=== PATIENT | female | born 1975 | race Caucasian/White ===

== ENCOUNTER 2017-12-07 23:20 | Emergency (ER) | payer SELFPAY ==
[2017-12-07] MEDS ORDERED: TYLENOL PO ONE (23:45)
[2017-12-08] MEDS ORDERED: TYLENOL PO ONE (00:27)
[2017-12-08 00:36] LABS: Alanine Aminotransferase 14 units/L (7-56); Albumin 3.7 g/dL (3.9-5); BUN/Creatinine Ratio 38; Blood Urea Nitrogen 23 mg/dL (7-17); Calcium 9.5 mg/dL (8.4-10.2); Hemolysis Index 0
[2017-12-08 00:44] LABS: Hematocrit 33.9 % (30.3-42.9); Hemoglobin 10.8 gm/dl (10.1-14.3); Mean Corpuscular HGB Conc 32 % (30-34); Platelet Count 399 K/mm3 (140-440); Red Blood Count 5.23 M/mm3 (3.65-5.03)
[2017-12-08 00:46] LABS: Mean Corpuscular Hemoglobin 21 pg (28-32); Mean Corpuscular Volume 65 fl (79-97); Red Cell Distribution Width 20.7 % (13.2-15.2)
[2017-12-08 01:02] LABS: Bilirubin,Urine NEG (Negative); Color,Urine Red (Yellow); Urobilinogen,Urine < 2.0 mg/dL (<2.0)
[2017-12-08] MEDS ORDERED: MORPHINE IV ONE (01:07)
[2017-12-08 01:08] VITALS: BP 153/65
[2017-12-08 01:12] LABS: Blood,Urine Large (Negative); Protein,Urine Color Interference mg/dL (Negative); RBC,Urine > 182.0 /HPF (0.0-6.0)
[2017-12-08 01:13] LABS: Hyaline Casts,Urine Rare /LPF; Mucus,Urine Few /HPF
--- NOTE | 2017-12-08 01:39 | Emergency Department Report ---
<CANDIE CHILDRESS - Last Filed: 12/08/17 01:39> ED HPI - General Chief complaint: Abdominal Pain Stated complaint: /BLEEDING Time Seen by Provider: 12/08/17 00:22 Source: patient Mode of arrival: Ambulatory Limitations: No Limitations - History of Present Illness Initial comments: Patient is a 42-year-old female who is presenting with 3 days of vaginal bleeding. Patient states it started spotting but has become much heavier and more painful. Patient states she has 8 out of 10 suprapubic pain. Patient states is crampy in nature. Patient has not had ultrasound this . Patient is partially weeks . Patient states she has had a miscarriage in the past. - Related Data Previous Rx's Medication Instructions Recorded Last Taken Type HYDROcodone/APAP 7.5-325 [[place] 1 each PO Q6HR PRN #20 tablet 05/18/13 Unknown Rx 7.5/325 mg] Albuterol Sulfate [Ventolin HFA] 2 puff IH Q4H PRN #1 hfa.aer.ad 02/13/15 Unknown Rx metFORMIN [Glucophage] 500 mg PO BID #60 tablet 02/13/15 Unknown Rx Nitrofurantoin [place]/M-Cryst 100 mg PO Q12HR #14 capsule 11/25/15 Unknown Rx [Macrobid CAP] Nitrofurantoin Monohyd/M-Cryst 100 mg PO BID #14 capsule 12/08/17 Unknown Rx [Macrobid 100 mg Capsule] Allergies Allergy/AdvReac Type Severity Reaction Status Date / Time No Known Allergies Allergy Verified 05/17/13 23:27 ED Review of Systems ROS: Stated complaint: /BLEEDING Other details as noted in HPI Comment: All other systems reviewed and negative ED Past Medical Hx - Past Medical History Previous Medical History?: Yes Hx Diabetes: Yes Hx Asthma: Yes Additional medical history: ovarian cyst - Surgical History Past Surgical History?: Yes Additional Surgical History: see HPI - Social History Smoking Status: Never Smoker Substance Use Type: None - Medications Home Medications: Home Medications Medication Instructions Recorded Confirmed Last Taken Type HYDROcodone/APAP 7.5-325 [[place] 1 each PO Q6HR PRN #20 tablet 05/18/13 Unknown Rx 7.5/325 mg] Albuterol Sulfate [Ventolin HFA] 2 puff IH Q4H PRN #1 hfa.aer.ad 02/13/15 Unknown Rx metFORMIN [Glucophage] 500 mg PO BID #60 tablet 02/13/15 Unknown Rx Nitrofurantoin [place]/M-Cryst 100 mg PO Q12HR #14 capsule 11/25/15 Unknown Rx [Macrobid CAP] Nitrofurantoin Monohyd/M-Cryst 100 mg PO BID #14 capsule 12/08/17 Unknown Rx [Macrobid 100 mg Capsule] ED Physical Exam - General Limitations: No Limitations General appearance: alert, in distress (secondary to pain) - Head Head exam: Present: atraumatic, normocephalic - Eye Eye exam: Present: normal appearance - ENT ENT exam: Present: mucous membranes moist - Neck Neck exam: Present: normal inspection - Respiratory Respiratory exam: Present: normal lung sounds bilaterally. Absent: respiratory distress, wheezes, rales, rhonchi - Cardiovascular Cardiovascular Exam: Present: regular rate, normal rhythm, normal heart sounds. Absent: systolic murmur, diastolic murmur, rubs, gallop - GI/Abdominal GI/Abdominal exam: Present: soft, tenderness (suprapubic tenderness), normal bowel sounds. Absent: distended, guarding, rebound, rigid - Extremities Exam Extremities exam: Present: normal inspection - Back Exam Back exam: Present: normal inspection - Neurological Exam Neurological exam: Present: alert, oriented X3 - Psychiatric Psychiatric exam: Present: normal affect, normal mood - Skin Skin exam: Present: warm, dry, intact, normal color. Absent: rash ED Course Vital Signs 12/07/17 12/08/17 23:41 01:02 Temperature 97.3 F L Pulse Rate 80 Respiratory 16 Rate Blood Pressure 150/80 153/65 O2 Sat by Pulse 98 Oximetry ED Medical Decision Making - Lab Data Result diagrams: 12/07/17 23:57 12/07/17 23:57 Lab Results 12/07/17 12/07/17 12/07/17 Range/Units 23:57 23:57 23:57 WBC 8.8 (4.5-11.0) K/mm3 RBC 5.23 H (3.65-5.03) M/mm3 Hgb 10.8 (10.1-14.3) gm/dl Hct 33.9 (30.3-42.9) % MCV 65 L (79-97) fl MCH 21 L (28-32) pg MCHC 32 (30-34) % RDW 20.7 H (13.2-15.2) % Plt Count 399 (140-440) K/mm3 Sodium 134 L (137-145) mmol/L Potassium 4.4 (3.6-5.0) mmol/L Chloride 95.8 L (98-107) mmol/L Carbon Dioxide 22 (22-30) mmol/L Anion Gap 21 mmol/L BUN 23 H (7-17) mg/dL Creatinine 0.6 L (0.7-1.2) mg/dL Estimated GFR > 60 ml/min BUN/Creatinine Ratio 38 % Glucose 179 H (65-100) mg/dL Calcium 9.5 (8.4-10.2) mg/dL Total Bilirubin < 0.20 (0.1-1.2) mg/dL AST 10 (5-40) units/L ALT 14 (7-56) units/L Alkaline Phosphatase 118 (35-129) units/L Total Protein 7.1 (6.3-8.2) g/dL Albumin 3.7 L (3.9-5) g/dL Albumin/Globulin Ratio 1.1 % HCG, Quant 4682 H (0-4) mIU/mL Urine Color (Yellow) Urine Turbidity (Clear) Urine pH (5.0-7.0) Ur Specific [place] (1.003-1.030) Urine Protein (Negative) mg/dL Urine Glucose (UA) (Negative) mg/dL Urine Ketones (Negative) mg/dL Urine Blood (Negative) Urine Nitrite (Negative) Urine Bilirubin (Negative) Urine Urobilinogen (<2.0) mg/dL Ur Leukocyte Esterase (Negative) Urine WBC (Auto) (0.0-6.0) /HPF Urine RBC (Auto) (0.0-6.0) /HPF Hyaline Casts /LPF Urine Mucus /HPF Blood Type Antibody Screen 12/07/17 12/08/17 Range/Units 23:57 00:31 WBC (4.5-11.0) K/mm3 RBC (3.65-5.03) M/mm3 Hgb (10.1-14.3) gm/dl Hct (30.3-42.9) % MCV (79-97) fl MCH (28-32) pg MCHC (30-34) % RDW (13.2-15.2) % Plt Count (140-440) K/mm3 Sodium (137-145) mmol/L Potassium (3.6-5.0) mmol/L Chloride (98-107) mmol/L Carbon Dioxide (22-30) mmol/L Anion Gap mmol/L BUN (7-17) mg/dL Creatinine (0.7-1.2) mg/dL Estimated GFR ml/min BUN/Creatinine Ratio % Glucose (65-100) mg/dL Calcium (8.4-10.2) mg/dL Total Bilirubin (0.1-1.2) mg/dL AST (5-40) units/L ALT (7-56) units/L Alkaline Phosphatase (35-129) units/L Total Protein (6.3-8.2) g/dL Albumin (3.9-5) g/dL Albumin/Globulin Ratio % HCG, Quant (0-4) mIU/mL Urine Color Red (Yellow) Urine Turbidity Cloudy (Clear) Urine pH 6.0 (5.0-7.0) Ur Specific [place] 1.015 (1.003-1.030) Urine Protein Color interference (Negative) mg/dL Urine Glucose (UA) Color interference (Negative) mg/dL Urine Ketones Neg (Negative) mg/dL Urine Blood Large A (Negative) Urine Nitrite Neg (Negative) Urine Bilirubin Neg (Negative) Urine Urobilinogen < 2.0 (<2.0) mg/dL Ur Leukocyte Esterase Small (Negative) Urine WBC (Auto) 66.0 H (0.0-6.0) /HPF Urine RBC (Auto) > 182.0 (0.0-6.0) /HPF Hyaline Casts Rare /LPF Urine Mucus Few /HPF Blood Type B POSITIVE Antibody Screen Negative - Radiology Data Radiology results: pending (ultrasound to be followed up by Dr. Smith) Critical care attestation.: If time is entered above; I have spent that time in minutes in the direct care of this critically ill patient, excluding procedure time. ED Disposition Clinical Impression: First trimester bleeding, UTI (urinary tract infection), Incomplete Disposition: TO HOME OR SELFCARE Condition: Stable Instructions: Threatened Miscarriage (ED), Spontaneous Miscarriage (ED), Urinary Tract Infection in Women (ED) Additional Instructions: Based on ultrasound in position of the uterine sac it is likely that you are in a process of having an incomplete . To confirm this you will need a repeat follow-up and testing to trend the Beta HCG/baby hormone level. If this number is decreasing then miscarriage is the likely diagnosis. Your beta HCG hormone today is 4682. Your blood type is B+. You have been provided a copy of the ultrasound reports. Return if symptoms worsen as indicated by your discharge instructions. Take Tylenol as needed for pain until miscarriage is confirmed. Prescriptions: Nitrofurantoin Monohyd/M-Cryst [Macrobid 100 mg Capsule] 100 mg PO BID #14 capsule Referrals: CONCETTA CHU MD [Staff Physician] - 2-3 Days <SONIA SMITH - Last Filed: 12/08/17 03:17> ED Medical Decision Making - Lab Data Result diagrams: 12/07/17 23:57 12/07/17 23:57 - Radiology Data Radiology results: report reviewed FINAL REPORT EXAM: US OB TRANSVAGINAL HISTORY: preg with vag bleed TECHNIQUE: Transvaginal imaging was obtained the pelvis. FINDINGS: The uterus is anteverted measuring 13 cm x 4.5 cm x 6.2 cm. There is thickening of the endometrium measuring 19.2 mm. In the lower uterine segment extending to the cervix is a deformed cystic structure with mean sac diameter 15.5 mm. This corresponds to a 6 week 3 day . The sac is empty. There is no evidence of yolk sac or pole. Free fluid is not seen. The right ovary is normal size contour and echotexture measuring 2.2 cm x 1.4 cm x 1.2 cm. The left ovary measures 2.9 cm x 2.1 cm x 2.3 cm. There is a 2 cm hypoechoic area in the left ovary most likely representing hemorrhagic cyst. IMPRESSION: Thickened endometrium with deformed intrauterine sac-like structure in the lower uterine segment extending the cervix without pole or yolk sac. The findings most likely represent incomplete . Probable 2 cm hemorrhagic cyst in left ovary. No evidence of free fluid or ectopic . FINAL REPORT EXAM: US OB lt; = 14 WEEKS FETUS HISTORY: preg with vag bleed TECHNIQUE: Transabdominal imaging was obtained of the pelvis. FINDINGS: The uterus is anteverted measuring 13 cm x 4.5 cm x 6.2 cm. There is thickening of the endometrium measuring 19.2 mm in thickness. In the lower uterine segment and cervix is a deformed sac-like structure with mean sac diameter 15.5 mm. This would correspond to a 6 week 3 day . The sac is empty. There is no evidence of pole or yolk sac. Free fluid is not seen. The right ovary is normal size contour and echotexture measuring 2.2 cm x 1.4 cm x 1.2 cm. The left ovary measures 2.9 cm x 2.1 cm x 2.3 cm. Within the left ovary is a hypoechoic structure measuring 2 cm in diameter most likely representing hemorrhagic cyst. IMPRESSION: Deformed intrauterine sac-like structure in the lower uterine segment and cervix without pole or yolk sac. The findings are compatible with an incomplete . 2 cm hypoechoic area in the left ovary compatible hemorrhagic cyst/corpus luteum cyst. No evidence of free fluid or adnexal masses. - Medical Decision Making Ultrasound compatible with incomplete . Patient not require RhoGAM. Discussed with Dr. Chu DIRECTOR OF HOME HEALTH SERVICES. Follow-up advised. Patient provided a copy of her ultrasound report to assist in follow-up. Antibiotic for UTI has been prescribed. ED Disposition Is pt being admited?: No Time of Disposition: 03:16
--- NOTE | 2017-12-08 02:41 | Ultrasound Report ---
FINAL REPORT EXAM: US OB TRANSVAGINAL HISTORY: preg with vag bleed TECHNIQUE: Transvaginal imaging was obtained the pelvis. FINDINGS: The uterus is anteverted measuring 13 cm x 4.5 cm x 6.2 cm. There is thickening of the endometrium measuring 19.2 mm. In the lower uterine segment extending to the cervix is a deformed cystic structure with mean sac diameter 15.5 mm. This corresponds to a 6 week 3 day . The sac is empty. There is no evidence of yolk sac or pole. Free fluid is not seen. The right ovary is normal size contour and echotexture measuring 2.2 cm x 1.4 cm x 1.2 cm. The left ovary measures 2.9 cm x 2.1 cm x 2.3 cm. There is a 2 cm hypoechoic area in the left ovary most likely representing hemorrhagic cyst. IMPRESSION: Thickened endometrium with deformed intrauterine sac-like structure in the lower uterine segment extending the cervix without pole or yolk sac. The findings most likely represent incomplete . Probable 2 cm hemorrhagic cyst in left ovary. No evidence of free fluid or ectopic .
--- NOTE | 2017-12-08 02:44 | Ultrasound Report ---
FINAL REPORT EXAM: US OB < = 14 WEEKS FETUS HISTORY: preg with vag bleed TECHNIQUE: Transabdominal imaging was obtained of the pelvis. FINDINGS: The uterus is anteverted measuring 13 cm x 4.5 cm x 6.2 cm. There is thickening of the endometrium measuring 19.2 mm in thickness. In the lower uterine segment and cervix is a deformed sac-like structure with mean sac diameter 15.5 mm. This would correspond to a 6 week 3 day . The sac is empty. There is no evidence of pole or yolk sac. Free fluid is not seen. The right ovary is normal size contour and echotexture measuring 2.2 cm x 1.4 cm x 1.2 cm. The left ovary measures 2.9 cm x 2.1 cm x 2.3 cm. Within the left ovary is a hypoechoic structure measuring 2 cm in diameter most likely representing hemorrhagic cyst. IMPRESSION: Deformed intrauterine sac-like structure in the lower uterine segment and cervix without pole or yolk sac. The findings are compatible with an incomplete . 2 cm hypoechoic area in the left ovary compatible hemorrhagic cyst/corpus luteum cyst. No evidence of free fluid or adnexal masses.
[2017-12-08 04:32] LABS: Anisocytosis 1+; Band Neutrophils # (Manual) 0.4 K/mm3; Basophils % (Manual) 0 % (0.0-1.8); Hypochromasia 1+; Total Cells Counted 100
== END 2017-12-08 03:52 | disposition home or self-care (01) ==
LOC: ED 23:20
DX: O26.891 Other specified pregnancy related conditions, first trimester (principal); O20.8 Other hemorrhage in early pregnancy; O23.41 Unspecified infection of urinary tract in pregnancy, first trimester; O03.4 Incomplete spontaneous abortion without complication; O99.511 Diseases of the respiratory system complicating pregnancy, first trimester; O24.911 Unspecified diabetes mellitus in pregnancy, first trimester; Z3A.00 Weeks of gestation of pregnancy not specified; Z79.899 Other long term (current) drug therapy
CPT/HCPCS: 36415; 76801; 76817; 80053; 81001; 84702; 85007; 85025; 86850; 86900; 86901; 99284; J2270

== ENCOUNTER 2018-12-19 16:50 | Emergency (ER) | payer SELFPAY ==
--- NOTE | 2018-12-19 17:32 | Event Note ---
ED Screening Note Date of service: 12/19/18 Time: 17:27 ED Screening Note: This is a a 43 y.o. F. that presents to the ER with LLE pain and swelling x 1 week. PMH of DM, HTN This initial assessment/diagnostic orders/clinical plan/treatment(s) is/are subject to change based on patients health status, clinical progression and re- assessment by fellow clinical providers in the ED. Further treatment and workup at subsequent clinical providers discretion. Patient/guardian urged not to elope from the ED as their condition may be serious if not clinically assessed and managed. Initial orders include: doppler
[2018-12-19 18:12] LABS: Hematocrit 29.7 % (30.3-42.9); Hemoglobin 9.2 gm/dl (10.1-14.3); Mean Corpuscular HGB Conc 31 % (30-34); Platelet Count 718 K/mm3 (140-440); Red Blood Count 4.59 M/mm3 (3.65-5.03)
[2018-12-19 18:14] LABS: Mean Corpuscular Volume 65 fl (79-97)
[2018-12-19 18:28] LABS: Alanine Aminotransferase 7 units/L (7-56); Albumin 2.4 g/dL (3.9-5); BUN/Creatinine Ratio 22; Blood Urea Nitrogen 13 mg/dL (7-17); Calcium 8.2 mg/dL (8.4-10.2); Hemolysis Index 3
[2018-12-19 18:57] LABS: Basophils % (Manual) 0 % (0.0-1.8); Total Cells Counted 100
[2018-12-19 18:58] LABS: Hypochromasia 2+; Target Cells Few
[2018-12-19 18:59] LABS: Large Platelets 1+; Ovalocytes Few; Platelet Estimate Appears Increased
[2018-12-19 19:13] LABS: Bilirubin,Urine NEG (Negative); Blood,Urine SM (Negative); Color,Urine Yellow (Yellow); Urobilinogen,Urine < 2.0 mg/dL (<2.0)
[2018-12-19 19:14] LABS: Protein,Urine >500 mg/dL (Negative)
[2018-12-19] MEDS ORDERED: HYDROcodone/ACETAMINOPHEN 5-325 MG TAB PO ONE (19:23)
[2018-12-19] MEDS ORDERED: cephALEXin 500 MG CAP PO ONE (19:23)
--- NOTE | 2018-12-19 20:46 | Emergency Department Report ---
ED General Adult HPI - General Chief complaint: Extremity Problem,Nontraumatic Stated complaint: LEFT LEG PAIN Time Seen by Provider: 12/19/18 17:26 Source: patient, EMS Mode of arrival: Wheelchair Limitations: No Limitations - History of Present Illness Initial comments: Ms. Mcelroy is a 43 y.o. F. with hx of DMII, and HTN who presents to the ER with LLE pain and swelling x 1 week. pt is lithuanian speeking and preferrs iraqi speaking for translation. pt was seen today by pcp Kofi Oliver with LLE cellulitis, her pcp fill all medications but pt states she cannot get them until tomorrow so presents to ed for pain medication only. There is no fever no chills, no n/v. pt is ambulatory with steady gait. Leg pain is 4/10 aching. pain is relieved by rest, pain is exacerbated by prolonged standing and movement. There is no calf pain no pain with dorsoflexion , no numbness. Pt has rx for Lisoniopril, Glipizide, Meforming, keflex, and lasix,. will given keflex and nsaid tonight in ed, pt will tack picker medications from pharmacy in am as planned, she has resources to secure medications. - Onset/Timin -: week(s) Location: lower extremity Severity scale (0 -10): 5 Quality: aching Consistency: intermittent Improves with: rest Worsens with: movement Associated Symptoms: denies other symptoms Treatments Prior to Arrival: none - Related Data Previous Rx's Medication Instructions Recorded Last Taken Type HYDROcodone/APAP 7.5-325 [[place] 1 each PO Q6HR PRN #20 tablet 05/18/13 Unknown Rx 7.5/325 mg] Albuterol Sulfate [Ventolin HFA] 2 puff IH Q4H PRN #1 hfa.aer.ad 02/13/15 Unknown Rx metFORMIN [Glucophage] 500 mg PO BID #60 tablet 02/13/15 Unknown Rx Nitrofurantoin [place]/M-Cryst 100 mg PO Q12HR #14 capsule 11/25/15 Unknown Rx [Macrobid CAP] Nitrofurantoin [place]/M-Cryst 100 mg PO BID #14 capsule 12/08/17 Unknown Rx [Macrobid 100 mg Capsule] traMADol [Ultram] 50 mg PO Q6HR PRN #12 tablet 12/19/18 Unknown Rx Allergies Allergy/AdvReac Type Severity Reaction Status Date / Time No Known Allergies Allergy Verified 05/17/13 23:27 ED Review of Systems ROS: Stated complaint: LEFT LEG PAIN Other details as noted in HPI Constitutional: denies: chills, fever Eyes: denies: eye pain, eye discharge, vision change ENT: denies: ear pain, throat pain Respiratory: denies: cough, shortness of breath, wheezing Cardiovascular: denies: chest pain, palpitations Endocrine: no symptoms reported Gastrointestinal: as per HPI Genitourinary: denies: urgency, dysuria, discharge Musculoskeletal: other (left leg pain) Skin: denies: rash, lesions Neurological: denies: headache, weakness, paresthesias Psychiatric: denies: anxiety, depression Hematological/Lymphatic: denies: easy bleeding, easy bruising ED Past Medical Hx - Past Medical History Previous Medical History?: Yes Hx Hypertension: Yes Hx Diabetes: Yes Hx Asthma: Yes Additional medical history: ovarian cyst - Surgical History Past Surgical History?: Yes Additional Surgical History: see HPI - Social History Smoking Status: Never Smoker Substance Use Type: None - Medications Home Medications: Home Medications Medication Instructions Recorded Confirmed Last Taken Type HYDROcodone/APAP 7.5-325 [[place] 1 each PO Q6HR PRN #20 tablet 05/18/13 Unknown Rx 7.5/325 mg] Albuterol Sulfate [Ventolin HFA] 2 puff IH Q4H PRN #1 hfa.aer.ad 02/13/15 Unknown Rx metFORMIN [Glucophage] 500 mg PO BID #60 tablet 02/13/15 Unknown Rx Nitrofurantoin [place]/M-Cryst 100 mg PO Q12HR #14 capsule 11/25/15 Unknown Rx [Macrobid CAP] Nitrofurantoin Monohyd/M-Cryst 100 mg PO BID #14 capsule 12/08/17 Unknown Rx [Macrobid 100 mg Capsule] traMADol [Ultram] 50 mg PO Q6HR PRN #12 tablet 12/19/18 Unknown Rx ED Physical Exam - General Limitations: No Limitations General appearance: alert, in no apparent distress - Head Head exam: Present: atraumatic, normocephalic - Eye Eye exam: Present: normal appearance, PERRL, EOMI Pupils: Present: normal accommodation - ENT ENT exam: Present: normal exam - Neck Neck exam: Present: normal inspection, full ROM. Absent: tenderness - Respiratory Respiratory exam: Present: normal lung sounds bilaterally. Absent: respiratory distress, wheezes, stridor, chest wall tenderness - Cardiovascular Cardiovascular Exam: Present: regular rate, normal rhythm, normal heart sounds. Absent: systolic murmur, diastolic murmur, rubs, gallop - GI/Abdominal GI/Abdominal exam: Present: soft, normal bowel sounds. Absent: distended, tenderness, bruit, hernia - Rectal Rectal exam: Present: deferred - Extremities Exam Extremities exam: Present: normal inspection, full ROM, tenderness, normal capillary refill, pedal edema. Absent: joint swelling, calf tenderness - Expanded Lower Extremity Exam Left Lower Leg exam: Present: full ROM, tenderness, swelling, erythema (mild). Absent: abrasion, laceration, ecchymosis, deformity, crepidus, dislocation, palpable cord, Paris's sign Ankle exam: Present: normal inspection, full ROM. Absent: tenderness Foot/Toe exam: Present: normal inspection, full ROM. Absent: tenderness Neuro vascular tendon exam: Absent: pulse deficit, motor deficit, sensory deficit, tendon deficit Gait: Positive: observed and normal - Back Exam Back exam: Present: normal inspection, full ROM. Absent: tenderness, CVA tenderness (R), CVA tenderness (L) - Neurological Exam Neurological exam: Present: alert, oriented X3, CN II-XII intact, normal gait, reflexes normal. Absent: motor sensory deficit - Psychiatric Psychiatric exam: Present: normal affect, normal mood - Skin Skin exam: Present: warm, dry, intact, normal color. Absent: rash ED Course Vital Signs 12/19/18 12/19/18 17:27 19:26 Temperature 97.6 F Pulse Rate 78 Respiratory 20 18 Rate Blood Pressure 118/70 O2 Sat by Pulse 100 Oximetry ED Medical Decision Making - Lab Data Result diagrams: 12/19/18 17:50 12/19/18 17:50 Labs 12/19/18 12/19/18 12/19/18 17:50 17:50 Unknown WBC 10.0 RBC 4.59 Hgb 9.2 L Hct 29.7 L MCV 65 L MCH 20 L MCHC 31 RDW 19.0 H Plt Count 718 H Add Manual Diff Complete Total Counted 100 Seg Neuts % (Manual) 86.0 H Band Neutrophils % 0 Lymphocytes % (Manual) 9.0 L Reactive Lymphs % (Man) 0 Monocytes % (Manual) 3.0 Eosinophils % (Manual) 2.0 Basophils % (Manual) 0 Metamyelocytes % 0 Myelocytes % 0 Promyelocytes % 0 Blast Cells % 0 Nucleated RBC % Not Reportable Seg Neutrophils # Man 8.6 H Band Neutrophils # 0.0 Lymphocytes # (Manual) 0.9 L Abs React Lymphs (Man) 0.0 Monocytes # (Manual) 0.3 Eosinophils # (Manual) 0.2 Basophils # (Manual) 0.0 Metamyelocytes # 0.0 Myelocytes # 0.0 Promyelocytes # 0.0 Blast Cells # 0.0 WBC Morphology Not Reportable Hypersegmented Neuts Not Reportable Hyposegmented Neuts Not Reportable Hypogranular Neuts Not Reportable Smudge Cells Not Reportable Toxic Granulation Not Reportable Toxic Vacuolation Not Reportable Dohle Bodies Not Reportable Pelger-Huet Anomaly Not Reportable Ren Rods Not Reportable Platelet Estimate Appears increased Clumped Platelets Not Reportable Plt Clumps, EDTA Not Reportable Large Platelets 1+ Giant Platelets Not Reportable Platelet Satelliting Not Reportable Plt Morphology Comment Not Reportable RBC Morphology Not Reportable Dimorphic RBCs Not Reportable Polychromasia Not Reportable Hypochromasia 2+ Poikilocytosis Not Reportable Anisocytosis Not Reportable Microcytosis 1+ Macrocytosis Not Reportable Spherocytes Not Reportable Pappenheimer Bodies Not Reportable Sickle Cells Not Reportable Target Cells Few Tear Drop Cells Not Reportable Ovalocytes Few Helmet Cells Not Reportable Bhakta-Whitecone Bodies Not Reportable Johnson Rings Not Reportable Remy Cells Not Reportable Bite Cells Not Reportable Crenated Cell Not Reportable Elliptocytes Not Reportable Acanthocytes (Spur) Not Reportable Rouleaux Not Reportable Hemoglobin C Crystals Not Reportable Schistocytes Not Reportable Malaria parasites Not Reportable Amauri Bodies Not Reportable Hem Pathologist Commnt No Sodium 136 L Potassium 3.5 L Chloride 100.6 Carbon Dioxide 25 Anion Gap 14 BUN 13 Creatinine 0.6 L Estimated GFR > 60 BUN/Creatinine Ratio 22 Glucose 114 H Calcium 8.2 L Total Bilirubin < 0.20 AST 8 ALT 7 Alkaline Phosphatase 180 H NT-Pro-B Natriuret Pep 104.2 Total Protein 6.8 Albumin 2.4 L Albumin/Globulin Ratio 0.5 Urine Color Yellow Urine Turbidity Slightly-cloudy Urine pH 7.0 Ur Specific [place] 1.021 Urine Protein >500 Urine Glucose (UA) >=500 Urine Ketones Neg Urine Blood Sm Urine Nitrite Neg Urine Bilirubin Neg Urine Urobilinogen < 2.0 Ur Leukocyte Esterase Mod Urine WBC (Auto) 7.0 H Urine RBC (Auto) 11.0 U Epithel Cells (Auto) 6.0 - Medical Decision Making tp ordered LE doppler in triage, this study is not available until am, will return to radiology in am for study and return to ed if positive, and follow up with DR. Green as scheduled, pt will pick all prescriptions as ordered, Wells DVT score is 2: plan lovenox injection now, follow up with radiology in am for NM DVT Doppler in am. Critical care attestation.: If time is entered above; I have spent that time in minutes in the direct care of this critically ill patient, excluding procedure time. ED Disposition Clinical Impression: Acute pain of left lower extremity, Lower extremity edema Disposition: TO HOME OR SELFCARE Is pt being admited?: No Does the pt Need Aspirin: No Condition: Stable Instructions: Leg Edema (ED) Additional Instructions: Return to radiology in am for Doppler study of Left Leg to rule out blood clot. , return to ed if symptoms worsen. Prescriptions: traMADol [Ultram] 50 mg PO Q6HR PRN #12 tablet PRN Reason: Pain Referrals: OTILIO GREEN MD [Referring] - 3-5 Days Time of Disposition: 21:02 Print Language: [place]
[2018-12-19] MEDS ORDERED: ENOXAPARIN 100 MG/1 ML INJ SUB-Q ONE (20:58)
--- NOTE | 2018-12-19 21:23 | Vascular Lab Report ---
DUPLEX DOPPLER LOWER EXTREMITY VEINS, LEFT INDICATION: swelling, pain, erythema, r/o dvt. TECHNIQUE: Duplex doppler imaging was performed through the veins of the left lower extremity using venous compr ession and other maneuvers. COMPARISON: No relevant prior imaging study available. FINDINGS: Left Common femoral vein: Negative. Left Superficial femoral vein: Negative. Left Popliteal vein: Negative. Left Calf veins: Negative. Additional findings: There is a single enlarged lymph node measuring 1.1 cm in short axis but with ma intained fatty hilum. There is mild hyperemia. IMPRESSION: 1. No sonographic evidence for DVT in the left lower extremity. 2. Inflamed left inguinal lymph node. Signer Name: Alan Hitchcock MD Signed: 12/19/2018 9:19 PM Workstation Name: [id number]
[2018-12-19 22:09] VITALS: BP 125/60
== END 2018-12-19 21:40 | disposition home or self-care (01) ==
LOC: ED 16:50
DX: M79.662 Pain in left lower leg (principal); R60.0 Localized edema; I10 Essential (primary) hypertension; E11.9 Type 2 diabetes mellitus without complications; J45.909 Unspecified asthma, uncomplicated; Z79.899 Other long term (current) drug therapy
CPT/HCPCS: 36415; 80053; 81001; 83880; 85007; 85025; J1650

== ENCOUNTER 2019-11-11 12:38 | Emergency (ER) | payer SELFPAY ==
[2019-11-11 13:07] VITALS: BP 161/52
--- NOTE | 2019-11-11 17:27 | XRay Report ---
LEFT KNEE 3 VIEW(S) INDICATION / CLINICAL INFORMATION: knee pian and swelling COMPARISON: None available. FINDINGS: BONES / JOINT(S): No acute fracture or subluxation. No significant arthritis. SOFT TISSUES: Moderate suprapatellar joint effusion. Generalized soft tissue swelling and edema noted along the anterior knee. ADDITIONAL FINDINGS: None. Signer Name: Jasiel Ramos MD Signed: 11/11/2019 5:22 PM Workstation Name: [id number]
[2019-11-11 17:40] LABS: Hematocrit 27.2 % (30.3-42.9); Hemoglobin 9.2 gm/dl (10.1-14.3); Mean Corpuscular HGB Conc 34 % (30-34); Platelet Count 561 K/mm3 (140-440); Red Blood Count 4.06 M/mm3 (3.65-5.03)
[2019-11-11 17:46] LABS: Mean Corpuscular Volume 67 fl (79-97); Red Cell Distribution Width 20.1 % (13.2-15.2)
--- NOTE | 2019-11-11 18:20 | Emergency Department Report ---
ED Lower Extremity HPI - General Chief Complaint: Extremity Problem,Nontraumatic Stated Complaint: ABD PAIN Time Seen by Provider: 11/11/19 15:47 Source: patient Mode of arrival: Ambulatory Limitations: No Limitations - History of Present Illness Initial Comments: 44-year-old female presents emergency department complaining of left knee swelling and pain started for the last 1 to 2 days with a warm sensation. No fevers, chills, sweats no known trauma to her knowledge but the symptoms have been progressively worsening since the onset and worse with palpation standing and various range of motion. She reports no numbness, no tingling, no known history of any arthritis to her knowledge. MD Complaint: knee injury Injury: Knee: Left Place: home Severity: moderate Associated Symptoms: swelling, able to partially bear weight - Related Data Previous Rx's Medication Instructions Recorded Last Taken Type HYDROcodone/APAP 7.5-325 [[place] 1 each PO Q6HR PRN #20 tablet 05/18/13 Unknown Rx 7.5/325 mg] Albuterol Sulfate [Ventolin HFA] 2 puff IH Q4H PRN #1 hfa.aer.ad 02/13/15 Unknown Rx metFORMIN [Glucophage] 500 mg PO BID #60 tablet 02/13/15 Unknown Rx Nitrofurantoin [place]/M-Cryst 100 mg PO Q12HR #14 capsule 11/25/15 Unknown Rx [Macrobid CAP] Nitrofurantoin Monohyd/M-Cryst 100 mg PO BID #14 capsule 12/08/17 Unknown Rx [Macrobid 100 mg Capsule] traMADoL [Ultram] 50 mg PO Q6HR PRN #12 tablet 12/19/18 Unknown Rx Colchicine 0.6 mg PO Q2HR #10 capsule NS 11/11/19 Unknown Rx predniSONE [Deltasone] 50 mg PO QDAY #5 tab 11/11/19 Unknown Rx traMADoL [Ultram] 50 mg PO Q4HR PRN #14 tablet 11/11/19 Unknown Rx Allergies Allergy/AdvReac Type Severity Reaction Status Date / Time No Known Allergies Allergy Verified 05/17/13 23:27 ED Review of Systems ROS: Stated complaint: ABD PAIN Other details as noted in HPI Comment: All other systems reviewed and negative ED Past Medical Hx - Past Medical History Previous Medical History?: Yes Hx Hypertension: Yes Hx Diabetes: Yes Hx Asthma: Yes Additional medical history: ovarian cyst - Surgical History Past Surgical History?: Yes Additional Surgical History: see HPI - Social History Smoking Status: Never Smoker Substance Use Type: None - Medications Home Medications: Home Medications Medication Instructions Recorded Confirmed Last Taken Type HYDROcodone/APAP 7.5-325 [[place] 1 each PO Q6HR PRN #20 tablet 05/18/13 Unknown Rx 7.5/325 mg] Albuterol Sulfate [Ventolin HFA] 2 puff IH Q4H PRN #1 hfa.aer.ad 02/13/15 Unknown Rx metFORMIN [Glucophage] 500 mg PO BID #60 tablet 02/13/15 Unknown Rx Nitrofurantoin [place]/M-Cryst 100 mg PO Q12HR #14 capsule 11/25/15 Unknown Rx [Macrobid CAP] Nitrofurantoin Monohyd/M-Cryst 100 mg PO BID #14 capsule 12/08/17 Unknown Rx [Macrobid 100 mg Capsule] traMADoL [Ultram] 50 mg PO Q6HR PRN #12 tablet 12/19/18 Unknown Rx Colchicine 0.6 mg PO Q2HR #10 capsule NS 11/11/19 Unknown Rx predniSONE [Deltasone] 50 mg PO QDAY #5 tab 11/11/19 Unknown Rx traMADoL [Ultram] 50 mg PO Q4HR PRN #14 tablet 11/11/19 Unknown Rx ED Physical Exam - General Limitations: No Limitations General appearance: alert, in no apparent distress - Head Head exam: Present: atraumatic, normocephalic - Eye Eye exam: Present: normal appearance - ENT ENT exam: Present: mucous membranes moist - Neck Neck exam: Present: normal inspection - Respiratory Respiratory exam: Present: normal lung sounds bilaterally. Absent: respiratory distress - Cardiovascular Cardiovascular Exam: Present: regular rate, normal rhythm. Absent: systolic murmur, diastolic murmur, rubs, gallop - GI/Abdominal GI/Abdominal exam: Present: soft, normal bowel sounds - Extremities Exam Extremities exam: Present: normal inspection, tenderness, joint swelling - Expanded Lower Extremity Exam Left Knee exam: Present: tenderness, swelling, erythema, full knee extension. Absent: deformity, crepidus, pain w/ pronation/supination, posterior draw sign, pain/laxity with valgus, pain/laxity with varus Lower Leg exam: Present: normal inspection Ankle exam: Present: normal inspection - Back Exam Back exam: Present: normal inspection - Neurological Exam Neurological exam: Present: alert, oriented X3 - Psychiatric Psychiatric exam: Present: normal affect, normal mood - Skin Skin exam: Present: warm, dry, intact, normal color. Absent: rash ED Course Vital Signs 11/11/19 13:06 Temperature 98.4 F Pulse Rate 83 Respiratory 18 Rate Blood Pressure 161/52 O2 Sat by Pulse 99 Oximetry ED Lower Extremity MDM - Lab Data Result diagrams: 11/11/19 17:30 - Radiology Data Radiology results: report reviewed [facility] [address] [place] [address] XRay Report Signed Patient: LISE FREITAS MR#: [id number] : 1975 Acct:[id number] Age/Sex: 44 / F ADM Date: 11/11/19 Loc: ED Attending Dr: Ordering Physician: ALONZO JIMENES Date of Service: 11/11/19 Procedure(s): XR knee 3V LT Accession Number(s): [id number] cc: ALONZO JIMEENS Fluoro Time In Minutes: LEFT KNEE 3 VIEW(S) INDICATION / CLINICAL INFORMATION: knee pian and swelling COMPARISON: None available. FINDINGS: BONES / JOINT(S): No acute fracture or subluxation. No significant arthritis. SOFT TISSUES: Moderate suprapatellar joint effusion. Generalized soft tissue swelling and edema noted along the anterior knee. ADDITIONAL FINDINGS: None. Signer Name: Jasiel Andrew MD Signed: 11/11/2019 5:22 PM Workstation Name: [id number] Transcribed By: Dictated By: JASIEL ANDREW Electronically Authenticated By: JASIEL ANDREW Signed Date/Time: 11/11/191721 DD/ 19 TD/TT: - Medical Decision Making 44-year-old female with atraumatic knee pain with warmth and swelling suggestive of a possible inflammatory arthritis. The differential diagnosis includes osteoarthritis,, rheumatoid arthritis, gout, pseudogout, psoriatic arthritis joint injury, infectious process. X-ray was performed to rule out a severe arthritis, foreign body, the joint pain causes but was normal on evaluation. Plan will cover her with a gout/pseudogout given her presentation. White white blood cell count is normal and she is afebrile. However advised of the possibility of possible still having a early infectious process and advised on the need for reevaluation in 24 to 48 hours. Critical care attestation.: If time is entered above; I have spent that time in minutes in the direct care of this critically ill patient, excluding procedure time. ED Disposition Clinical Impression: Knee effusion, left, Knee pain Disposition: TO HOME OR SELFCARE Is pt being admited?: No Does the pt Need Aspirin: No Condition: Stable Instructions: Knee Effusion (ED), Osteoarthritis (ED), Acute Gouty Arthritis (ED) Prescriptions: Colchicine 0.6 mg PO Q2HR #10 capsule NS predniSONE [Deltasone] 50 mg PO QDAY #5 tab traMADoL [Ultram] 50 mg PO Q4HR PRN #14 tablet PRN Reason: Pain Referrals: CLIFFORD VANEGAS MD [Primary Care Provider] - 3-5 Days
[2019-11-11 19:45] LABS: Eosinophils % (Manual) 0 % (0.0-4.3); Hypochromasia 2+; Large Platelets Few; Ovalocytes Few; Platelet Estimate A; Target Cells Rare; Total Cells Counted 100
== END 2019-11-11 18:50 | disposition home or self-care (01) ==
LOC: ED 12:38
DX: M25.462 Effusion, left knee (principal); I10 Essential (primary) hypertension; E11.9 Type 2 diabetes mellitus without complications; J45.909 Unspecified asthma, uncomplicated; Z79.899 Other long term (current) drug therapy; Z98.890 Other specified postprocedural states
CPT/HCPCS: 36415; 85007; 85025

== ENCOUNTER 2020-01-05 17:13 | Inpatient (IN) | payer OTHER, SELFPAY ==
--- NOTE | 2020-01-05 17:42 | Event Note ---
ED Screening Note ED Screening Note: uruguayan interpretation by security lefty states began as an ulcer to the right 2nd toe states began turning black now having erythema swelling to the foot right 2nd toe is necrotic hx of DM no fall or abrasion states her work shoes cause ulcers no allergies to meds This initial assessment/diagnostic orders/clinical plan/treatment(s) is/are subject to change based on patients health status, clinical progression and re- assessment by fellow clinical providers in the ED. Further treatment and workup at subsequent clinical providers discretion. Patient/guardian urged not to elope from the ED as their condition may be serious if not clinically assessed and managed. Initial orders include: XR labs charge nurse anselmo dill pt needs room on MAIN side PRIYA
--- NOTE | 2020-01-05 18:15 | XRay Report ---
RIGHT FOOT 3 VIEWS INDICATION / CLINICAL INFORMATION: Right foot edema/erythema with necrosis of second toe. COMPARISON: None available. FINDINGS: BONES and JOINT(S): No acute fracture or subluxation. There is mild osteoarthritis at the first MTP j oint. No other significant arthritis. There is irregularity of the tip of the distal phalanx of the s econd toe. SOFT TISSUES: Moderate edema is seen throughout the second toe with irregularity of the skin surface with a suspected wound along the tip of the second toe measuring 2-3 cm. There is questionable scatte red soft tissue gas along the second toe. ADDITIONAL FINDINGS: None. IMPRESSION: 1. Right second toe wound as above with suspected osteomyelitis of the distal phalanx. Signer Name: Patrick Hannah MD Signed: 01/05/2020 6:10 PM Workstation Name: [id number]
[2020-01-05] MEDS ORDERED: VANCOMYCIN/NS 1 GM/250 ML 1 GM/250 ML BAG IV ONE (19:05)
[2020-01-05] MEDS ORDERED: cefTRIAXone/NS 1 GM/50 ML 1 GM/50 ML BAG IV ONE (19:05)
--- NOTE | 2020-01-05 19:08 | Emergency Department Report ---
HPI - General Chief Complaint: Extremity Injury, Lower Time Seen by Provider: 01/05/20 17:35 - HPI HPI: This is a 44-year-old female who presents to the emergency department with complaint of an ulcer and/or infection to the 2nd toe of her right foot that has been going on for the past 8 days. It started off more as an ulcer and it began to swell about 5 days ago. It has gotten progressively more painful. The patient went to an urgent care and was placed on Levaquin and Flagyl, which the patient says she has been taking compliantly. She has a past medical history of asthma, [id number] diabetes, hypertension, ovarian cysts. She denies any fever, chest pain, shortness of breath, vomiting, diaphoresis. No recent travel or sick contacts at home. The patient does not speak much Turkmen so the language line translation services were used. ED Past Medical Hx - Past Medical History Previous Medical History?: Yes Hx Hypertension: Yes Hx Diabetes: Yes Hx Asthma: Yes Additional medical history: ovarian cyst - Surgical History Past Surgical History?: Yes Additional Surgical History: see HPI - Social History Smoking Status: Never Smoker Substance Use Type: Alcohol, Prescribed - Medications Home Medications: Home Medications Medication Instructions Recorded Confirmed Last Taken Type HYDROcodone/APAP 7.5-325 [[place] 1 each PO Q6HR PRN #20 tablet 05/18/13 Unknown Rx 7.5/325 mg] Albuterol Sulfate [Ventolin HFA] 2 puff IH Q4H PRN #1 hfa.aer.ad 02/13/15 Unkn own Rx metFORMIN [Glucophage] 500 mg PO BID #60 tablet 02/13/15 Unknown Rx Nitrofurantoin [place]/M-Cryst 100 mg PO Q12HR #14 capsule 11/25/15 Unknown Rx [Macrobid CAP] Nitrofurantoin Monohyd/M-Cryst 100 mg PO BID #14 capsule 12/08/17 Unknown Rx [Macrobid 100 mg Capsule] traMADoL [Ultram] 50 mg PO Q6HR PRN #12 tablet 12/19/18 Unknown Rx Colchicine 0.6 mg PO Q2HR #10 capsule NS 11/11/19 Unknown Rx predniSONE [Deltasone] 50 mg PO QDAY #5 tab 11/11/19 Unknown Rx traMADoL [Ultram] 50 mg PO Q4HR PRN #14 tablet 11/11/19 Unknown Rx ED Review of Systems ROS: Stated complaint: SORE ON TOE/DIABETE Other details as noted in HPI Comment: All other systems reviewed and negative Constitutional: denies: chills, fever Eyes: denies: eye pain, vision change ENT: denies: ear pain, throat pain Respiratory: denies: cough, shortness of breath Cardiovascular: denies: chest pain, palpitations Gastrointestinal: denies: abdominal pain, vomiting Musculoskeletal: joint swelling, arthralgia Skin: lesions, change in color Neurological: denies: headache, weakness Physical Exam - Physical Exam Vital Signs: Vital Signs 01/05/20 17:34 Temperature 99.2 F Pulse Rate 95 H Respiratory 20 Rate Blood Pressure 156/55 O2 Sat by Pulse 100 Oximetry Physical Exam: GENERAL: The patient is well-developed well-nourished. HENT: Normocephalic. Atraumatic. Patient has moist mucous membranes. EYES: Extraocular motions are intact. NECK: Supple. Trachea is midline. CHEST/LUNGS: Clear to auscultation. There is no respiratory distress noted. HEART/CARDIOVASCULAR: Regular. There is no tachycardia. There is no murmur. ABDOMEN: Abdomen is soft, nontender. Patient has normal bowel sounds. SKIN: The right second toe is black, gangrenous and necrotic. No current bleeding, weeping or drainage. NEURO: The patient is awake, alert, and oriented. The patient is cooperative. The patient has no focal neurologic deficits. Normal speech. MUSCULOSKELETAL: There is tenderness to palpation to the second toe of the right foot. ED Course Vital Signs 01/05/20 17:34 Temperature 99.2 F Pulse Rate 95 H Respiratory 20 Rate Blood Pressure 156/55 O2 Sat by Pulse 100 Oximetry - Reevaluation(s) Reevaluation #1: 01/05/20 22:45 Lab Results 01/05/20 01/05/20 01/05/20 Range/Units 17:38 17:42 17:42 WBC 15.7 H (4.5-11.0) K/mm3 RBC 3.46 L (3.65-5.03) M/mm3 Hgb 7.0 L (10.1-14.3) gm/dl Hct 23.2 L (30.3-42.9) % MCV 67 L (79-97) fl MCH 20 L (28-32) pg MCHC 30 (30-34) % RDW 18.2 H (13.2-15.2) % Plt Count 840 H (140-440) K/mm3 Add Manual Diff Complete Total Counted 100 Seg Neuts % (Manual) 67.0 (40.0-70.0) % Band Neutrophils % 0 % Lymphocytes % (Manual) 22.0 (13.4-35.0) % Reactive Lymphs % (Man) 0 % Monocytes % (Manual) 9.0 H (0.0-7.3) % Eosinophils % (Manual) 1.0 (0.0-4.3) % Basophils % (Manual) 1.0 (0.0-1.8) % Metamyelocytes % 0 % Myelocytes % 0 % Promyelocytes % 0 % Blast Cells % 0 % Nucleated RBC % Not Reportable Seg Neutrophils # Man 10.5 H (1.8-7.7) K/mm3 Band Neutrophils # 0.0 K/mm3 Lymphocytes # (Manual) 3.5 (1.2-5.4) K/mm3 Abs React Lymphs (Man) 0.0 K/mm3 Monocytes # (Manual) 1.4 H (0.0-0.8) K/mm3 Eosinophils # (Manual) 0.2 (0.0-0.4) K/mm3 Basophils # (Manual) 0.2 H (0.0-0.1) K/mm3 Metamyelocytes # 0.0 K/mm3 Myelocytes # 0.0 K/mm3 Promyelocytes # 0.0 K/mm3 Blast Cells # 0.0 K/mm3 WBC Morphology Not Reportable Hypersegmented Neuts Not Reportable Hyposegmented Neuts Not Reportable Hypogranular Neuts Not Reportable Smudge Cells Not Reportable Toxic Granulation Not Reportable Toxic Vacuolation Not Reportable Dohle Bodies Not Reportable Pelger-Huet Anomaly Not Reportable Ren Rods Not Reportable Platelet Estimate Not Reportable Clumped Platelets Not Reportable Plt Clumps, EDTA Not Reportable Large Platelets Few Giant Platelets Not Reportable Platelet Satelliting Not Reportable Plt Morphology Comment Not Reportable RBC Morphology Not Reportable Dimorphic RBCs Not Reportable Polychromasia Not Reportable Hypochromasia 1+ Poikilocytosis Not Reportable Anisocytosis Not Reportable Microcytosis 1+ Macrocytosis Not Reportable Spherocytes Not Reportable Pappenheimer Bodies Not Reportable Sickle Cells Not Reportable Target Cells Rare Tear Drop Cells Not Reportable Ovalocytes Few Helmet Cells Not Reportable [place] Bodies Not Reportable [place] Rings Not Reportable [place] Cells Not Reportable Bite Cells Not Reportable Crenated Cell Not Reportable Elliptocytes Not Reportable Acanthocytes (Spur) Not Reportable Rouleaux Not Reportable Hemoglobin C Crystals Not Reportable Schistocytes Not Reportable Malaria parasites Not Reportable Amauri Bodies Not Reportable Hem Pathologist Commnt No Sodium 133 L (137-145) mmol/L Potassium 4.5 (3.6-5.0) mmol/L Chloride 100.8 (98-107) mmol/L Carbon Dioxide 21 L (22-30) mmol/L Anion Gap 16 mmol/L BUN 23 H (7-17) mg/dL Creatinine 1.1 (0.6-1.2) mg/dL Estimated GFR 54 ml/min BUN/Creatinine Ratio 21 % Glucose 126 H (65-100) mg/dL POC Glucose 104 (70-105) mg/dL Hemoglobin A1c (4-6) % Lactic Acid (0.7-2.0) mmol/L Calcium 8.3 L (8.4-10.2) mg/dL Total Bilirubin < 0.20 (0.1-1.2) mg/dL AST 7 (5-40) units/L ALT 7 (7-56) units/L Alkaline Phosphatase 144 H (35-129) units/L Total Protein 7.4 (6.3-8.2) g/dL Albumin 2.1 L (3.9-5) g/dL Albumin/Globulin Ratio 0.4 % 01/05/20 01/05/20 Range/Units 17:42 17:42 WBC (4.5-11.0) K/mm3 RBC (3.65-5.03) M/mm3 Hgb (10.1-14.3) gm/dl Hct (30.3-42.9) % MCV (79-97) fl MCH (28-32) pg MCHC (30-34) % RDW (13.2-15.2) % Plt Count (140-440) K/mm3 Add Manual Diff Total Counted Seg Neuts % (Manual) (40.0-70.0) % Band Neutrophils % % Lymphocytes % (Manual) (13.4-35.0) % Reactive Lymphs % (Man) % Monocytes % (Manual) (0.0-7.3) % Eosinophils % (Manual) (0.0-4.3) % Basophils % (Manual) (0.0-1.8) % Metamyelocytes % % Myelocytes % % Promyelocytes % % Blast Cells % % Nucleated RBC % Seg Neutrophils # Man (1.8-7.7) K/mm3 Band Neutrophils # K/mm3 Lymphocytes # (Manual) (1.2-5.4) K/mm3 Abs React Lymphs (Man) K/mm3 Monocytes # (Manual) (0.0-0.8) K/mm3 Eosinophils # (Manual) (0.0-0.4) K/mm3 Basophils # (Manual) (0.0-0.1) K/mm3 Metamyelocytes # K/mm3 Myelocytes # K/mm3 Promyelocytes # K/mm3 Blast Cells # K/mm3 WBC Morphology Hypersegmented Neuts Hyposegmented Neuts Hypogranular Neuts Smudge Cells Toxic Granulation Toxic Vacuolation Dohle Bodies Pelger-Huet Anomaly Ren Rods Platelet Estimate Clumped Platelets Plt Clumps, EDTA Large Platelets Giant Platelets Platelet Satelliting Plt Morphology Comment RBC Morphology Dimorphic RBCs Polychromasia Hypochromasia Poikilocytosis Anisocytosis Microcytosis Macrocytosis Spherocytes Pappenheimer Bodies Sickle Cells Target Cells Tear Drop Cells Ovalocytes Helmet Cells [place] Bodies [place] Rings Remy Cells Bite Cells Crenated Cell Elliptocytes Acanthocytes (Spur) Rouleaux Hemoglobin C Crystals Schistocytes Malaria parasites Amauri Bodies Hem Pathologist Commnt Sodium (137-145) mmol/L Potassium (3.6-5.0) mmol/L Chloride (98-107) mmol/L Carbon Dioxide (22-30) mmol/L Anion Gap mmol/L BUN (7-17) mg/dL Creatinine (0.6-1.2) mg/dL Estimated GFR ml/min BUN/Creatinine Ratio % Glucose (65-100) mg/dL POC Glucose (70-105) mg/dL Hemoglobin A1c 14.3 H (4-6) % Lactic Acid 1.30 (0.7-2.0) mmol/L Calcium (8.4-10.2) mg/dL Total Bilirubin (0.1-1.2) mg/dL AST (5-40) units/L ALT (7-56) units/L Alkaline Phosphatase (35-129) units/L Total Protein (6.3-8.2) g/dL Albumin (3.9-5) g/dL Albumin/Globulin Ratio % - Consultations Consultation #1: 01/05/20 22:46 Initially I spoke to the orthopedist on-call, Dr. Puckett. However, Dr. Puckett says that he does not deal with osteomyelitis of the toe and that the wound care general surgeons should be consulted. I spoke to Dr. Alvarado, but he is out of town for the week. I then spoke with Dr. Meek who has allowed me to place a consult for her, but she will contact Dr. Barrios tomorrow. ED Medical Decision Making - Lab Data Result diagrams: 01/05/20 17:42 01/05/20 17:42 - Radiology Data Radiology results: report reviewed RIGHT FOOT 3 VIEWS INDICATION / CLINICAL INFORMATION: Right foot edema/erythema with necrosis of second toe. COMPARISON: None available. FINDINGS: BONES and JOINT(S): No acute fracture or subluxation. There is mild osteoarthritis at the first MTP joint. No other significant arthritis. There is irregularity of the tip of the distal phalanx of the second toe. SOFT TISSUES: Moderate edema is seen throughout the second toe with irregularity of the skin surface with a suspected wound along the tip of the second toe measuring 2-3 cm. There is questionable scattered soft tissue gas along the second toe. ADDITIONAL FINDINGS: None. IMPRESSION: 1. Right second toe wound as above with suspected osteomyelitis of the distal phalanx. - Medical Decision Making This patient presents with a 1 week history of progressively worsening wound and/or infection to the right second toe. Initially it was more of a diabetic ulcer, but now it is black, necrotic and gangrenous. X-ray shows concern for osteomyelitis of the distal portion of the second phalanx. Patient has a leukocytosis of about 16,000. No acute hyperglycemia, but hemoglobin A1c was later checked by the hospitalist and was 14.7. Patient's vital signs reassuring throughout her ED course thus far including being afebrile. The patient was placed on vancomycin and Rocephin. She will be admitted to the hospital for further evaluation and treatment and was accepted for admission by the hospitalist, Dr. Chung. Critical Care Time: No Critical care attestation.: If time is entered above; I have spent that time in minutes in the direct care of this critically ill patient, excluding procedure time. ED Disposition Clinical Impression: Gangrene of toe of right foot, Osteomyelitis of second toe of right foot Disposition: OP ADMIT IP TO THIS HOSP Is pt being admited?: Yes Condition: Serious Time of Disposition: 21:23
[2020-01-05 19:22] LABS: Alanine Aminotransferase 7 units/L (7-56); Albumin 2.1 g/dL (3.9-5); BUN/Creatinine Ratio 21; Blood Urea Nitrogen 23 mg/dL (7-17); Calcium 8.3 mg/dL (8.4-10.2); Hemolysis Index 7
[2020-01-05 19:24] LABS: Hematocrit 23.2 % (30.3-42.9); Mean Corpuscular HGB Conc 30 % (30-34); Platelet Count 840 K/mm3 (140-440); Red Blood Count 3.46 M/mm3 (3.65-5.03); Red Cell Distribution Width 18.2 % (13.2-15.2)
[2020-01-05 19:26] LABS: Mean Corpuscular Volume 67 fl (79-97)
[2020-01-05 19:54] LABS: Hypochromasia 1+; Large Platelets Few; Ovalocytes Few; Target Cells Rare; Total Cells Counted 100
[2020-01-05] MEDS ORDERED: VANCOMYCIN 1,500 MG in SODIUM CHLORIDE 0.9% 500 ML 500 ML IV ONE (20:00)
[2020-01-05] MEDS ORDERED: MAGNESIUM HYDROXIDE (MOM) ORAL LIQD UDC PO PRN (21:36)
[2020-01-05] MEDS ORDERED: ACETAMINOPHEN 325 MG TAB PO PRN (21:36)
[2020-01-05] MEDS ORDERED: DEXTROSE 50% IN WATER (25GM) 50 ML SYRINGE IV PRN (21:36)
--- NOTE | 2020-01-05 21:44 | History and Physical Report ---
History of Present Illness Date of examination: 01/05/20 Date of admission: 01/05/2020 Chief complaint: Infection/Wound on right big toe. History of present illness: 44-year-old female with known history of hypertension and diabetes mellitus presenting to the emergency room today complaining of also and infection of the second toe on right foot which has been ongoing for about a week. Patient indicates that wound started as a small ulcer but she began to have some swelling over the past 5 days. Right foot has been getting red and painful. She denies any recent trauma and denies any fall. Patient denies any fever or chills, no chest pain or shortness of breath, no headache or dizziness. Patient denies any sick contacts and no recent travel. She was recently seen by her primary care physician with the above complaints and she was placed on Levaquin and Flagyl but patient indicates that wound is not getting better. Patient has also been on some iron pills lately because of anemia. She denies any excessive bleeding during her menstruation and she denies any bright red blood per rectum or black stool. Upon evaluation in the emergency room today x-ray of the right foot reveals: Right second toe wound with suspected osteomyelitis of the distal phalanx. Labs reveals leukocytosis and low hemoglobin of 7. Patient being admitted for cellulitis/osteomyelitis of the second toe on right foot. Past History Past Medical History: diabetes, hypertension, other (Ovarian Cyst,Asthma) Past Surgical History: Social history: alcohol abuse Family history: no significant family history Medications and Allergies Allergies Allergy/AdvReac Type Severity Reaction Status Date / Time No Known Allergies Allergy Verified 05/17/13 23:27 Home Medications Medication Instructions Recorded Confirmed Last Taken Type HYDROcodone/APAP 7.5-325 [[place] 1 each PO Q6HR PRN #20 tablet 05/18/13 Unknown Rx 7.5/325 mg] Albuterol Sulfate [Ventolin HFA] 2 puff IH Q4H PRN #1 hfa.aer.ad 02/13/15 Unknown Rx metFORMIN [Glucophage] 500 mg PO BID #60 tablet 02/13/15 Unknown Rx Nitrofurantoin Kay/M-Cryst 100 mg PO Q12HR #14 capsule 11/25/15 Unknown Rx [Macrobid CAP] Nitrofurantoin Monohyd/M-Cryst 100 mg PO BID #14 capsule 12/08/17 Unknown Rx [Macrobid 100 mg Capsule] traMADoL [Ultram] 50 mg PO Q6HR PRN #12 tablet 12/19/18 Unknown Rx Colchicine 0.6 mg PO Q2HR #10 capsule NS 11/11/19 Unknown Rx predniSONE [Deltasone] 50 mg PO QDAY #5 tab 11/11/19 Unknown Rx traMADoL [Ultram] 50 mg PO Q4HR PRN #14 tablet 11/11/19 Unknown Rx Active Meds: Active Medications Acetaminophen (Tylenol) 650 mg PO Q4H PRN PRN Reason: Pain MILD(1-3)/Fever >100.5/SULLIVAN Dextrose (D50w (25gm) Syringe) 50 ml IV Q30MIN PRN; Protocol PRN Reason: Hypoglycemia Ondansetron HCl (Zofran) 4 mg IV Q8H PRN PRN Reason: Nausea And Vomiting Sodium Chloride (Sodium Chloride Flush Syringe 10 Ml) 10 ml IV BID SIDNEY Review of Systems Constitutional: no fever, no chills Ears, nose, mouth and throat: no nasal congestion, no sore throat Cardiovascular: no chest pain, no palpitations Respiratory: no cough, no shortness of breath Gastrointestinal: no abdominal pain, no nausea, no vomiting, no diarrhea Genitourinary Female: no pelvic pain, no flank pain, no dysuria, no hematuria Musculoskeletal: no neck pain, no low back pain Integumentary: wounds (On right second toe), color changes (darkening of skin on right second toe.), no rash, no pruritis Neurological: no headaches, no confusion Psychiatric: no anxiety, no depression Exam - Constitutional Vitals: Temp Pulse Resp BP Pulse Ox 97.6 F 81 16 115/56 98 01/05/20 21:32 01/05/20 21:31 01/05/20 21:31 01/05/20 21:31 01/05/20 21:31 General appearance: Present: no acute distress, well-nourished - EENT Eyes: Present: PERRL, EOM intact. Absent: scleral icterus ENT: hearing intact, clear oral mucosa, dentition normal - Neck Neck: Present: supple, normal ROM - Respiratory Respiratory effort: normal Respiratory: bilateral: CTA - Cardiovascular Rhythm: regular Heart Sounds: Present: S1 & S2. Absent: gallop, systolic murmur, diastolic murmur, rub - Extremities Extremities: no ischemia, pulses intact, pulses symmetrical, Full ROM Extremity abnormal: edema (Trace right ankle edema.), erythema (On dorsum of right foot.), black (Second right toe), tenderness, other (Dorsum of right foot feels warm to touch) Peripheral Pulses: within normal limits - Abdominal General gastrointestinal: Present: soft, non-tender, non-distended, normal bowel sounds. Absent: mass - Integumentary Integumentary: Present: clear, warm, dry - Musculoskeletal Musculoskeletal: strength equal bilaterally - Psychiatric Psychiatric: appropriate mood/affect, intact judgment & insight, memory intact, cooperative - Neurologic Neurologic: CNII-XII intact, no focal deficits, moves all extremities Results - Labs CBC & Chem 7: 01/05/20 17:42 01/05/20 17:42 Labs: Abnormal lab results 01/05/20 01/05/20 Range/Units 17:42 17:42 WBC 15.7 H (4.5-11.0) K/mm3 RBC 3.46 L (3.65-5.03) M/mm3 Hgb 7.0 L (10.1-14.3) gm/dl Hct 23.2 L (30.3-42.9) % MCV 67 L (79-97) fl MCH 20 L (28-32) pg RDW 18.2 H (13.2-15.2) % Plt Count 840 H (140-440) K/mm3 Monocytes % (Manual) 9.0 H (0.0-7.3) % Seg Neutrophils # Man 10.5 H (1.8-7.7) K/mm3 Monocytes # (Manual) 1.4 H (0.0-0.8) K/mm3 Basophils # (Manual) 0.2 H (0.0-0.1) K/mm3 Sodium 133 L (137-145) mmol/L Carbon Dioxide 21 L (22-30) mmol/L BUN 23 H (7-17) mg/dL Glucose 126 H (65-100) mg/dL Calcium 8.3 L (8.4-10.2) mg/dL Alkaline Phosphatase 144 H (35-129) units/L Albumin 2.1 L (3.9-5) g/dL Assessment and Plan - Patient Problems (1) Osteomyelitis of second toe of right foot Current Visit: Yes Status: Acute Plan to address problem: Patient placed on empiric IV antibiotics. Consult has also been placed to general surgery for evaluation and recommendation. (2) Gangrene of toe of right foot Current Visit: Yes Status: Acute Plan to address problem: Extra findings suggestive of gangrene. Will continue on empiric IV antibiotics and await further evaluation by surgery. (3) Anemia Current Visit: Yes Status: Acute Plan to address problem: Microcytic, Patient indicates that she has been on iron pills lately. She denies any excessive bleeding during menstruation. Check iron studies,stool hemoccult. Will monitor CBC and will transfuse with packed red blood cells if needed. (4) Diabetes mellitus Current Visit: Yes Status: Acute Plan to address problem: Will monitor accu-checks closely. (5) DVT prophylaxis Current Visit: Yes Status: Acute Plan to address problem: Patient placed on sequential compression device. We will hold off on anticoagulation in view of possible surgical intervention. (6) Full code status Current Visit: Yes Status: Acute
[2020-01-05] MEDS ORDERED: VANCOMYCIN PHARMACY TO DOSE IV SCH (22:00)
[2020-01-05] MEDS: SODIUM CHLORIDE 0.9% 1000 ML 1,000 ML IV SCH (23:57)
[2020-01-05] MEDS: PIPERACIL/TAZOBACTA 4.5/NS 100 4.5 GM/100 ML VIAL IV SCH (23:58)
[2020-01-06] MEDS: INSULIN LISPRO 100 UNIT/ML VIAL 3 mL SUB-Q SCH ×4 (00:06→16:30)
[2020-01-06] MEDS: MORPHINE 2 MG/1 ML INJ IV PRN ×2 (00:51→04:59)
[2020-01-06 04:57] LABS: Basophils # (Auto) 0.1 K/mm3 (0.0-0.1); Basophils % (Auto) 0.5 % (0.0-1.8); Eosinophils # (Auto) 0.1 K/mm3 (0.0-0.4); Eosinophils % (Auto) 0.9 % (0.0-4.3); Lymphocytes # (Auto) 2.6 K/mm3 (1.2-5.4); Lymphocytes % (Auto) 19.6 % (13.4-35.0); Mean Corpuscular HGB Conc 31 % (30-34); Monocytes # (Auto) 0.9 K/mm3 (0.0-0.8); Platelet Count 655 K/mm3 (140-440); Red Cell Distribution Width 17.4 % (13.2-15.2)
[2020-01-06 04:58] LABS: Calcium 7.5 mg/dL (8.4-10.2)
[2020-01-06] MEDS: PIPERACIL/TAZOBACTA 4.5/NS 100 4.5 GM/100 ML VIAL IV SCH ×2 (05:01→14:00)
[2020-01-06 05:02] LABS: INR 1.16 (0.87-1.13)
[2020-01-06 05:23] LABS: Mean Corpuscular Volume 68 fl (79-97)
[2020-01-06 05:30] LABS: Hematocrit 18.3 % (30.3-42.9); Hemoglobin 5.7 gm/dl (10.1-14.3)
[2020-01-06 05:38] LABS: Iron 12 ug/dL (37-170); Total Iron Binding Capacity 123 mcg/dL (250-450)
[2020-01-06 05:39] LABS: % Iron Saturation 10.08 %
[2020-01-06 06:24] LABS: Mean Corpuscular HGB Conc 32 % (30-34); Mean Corpuscular Volume 66 fl (79-97); Platelet Count 622 K/mm3 (140-440); Red Cell Distribution Width 17.8 % (13.2-15.2)
[2020-01-06 06:25] LABS: Hemoglobin 5.5 gm/dl (10.1-14.3)
[2020-01-06 06:26] LABS: Hematocrit 17.3 % (30.3-42.9)
[2020-01-06] MEDS ORDERED: SODIUM CHLORIDE 0.9% 500 ML 500 ML IV NR (08:27)
--- NOTE | 2020-01-06 08:31 | Progress Note ---
Assessment and Plan Assessment and plan: --Severe anemia; Hb 5.5 Current Visit: Yes Status: Acute Plan to address problem: Received total 2 units of PRBC yesterday Hb improved from 5.5-8.5 , no external evidence of bleeding Check iron studies,stool hemoccult. Check [employer] history of menorrhagia, fibroid uterus Monitor H&H transfuse additional PRBC -- Osteomyelitis of second toe of right foot Current Visit: Yes Status: Acute Plan to address problem: Patient placed on empiric IV antibiotics. general surgery consulted for evaluation and recommendation. -- Gangrene of toe of right foot Current Visit: Yes Status: Acute Plan to address problem: Extra findings suggestive of gangrene. empiric IV antibiotics and await further evaluation by surgery. Consider vascular evaluation, and arterial Doppler --Severe malnutrition; hypoalbuminemia Nutrition supplements, nutrition consult -- Diabetes mellitus Current Visit: Yes Status: Acute Plan to address problem: Will monitor accu-checks closely. -- DVT prophylaxis Current Visit: Yes Status: Acute Plan to address problem: Patient placed on sequential compression device. We will hold off on anticoagulation in view of possible surgical intervention. -- Full code status Current Visit: Yes Status: Acute We will closely monitor the patient and adjust management as needed Plan of care reviewed with the patient and her nurse Advance care 35 minutes History Interval history: I have seen and examined the patient at the bedside Patient's chart and medications reviewed Patient is admitted with toe gangrene and severe anemia Receiving PRBC transfusion Patient has no new complaints Vital signs noted Hospitalist Physical - Constitutional Vitals: Temp Pulse Resp BP Pulse Ox 98.6 F 78 18 121/38 100 01/06/20 07:35 01/06/20 07:36 01/06/20 07:35 01/06/20 07:36 01/06/20 07:36 General appearance: Present: no acute distress, well-nourished - EENT Eyes: Present: PERRL, EOM intact - Neck Neck: Present: supple, normal ROM - Respiratory Respiratory effort: normal Respiratory: bilateral: diminished, negative: rales, rhonchi, wheezing - Cardiovascular Rhythm: regular Heart Sounds: Present: S1 & S2 - Extremities Extremities: abnormal (Right second toe gangrene) Extremity abnormal: edema - Abdominal General gastrointestinal: soft, non-tender, non-distended, normal bowel sounds - Integumentary Integumentary: Present: clear, warm - Psychiatric Psychiatric: appropriate mood/affect, cooperative - Neurologic Neurologic: CNII-XII intact, moves all extremities Results - Labs CBC & Chem 7: 01/07/20 05:43 01/07/20 05:43 Labs: Laboratory Last Values WBC 13.3 K/mm3 (4.5-11.0) H 01/06/20 06:03 RBC 2.60 M/mm3 (3.65-5.03) L 01/06/20 06:03 Hgb 5.5 gm/dl (10.1-14.3) L* 01/06/20 06:03 Hct 17.3 % (30.3-42.9) L* 01/06/20 06:03 MCV 66 fl (79-97) L 01/06/20 06:03 MCH 21 pg (28-32) L 01/06/20 06:03 MCHC 32 % (30-34) 01/06/20 06:03 RDW 17.8 % (13.2-15.2) H 01/06/20 06:03 Plt Count 622 K/mm3 (140-440) H 01/06/20 06:03 Lymph % (Auto) 19.6 % (13.4-35.0) 01/06/20 03:47 Emanuel % (Auto) 7.0 % (0.0-7.3) 01/06/20 03:47 Eos % (Auto) 0.9 % (0.0-4.3) 01/06/20 03:47 Baso % (Auto) 0.5 % (0.0-1.8) 01/06/20 03:47 Lymph # (Auto) 2.6 K/mm3 (1.2-5.4) 01/06/20 03:47 Emanuel # (Auto) 0.9 K/mm3 (0.0-0.8) H 01/06/20 03:47 Eos # (Auto) 0.1 K/mm3 (0.0-0.4) 01/06/20 03:47 Baso # (Auto) 0.1 K/mm3 (0.0-0.1) 01/06/20 03:47 Add Manual Diff Complete 01/05/20 17:42 Total Counted 100 01/05/20 17:42 Seg Neutrophils % 72.0 % (40.0-70.0) H 01/06/20 03:47 Seg Neuts % (Manual) 67.0 % (40.0-70.0) 01/05/20 17:42 Band Neutrophils % 0 % 01/05/20 17:42 Lymphocytes % (Manual) 22.0 % (13.4-35.0) 01/05/20 17:42 Reactive Lymphs % (Man) 0 % 01/05/20 17:42 Monocytes % (Manual) 9.0 % (0.0-7.3) H 01/05/20 17:42 Eosinophils % (Manual) 1.0 % (0.0-4.3) 01/05/20 17:42 Basophils % (Manual) 1.0 % (0.0-1.8) 01/05/20 17:42 Metamyelocytes % 0 % 01/05/20 17:42 Myelocytes % 0 % 01/05/20 17:42 Promyelocytes % 0 % 01/05/20 17:42 Blast Cells % 0 % 01/05/20 17:42 Nucleated RBC % Not Reportable 01/05/20 17:42 Seg Neutrophils # 9.5 K/mm3 (1.8-7.7) H 01/06/20 03:47 Seg Neutrophils # Man 10.5 K/mm3 (1.8-7.7) H 01/05/20 17:42 Band Neutrophils # 0.0 K/mm3 01/05/20 17:42 Lymphocytes # (Manual) 3.5 K/mm3 (1.2-5.4) 01/05/20 17:42 Abs React Lymphs (Man) 0.0 K/mm3 01/05/20 17:42 Monocytes # (Manual) 1.4 K/mm3 (0.0-0.8) H 01/05/20 17:42 Eosinophils # (Manual) 0.2 K/mm3 (0.0-0.4) 01/05/20 17:42 Basophils # (Manual) 0.2 K/mm3 (0.0-0.1) H 01/05/20 17:42 Metamyelocytes # 0.0 K/mm3 01/05/20 17:42 Myelocytes # 0.0 K/mm3 01/05/20 17:42 Promyelocytes # 0.0 K/mm3 01/05/20 17:42 Blast Cells # 0.0 K/mm3 01/05/20 17:42 WBC Morphology Not Reportable 01/05/20 17:42 Hypersegmented Neuts Not Reportable 01/05/20 17:42 Hyposegmented Neuts Not Reportable 01/05/20 17:42 Hypogranular Neuts Not Reportable 01/05/20 17:42 Smudge Cells Not Reportable 01/05/20 17:42 Toxic Granulation Not Reportable 01/05/20 17:42 Toxic Vacuolation Not Reportable 01/05/20 17:42 Dohle Bodies Not Reportable 01/05/20 17:42 Pelger-Huet Anomaly Not Reportable 01/05/20 17:42 Ren Rods Not Reportable 01/05/20 17:42 Platelet Estimate Not Reportable 01/05/20 17:42 Clumped Platelets Not Reportable 01/05/20 17:42 Plt Clumps, EDTA Not Reportable 01/05/20 17:42 Large Platelets Few 01/05/20 17:42 Giant Platelets Not Reportable 01/05/20 17:42 Platelet Satelliting Not Reportable 01/05/20 17:42 Plt Morphology Comment Not Reportable 01/05/20 17:42 RBC Morphology Not Reportable 01/05/20 17:42 Dimorphic RBCs Not Reportable 01/05/20 17:42 Polychromasia Not Reportable 01/05/20 17:42 Hypochromasia 1+ 01/05/20 17:42 Poikilocytosis Not Reportable 01/05/20 17:42 Anisocytosis Not Reportable 01/05/20 17:42 Microcytosis 1+ 01/05/20 17:42 Macrocytosis Not Reportable 01/05/20 17:42 Spherocytes Not Reportable 01/05/20 17:42 Pappenheimer Bodies Not Reportable 01/05/20 17:42 Sickle Cells Not Reportable 01/05/20 17:42 Target Cells Rare 01/05/20 17:42 Tear Drop Cells Not Reportable 01/05/20 17:42 Ovalocytes Few 01/05/20 17:42 Helmet Cells Not Reportable 01/05/20 17:[address] [place] Bodies Not Reportable 01/05/20 17:42 [place] Rings Not Reportable 01/05/20 17:42 Remy Cells Not Reportable 01/05/20 17:42 Bite Cells Not Reportable 01/05/20 17:42 Crenated Cell Not Reportable 01/05/20 17:42 Elliptocytes Not Reportable 01/05/20 17:42 Acanthocytes (Spur) Not Reportable 01/05/20 17:42 Rouleaux Not Reportable 01/05/20 17:42 Hemoglobin C Crystals Not Reportable 01/05/20 17:42 Schistocytes Not Reportable 01/05/20 17:42 Malaria parasites Not Reportable 01/05/20 17:42 Amauri Bodies Not Reportable 01/05/20 17:42 Hem Pathologist Commnt No 01/05/20 17:42 PT 14.8 Sec. (12.2-14.9) 01/06/20 03:47 INR 1.16 (0.87-1.13) H 01/06/20 03:47 Sodium 134 mmol/L (137-145) L 01/06/20 03:47 Potassium 5.1 mmol/L (3.6-5.0) H 01/06/20 03:47 Chloride 103.8 mmol/L (98-107) 01/06/20 03:47 Carbon Dioxide 20 mmol/L (22-30) L 01/06/20 03:47 Anion Gap 15 mmol/L 01/06/20 03:47 BUN 25 mg/dL (7-17) H 01/06/20 03:47 Creatinine 1.2 mg/dL (0.6-1.2) 01/06/20 03:47 Estimated GFR 49 ml/min 01/06/20 03:47 BUN/Creatinine Ratio 21 % 01/06/20 03:47 Glucose 225 mg/dL (65-100) H 01/06/20 03:47 POC Glucose 171 mg/dL (70-105) H 01/06/20 07:31 Hemoglobin A1c 14.3 % (4-6) H 01/05/20 17:42 Lactic Acid 1.30 mmol/L (0.7-2.0) 01/05/20 17:42 Calcium 7.5 mg/dL (8.4-10.2) L 01/06/20 03:47 Iron 12 ug/dL (37-170) L 01/06/20 03:47 Iron 12 ug/dL (37-170) L 01/06/20 03:47 TIBC 119 mcg/dL (250-450) L 01/06/20 03:47 TIBC 123 mcg/dL (250-450) L 01/06/20 03:47 % Saturation 10.08 % 01/06/20 03:47 Transferrin 100 mg/dl (192-382) L 01/06/20 03:47 Total Bilirubin < 0.20 mg/dL (0.1-1.2) 01/05/20 17:42 AST 7 units/L (5-40) 01/05/20 17:42 ALT 7 units/L (7-56) 01/05/20 17:42 Alkaline Phosphatase 144 units/L (35-129) H 01/05/20 17:42 Total Protein 7.4 g/dL (6.3-8.2) 01/05/20 17:42 Albumin 2.1 g/dL (3.9-5) L 01/05/20 17:42 Albumin/Globulin Ratio 0.4 % 01/05/20 17:42 Microbiology: Microbiology 01/05/20 17:42 Peripheral/Venous Blood Culture - Preliminary Culture in Progress 01/05/20 17:42 Peripheral/Venous Blood Culture - Preliminary Culture in Progress Newell/IV: Voiding Method Bedside Commode IV Catheter Type [Forearm] INT / Saline Lock Active Medications - Current Medications Current Medications: Generic Name Dose Route Start Last Admin Trade Name Freq PRN Reason Stop Dose Admin Acetaminophen 650 mg 01/05/20 21:36 Tylenol PO Q4H PRN Pain MILD(1-3)/Fever >100.5/SULLIVAN Dextrose 50 ml 01/05/20 21:36 D50w (25gm) Syringe IV Q30MIN PRN Hypoglycemia Protocol Ferrous Sulfate 325 mg 01/06/20 10:00 Feosol PO BID SIDNEY Sodium Chloride 1,000 mls @ 125 mls/hr 01/05/20 21:45 01/05/20 23:57 Nacl 0.9% 1000 Ml IV 125 mls/hr DIRECT SIDNEY Administration Piperacillin Sod/Tazobactam Sod 4.5 gm in 100 mls @ 200 mls/hr 01/05/20 22:00 01/06/20 05:01 Zosyn/Ns 4.5gm/100ml IV 200 mls/hr Q8HR [facility] Administration Protocol Vancomycin HCl 1,250 mg/ 275 mls @ 166.667 mls/hr 01/06/20 09:00 Sodium Chloride IV Q12H [facility] Sodium Chloride 500 mls @ 0 mls/hr 01/06/20 08:27 Nacl 0.9% 500 Ml IV 01/06/20 08:28 ONCE ONE As Directed Insulin Human Lispro 0 unit 01/05/20 22:00 01/06/20 00:06 Humalog SUB-Q Not Given ACHS [facility] Protocol Magnesium Hydroxide 30 ml 01/05/20 21:36 Milk Of Magnesia PO Q4H PRN Constipation Morphine Sulfate 2 mg 01/05/20 21:36 01/06/20 04:59 Morphine IV 2 mg Q4H PRN Administration Pain, Moderate (4-6) Multivitamins 1 each 01/06/20 10:00 Theragran Tab PO QDAY [facility] Ondansetron HCl 4 mg 01/05/20 21:36 Zofran IV Q8H PRN Nausea And Vomiting Sodium Chloride 10 ml 01/05/20 22:00 01/05/20 23:58 Sodium Chloride Flush Syringe 10 Ml IV 10 ml BID SIDNEY Administration Sodium Chloride 10 ml 01/05/20 21:36 Sodium Chloride Flush Syringe 10 Ml IV PRN PRN LINE FLUSH
[2020-01-06] MEDS ORDERED: SODIUM CHLORIDE 0.9% 500 ML 500 ML IV ONE (08:32)
[2020-01-06] MEDS ORDERED: traMADol 50 MG TAB PO PRN (10:00)
[2020-01-06] MEDS ORDERED: COLCHICINE 0.6 MG CAP PO SCH (10:00)
[2020-01-06] MEDS ORDERED: COLCHICINE 0.6 MG CAP PO PRN (13:00)
--- NOTE | 2020-01-06 16:46 | Event Note ---
Date: 01/06/20 Received consult for patient regarding toe gangrene and osteomyelitis. Wound care surgeon who does amputations is out of town, and orthopedics said they do not handle these cases. (They were consulted first) I consulted Dr. Rojas (vascular surgery) for evaluation and work up. He has agreed to see the patient and has ordered vascular studies. I will defer treatment to him and touch base with him regarding plan of care.
--- NOTE | 2020-01-06 17:24 | Vascular Lab Report ---
DUPLEX DOPPLER LOWER EXTREMITY ARTERIAL, BILATERAL INDICATION / CLINICAL INFORMATION: toe gangrene. TECHNIQUE: Arterial duplex examination of both lower extremities performed using B-mode, color flow and spectral Doppler assessment. FINDINGS: RIGHT: Common Femoral Artery: PSV 137 cm/sec. Monophasic waveform. Proximal SFA: PSV 315 cm/sec. Monophasic waveform. Mid SFA: PSV 178 cm/sec. Monophasic waveform. Distal SFA: PSV 159 cm/sec. Monophasic waveform. Popliteal artery: PSV 159 cm/sec. Monophasic waveform. Posterior tibial artery: PSV 127 cm/sec. Monophasic waveform. Dorsalis Pedis Artery: PSV 141 cm/sec. Monophasic waveform. LEFT: Common Femoral Artery: PSV 120 cm/sec. Triphasic waveform. Proximal SFA: PSV 142 cm/sec. Triphasic waveform. Mid SFA: PSV 139 cm/sec. Triphasic waveform. Distal SFA: PSV 149 cm/sec. Triphasic waveform. Popliteal artery: PSV 127 cm/sec. Triphasic waveform. Posterior tibial artery: PSV 144 cm/sec. Triphasic waveform. Dorsalis Pedis Artery: PSV 143 cm/sec. Triphasic waveform. Right LUTHER: 0.93. Left LUTHER: 0.87. IMPRESSION: 1. Abnormal monophasic waveforms throughout the entire right lower extremity ulcer secondary to right -sided proximal iliac vascular disease. Recommend CTA runoff 2. No significant left lower extremity peripheral artery disease. Ankle-Brachial Index (LUTHER): - Calcified arteries > 1.4 - Normal = 0.9-1.4 - Mild PAD = 0.7-0.89 - Moderate PAD = 0.51-0.69 - Severe PAD < 0.5 Doppler Waveform: - Triphasic is normal. - Biphasic is abnormal if clear transition from triphasic signal along vascular tree. - Monophasic is abnormal. Signer Name: Stephen Tolbert MD Signed: 01/06/2020 5:19 PM Workstation Name: [id number]
[2020-01-06] MEDS: metFORMIN 500 MG TAB PO SCH (20:32)
--- NOTE | 2020-01-07 00:26 | Cat Scan Report ---
CTA ABDOMEN, PELVIS, AND LOWER EXTREMITIES INDICATION: Evaluate toe gangrene. Peripheral vascular disease. TECHNIQUE: Axial CT images were obtained through the abdomen, pelvis and lower extremities after injection of IV contrast. 3 plane MIP reconstructions were produced. All CT scans at this location are performed us ng CT dose reduction for TREVORRA by means of automated exposure control. COMPARISON: None available. FINDINGS: CTA ABDOMEN: Abdominal Aorta: No significant abnormality. Celiac Artery: No significant abnormality. Superior Mesenteric Artery: No significant abnormality. Right Renal Artery: No significant abnormality. Left Renal Artery: No significant abnormality. Inferior Mesenteric Artery: No significant abnormality. CTA PELVIS: RIGHT: Common Iliac Artery: No significant abnormality. Internal Iliac Artery: No significant abnormality. External Iliac Artery: No significant abnormality. LEFT: Common Iliac Artery: No significant abnormality. Internal Iliac Artery: No significant abnormality. External Iliac Artery: No significant abnormality. CTA LOWER EXTREMITIES: RIGHT LOWER EXTREMITY: Common Femoral Artery: There is high-grade (greater than 80%) stenosis at the distal common femoral a rtery, just above the bifurcation. (Series 3 image 403). This appears to be due to soft plaque which extends craniocaudally for approximately 11 mm on coronal series 303 image 106. Superficial Femoral Artery: No significant abnormality. Profunda Femoral Artery: No significant abnormality. Popliteal Artery: No significant abnormality. Anterior Tibial Artery: No significant abnormality. Tibioperoneal Trunk: No significant abnormality. Posterior Tibial Artery: No significant abnormality. Peroneal Artery: No significant abnormality. Ankle runoff: Three vessel. LEFT LOWER EXTREMITY: Common Femoral Artery: No significant abnormality. Superficial Femoral Artery: No significant abnormality. Profunda Femoral Artery: No significant abnormality. Popliteal Artery: No significant abnormality. Anterior Tibial Artery: No significant abnormality. Tibioperoneal Trunk: No significant abnormality. Posterior Tibial Artery: No significant abnormality. Peroneal Artery: No significant abnormality. Ankle runoff: Three vessel. NONTARGET STRUCTURES: ABDOMEN:There is mild hepatic steatosis. There is very mild gallbladder wall edema. PELVIS:There is mild right groin and iliac chain adenopathy. LOWER EXTREMITIES:There is soft tissue gas in the distal aspect of the right second toe which is edenilson cent to bone that appears exposed. There is soft tissue swelling in this region. There is mild diffus e subcutaneous edema in the right foot. SKELETAL: No significant abnormality. ADDITIONAL FINDINGS: None. IMPRESSION: 1. Short segment high-grade stenosis in the distal right common femoral artery appears to be secondar y to soft plaque. Otherwise, no significant vascular abnormality. There is three-vessel runoff bilate rally. 2. Open wound/ulcer distal right second toe with associated osteomyelitis. There is diffuse subcutane ous edema in the right foot suggesting cellulitis. Mild right groin and iliac chain adenopathy is lik shreya reactive. Signer Name: Hector Stover MD Signed: 01/07/2020 12:21 AM Workstation Name: [id number]
[2020-01-07] MEDS: SODIUM CHLORIDE 0.9% 1000 ML 1,000 ML IV SCH ×2 (00:28→14:25)
[2020-01-07] MEDS: VANCOMYCIN 1,250 MG in SODIUM CHLORIDE 0.9% 250ML 250 ML IV SCH ×5 (00:29→21:46)
[2020-01-07] MEDS: FERROUS SULFATE 325 MG TAB PO SCH ×4 (00:29→21:45)
[2020-01-07] MEDS: INSULIN LISPRO 100 UNIT/ML VIAL 3 mL SUB-Q SCH ×4 (00:31→17:09)
[2020-01-07] MEDS: PIPERACIL/TAZOBACTA 4.5/NS 100 4.5 GM/100 ML VIAL IV SCH ×4 (02:05→21:27)
[2020-01-07] MEDS: ONDANSETRON 4 MG/2 ML INJ IV PRN (05:58)
[2020-01-07 06:19] LABS: Basophils # (Auto) 0.1 K/mm3 (0.0-0.1); Basophils % (Auto) 0.6 % (0.0-1.8); Eosinophils # (Auto) 0.3 K/mm3 (0.0-0.4); Eosinophils % (Auto) 2.5 % (0.0-4.3); Hematocrit 27.1 % (30.3-42.9); Hemoglobin 8.5 gm/dl (10.1-14.3); Lymphocytes # (Auto) 1.9 K/mm3 (1.2-5.4); Mean Corpuscular HGB Conc 32 % (30-34); Mean Corpuscular Volume 73 fl (79-97); Monocytes # (Auto) 1.2 K/mm3 (0.0-0.8); Monocytes % (Auto) 8.7 % (0.0-7.3); Platelet Count 658 K/mm3 (140-440); Red Blood Count 3.72 M/mm3 (3.65-5.03)
[2020-01-07 06:33] LABS: BUN/Creatinine Ratio 21; Blood Urea Nitrogen 19 mg/dL (7-17); Hemolysis Index 1
[2020-01-07] MEDS: metFORMIN 500 MG TAB PO SCH ×3 (10:31→21:11)
[2020-01-07] MEDS: MULTIVITAMINS ,THERAPEUTIC TAB PO SCH ×2 (11:30→21:11)
--- NOTE | 2020-01-07 20:09 | Consultation ---
History of Present Illness - Reason for Consult Consult date: 01/07/20 right 2nd toe gangrene Requesting physician: TAYA GOMEZ - History of Present Illness HPI: 44 year old female with PMH of DM and HTN currently hospitalized with right 2nd toe gangrene. Patient states she first noted discoloration this past Monday. She began having claudication symptoms to the right leg the Monday prior to presentation. The patient does not smoke. The patient does not smoke and denies cardiac issues. Vascular was consulted for evaluation and possible intervention. 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 will place patient on heparin gtt and plan to take to OR tomorrow NPO p MN patient consented Past History Past Medical History: diabetes, hypertension, other (Ovarian Cyst,Asthma) Past Surgical History: Social history: alcohol abuse Family history: no significant family history Medications and Allergies Allergies Allergy/AdvReac Type Severity Reaction Status Date / Time No Known Allergies Allergy Verified 05/17/13 23:27 Home Medications Medication Instructions Recorded Confirmed Last Taken Type HYDROcodone/APAP 7.5-325 [[place] 1 each PO Q6HR PRN #20 tablet 05/18/13 Unknown Rx 7.5/325 mg] Albuterol Sulfate [Ventolin HFA] 2 puff IH Q4H PRN #1 hfa.aer.ad 02/13/15 Unknown Rx metFORMIN [Glucophage] 500 mg PO BID #60 tablet 02/13/15 Unknown Rx Nitrofurantoin Dent/M-Cryst 100 mg PO Q12HR #14 capsule 11/25/15 Unknown Rx [Macrobid CAP] Nitrofurantoin Monohyd/M-Cryst 100 mg PO BID #14 capsule 12/08/17 Unknown Rx [Macrobid 100 mg Capsule] traMADoL [Ultram] 50 mg PO Q6HR PRN #12 tablet 12/19/18 Unknown Rx Colchicine 0.6 mg PO Q2HR #10 capsule NS 11/11/19 Unknown Rx predniSONE [Deltasone] 50 mg PO QDAY #5 tab 11/11/19 Unknown Rx traMADoL [Ultram] 50 mg PO Q4HR PRN #14 tablet 11/11/19 Unknown Rx Active Meds: Active Medications Acetaminophen (Tylenol) 650 mg PO Q4H PRN PRN Reason: Pain MILD(1-3)/Fever >100.5/SULL[place]AN Colchicine (Colchicine) 0.6 mg PO Q2HR PRN PRN Reason: GOUT Dextrose (D50w (25gm) Syringe) 50 ml IV Q30MIN PRN; Protocol PRN Reason: Hypoglycemia Ferrous Sulfate (Feosol) 325 mg PO BID [facility] Last Admin: 01/07/20 11:31 Dose: 325 mg Documented by: Sodium Chloride (Nacl 0.9% 1000 Ml) 1,000 mls @ 125 mls/hr IV DIRECT [facility] Last Admin: 01/07/20 14:25 Dose: 125 mls/hr Documented by: Piperacillin Sod/Tazobactam Sod (Zosyn/Ns 4.5gm/100ml) 4.5 gm in 100 mls @ 200 mls/hr IV Q8HR [facility]; Protocol Last Admin: 01/07/20 14:43 Dose: 200 mls/hr Documented by: Vancomycin HCl 1,250 mg/ (Sodium Chloride) 275 mls @ 166.667 mls/hr IV Q12H [facility] Last Admin: 01/07/20 11:26 Dose: 166.667 mls/hr Documented by: Insulin Human Lispro (Humalog) 0 unit SUB-Q ACHS [facility]; Protocol Last Admin: 01/07/20 12:47 Dose: 2 unit Documented by: Magnesium Hydroxide (Milk Of Magnesia) 30 ml PO Q4H PRN PRN Reason: Constipation Metformin HCl (Glucophage) 500 mg PO BIDDIAB [facility] Last Admin: 01/07/20 10:31 Dose: 500 mg Documented by: Morphine Sulfate (Morphine) 2 mg IV Q4H PRN PRN Reason: Pain, Moderate (4-6) Last Admin: 01/06/20 04:59 Dose: 2 mg Documented by: Multivitamins (Theragran Tab) 1 each PO QDAY [facility] Last Admin: 01/07/20 11:30 Dose: 1 each Documented by: Ondansetron HCl (Zofran) 4 mg IV Q8H PRN PRN Reason: Nausea And Vomiting Last Admin: 01/07/20 05:58 Dose: 4 mg Documented by: Sodium Chloride (Sodium Chloride Flush Syringe 10 Ml) 10 ml IV BID SIDNEY Last Admin: 01/07/20 14:30 Dose: 10 ml Documented by: Sodium Chloride (Sodium Chloride Flush Syringe 10 Ml) 10 ml IV PRN PRN PRN Reason: LINE FLUSH Tramadol HCl (Ultram) 50 mg PO Q4HR PRN PRN Reason: PAIN Last Admin: 01/06/20 17:48 Dose: 50 mg Documented by: Exam - Constitutional Vitals: Temp Pulse Resp BP Pulse Ox 98.6 F 76 18 145/73 99 01/07/20 16:15 01/07/20 16:15 01/07/20 16:15 01/07/20 16:15 01/07/20 16:15 Results - Labs CBC & Chem 7: 01/07/20 05:43 01/07/20 05:43 Labs: Abnormal lab results 01/06/20 01/07/20 01/07/20 Range/Units 22:23 05:43 05:43 WBC 13.3 H (4.5-11.0) K/mm3 Hgb 8.5 L D (10.1-14.3) gm/dl Hct 27.1 L D (30.3-42.9) % MCV 73 L (79-97) fl MCH 23 L (28-32) pg RDW 21.0 H (13.2-15.2) % Plt Count 658 H (140-440) K/mm3 Dent % (Auto) 8.7 H (0.0-7.3) % Dent # (Auto) 1.2 H (0.0-0.8) K/mm3 Seg Neutrophils % 74.2 H (40.0-70.0) % Seg Neutrophils # 9.9 H (1.8-7.7) K/mm3 Sodium 134 L (137-145) mmol/L Carbon Dioxide 19 L (22-30) mmol/L BUN 19 H (7-17) mg/dL Glucose 128 H (65-100) mg/dL POC Glucose 151 H (70-105) mg/dL Calcium 8.0 L (8.4-10.2) mg/dL 01/07/20 01/07/20 01/07/20 Range/Units 08:01 11:15 16:08 WBC (4.5-11.0) K/mm3 Hgb (10.1-14.3) gm/dl Hct (30.3-42.9) % MCV (79-97) fl MCH (28-32) pg RDW (13.2-15.2) % Plt Count (140-440) K/mm3 Dent % (Auto) (0.0-7.3) % Dent # (Auto) (0.0-0.8) K/mm3 Seg Neutrophils % (40.0-70.0) % Seg Neutrophils # (1.8-7.7) K/mm3 Sodium (137-145) mmol/L Carbon Dioxide (22-30) mmol/L BUN (7-17) mg/dL Glucose (65-100) mg/dL POC Glucose 122 H 169 H 183 H (70-105) mg/dL Calcium (8.4-10.2) mg/dL
--- NOTE | 2020-01-07 20:36 | Progress Note ---
Assessment and Plan Assessment and plan: --Severe anemia; Hb 5.5 Current Visit: Yes Status: Acute Plan to address problem: Received total 2 units of PRBC yesterday Hb improved from 5.5-8.5 , no external evidence of bleeding Stool for occult blood Patient may need to see WIG STYLIST as outpatient To evaluate for WIG STYLIST causes of anemia -- Osteomyelitis of second toe of right foot Current Visit: Yes Status: Acute Plan to address problem: Patient placed on empiric IV antibiotics. general surgery consulted for evaluation and recommendation. -- Gangrene of toe of right foot Current Visit: Yes Status: Acute Plan to address problem: Extra findings suggestive of gangrene. empiric IV antibiotics and await further evaluation by surgery. vascular following --Severe malnutrition; hypoalbuminemia Nutrition supplements, nutrition consult -- Diabetes mellitus Current Visit: Yes Status: Acute Plan to address problem: Will monitor accu-checks closely. -- DVT prophylaxis Current Visit: Yes Status: Acute Plan to address problem: Patient placed on sequential compression device. No pharmacological anticoagulation in view of severe anemia -- Full code status Current Visit: Yes Status: Acute We will closely monitor the patient and adjust management as needed Plan of care reviewed with the patient and her nurse Disposition; follow surgery, vascular evaluation and recommendations Possible discharge when stable History Interval history: Vital signs reviewed I have seen and examined the patient at the bedside Patient feels slightly better, H&H significantly improved after 2 units of PRBC transfusion Complains of mild pain in the foot Hospitalist Physical - Constitutional Vitals: Temp Pulse Resp BP Pulse Ox 98.6 F 76 18 145/73 99 01/07/20 16:15 01/07/20 16:15 01/07/20 16:15 01/07/20 16:15 01/07/20 16:15 General appearance: Present: no acute distress, well-nourished, obese - EENT Eyes: Present: PERRL, EOM intact - Neck Neck: Present: supple, normal ROM - Respiratory Respiratory effort: normal Respiratory: bilateral: diminished, negative: rales, rhonchi, wheezing - Cardiovascular Rhythm: regular Heart Sounds: Present: S1 & S2 - Extremities Extremities: abnormal (Gen gangrene second toe) - Abdominal General gastrointestinal: soft, non-tender, non-distended, normal bowel sounds - Integumentary Integumentary: Present: clear, warm - Psychiatric Psychiatric: appropriate mood/affect, cooperative - Neurologic Neurologic: CNII-XII intact, moves all extremities Results - Labs CBC & Chem 7: 01/07/20 05:43 01/07/20 05:43 Labs: Laboratory Last Values WBC 13.3 K/mm3 (4.5-11.0) H 01/07/20 05:43 RBC 3.72 M/mm3 (3.65-5.03) 01/07/20 05:43 Hgb 8.5 gm/dl (10.1-14.3) L D 01/07/20 05:43 Hct 27.1 % (30.3-42.9) L D 01/07/20 05:43 MCV 73 fl (79-97) L 01/07/20 05:43 MCH 23 pg (28-32) L 01/07/20 05:43 MCHC 32 % (30-34) 01/07/20 05:43 RDW 21.0 % (13.2-15.2) H 01/07/20 05:43 Plt Count 658 K/mm3 (140-440) H 01/07/20 05:43 Lymph % (Auto) 14.0 % (13.4-35.0) 01/07/20 05:43 [place] % (Auto) 8.7 % (0.0-7.3) H 01/07/20 05:43 Eos % (Auto) 2.5 % (0.0-4.3) 01/07/20 05:43 Baso % (Auto) 0.6 % (0.0-1.8) 01/07/20 05:43 Lymph # (Auto) 1.9 K/mm3 (1.2-5.4) 01/07/20 05:43 [place] # (Auto) 1.2 K/mm3 (0.0-0.8) H 01/07/20 05:43 Eos # (Auto) 0.3 K/mm3 (0.0-0.4) 01/07/20 05:43 Baso # (Auto) 0.1 K/mm3 (0.0-0.1) 01/07/20 05:43 Add Manual Diff Complete 01/05/20 17:42 Total Counted 100 01/05/20 17:42 Seg Neutrophils % 74.2 % (40.0-70.0) H 01/07/20 05:43 Seg Neuts % (Manual) 67.0 % (40.0-70.0) 01/05/20 17:42 Band Neutrophils % 0 % 01/05/20 17:42 Lymphocytes % (Manual) 22.0 % (13.4-35.0) 01/05/20 17:42 Reactive Lymphs % (Man) 0 % 01/05/20 17:42 Monocytes % (Manual) 9.0 % (0.0-7.3) H 01/05/20 17:42 Eosinophils % (Manual) 1.0 % (0.0-4.3) 01/05/20 17:42 Basophils % (Manual) 1.0 % (0.0-1.8) 01/05/20 17:42 Metamyelocytes % 0 % 01/05/20 17:42 Myelocytes % 0 % 01/05/20 17:42 Promyelocytes % 0 % 01/05/20 17:42 Blast Cells % 0 % 01/05/20 17:42 Nucleated RBC % Not Reportable 01/05/20 17:42 Seg Neutrophils # 9.9 K/mm3 (1.8-7.7) H 01/07/20 05:43 Seg Neutrophils # Man 10.5 K/mm3 (1.8-7.7) H 01/05/20 17:42 Band Neutrophils # 0.0 K/mm3 01/05/20 17:42 Lymphocytes # (Manual) 3.5 K/mm3 (1.2-5.4) 01/05/20 17:42 Abs React Lymphs (Man) 0.0 K/mm3 01/05/20 17:42 Monocytes # (Manual) 1.4 K/mm3 (0.0-0.8) H 01/05/20 17:42 Eosinophils # (Manual) 0.2 K/mm3 (0.0-0.4) 01/05/20 17:42 Basophils # (Manual) 0.2 K/mm3 (0.0-0.1) H 01/05/20 17:42 Metamyelocytes # 0.0 K/mm3 01/05/20 17:42 Myelocytes # 0.0 K/mm3 01/05/20 17:42 Promyelocytes # 0.0 K/mm3 01/05/20 17:42 Blast Cells # 0.0 K/mm3 01/05/20 17:42 WBC Morphology Not Reportable 01/05/20 17:42 Hypersegmented Neuts Not Reportable 01/05/20 17:42 Hyposegmented Neuts Not Reportable 01/05/20 17:42 Hypogranular Neuts Not Reportable 01/05/20 17:42 Smudge Cells Not Reportable 01/05/20 17:42 Toxic Granulation Not Reportable 01/05/20 17:42 Toxic Vacuolation Not Reportable 01/05/20 17:42 Dohle Bodies Not Reportable 01/05/20 17:42 Pelger-Huet Anomaly Not Reportable 01/05/20 17:42 Ren Rods Not Reportable 01/05/20 17:42 Platelet Estimate Not Reportable 01/05/20 17:42 Clumped Platelets Not Reportable 01/05/20 17:42 Plt Clumps, EDTA Not Reportable 01/05/20 17:42 Large Platelets Few 01/05/20 17:42 Giant Platelets Not Reportable 01/05/20 17:42 Platelet Satelliting Not Reportable 01/05/20 17:42 Plt Morphology Comment Not Reportable 01/05/20 17:42 RBC Morphology Not Reportable 01/05/20 17:42 Dimorphic RBCs Not Reportable 01/05/20 17:42 Polychromasia Not Reportable 01/05/20 17:42 Hypochromasia 1+ 01/05/20 17:42 Poikilocytosis Not Reportable 01/05/20 17:42 Anisocytosis Not Reportable 01/05/20 17:42 Microcytosis 1+ 01/05/20 17:42 Macrocytosis Not Reportable 01/05/20 17:42 Spherocytes Not Reportable 01/05/20 17:42 Pappenheimer Bodies Not Reportable 01/05/20 17:42 Sickle Cells Not Reportable 01/05/20 17:42 Target Cells Rare 01/05/20 17:42 Tear Drop Cells Not Reportable 01/05/20 17:42 Ovalocytes Few 01/05/20 17:42 Helmet Cells Not Reportable 01/05/20 17:42 [place] Bodies Not Reportable 01/05/20 17:42 [place] Rings Not Reportable 01/05/20 17:42 [place] Cells Not Reportable 01/05/20 17:42 Bite Cells Not Reportable 01/05/20 17:42 Crenated Cell Not Reportable 01/05/20 17:42 Elliptocytes Not Reportable 01/05/20 17:42 Acanthocytes (Spur) Not Reportable 01/05/20 17:42 Rouleaux Not Reportable 01/05/20 17:42 Hemoglobin C Crystals Not Reportable 01/05/20 17:42 Schistocytes Not Reportable 01/05/20 17:42 Malaria parasites Not Reportable 01/05/20 17:42 [place]uri Bodies Not Reportable 01/05/20 17:42 Hem Pathologist Commnt No 01/05/20 17:42 PT 14.8 Sec. (12.2-14.9) 01/06/20 03:47 INR 1.16 (0.87-1.13) H 01/06/20 03:47 Sodium 134 mmol/L (137-145) L 01/07/20 05:43 Potassium 4.5 mmol/L (3.6-5.0) 01/07/20 05:43 Chloride 105.8 mmol/L (98-107) 01/07/20 05:43 Carbon Dioxide 19 mmol/L (22-30) L 01/07/20 05:43 Anion Gap 14 mmol/L 01/07/20 05:43 BUN 19 mg/dL (7-17) H 01/07/20 05:43 Creatinine 0.9 mg/dL (0.6-1.2) 01/07/20 05:43 Estimated GFR > 60 ml/min 01/07/20 05:43 BUN/Creatinine Ratio 21 % 01/07/20 05:43 Glucose 128 mg/dL (65-100) H 01/07/20 05:43 POC Glucose 183 mg/dL (70-105) H 01/07/20 16:08 Hemoglobin A1c 14.3 % (4-6) H 01/05/20 17:42 Lactic Acid 1.30 mmol/L (0.7-2.0) 01/05/20 17:42 Calcium 8.0 mg/dL (8.4-10.2) L 01/07/20 05:43 Phosphorus 3.60 mg/dL (2.5-4.5) 01/07/20 05:43 Magnesium 1.90 mg/dL (1.7-2.3) 01/07/20 05:43 Iron 12 ug/dL (37-170) L 01/06/20 03:47 Iron 12 ug/dL (37-170) L 01/06/20 03:47 TIBC 119 mcg/dL (250-450) L 01/06/20 03:47 TIBC 123 mcg/dL (250-450) L 01/06/20 03:47 % Saturation 10.08 % 01/06/20 03:47 Transferrin 100 mg/dl (192-382) L 01/06/20 03:47 Ferritin 55.9 ng/mL (10.0-200.0) 01/06/20 07:21 Total Bilirubin < 0.20 mg/dL (0.1-1.2) 01/05/20 17:42 AST 7 units/L (5-40) 01/05/20 17:42 ALT 7 units/L (7-56) 01/05/20 17:42 Alkaline Phosphatase 144 units/L (35-129) H 01/05/20 17:42 Total Protein 7.4 g/dL (6.3-8.2) 01/05/20 17:42 Albumin 2.1 g/dL (3.9-5) L 01/05/20 17:42 Albumin/Globulin Ratio 0.4 % 01/05/20 17:42 Blood Type B POSITIVE 01/06/20 07:21 Antibody Screen Negative 01/06/20 07:21 Crossmatch See Detail 01/06/20 07:21 Microbiology: Microbiology 01/05/20 17:42 Peripheral/Venous Blood Culture - Preliminary NO GROWTH AFTER 48 HOURS 01/05/20 17:42 Peripheral/Venous Blood Culture - Preliminary NO GROWTH AFTER 48 HOURS [place]/IV: Voiding Method Toilet IV Catheter Type [Forearm] INT / Saline Lock Active Medications - Current Medications Current Medications: Generic Name Dose Route Start Last Admin Trade Name Freq PRN Reason Stop Dose Admin Acetaminophen 650 mg 01/05/20 21:36 Tylenol PO Q4H PRN Pain MILD(1-3)/Fever >100.5/SULLIVAN Colchicine 0.6 mg 01/06/20 13:00 01/07/20 20:11 Colchicine PO 0.6 mg Q2HR PRN Administration GOUT Dextrose 50 ml 01/05/20 21:36 D50w (25gm) Syringe IV Q30MIN PRN Hypoglycemia Protocol Ferrous Sulfate 325 mg 01/06/20 10:00 01/07/20 11:31 Feosol PO 325 mg BID SIDNEY Administration Sodium Chloride 1,000 mls @ 125 mls/hr 01/05/20 21:45 01/07/20 14:25 Nacl 0.9% 1000 Ml IV 125 mls/hr DIRECT SIDNEY Administration Piperacillin Sod/Tazobactam Sod 4.5 gm in 100 mls @ 200 mls/hr 01/05/20 22:00 01/07/20 14:43 Zosyn/Ns 4.5gm/100ml IV 200 mls/hr Q8HR SIDNEY Administration Protocol Vancomycin HCl 1,250 mg/ 275 mls @ 166.667 mls/hr 01/06/20 09:00 01/07/20 11:26 Sodium Chloride IV 166.667 mls/hr Q12H SIDNEY Administration Insulin Human Lispro 0 unit 01/05/20 22:00 01/07/20 17:09 Humalog SUB-Q 2 unit ACHS SIDNEY Administration Protocol Magnesium Hydroxide 30 ml 01/05/20 21:36 Milk Of Magnesia PO Q4H PRN Constipation Metformin HCl 500 mg 01/06/20 09:00 01/07/20 20:10 Glucophage PO 500 mg BIDDIAB SIDNEY Administration Morphine Sulfate 2 mg 01/05/20 21:36 01/06/20 04:59 Morphine IV 2 mg Q4H PRN Administration Pain, Moderate (4-6) Multivitamins 1 each 01/06/20 10:00 01/07/20 11:30 Theragran Tab PO 1 each QDAY SIDNEY Administration Ondansetron HCl 4 mg 01/05/20 21:36 01/07/20 05:58 Zofran IV 4 mg Q8H PRN Administration Nausea And Vomiting Sodium Chloride 10 ml 01/05/20 22:00 01/07/20 14:30 Sodium Chloride Flush Syringe 10 Ml IV 10 ml BID SIDNEY Administration Sodium Chloride 10 ml 01/05/20 21:36 Sodium Chloride Flush Syringe 10 Ml IV PRN PRN LINE FLUSH Tramadol HCl 50 mg 01/06/20 10:00 01/06/20 17:48 Ultram PO 50 mg Q4HR PRN Administration PAIN Nutrition/Malnutrition Assess - Dietary Evaluation Nutrition/Malnutrition Findings: Nutrition Notes Start: 01/06/20 14:15 Freq: Status: Active Protocol: Document 01/07/20 11:04 LM (Rec: 01/07/20 11:16 LM [id number]) Nutrition Notes Initial or Follow up Assessment Current Diagnosis Diabetes Other Pertinent Diagnosis gangrene/osteomyelitis foot Current Diet Cardiac/consistent CHO Labs/Tests Na 134 Pertinent Medications Reviewed Height 5 ft 3 in Weight 83.5 kg [place] Body Weight (kg) 52.27 BMI 32.5 Weight change and time frame 4% wt loss in more than 1 week Weight Status Obese Subjective/Other Information F/U for diet education. Pt's son translated over the phone. Pt stated she has not been hungry for a week and has lost 8 lb in more 1 week (exact time frame unknown). Provided pt DM education and handouts in Khmer. Discussed the plate method. Burn Absent Trauma Absent GI Symptoms Nausea Current % PO Poor (25-49%) Minimum of two criteria Yes Energy Intake (non-severe) <75% Estimated Energy Requirement >7 days Interpretation of Weight Loss (severe) >2% in 1 week #2 Nutrition Diagnosis Food and nutrition-related knowledge deficit Etiology Pt with limited past DM diet education As Evidenced by Signs and Symptoms A1C 14.3 #1 Nutrition Diagnosis Malnutrition Etiology uncontrolled DM As Evidenced by Signs and Symptoms Pt with 4% wt loss in over 1 week, pt eating poorly for 1 week Is patient on ventilator? No Is Patient Ambulatory and/or Out of Bed Yes REE-([facility]-ambulatory/OOB) [ 1903.369 [id number]] Kcal/Kg value to use for calculation 19 Approximate Energy Requirements Using 1587 kcal/Kg Calculation Used for Recommendations Kcal/kg Additional Notes Protein: 54-68g (0.8-1g/kg using AdjBW 68kg) Fluid: 1ml/kcal Nutrition Intervention Change Diet Order: continue Add Supplement/Snack (indicate name/kcal Glucerna strawberry BID /protein ) Provides kCal: 440 Provides Protein (gm) 20 Teaching Recipient Patient Learning Readiness Good Teaching Methods Discussion,Handout Response to Teaching Verbalize understanding Education Handouts Provided Carbohydrate Counting for People with DM Barriers to Learning Language RD phone number provided Yes Patient aware of follow up options Yes Actions To Overcome Barriers Contact Broadcast Traffic Coordinator Goal #1 Meet at least 75% of energy and protein needs Anticipated Discharge Needs: Cardiac/consistent CHO Follow-Up By: 01/10/20 Additional Comments F/U for PO/ONS intakes
[2020-01-07 21:59] LABS: INR 1.07 (0.87-1.13)
[2020-01-07 22:00] LABS: Partial Thromboplastin Time 37.8 Sec. (24.2-36.6)
[2020-01-07 23:12] LABS: Hematocrit 25.9 % (30.3-42.9); Hemoglobin 8.5 gm/dl (10.1-14.3)
[2020-01-07 23:21] LABS: INR 1.13 (0.87-1.13)
[2020-01-07 23:22] LABS: Partial Thromboplastin Time 33.2 Sec. (24.2-36.6)
[2020-01-08] MEDS: HEPARIN/ 0.45% NACL DRIP 25,000 UNIT/500 ML BAG IV SCH (00:09)
[2020-01-08] MEDS: INSULIN LISPRO 100 UNIT/ML VIAL 3 mL SUB-Q SCH ×5 (01:04→21:54)
[2020-01-08] MEDS: MORPHINE 2 MG/1 ML INJ IV PRN (04:17)
[2020-01-08] MEDS: ONDANSETRON 4 MG/2 ML INJ IV PRN (04:19)
[2020-01-08] MEDS: PIPERACIL/TAZOBACTA 4.5/NS 100 4.5 GM/100 ML VIAL IV SCH (06:11)
[2020-01-08] MEDS: metFORMIN 500 MG TAB PO SCH ×2 (08:00→17:00)
[2020-01-08 08:41] LABS: Hematocrit 26.9 % (30.3-42.9); Hemoglobin 8.7 gm/dl (10.1-14.3); Mean Corpuscular HGB Conc 32 % (30-34); Mean Corpuscular Volume 72 fl (79-97); Platelet Count 682 K/mm3 (140-440); Red Blood Count 3.72 M/mm3 (3.65-5.03)
[2020-01-08 08:51] LABS: Red Cell Distribution Width 21.1 % (13.2-15.2)
[2020-01-08] MEDS: FERROUS SULFATE 325 MG TAB PO SCH ×2 (10:00→21:02)
[2020-01-08] MEDS: MULTIVITAMINS ,THERAPEUTIC TAB PO SCH (10:00)
[2020-01-08] MEDS ORDERED: ONDANSETRON 4 MG/2 ML INJ IV PRN (12:04)
--- NOTE | 2020-01-08 12:04 | Anesthesia Consultation ---
Anesthesia Consult and Med Hx Date of service: 01/08/20 - Airway Anesthetic Teeth Evaluation: Poor ROM Head & Neck: Adequate Mental/Hyoid Distance: Adequate Mallampati Class: Class III Intubation Access Assessment: Possibly Difficult - Pulmonary Exam CTA: Yes - Cardiac Exam Cardiac Exam: RRR - Pre-Operative Health Status ASA Pre-Surgery Classification: ASA3 Proposed Anesthetic Plan: General - Pulmonary Hx Asthma: Yes Hx Respiratory Symptoms: No - Cardiovascular System Hx Hypertension: Yes Hx Heart Attack/AMI: No Hx Peripheral Vascular Disease: Yes (R toe gangrene 2/2 arterial ischemia) - Central Nervous System CVA: No - Endocrine Hx Renal Disease: No Hx Liver Disease: No Hx Insulin Dependent Diabetes: Yes Hx Thyroid Disease: No - Hematic Hx Anemia: Yes - Other Systems Hx Obesity: Yes (BMI 32)
--- NOTE | 2020-01-08 12:04 | Anesthesia Day of Surgery ---
Anesthesia Day of Surgery - Day of Surgery Patient Examined: Yes Patient H&P Reviewed: Yes Patient is NPO: Yes
[2020-01-08] MEDS ORDERED: SODIUM CHLORIDE 0.9% 500 ML 500 ML ONE (12:46)
[2020-01-08] MEDS ORDERED: PROTAMINE SULFATE 50 MG/5 ML INJ ONE (12:46)
[2020-01-08] MEDS ORDERED: THROMBIN (RECOMBINANT) 5,000 UNIT VIAL TP ONE ×2 (12:46→14:22)
[2020-01-08] MEDS ORDERED: HEPARIN 10,000 UNITS/10 ML VIAL ONE (12:46)
[2020-01-08 13:00] LABS: HCG Qualitative,Urine Negative (Negative)
[2020-01-08] MEDS: LACTATED RINGERS 1,000 ML IV SCH ×2 (13:03→21:03)
[2020-01-08] MEDS: VANCOMYCIN 1,250 MG in SODIUM CHLORIDE 0.9% 250ML 250 ML IV SCH ×2 (13:03→21:10)
--- NOTE | 2020-01-08 13:31 | Consultation ---
History of Present Illness - Reason for Consult Consult date: 01/08/20 - History of Present Illness 44-year-old female past medical history hypertension, diabetes admitted to the hospital complaining of infection of the right second toe. She notes pain in left foot and leg which is worse on exercise. She denied any recent trauma to the foot over the foot until it getting red and painful and swollen recently. She otherwise denies any symptoms. She had recently been seen by her primary c are doctor and was given levofloxacin and metronidazole, however that did not improve her issue. Afebrile since admission with a white count of 14. Currently seeing vancomycin Zosyn. 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 Review of Systems: Bold if positive, otherwise negative General: fevers, chills, rigors HEENT: visual disturbance, diplopia, eye pain Respiratory: cough, sputum, hemoptysis, shortness of breath Cardiovascular: chest pain, syncope Gastrointestinal: nausea, vomiting, diarrhea, abdominal pain Genitourinary: dysuria, hematuria, flank pain Musculoskeletal: neck pain, back pain, joint pain, edema Neurologic: headaches, seizures Hematologic: easy bruising or bleeding Endocrine: night sweats, acute weight loss Skin: rash, jaundice, redness Psychiatric: suicidal, homicidal ideation Past History Past Medical History: diabetes, hypertension, other (Ovarian Cyst,Asthma) Past Surgical History: Social history: alcohol abuse Family history: no significant family history Medications and Allergies Allergies Allergy/AdvReac Type Severity Reaction Status Date / Time No Known Allergies Allergy Verified 05/17/13 23:27 Home Medications Medication Instructions Recorded Confirmed Last Taken Type HYDROcodone/APAP 7.5-325 [[place] 1 each PO Q6HR PRN #20 tablet 05/18/13 Unknown Rx 7.5/325 mg] Albuterol Sulfate [Ventolin HFA] 2 puff IH Q4H PRN #1 hfa.aer.ad 02/13/15 Unknown Rx metFORMIN [Glucophage] 500 mg PO BID #60 tablet 02/13/15 Unknown Rx Nitrofurantoin Patrick/M-Cryst 100 mg PO Q12HR #14 capsule 11/25/15 Unknown Rx [Macrobid CAP] Nitrofurantoin Monohyd/M-Cryst 100 mg PO BID #14 capsule 12/08/17 Unknown Rx [Macrobid 100 mg Capsule] traMADoL [Ultram] 50 mg PO Q6HR PRN #12 tablet 12/19/18 Unknown Rx Colchicine 0.6 mg PO Q2HR #10 capsule NS 11/11/19 Unknown Rx predniSONE [Deltasone] 50 mg PO QDAY #5 tab 11/11/19 Unknown Rx traMADoL [Ultram] 50 mg PO Q4HR PRN #14 tablet 11/11/19 Unknown Rx Active Meds: Active Medications Acetaminophen (Tylenol) 650 mg PO Q4H PRN PRN Reason: Pain MILD(1-3)/Fever >100.5/SULLIVAN Colchicine (Colchicine) 0.6 mg PO Q2HR PRN PRN Reason: GOUT Last Admin: 01/07/20 20:11 Dose: 0.6 mg Documented by: Dextrose (D50w (25gm) Syringe) 50 ml IV Q30MIN PRN; Protocol PRN Reason: Hypoglycemia Ferrous Sulfate (Feosol) 325 mg PO BID SIDNEY Last Admin: 01/07/20 21:45 Dose: 325 mg Documented by: Hydromorphone HCl (Dilaudid) 0.5 mg IV Q10MIN PRN PRN Reason: Pain , Severe (7-10) Stop: 01/08/20 23:00 Sodium Chloride (Nacl 0.9% 1000 Ml) 1,000 mls @ 125 mls/hr IV DIRECT SIDNEY Last Infusion: 01/08/20 00:08 Dose: Infused Documented by: Piperacillin Sod/Tazobactam Sod (Zosyn/Ns 4.5gm/100ml) 4.5 gm in 100 mls @ 200 mls/hr IV Q8HR SIDNEY; Protocol Last Admin: 01/08/20 06:11 Dose: 200 mls/hr Documented by: Vancomycin HCl 1,250 mg/ (Sodium Chloride) 275 mls @ 166.667 mls/hr IV Q12H SIDNEY Last Admin: 01/08/20 13:03 Dose: 166.667 mls/hr Documented by: Heparin Sodium/Sodium Chloride (Heparin/ 0.45% Nacl-25,000 Unit/500 Ml) 25,000 unit in 500 mls @ 24 mls/hr IV TITR SIDNEY; Protocol Last Admin: 01/08/20 00:09 Dose: 1,200 units/hr, 24 mls/hr Documented by: Lactated Ringer's (Lactated Ringers) 1,000 mls @ 100 mls/hr IV DIRECT [facility] Last Admin: 01/08/20 13:03 Dose: 100 mls/hr Documented by: Insulin Human Lispro (Humalog) 0 unit SUB-Q ACHS [facility]; Protocol Last Admin: 01/08/20 11:15 Dose: Not Given Documented by: Magnesium Hydroxide (Milk Of Magnesia) 30 ml PO Q4H PRN PRN Reason: Constipation Metformin HCl (Glucophage) 500 mg PO BIDDIAB [facility] Last Admin: 01/07/20 21:11 Dose: Not Given Documented by: Morphine Sulfate (Morphine) 2 mg IV Q4H PRN PRN Reason: Pain, Moderate (4-6) Last Admin: 01/08/20 04:17 Dose: 2 mg Documented by: Multivitamins (Theragran Tab) 1 each PO QDAY [facility] Last Admin: 01/07/20 21:11 Dose: Not Given Documented by: Ondansetron HCl (Zofran) 4 mg IV Q8H PRN PRN Reason: Nausea And Vomiting Last Admin: 01/08/20 04:19 Dose: 4 mg Documented by: Ondansetron HCl (Zofran) 4 mg IV ONCE PRN PRN Reason: Nausea And Vomiting Stop: 01/08/20 20:00 Sodium Chloride (Sodium Chloride Flush Syringe 10 Ml) 10 ml IV BID [facility] Last Admin: 01/07/20 21:47 Dose: 10 ml Documented by: Sodium Chloride (Sodium Chloride Flush Syringe 10 Ml) 10 ml IV PRN PRN PRN Reason: LINE FLUSH Tramadol HCl (Ultram) 50 mg PO Q4HR PRN PRN Reason: PAIN Last Admin: 01/06/20 17:48 Dose: 50 mg Documented by: Physical Examination - Physical Exam Narrative exam: Physical Exam: Constitutional: Alert, cooperative. No acute distress Head, Ears, Nose: Normocephalic, atraumatic. External ears, nose normal Eyes: Conjunctivae/corneas clear. No icterus. No ptosis. Neck: Supple, no meningeal signs Oral: dentition fair, no thrush Cardiovascular: S1, S2 normal. Respiratory: Good air entry, clear to auscultation bilaterally GI: Soft, non-tender; bowel sounds normal. No peritoneal signs. Musculoskeletal: Right second toe dusky discoloration with gangrene. Skin: No rash or abscess Hem/Lymphatic: No palpable cervical or supraclavicular nodes. No lymphangitis Psych: Mood ok. Affect normal Neurological: Awake, alert, oriented. No gross abnormality - Constitutional Vitals: Vital Signs Temp Pulse Resp BP Pulse Ox 99.1 F 77 18 165/62 100 01/08/20 11:17 01/08/20 11:17 01/08/20 11:17 01/08/20 11:17 01/08/20 11:17 Temperature -Last 24 Hours Temperature 99.1 F Temperature 98.3 F Temperature 98.6 F Temperature 98.8 F Temperature 98.7 F Temperature 98.6 F Results - Labs CBC & Chem 7: 01/08/20 08:01 01/08/20 08:01 Labs: Abnormal lab results 01/06/20 01/07/20 01/07/20 Range/Units 07:21 16:08 20:51 WBC (4.5-11.0) K/mm3 Hgb (10.1-14.3) gm/dl Hct (30.3-42.9) % MCV (79-97) fl MCH (28-32) pg RDW (13.2-15.2) % Plt Count (140-440) K/mm3 APTT 37.8 H (24.2-36.6) Sec. Heparin Anti-Xa Level (0.3-0.7) U.I./ml Sodium (137-145) mmol/L Chloride (98-107) mmol/L Glucose (65-100) mg/dL POC Glucose 183 H (70-105) mg/dL Calcium (8.4-10.2) mg/dL Crossmatch See Detail 01/07/20 01/07/20 01/08/20 Range/Units 22:38 22:40 07:18 WBC (4.5-11.0) K/mm3 Hgb 8.5 L (10.1-14.3) gm/dl Hct 25.9 L (30.3-42.9) % MCV (79-97) fl MCH (28-32) pg RDW (13.2-15.2) % Plt Count 681 H (140-440) K/mm3 APTT (24.2-36.6) Sec. Heparin Anti-Xa Level (0.3-0.7) U.I./ml Sodium (137-145) mmol/L Chloride (98-107) mmol/L Glucose (65-100) mg/dL POC Glucose 278 H 136 H (70-105) mg/dL Calcium (8.4-10.2) mg/dL Crossmatch 01/08/20 01/08/20 01/08/20 Range/Units 08:01 08:01 08:01 WBC 13.8 H (4.5-11.0) K/mm3 Hgb 8.7 L (10.1-14.3) gm/dl Hct 26.9 L (30.3-42.9) % MCV 72 L (79-97) fl MCH 23 L (28-32) pg RDW 21.1 H (13.2-15.2) % Plt Count 682 H (140-440) K/mm3 APTT (24.2-36.6) Sec. Heparin Anti-Xa Level 0.13 L (0.3-0.7) U.I./ml Sodium 136 L (137-145) mmol/L Chloride 107.1 H (98-107) mmol/L Glucose 154 H (65-100) mg/dL POC Glucose (70-105) mg/dL Calcium 8.0 L (8.4-10.2) mg/dL Crossmatch 01/08/20 Range/Units 11:14 WBC (4.5-11.0) K/mm3 Hgb (10.1-14.3) gm/dl Hct (30.3-42.9) % MCV (79-97) fl MCH (28-32) pg RDW (13.2-15.2) % Plt Count (140-440) K/mm3 APTT (24.2-36.6) Sec. Heparin Anti-Xa Level (0.3-0.7) U.I./ml Sodium (137-145) mmol/L Chloride (98-107) mmol/L Glucose (65-100) mg/dL POC Glucose 114 H (70-105) mg/dL Calcium (8.4-10.2) mg/dL Crossmatch Assessment and Plan Cultures: Blood culture 01/05/2020 pending A/P: 42-year-old female past medical history obesity, diabetes, hypertension admitted to hospital with right second toe gangrene. #Right second toe gangrene/osteomyelitis: I doubt this toe is viable, recommend surgical consult. Continue antibiotics in the meantime #Diabetes: tight glycemic control for best outcomes. #NAPOLEON: Renally dose antibiotics Recs: -Stop Zosyn to avoid vancomycin and Zosyn added nephrotoxicity. -Started renally dosed cefepime -Continue vancomycin dosed by pharmacy, goal trough 10-20. -Follow-up surgical recommendations for potential amputation Thank you for the consult, we will continue to follow. Marycruz Neumann MD [facility] ([facility] O: [phone] F: [phone]
[2020-01-08] MEDS ORDERED: HEPARIN 10,000 UNITS/10 ML VIAL IV ONE (14:22)
[2020-01-08] MEDS ORDERED: SODIUM CHLORIDE 0.9% IRR 1,500 ML BOTTLE IR ONE (14:22)
[2020-01-08] MEDS ORDERED: GELATIN SPONGE SIZE 100 TP ONE (14:22)
[2020-01-08] MEDS ORDERED: SODIUM CHLORIDE 0.9% 500 ML IVPB IV ONE (14:22)
[2020-01-08] MEDS ORDERED: ROCURONIUM 50 MG/5 ML INJ IV ONE (15:00)
[2020-01-08] MEDS ORDERED: LACTATED RINGERS 1000 ML IV SOLN ONE (15:00)
[2020-01-08] MEDS ORDERED: fentaNYL 100 MCG/2 ML INJ ONE (15:00)
[2020-01-08] MEDS ORDERED: KETAMINE/STERILE WATER 50 MG/ML SYRINGE ONE (15:00)
[2020-01-08] MEDS ORDERED: ePHEDrine SULFATE 50 MG/1 ML INJ ONE (15:00)
[2020-01-08] MEDS ORDERED: HYDROmorphone 1 MG/1 ML INJ ONE ×2 (15:00→17:20)
[2020-01-08] MEDS ORDERED: propofoL 200 MG/20 ML VIAL IV ONE (15:00)
[2020-01-08] MEDS ORDERED: LIDOCAINE MPF (2%) 20 MG/1 ML VIAL 5 ML ONE (15:00)
--- NOTE | 2020-01-08 15:52 | Progress Note ---
Assessment and Plan Assessment and plan: 44-year-old female with known history of hypertension and diabetes mellitus presenting to the emergency room today complaining of also and infection of the second toe on right foot which has been ongoing for about a week. Patient indicates that wound started as a small ulcer but she began to h ave some swelling over the past 5 days. Right foot has been getting red and painful. She denies any recent trauma and denies any fall. Patient denies any fever or chills, no chest pain or shortness of breath, no headache or dizziness. Patient denies any sick contacts and no recent travel. She was recently seen by her primary care physician with the above complaints and she was placed on Levaquin and Flagyl but patient indicates that wound is not getting better. Patient has also been on some iron pills lately because of anemia. She denies any excessive bleeding during her menstruation and she denies any bright red blood per rectum or black stool. Upon evaluation in the emergency room today x-ray of the right foot reveals: Right second toe wound with suspected osteomyelitis of the distal phalanx. Labs reveals leukocytosis and low hemoglobin of 7. Patient being admitted for cellulitis/osteomyelitis of the second toe on right foot. 01/07: Patient for surgery today Amputation today. H/H Stable --Severe anemia; Hb 5.5 Current Visit: Yes Status: Acute Plan to address problem: Received total 2 units of PRBC yesterday IMproved Hb improved from 5.5-8.5 , no external evidence of bleeding Stool for occult blood Patient may need to see CHOKE SETTER as outpatient To evaluate for CHOKE SETTER causes of anemia -- Osteomyelitis of second toe of right foot Current Visit: Yes Status: Acute Plan to address problem: Patient placed on empiric IV antibiotics. general surgery consulted for evaluation and recommendation. -- Gangrene of toe of right foot Current Visit: Yes Status: Acute Plan to address problem: Extra findings suggestive of gangrene. empiric IV antibiotics and await further evaluation by surgery. vascular following --Severe malnutrition; hypoalbuminemia Nutrition supplements, nutrition consult -- Diabetes mellitus Current Visit: Yes Status: Acute Plan to address problem: Will monitor accu-checks closely. -- DVT prophylaxis Current Visit: Yes Status: Acute Plan to address problem: Patient placed on sequential compression device. No pharmacological anticoagulation in view of severe anemia -- Full code status Current Visit: Yes Status: Acute We will closely monitor the patient and adjust management as needed Plan of care reviewed with the patient and her nurse Disposition; follow surgery, vascular evaluation and recommendations Possible discharge when stable History Interval history: Patient out for surgery. Hospitalist Physical - Physical exam Narrative exam: General appearance: Present: no acute distress, well-nourished, obese - EENT Eyes: Present: PERRL, EOM intact - Neck Neck: Present: supple, normal ROM - Respiratory Respiratory effort: normal Respiratory: bilateral: diminished, negative: rales, rhonchi, wheezing - Cardiovascular Rhythm: regular Heart Sounds: Present: S1 & S2 - Extremities Extremities: abnormal (Gen gangrene second toe) - Abdominal General gastrointestinal: soft, non-tender, non-distended, normal bowel sounds - Integumentary Integumentary: Present: clear, warm - Psychiatric Psychiatric: appropriate mood/affect, cooperative - Neurologic Neurologic: CNII-XII intact, moves all extremities - Constitutional Vitals: Temp Pulse Resp BP Pulse Ox 99.1 F 77 18 165/62 100 01/08/20 11:17 01/08/20 11:17 01/08/20 11:17 01/08/20 11:17 01/08/20 11:17 General appearance: Present: no acute distress, well-nourished, obese Results - Labs CBC & Chem 7: 01/08/20 08:01 01/08/20 08:01 Labs: Laboratory Last Values WBC 13.8 K/mm3 (4.5-11.0) H 01/08/20 08:01 RBC 3.72 M/mm3 (3.65-5.03) 01/08/20 08:01 Hgb 8.7 gm/dl (10.1-14.3) L 01/08/20 08:01 Hct 26.9 % (30.3-42.9) L 01/08/20 08:01 MCV 72 fl (79-97) L 01/08/20 08:01 MCH 23 pg (28-32) L 01/08/20 08:01 MCHC 32 % (30-34) 01/08/20 08:01 RDW 21.1 % (13.2-15.2) H 01/08/20 08:01 Plt Count 682 K/mm3 (140-440) H 01/08/20 08:01 Lymph % (Auto) 14.0 % (13.4-35.0) 01/07/20 05:43 Crowley % (Auto) 8.7 % (0.0-7.3) H 01/07/20 05:43 Eos % (Auto) 2.5 % (0.0-4.3) 01/07/20 05:43 Baso % (Auto) 0.6 % (0.0-1.8) 01/07/20 05:43 Lymph # (Auto) 1.9 K/mm3 (1.2-5.4) 01/07/20 05:43 Crowley # (Auto) 1.2 K/mm3 (0.0-0.8) H 01/07/20 05:43 Eos # (Auto) 0.3 K/mm3 (0.0-0.4) 01/07/20 05:43 Baso # (Auto) 0.1 K/mm3 (0.0-0.1) 01/07/20 05:43 Add Manual Diff Complete 01/05/20 17:42 Total Counted 100 01/05/20 17:42 Seg Neutrophils % 74.2 % (40.0-70.0) H 01/07/20 05:43 Seg Neuts % (Manual) 67.0 % (40.0-70.0) 01/05/20 17:42 Band Neutrophils % 0 % 01/05/20 17:42 Lymphocytes % (Manual) 22.0 % (13.4-35.0) 01/05/20 17:42 Reactive Lymphs % (Man) 0 % 01/05/20 17:42 Monocytes % (Manual) 9.0 % (0.0-7.3) H 01/05/20 17:42 Eosinophils % (Manual) 1.0 % (0.0-4.3) 01/05/20 17:42 Basophils % (Manual) 1.0 % (0.0-1.8) 01/05/20 17:42 Metamyelocytes % 0 % 01/05/20 17:42 Myelocytes % 0 % 01/05/20 17:42 Promyelocytes % 0 % 01/05/20 17:42 Blast Cells % 0 % 01/05/20 17:42 Nucleated RBC % Not Reportable 01/05/20 17:42 Seg Neutrophils # 9.9 K/mm3 (1.8-7.7) H 01/07/20 05:43 Seg Neutrophils # Man 10.5 K/mm3 (1.8-7.7) H 01/05/20 17:42 Band Neutrophils # 0.0 K/mm3 01/05/20 17:42 Lymphocytes # (Manual) 3.5 K/mm3 (1.2-5.4) 01/05/20 17:42 Abs React Lymphs (Man) 0.0 K/mm3 01/05/20 17:42 Monocytes # (Manual) 1.4 K/mm3 (0.0-0.8) H 01/05/20 17:42 Eosinophils # (Manual) 0.2 K/mm3 (0.0-0.4) 01/05/20 17:42 Basophils # (Manual) 0.2 K/mm3 (0.0-0.1) H 01/05/20 17:42 Metamyelocytes # 0.0 K/mm3 01/05/20 17:42 Myelocytes # 0.0 K/mm3 01/05/20 17:42 Promyelocytes # 0.0 K/mm3 01/05/20 17:42 Blast Cells # 0.0 K/mm3 01/05/20 17:42 WBC Morphology Not Reportable 01/05/20 17:42 Hypersegmented Neuts Not Reportable 01/05/20 17:42 Hyposegmented Neuts Not Reportable 01/05/20 17:42 Hypogranular Neuts Not Reportable 01/05/20 17:42 Smudge Cells Not Reportable 01/05/20 17:42 Toxic Granulation Not Reportable 01/05/20 17:42 Toxic Vacuolation Not Reportable 01/05/20 17:42 Dohle Bodies Not Reportable 01/05/20 17:42 Pelger-Huet Anomaly Not Reportable 01/05/20 17:42 Ren Rods Not Reportable 01/05/20 17:42 Platelet Estimate Not Reportable 01/05/20 17:42 Clumped Platelets Not Reportable 01/05/20 17:42 Plt Clumps, EDTA Not Reportable 01/05/20 17:42 Large Platelets Few 01/05/20 17:42 Giant Platelets Not Reportable 01/05/20 17:42 Platelet Satelliting Not Reportable 01/05/20 17:42 Plt Morphology Comment Not Reportable 01/05/20 17:42 RBC Morphology Not Reportable 01/05/20 17:42 Dimorphic RBCs Not Reportable 01/05/20 17:42 Polychromasia Not Reportable 01/05/20 17:42 Hypochromasia 1+ 01/05/20 17:42 Poikilocytosis Not Reportable 01/05/20 17:42 Anisocytosis Not Reportable 01/05/20 17:42 Microcytosis 1+ 01/05/20 17:42 Macrocytosis Not Reportable 01/05/20 17:42 Spherocytes Not Reportable 01/05/20 17:42 Pappenheimer Bodies Not Reportable 01/05/20 17:42 Sickle Cells Not Reportable 01/05/20 17:42 Target Cells Rare 01/05/20 17:42 Tear Drop Cells Not Reportable 01/05/20 17:42 Ovalocytes Few 01/05/20 17:42 Helmet Cells Not Reportable 01/05/20 17:42 Bhakta-Whiteside Bodies Not Reportable 01/05/20 17:42 [place] Rings Not Reportable 01/05/20 17:42 Remy Cells Not Reportable 01/05/20 17:42 Bite Cells Not Reportable 01/05/20 17:42 Crenated Cell Not Reportable 01/05/20 17:42 Elliptocytes Not Reportable 01/05/20 17:42 Acanthocytes (Spur) Not Reportable 01/05/20 17:42 Rouleaux Not Reportable 01/05/20 17:42 Hemoglobin C Crystals Not Reportable 01/05/20 17:42 Schistocytes Not Reportable 01/05/20 17:42 Malaria parasites Not Reportable 01/05/20 17:42 Amauri Bodies Not Reportable 01/05/20 17:42 Hem Pathologist Commnt No 01/05/20 17:42 PT 14.4 Sec. (12.2-14.9) 01/07/20 22:40 INR 1.13 (0.87-1.13) 01/07/20 22:40 APTT 33.2 Sec. (24.2-36.6) 01/07/20 22:40 Heparin Anti-Xa Level 0.13 U.I./ml (0.3-0.7) L 01/08/20 08:01 Sodium 136 mmol/L (137-145) L 01/08/20 08:01 Potassium 4.4 mmol/L (3.6-5.0) 01/08/20 08:01 Chloride 107.1 mmol/L (98-107) H 01/08/20 08:01 Carbon Dioxide 22 mmol/L (22-30) 01/08/20 08:01 Anion Gap 11 mmol/L 01/08/20 08:01 BUN 16 mg/dL (7-17) 01/08/20 08:01 Creatinine 1.2 mg/dL (0.6-1.2) 01/08/20 08:01 Estimated GFR 49 ml/min 01/08/20 08:01 BUN/Creatinine Ratio 13 % 01/08/20 08:01 Glucose 154 mg/dL (65-100) H 01/08/20 08:01 POC Glucose 114 mg/dL (70-105) H 01/08/20 11:14 Hemoglobin A1c 14.3 % (4-6) H 01/05/20 17:42 Lactic Acid 1.30 mmol/L (0.7-2.0) 01/05/20 17:42 Calcium 8.0 mg/dL (8.4-10.2) L 01/08/20 08:01 Phosphorus 3.60 mg/dL (2.5-4.5) 01/07/20 05:43 Magnesium 1.90 mg/dL (1.7-2.3) 01/07/20 05:43 Iron 12 ug/dL (37-170) L 01/06/20 03:47 Iron 12 ug/dL (37-170) L 01/06/20 03:47 TIBC 119 mcg/dL (250-450) L 01/06/20 03:47 TIBC 123 mcg/dL (250-450) L 01/06/20 03:47 % Saturation 10.08 % 01/06/20 03:47 Transferrin 100 mg/dl (192-382) L 01/06/20 03:47 Ferritin 55.9 ng/mL (10.0-200.0) 01/06/20 07:21 Total Bilirubin < 0.20 mg/dL (0.1-1.2) 01/05/20 17:42 AST 7 units/L (5-40) 01/05/20 17:42 ALT 7 units/L (7-56) 01/05/20 17:42 Alkaline Phosphatase 144 units/L (35-129) H 01/05/20 17:42 Total Protein 7.4 g/dL (6.3-8.2) 01/05/20 17:42 Albumin 2.1 g/dL (3.9-5) L 01/05/20 17:42 Albumin/Globulin Ratio 0.4 % 01/05/20 17:42 Urine HCG, Qual Negative (Negative) 01/08/20 12:33 Coronavirus (PCR) Negative (Negative) 01/08/20 08:52 Blood Type B POSITIVE 01/06/20 07:21 Antibody Screen Negative 01/06/20 07:21 Crossmatch See Detail 01/06/20 07:21 Microbiology: Microbiology 01/05/20 17:42 Peripheral/Venous Blood Culture - Preliminary NO GROWTH AFTER 48 HOURS 01/05/20 17:42 Peripheral/Venous Blood Culture - Preliminary NO GROWTH AFTER 48 HOURS Newell/IV: Voiding Method Toilet IV Catheter Type [Left Forearm INT / Saline Lock ] IV Catheter Type [Forearm] INT / Saline Lock Active Medications - Current Medications Current Medications: Generic Name Dose Route Start Last Admin Trade Name Freq PRN Reason Stop Dose Admin Acetaminophen 650 mg 01/05/20 21:36 Tylenol PO Q4H PRN Pain MILD(1-3)/Fever >100.5/SULLIVAN Colchicine 0.6 mg 01/06/20 13:00 01/07/20 20:11 Colchicine PO 0.6 mg Q2HR PRN Administration GOUT Dextrose 50 ml 01/05/20 21:36 D50w (25gm) Syringe IV Q30MIN PRN Hypoglycemia Protocol Ferrous Sulfate 325 mg 01/06/20 10:00 01/07/20 21:45 Feosol PO 325 mg BID SIDNEY Administration Hydromorphone HCl 0.5 mg 01/08/20 12:04 Dilaudid IV 01/08/20 23:00 Q10MIN PRN Pain , Severe (7-10) Sodium Chloride 1,000 mls @ 125 mls/hr 01/05/20 21:45 01/08/20 00:08 Nacl 0.9% 1000 Ml IV Infused DIRECT SIDNEY Infusion Vancomycin HCl 1,250 mg/ 275 mls @ 166.667 mls/hr 01/06/20 09:00 01/08/20 13:03 Sodium Chloride IV 166.667 mls/hr Q12H SIDNEY Administration Heparin Sodium/Sodium Chloride 25,000 unit in 500 mls @ 24 mls/hr 01/07/20 22:00 01/08/20 00:09 Heparin/ 0.45% Nacl-25,000 Unit/500 Ml IV 1,200 units/hr TITR SIDNEY 24 mls/hr Administration Protocol 1,200 UNITS/HR Lactated Ringer's 1,000 mls @ 100 mls/hr 01/08/20 13:00 01/08/20 13:03 Lactated Ringers IV 100 mls/hr DIRECT SIDNEY Administration Cefepime HCl 2 gm in 100 mls @ 200 mls/hr 01/08/20 15:00 Cefepime/Ns 2 Gm/100 Ml IV Q12HR [facility] Protocol Insulin Human Lispro 0 unit 01/05/20 22:00 01/08/20 11:15 Humalog SUB-Q Not Given ACHS [facility] Protocol Magnesium Hydroxide 30 ml 01/05/20 21:36 Milk Of Magnesia PO Q4H PRN Constipation Metformin HCl 500 mg 01/06/20 09:00 01/07/20 21:11 Glucophage PO Not Given BIDDIAB [facility] Morphine Sulfate 2 mg 01/05/20 21:36 01/08/20 04:17 Morphine IV 2 mg Q4H PRN Administration Pain, Moderate (4-6) Multivitamins 1 each 01/06/20 10:00 01/07/20 21:11 Theragran Tab PO Not Given QDAY [facility] Ondansetron HCl 4 mg 01/05/20 21:36 01/08/20 04:19 Zofran IV 4 mg Q8H PRN Administration Nausea And Vomiting Ondansetron HCl 4 mg 01/08/20 12:04 Zofran IV 01/08/20 20:00 ONCE PRN Nausea And Vomiting Sodium Chloride 10 ml 01/05/20 22:00 01/07/20 21:47 Sodium Chloride Flush Syringe 10 Ml IV 10 ml BID SIDNEY Administration Sodium Chloride 10 ml 01/05/20 21:36 Sodium Chloride Flush Syringe 10 Ml IV PRN PRN LINE FLUSH Tramadol HCl 50 mg 01/06/20 10:00 01/06/20 17:48 Ultram PO 50 mg Q4HR PRN Administration PAIN Nutrition/Malnutrition Assess - Dietary Evaluation Nutrition/Malnutrition Findings: Nutrition Notes Start: 01/06/20 14:15 Freq: Status: Active Protocol: Document 01/07/20 11:04 LM (Rec: 01/07/20 11:16 LM [id number]) Nutrition Notes Initial or Follow up Assessment Current Diagnosis Diabetes Other Pertinent Diagnosis gangrene/osteomyelitis foot Current Diet Cardiac/consistent CHO Labs/Tests Na 134 Pertinent Medications Reviewed Height 5 ft 3 in Weight 83.5 kg [place] Body Weight (kg) 52.27 BMI 32.5 Weight change and time frame 4% wt loss in more than 1 week Weight Status Obese Subjective/Other Information F/U for diet education. Pt's son translated over the phone. Pt stated she has not been hungry for a week and has lost 8 lb in more 1 week (exact time frame unknown). Provided pt DM education and handouts in Pashto. Discussed the plate method. Burn Absent Trauma Absent GI Symptoms Nausea Current % PO Poor (25-49%) Minimum of two criteria Yes Energy Intake (non-severe) <75% Estimated Energy Requirement >7 days Interpretation of Weight Loss (severe) >2% in 1 week #2 Nutrition Diagnosis Food and nutrition-related knowledge deficit Etiology Pt with limited past DM diet education As Evidenced by Signs and Symptoms A1C 14.3 #1 Nutrition Diagnosis Malnutrition Etiology uncontrolled DM As Evidenced by Signs and Symptoms Pt with 4% wt loss in over 1 week, pt eating poorly for 1 week Is patient on ventilator? No Is Patient Ambulatory and/or Out of Bed Yes REE-([place]ambulatory/OOB) [ 1903.369 [id number]] Kcal/Kg value to use for calculation 19 Approximate Energy Requirements Using 1587 kcal/Kg Calculation Used for Recommendations Kcal/kg Additional Notes Protein: 54-68g (0.8-1g/kg using AdjBW 68kg) Fluid: 1ml/kcal Nutrition Intervention Change Diet Order: continue Add Supplement/Snack (indicate name/kcal Glucerna strawberry BID /protein ) Provides kCal: 440 Provides Protein (gm) 20 Teaching Recipient Patient Learning Readiness Good Teaching Methods Discussion,Handout Response to Teaching Verbalize understanding Education Handouts Provided Carbohydrate Counting for People with DM Barriers to Learning Language RD phone number provided Yes Patient aware of follow up options Yes Actions To Overcome Barriers Contact Perioperative Educator Goal #1 Meet at least 75% of energy and protein needs Anticipated Discharge Needs: Cardiac/consistent CHO Follow-Up By: 01/10/20 Additional Comments F/U for PO/ONS intakes
--- NOTE | 2020-01-08 17:16 | Post Operative Note ---
Date of procedure: 01/08/20 Pre-op diagnosis: Right Lower Extremity Critical Limb Ischemia Post-op diagnosis: same Findings: chronic plaque in the distal ANODE REBUILDER extending into the SFA and profunda femoral artery Procedure: 1. Right Femoral Endarterectomy and Patch Angioplasty with Bovine Pericardium 2. Right 2nd toe amputation Anesthesia: GETA Surgeon: ALBINO IGLESIAS Estimated blood loss: 50-100ml Pathology: list (right femoral plaque, right 2nd toe) Specimen disposition: to lab Condition: stable Disposition: PACU
[2020-01-08] MEDS: HYDROmorphone 1 MG/1 ML INJ IV PRN ×2 (17:25→17:35)
[2020-01-08] MEDS ORDERED: ONDANSETRON 4 MG/2 ML INJ ONE (17:30)
[2020-01-08] MEDS ORDERED: NALOXONE 0.4 MG/1 ML INJ IV PRN (17:30)
[2020-01-08] MEDS ORDERED: ceFAZolin/NS 1 GM/50 ML 1 GM/50 ML BAG IV SCH (18:00)
[2020-01-08] MEDS: CEFEPIME/NS 2 GM/100 ML 2 GM/100 ML BAG IV SCH ×2 (18:16→21:02)
--- NOTE | 2020-01-08 18:39 | Operative Report ---
STAFF SURGEON: Dr. Conrado Chaudhary. PREOPERATIVE DIAGNOSIS: Right lower extremity critical limb ischemia. POSTOPERATIVE DIAGNOSIS: Right lower extremity critical limb ischemia. PROCEDURES PERFORMED: 1. Right femoral endarterectomy and patch angioplasty with bovine pericardium. 2. Right second toe amputation. COMPLICATIONS: None. ESTIMATED BLOOD LOSS: 100 mL. ANESTHESIA: General. SURGICAL FINDINGS: The patient had a chronic plaque in the distal common femoral artery extending into the origins of the profunda femoral and superficial femoral artery. INDICATIONS FOR PROCEDURE: This is a 44-year-old female with diabetes mellitus and hypertension, who presented to the Emergency Department with gangrenous changes of the right second toe, vascular consultation was obtained. The patient had preoperative studies that demonstrated a significant infrainguinal peripheral arterial disease. Therefore, the patient had imaging that demonstrated a significant disease at the level of the femoral artery. The patient was then scheduled to undergo surgical intervention to improve perfusion as well as amputation of her second toe. The patient and the patient's family were explained the risks, benefits and alternatives of procedure; expressed understanding and wished to proceed. DESCRIPTION OF PROCEDURE: After appropriate consent was obtained, the patient was brought back to the operating room and placed on the operating table in supine position. The patient was given appropriate medication for general anesthesia, was intubated without difficulty. The right groin was prepped and draped in the usual sterile fashion with ChloraPrep. Appropriate preoperative antibiotics were administered. Appropriate timeout was performed indicating correct patient, procedure, and site of procedure. We then began the operation by making a longitudinal incision in the right groin approximately 2 fingerbreadths lateral to the pubic tubercle. This was carried through the subcutaneous tissues with combination of blunt dissection and electrocautery. Dissection was continued through the fascia laterally, which allowed to expose the common femoral artery. Dissection was then continued distally to expose the profunda and superficial femoral arteries. The vessels were controlled proximally and distally with vessel loops in a Guzman wrap fashion. The patient was then given unfractionated heparin intravenously and ACTs were obtained throughout the remainder of the case for adequate anticoagulation. After appropriate timeout elapsed, a vascular clamp was placed on the common femoral artery, profunda and superficial femoral arteries. A longitudinal arteriotomy was made with an 11 blade. This was extended with Guzman scissors onto the proximal superficial femoral artery. The surgical findings were noted. We then proceeded to take a Louann elevator and proceeded to perform the endarterectomy of the plaque, which feathered out nicely proximally and distally. This was sent off for pathology. When it was complete, I was satisfied with the endarterectomized surface, which had adequate forward and backbleeding. We then proceeded to perform a patch angioplasty with bovine pericardium with a running 6-0 Prolene suture. Once complete, flow was reestablished through the artery, was flushed through the profunda for several beats and then the SFA was opened up. The patient had a palpable pulse distal to the repair, which was confirmed by Doppler. Once satisfied, we then proceeded to look to obtain hemostasis along our suture line, which was obtained with hemostatic agents. Once satisfied with hemostasis, then proceeded to close the wound in multiple layers with 2-0 and 3-0 PDS and then skin was approximated with neida. Appropriate dressing was placed, then proceeded to prep and drape the right foot with Betadine. We then made an elliptical incision at the base of the second toe. This was done using a sharp dissection and took this down to the level of the metatarsal and a bone cutter was then used to perform the amputation at the level of the metatarsal head. The second toe was then taken off the field and discarded and sent to pathology. A rongeur was used to remove any exposed tendon. We then looked to obtain hemostasis of the surrounding tissue, which was bleeding nicely with electrocautery. The wound was irrigated thoroughly with saline solution. There was no purulent material that could be expressed. It was felt to be safe to close. Once satisfied with hemostasis, then proceeded to close the deep subcutaneous layer with interrupted 3-0 PDS and the skin was approximated with a 3-0 nylon. Once satisfied with our closure, we then placed an appropriate dressing. The patient tolerated the procedure well, emerged from the general anesthesia, was extubated in the operating room and sent to recovery in stable condition. All the sponges, instrument and needle counts were correct at completion of the operation. JOB# [id number] GIO/WILLI
--- NOTE | 2020-01-08 19:09 | Post Anesthesia Evaluation ---
- Post Anesthesia Evaluation Patient Participated: Yes Airway Patent: Yes Stable Respiratory Function: Yes Nausea/Vomiting: Yes (IV antiemetics given) Temp > 96.8F: Yes Pain Manageable: Yes Adequeate Hydration: Yes Anesthesia Complications: No
[2020-01-08] MEDS: oxyCODONE /ACETAMINOPHEN 5-325MG TAB PO PRN (21:02)
[2020-01-09 03:29] LABS: Hematocrit 26.9 % (30.3-42.9); Hemoglobin 8.6 gm/dl (10.1-14.3)
[2020-01-09] MEDS: HEPARIN/ 0.45% NACL DRIP 25,000 UNIT/500 ML BAG IV SCH ×2 (03:34→20:25)
[2020-01-09] MEDS: oxyCODONE /ACETAMINOPHEN 5-325MG TAB PO PRN ×2 (04:33→09:49)
[2020-01-09] MEDS: FERROUS SULFATE 325 MG TAB PO SCH ×2 (09:48→21:10)
[2020-01-09] MEDS: ONDANSETRON 4 MG/2 ML INJ IV PRN ×3 (09:48→18:49)
[2020-01-09] MEDS: MULTIVITAMINS ,THERAPEUTIC TAB PO SCH (09:49)
[2020-01-09] MEDS: metFORMIN 500 MG TAB PO SCH ×2 (09:49→16:39)
[2020-01-09] MEDS: SODIUM BICARBONATE 650 MG TAB PO SCH ×2 (09:49→21:10)
[2020-01-09] MEDS: CEFEPIME/NS 2 GM/100 ML 2 GM/100 ML BAG IV SCH ×2 (09:50→21:10)
[2020-01-09] MEDS: INSULIN LISPRO 100 UNIT/ML VIAL 3 mL SUB-Q SCH ×4 (09:50→21:33)
[2020-01-09] MEDS: VANCOMYCIN 1,250 MG in SODIUM CHLORIDE 0.9% 250ML 250 ML IV SCH ×3 (10:50→21:10)
--- NOTE | 2020-01-09 11:52 | Progress Note ---
Assessment and Plan Assessment and plan: 44-year-old female with known history of hypertension and diabetes mellitus presenting to the emergency room today complaining of also and infection of the second toe on right foot which has been ongoing for about a week. Patient indicates that wound started as a small ulcer but she began to h ave some swelling over the past 5 days. Right foot has been getting red and painful. She denies any recent trauma and denies any fall. Patient denies any fever or chills, no chest pain or shortness of breath, no headache or dizziness. Patient denies any sick contacts and no recent travel. She was recently seen by her primary care physician with the above complaints and she was placed on Levaquin and Flagyl but patient indicates that wound is not getting better. Patient has also been on some iron pills lately because of anemia. She denies any excessive bleeding during her menstruation and she denies any bright red blood per rectum or black stool. Upon evaluation in the emergency room today x-ray of the right foot reveals: Right second toe wound with suspected osteomyelitis of the distal phalanx. Labs reveals leukocytosis and low hemoglobin of 7. Patient being admitted for cellulitis/osteomyelitis of the second toe on right foot. 01/07: Patient for surgery today Amputation today. H/H Stable 01/08: s/p 1. Right Femoral Endarterectomy and Patch Angioplasty with Bovine Pericardium, 2. Right 2nd toe amputation. Clinically stable, add Zofran, Await re-eval with vascular. Continue abx, will await ID input on duration of antibiotics therapy --Severe anemia; Hb 5.5 Current Visit: Yes Status: Acute Plan to address problem: Received total 2 units of PRBC yesterday IMproved Hb improved from 5.5-8.5 , no external evidence of bleeding Stool for occult blood Patient may need to see BIT SHARPENER as outpatient To evaluate for BIT SHARPENER causes of anemia -- Osteomyelitis of second toe of right foot Current Visit: Yes Status: Acute Plan to address problem: Patient placed on empiric IV antibiotics. general surgery consulted for evaluation and recommendation. -- Gangrene of toe of right foot Current Visit: Yes Status: Acute Plan to address problem: Extra findings suggestive of gangrene. empiric IV antibiotics and await further evaluation by surgery. vascular following --Severe malnutrition; hypoalbuminemia Nutrition supplements, nutrition consult -- Diabetes mellitus Current Visit: Yes Status: Acute Plan to address problem: Will monitor accu-checks closely. -- DVT prophylaxis Current Visit: Yes Status: Acute Plan to address problem: Patient placed on sequential compression device. No pharmacological anticoagulation in view of severe anemia -- Full code status Current Visit: Yes Status: Acute We will closely monitor the patient and adjust management as needed Plan of care reviewed with the patient and her nurse Disposition; follow surgery, vascular evaluation and recommendations Possible discharge when stable History Interval history: Patient SEEN AND EXAMINED, was noted to have nausea early this morning without vomiting. Physical therapy reports good therapy session today Hospitalist Physical - Physical exam Narrative exam: General appearance: Present: no acute distress, well-nourished, obese - EENT Eyes: Present: PERRL, EOM intact - Neck Neck: Present: supple, normal ROM - Respiratory Respiratory effort: normal Respiratory: bilateral: diminished, negative: rales, rhonchi, wheezing - Cardiovascular Rhythm: regular Heart Sounds: Present: S1 & S2 - Extremities Extremities: abnormal dressing to the right foot - Abdominal General gastrointestinal: soft, non-tender, non-distended, normal bowel sounds - Integumentary Integumentary: Present: clear, warm - Psychiatric Psychiatric: appropriate mood/affect, cooperative - Neurologic Neurologic: CNII-XII intact, moves all extremities - Constitutional Vitals: Temp Pulse Resp BP Pulse Ox 97.1 F L 67 18 115/44 100 01/09/20 06:58 01/09/20 06:58 01/09/20 06:58 01/09/20 06:58 01/09/20 06:58 General appearance: Present: no acute distress, well-nourished, obese Results - Labs CBC & Chem 7: 01/09/20 03:19 01/09/20 03:19 Labs: Laboratory Last Values WBC 13.8 K/mm3 (4.5-11.0) H 01/08/20 08:01 RBC 3.72 M/mm3 (3.65-5.03) 01/08/20 08:01 Hgb 8.6 gm/dl (10.1-14.3) L 01/09/20 03:19 Hct 26.9 % (30.3-42.9) L 01/09/20 03:19 MCV 72 fl (79-97) L 01/08/20 08:01 MCH 23 pg (28-32) L 01/08/20 08:01 MCHC 32 % (30-34) 01/08/20 08:01 RDW 21.1 % (13.2-15.2) H 01/08/20 08:01 Plt Count 683 K/mm3 (140-440) H 01/09/20 03:19 Lymph % (Auto) 14.0 % (13.4-35.0) 01/07/20 05:43 Boyd % (Auto) 8.7 % (0.0-7.3) H 01/07/20 05:43 Eos % (Auto) 2.5 % (0.0-4.3) 01/07/20 05:43 Baso % (Auto) 0.6 % (0.0-1.8) 01/07/20 05:43 Lymph # (Auto) 1.9 K/mm3 (1.2-5.4) 01/07/20 05:43 Boyd # (Auto) 1.2 K/mm3 (0.0-0.8) H 01/07/20 05:43 Eos # (Auto) 0.3 K/mm3 (0.0-0.4) 01/07/20 05:43 Baso # (Auto) 0.1 K/mm3 (0.0-0.1) 01/07/20 05:43 Add Manual Diff Complete 01/05/20 17:42 Total Counted 100 01/05/20 17:42 Seg Neutrophils % 74.2 % (40.0-70.0) H 01/07/20 05:43 Seg Neuts % (Manual) 67.0 % (40.0-70.0) 01/05/20 17:42 Band Neutrophils % 0 % 01/05/20 17:42 Lymphocytes % (Manual) 22.0 % (13.4-35.0) 01/05/20 17:42 Reactive Lymphs % (Man) 0 % 01/05/20 17:42 Monocytes % (Manual) 9.0 % (0.0-7.3) H 01/05/20 17:42 Eosinophils % (Manual) 1.0 % (0.0-4.3) 01/05/20 17:42 Basophils % (Manual) 1.0 % (0.0-1.8) 01/05/20 17:42 Metamyelocytes % 0 % 01/05/20 17:42 Myelocytes % 0 % 01/05/20 17:42 Promyelocytes % 0 % 01/05/20 17:42 Blast Cells % 0 % 01/05/20 17:42 Nucleated RBC % Not Reportable 01/05/20 17:42 Seg Neutrophils # 9.9 K/mm3 (1.8-7.7) H 01/07/20 05:43 Seg Neutrophils # Man 10.5 K/mm3 (1.8-7.7) H 01/05/20 17:42 Band Neutrophils # 0.0 K/mm3 01/05/20 17:42 Lymphocytes # (Manual) 3.5 K/mm3 (1.2-5.4) 01/05/20 17:42 Abs React Lymphs (Man) 0.0 K/mm3 01/05/20 17:42 Monocytes # (Manual) 1.4 K/mm3 (0.0-0.8) H 01/05/20 17:42 Eosinophils # (Manual) 0.2 K/mm3 (0.0-0.4) 01/05/20 17:42 Basophils # (Manual) 0.2 K/mm3 (0.0-0.1) H 01/05/20 17:42 Metamyelocytes # 0.0 K/mm3 01/05/20 17:42 Myelocytes # 0.0 K/mm3 01/05/20 17:42 Promyelocytes # 0.0 K/mm3 01/05/20 17:42 Blast Cells # 0.0 K/mm3 01/05/20 17:42 WBC Morphology Not Reportable 01/05/20 17:42 Hypersegmented Neuts Not Reportable 01/05/20 17:42 Hyposegmented Neuts Not Reportable 01/05/20 17:42 Hypogranular Neuts Not Reportable 01/05/20 17:42 Smudge Cells Not Reportable 01/05/20 17:42 Toxic Granulation Not Reportable 01/05/20 17:42 Toxic Vacuolation Not Reportable 01/05/20 17:42 Dohle Bodies Not Reportable 01/05/20 17:42 Pelger-Huet Anomaly Not Reportable 01/05/20 17:42 Ren Rods Not Reportable 01/05/20 17:42 Platelet Estimate Not Reportable 01/05/20 17:42 Clumped Platelets Not Reportable 01/05/20 17:42 Plt Clumps, EDTA Not Reportable 01/05/20 17:42 Large Platelets Few 01/05/20 17:42 Giant Platelets Not Reportable 01/05/20 17:42 Platelet Satelliting Not Reportable 01/05/20 17:42 Plt Morphology Comment Not Reportable 01/05/20 17:42 RBC Morphology Not Reportable 01/05/20 17:42 Dimorphic RBCs Not Reportable 01/05/20 17:42 Polychromasia Not Reportable 01/05/20 17:42 Hypochromasia 1+ 01/05/20 17:42 Poikilocytosis Not Reportable 01/05/20 17:42 Anisocytosis Not Reportable 01/05/20 17:42 Microcytosis 1+ 01/05/20 17:42 Macrocytosis Not Reportable 01/05/20 17:42 Spherocytes Not Reportable 01/05/20 17:42 Pappenheimer Bodies Not Reportable 01/05/20 17:42 Sickle Cells Not Reportable 01/05/20 17:42 Target Cells Rare 01/05/20 17:42 Tear Drop Cells Not Reportable 01/05/20 17:42 Ovalocytes Few 01/05/20 17:42 Helmet Cells Not Reportable 01/05/20 17:42 Bhakta-Bowen Bodies Not Reportable 01/05/20 17:42 [place] Rings Not Reportable 01/05/20 17:42 Remy Cells Not Reportable 01/05/20 17:42 Bite Cells Not Reportable 01/05/20 17:42 Crenated Cell Not Reportable 01/05/20 17:42 Elliptocytes Not Reportable 01/05/20 17:42 Acanthocytes (Spur) Not Reportable 01/05/20 17:42 Rouleaux Not Reportable 01/05/20 17:42 Hemoglobin C Crystals Not Reportable 01/05/20 17:42 Schistocytes Not Reportable 01/05/20 17:42 Malaria parasites Not Reportable 01/05/20 17:42 Amauri Bodies Not Reportable 01/05/20 17:42 Hem Pathologist Commnt No 01/05/20 17:42 PT 14.4 Sec. (12.2-14.9) 01/07/20 22:40 INR 1.13 (0.87-1.13) 01/07/20 22:40 APTT 33.2 Sec. (24.2-36.6) 01/07/20 22:40 Heparin Anti-Xa Level 0.21 U.I./ml (0.3-0.7) L 01/09/20 10:36 Sodium 138 mmol/L (137-145) 01/09/20 03:19 Potassium 4.4 mmol/L (3.6-5.0) 01/09/20 03:19 Chloride 110.4 mmol/L (98-107) H 01/09/20 03:19 Carbon Dioxide 16 mmol/L (22-30) L 01/09/20 03:19 Anion Gap 16 mmol/L 01/09/20 03:19 BUN 17 mg/dL (7-17) 01/09/20 03:19 Creatinine 1.3 mg/dL (0.6-1.2) H 01/09/20 03:19 Estimated GFR 45 ml/min 01/09/20 03:19 BUN/Creatinine Ratio 13 % 01/09/20 03:19 Glucose 170 mg/dL (65-100) H 01/09/20 03:19 POC Glucose 139 mg/dL (70-105) H 01/09/20 06:56 Hemoglobin A1c 14.3 % (4-6) H 01/05/20 17:42 Lactic Acid 1.30 mmol/L (0.7-2.0) 01/05/20 17:42 Calcium 8.0 mg/dL (8.4-10.2) L 01/09/20 03:19 Phosphorus 3.60 mg/dL (2.5-4.5) 01/07/20 05:43 Magnesium 1.90 mg/dL (1.7-2.3) 01/07/20 05:43 Iron 12 ug/dL (37-170) L 01/06/20 03:47 Iron 12 ug/dL (37-170) L 01/06/20 03:47 TIBC 119 mcg/dL (250-450) L 01/06/20 03:47 TIBC 123 mcg/dL (250-450) L 01/06/20 03:47 % Saturation 10.08 % 01/06/20 03:47 Transferrin 100 mg/dl (192-382) L 01/06/20 03:47 Ferritin 55.9 ng/mL (10.0-200.0) 01/06/20 07:21 Total Bilirubin < 0.20 mg/dL (0.1-1.2) 01/05/20 17:42 AST 7 units/L (5-40) 01/05/20 17:42 ALT 7 units/L (7-56) 01/05/20 17:42 Alkaline Phosphatase 144 units/L (35-129) H 01/05/20 17:42 Total Protein 7.4 g/dL (6.3-8.2) 01/05/20 17:42 Albumin 2.1 g/dL (3.9-5) L 01/05/20 17:42 Albumin/Globulin Ratio 0.4 % 01/05/20 17:42 Urine HCG, Qual Negative (Negative) 01/08/20 12:33 Vancomycin Trough 26.6 ug/mL (5.0-20.0) H 01/08/20 18:50 Coronavirus (PCR) Negative (Negative) 01/08/20 08:52 Blood Type B POSITIVE 01/06/20 07:21 Antibody Screen Negative 01/06/20 07:21 Crossmatch See Detail 01/06/20 07:21 Microbiology: Microbiology 01/05/20 17:42 Peripheral/Venous Blood Culture - Preliminary NO GROWTH AFTER 72 HOURS 01/05/20 17:42 Peripheral/Venous Blood Culture - Preliminary NO GROWTH AFTER 72 HOURS Newell/IV: Voiding Method Bedside Commode IV Catheter Type [Right Peripheral IV Forearm] IV Catheter Type [Left Forearm INT / Saline Lock ] IV Catheter Type [Forearm] INT / Saline Lock Active Medications - Current Medications Current Medications: Generic Name Dose Route Start Last Admin Trade Name Freq PRN Reason Stop Dose Admin Colchicine 0.6 mg 01/06/20 13:00 01/07/20 20:11 Colchicine PO 0.6 mg Q2HR PRN Administration GOUT Dextrose 50 ml 01/05/20 21:36 D50w (25gm) Syringe IV Q30MIN PRN Hypoglycemia Protocol Ferrous Sulfate 325 mg 01/06/20 10:00 01/09/20 09:48 Feosol PO 325 mg BID SIDNEY Administration Hydromorphone HCl 0.25 mg 01/08/20 17:30 Dilaudid IV Q3H PRN Pain, Moderate (4-6) Sodium Chloride 1,000 mls @ 125 mls/hr 01/05/20 21:45 01/08/20 00:08 Nacl 0.9% 1000 Ml IV Infused DIRECT SIDNEY Infusion Heparin Sodium/Sodium Chloride 25,000 unit in 500 mls @ 24 mls/hr 01/07/20 22:00 01/09/20 04:26 Heparin/ 0.45% Nacl-25,000 Unit/500 Ml IV 1,500 units/hr TITR SIDNEY 30 mls/hr Titration Protocol 1,200 UNITS/HR Lactated Ringer's 1,000 mls @ 100 mls/hr 01/08/20 13:00 01/08/20 21:03 Lactated Ringers IV 100 mls/hr DIRECT SIDNEY Administration Cefepime HCl 2 gm in 100 mls @ 200 mls/hr 01/08/20 15:00 01/09/20 09:50 Cefepime/Ns 2 Gm/100 Ml IV 200 mls/hr Q12HR SIDNEY Administration Protocol Vancomycin HCl 1,250 mg/ 275 mls @ 166.667 mls/hr 01/09/20 10:00 01/09/20 10:50 Sodium Chloride IV 166.667 mls/hr Q12HR SIDNEY Administration Insulin Human Lispro 0 unit 01/05/20 22:00 01/09/20 09:50 Humalog SUB-Q Not Given ACHS SIDNEY Protocol Magnesium Hydroxide 30 ml 01/05/20 21:36 Milk Of Magnesia PO Q4H PRN Constipation Metformin HCl 500 mg 01/06/20 09:00 01/09/20 09:49 Glucophage PO 500 mg BIDDIAB SIDNEY Administration Multivitamins 1 each 01/06/20 10:00 01/09/20 09:49 Theragran Tab PO 1 each QDAY SIDNEY Administration Naloxone HCl 0.1 mg 01/08/20 17:30 Naloxone IV Q2MIN PRN Res Rate </= 8 or 02 SAT < 92% Ondansetron HCl 4 mg 01/05/20 21:36 01/09/20 09:48 Zofran IV 4 mg Q8H PRN Administration Nausea And Vomiting Oxycodone/Acetaminophen 2 tab 01/08/20 17:30 01/09/20 09:49 Percocet 5/325 PO 2 tab Q4H PRN Administration Pain, Moderate (4-6) Sodium Bicarbonate 650 mg 01/09/20 10:00 01/09/20 09:49 Sodium Bicarbonate PO 650 mg BID SIDNEY Administration Sodium Chloride 10 ml 01/05/20 22:00 01/09/20 09:50 Sodium Chloride Flush Syringe 10 Ml IV 10 ml BID SIDNEY Administration Sodium Chloride 10 ml 01/05/20 21:36 Sodium Chloride Flush Syringe 10 Ml IV PRN PRN LINE FLUSH Nutrition/Malnutrition Assess - Dietary Evaluation Nutrition/Malnutrition Findings: Nutrition Notes Start: 01/06/20 14:15 Freq: Status: Active Protocol: Document 01/07/20 11:04 LM (Rec: 01/07/20 11:16 LM [email or web address]) Nutrition Notes Initial or Follow up Assessment Current Diagnosis Diabetes Other Pertinent Diagnosis gangrene/osteomyelitis foot Current Diet Cardiac/consistent CHO Labs/Tests Na 134 Pertinent Medications Reviewed Height 5 ft 3 in Weight 83.5 kg [place] Body Weight (kg) 52.27 BMI 32.5 Weight change and time frame 4% wt loss in more than 1 week Weight Status Obese Subjective/Other Information F/U for diet education. Pt's son translated over the phone. Pt stated she has not been hungry for a week and has lost 8 lb in more 1 week (exact time frame unknown). Provided pt DM education and handouts in [place]ic. Discussed the plate method. Burn Absent Trauma Absent GI Symptoms Nausea Current % PO Poor (25-49%) Minimum of two criteria Yes Energy Intake (non-severe) <75% Estimated Energy Requirement >7 days Interpretation of Weight Loss (severe) >2% in 1 week #2 Nutrition Diagnosis Food and nutrition-related knowledge deficit Etiology Pt with limited past DM diet education As Evidenced by Signs and Symptoms A1C 14.3 #1 Nutrition Diagnosis Malnutrition Etiology uncontrolled DM As Evidenced by Signs and Symptoms Pt with 4% wt loss in over 1 week, pt eating poorly for 1 week Is patient on ventilator? No Is Patient Ambulatory and/or Out of Bed Yes REE-(Grethel-St. Jeor-ambulatory/OOB) [ 1903.369 NUTR.[id number]] Kcal/Kg value to use for calculation 19 Approximate Energy Requirements Using 1587 kcal/Kg Calculation Used for Recommendations Kcal/kg Additional Notes Protein: 54-68g (0.8-1g/kg using AdjBW 68kg) Fluid: 1ml/kcal Nutrition Intervention Change Diet Order: continue Add Supplement/Snack (indicate name/kcal Glucerna strawberry BID /protein ) Provides kCal: 440 Provides Protein (gm) 20 Teaching Recipient Patient Learning Readiness Good Teaching Methods Discussion,Handout Response to Teaching Verbalize understanding Education Handouts Provided Carbohydrate Counting for People with DM Barriers to Learning Language RD phone number provided Yes Patient aware of follow up options Yes Actions To Overcome Barriers Contact Skin Tanner Goal #1 Meet at least 75% of energy and protein needs Anticipated Discharge Needs: Cardiac/consistent CHO Follow-Up By: 01/10/20 Additional Comments F/U for PO/ONS intakes
[2020-01-09] MEDS: LACTATED RINGERS 1,000 ML IV SCH (13:30)
[2020-01-09] MEDS: HYDROmorphone 1 MG/1 ML INJ IV PRN (18:49)
[2020-01-09] MEDS ORDERED: HEPARIN 1,000 UNIT/1 ML VIAL IV ONE (19:51)
[2020-01-09] MEDS ORDERED: HEPARIN 10,000 UNITS/10 ML VIAL IV ONE (20:00)
[2020-01-10] MEDS: HYDROmorphone 1 MG/1 ML INJ IV PRN ×3 (00:07→21:33)
[2020-01-10 03:07] LABS: Hematocrit 25.4 % (30.3-42.9); Hemoglobin 8.2 gm/dl (10.1-14.3); Mean Corpuscular HGB Conc 32 % (30-34); Mean Corpuscular Volume 73 fl (79-97); Platelet Count 655 K/mm3 (140-440)
[2020-01-10 03:17] LABS: Red Cell Distribution Width 21.5 % (13.2-15.2)
[2020-01-10] MEDS: LACTATED RINGERS 1,000 ML IV SCH ×2 (05:43→17:26)
[2020-01-10] MEDS: HEPARIN/ 0.45% NACL DRIP 25,000 UNIT/500 ML BAG IV SCH ×2 (08:35→21:32)
[2020-01-10] MEDS: CEFEPIME/NS 2 GM/100 ML 2 GM/100 ML BAG IV SCH ×2 (09:19→21:32)
[2020-01-10] MEDS: INSULIN LISPRO 100 UNIT/ML VIAL 3 mL SUB-Q SCH ×4 (09:20→22:41)
[2020-01-10] MEDS: VANCOMYCIN 1,250 MG in SODIUM CHLORIDE 0.9% 250ML 250 ML IV SCH (09:21)
[2020-01-10] MEDS: SODIUM BICARBONATE 650 MG TAB PO SCH ×2 (09:21→21:32)
[2020-01-10] MEDS: MULTIVITAMINS ,THERAPEUTIC TAB PO SCH (09:21)
[2020-01-10] MEDS: FERROUS SULFATE 325 MG TAB PO SCH ×2 (09:21→21:32)
[2020-01-10] MEDS: oxyCODONE /ACETAMINOPHEN 5-325MG TAB PO PRN ×3 (09:21→17:31)
[2020-01-10] MEDS: ONDANSETRON 4 MG/2 ML INJ IV PRN (09:27)
[2020-01-10] MEDS: metFORMIN 500 MG TAB PO SCH ×2 (10:44→16:46)
--- NOTE | 2020-01-10 10:58 | Progress Note ---
Assessment and Plan Assessment and plan: 44-year-old female with known history of hypertension and diabetes mellitus presenting to the emergency room today complaining of also and infection of the second toe on right foot which has been ongoing for about a week. Patient indicates that wound started as a small ulcer but she began to h ave some swelling over the past 5 days. Right foot has been getting red and painful. She denies any recent trauma and denies any fall. Patient denies any fever or chills, no chest pain or shortness of breath, no headache or dizziness. Patient denies any sick contacts and no recent travel. She was recently seen by her primary care physician with the above complaints and she was placed on Levaquin and Flagyl but patient indicates that wound is not getting better. Patient has also been on some iron pills lately because of anemia. She denies any excessive bleeding during her menstruation and she denies any bright red blood per rectum or black stool. Upon evaluation in the emergency room today x-ray of the right foot reveals: Right second toe wound with suspected osteomyelitis of the distal phalanx. Labs reveals leukocytosis and low hemoglobin of 7. Patient being admitted for cellulitis/osteomyelitis of the second toe on right foot. 01/07: Patient for surgery today Amputation today. H/H Stable 01/08: s/p 1. Right Femoral Endarterectomy and Patch Angioplasty with [place]ovine Pericardium, 2. Right 2nd toe amputation. Clinically stable, add Zofran, Await re-eval with vascular. Continue abx, will await ID input on duration of antibiotics therapy 01/09: Patient currently on telemetry floor no further arrhythmia noted today. Await cardiology input hemoglobin hematocrit is stable. Patient still on heparin drip. Will await vascular review. We will continue to monitor the creatinine is mildly elevated today. --Severe anemia; Hb 5.5 Current Visit: Yes Status: Acute Plan to address problem: Received total 2 units of PRBC yesterday IMproved Hb improved from 5.5-8.5 , no external evidence of bleeding Stool for occult blood Patient may need to see REHABILITATION CASEWORKER as outpatient To evaluate for REHABILITATION CASEWORKER causes of anemia -- Osteomyelitis of second toe of right foot Current Visit: Yes Status: Acute Plan to address problem: Patient placed on empiric IV antibiotics. general surgery consulted for evaluation and recommendation. -- Gangrene of toe of right foot Current Visit: Yes Status: Acute Plan to address problem: Extra findings suggestive of gangrene. empiric IV antibiotics and await further evaluation by surgery. vascular following --Severe malnutrition; hypoalbuminemia Nutrition supplements, nutrition consult -- Diabetes mellitus Current Visit: Yes Status: Acute Plan to address problem: Will monitor accu-checks closely. -- DVT prophylaxis Current Visit: Yes Status: Acute Plan to address problem: Patient placed on sequential compression device. No pharmacological anticoagulation in view of severe anemia -- Full code status Current Visit: Yes Status: Acute We will closely monitor the patient and adjust management as needed Plan of care reviewed with the patient and her nurse Disposition; follow surgery, vascular evaluation and recommendations Possible discharge when stable History Interval history: Patient SEEN AND EXAMINED, no further nausea vomiting today patient tolerating diet no arrhythmia noted today. Hospitalist Physical - Physical exam Narrative exam: General appearance: Present: no acute distress, well-nourished, obese - EENT Eyes: Present: PERRL, EOM intact - Neck Neck: Present: supple, normal ROM - Respiratory Respiratory effort: normal Respiratory: bilateral: diminished, negative: rales, rhonchi, wheezing - Cardiovascular Rhythm: regular Heart Sounds: Present: S1 & S2 - Extremities Extremities: abnormal dressing to the right foot - Abdominal General gastrointestinal: soft, non-tender, non-distended, normal bowel sounds - Integumentary Integumentary: Present: clear, warm - Psychiatric Psychiatric: appropriate mood/affect, cooperative - Neurologic Neurologic: CNII-XII intact, moves all extremities - Constitutional Vitals: Temp Pulse Resp BP Pulse Ox 97.9 F 78 18 152/63 96 01/10/20 08:49 01/10/20 08:49 01/10/20 08:49 01/10/20 08:49 01/10/20 08:49 General appearance: Present: no acute distress, well-nourished, obese Results - Labs CBC & Chem 7: 01/10/20 02:45 01/10/20 02:45 Labs: Laboratory Last Values WBC 11.1 K/mm3 (4.5-11.0) H 01/10/20 02:45 RBC 3.50 M/mm3 (3.65-5.03) L 01/10/20 02:45 Hgb 8.2 gm/dl (10.1-14.3) L 01/10/20 02:45 Hct 25.4 % (30.3-42.9) L 01/10/20 02:45 MCV 73 fl (79-97) L 01/10/20 02:45 MCH 24 pg (28-32) L 01/10/20 02:45 MCHC 32 % (30-34) 01/10/20 02:45 RDW 21.5 % (13.2-15.2) H 01/10/20 02:45 Plt Count 655 K/mm3 (140-440) H 01/10/20 02:45 Lymph % (Auto) 14.0 % (13.4-35.0) 01/07/20 05:43 [place] % (Auto) 8.7 % (0.0-7.3) H 01/07/20 05:43 Eos % (Auto) 2.5 % (0.0-4.3) 01/07/20 05:43 Baso % (Auto) 0.6 % (0.0-1.8) 01/07/20 05:43 Lymph # (Auto) 1.9 K/mm3 (1.2-5.4) 01/07/20 05:43 [place] # (Auto) 1.2 K/mm3 (0.0-0.8) H 01/07/20 05:43 Eos # (Auto) 0.3 K/mm3 (0.0-0.4) 01/07/20 05:43 Baso # (Auto) 0.1 K/mm3 (0.0-0.1) 01/07/20 05:43 Add Manual Diff Complete 01/05/20 17:42 Total Counted 100 01/05/20 17:42 Seg Neutrophils % 74.2 % (40.0-70.0) H 01/07/20 05:43 Seg Neuts % (Manual) 67.0 % (40.0-70.0) 01/05/20 17:42 Band Neutrophils % 0 % 01/05/20 17:42 Lymphocytes % (Manual) 22.0 % (13.4-35.0) 01/05/20 17:42 Reactive Lymphs % (Man) 0 % 01/05/20 17:42 Monocytes % (Manual) 9.0 % (0.0-7.3) H 01/05/20 17:42 Eosinophils % (Manual) 1.0 % (0.0-4.3) 01/05/20 17:42 Basophils % (Manual) 1.0 % (0.0-1.8) 01/05/20 17:42 Metamyelocytes % 0 % 01/05/20 17:42 Myelocytes % 0 % 01/05/20 17:42 Promyelocytes % 0 % 01/05/20 17:42 Blast Cells % 0 % 01/05/20 17:42 Nucleated RBC % Not Reportable 01/05/20 17:42 Seg Neutrophils # 9.9 K/mm3 (1.8-7.7) H 01/07/20 05:43 Seg Neutrophils # Man 10.5 K/mm3 (1.8-7.7) H 01/05/20 17:42 Band Neutrophils # 0.0 K/mm3 01/05/20 17:42 Lymphocytes # (Manual) 3.5 K/mm3 (1.2-5.4) 01/05/20 17:42 Abs React Lymphs (Man) 0.0 K/mm3 01/05/20 17:42 Monocytes # (Manual) 1.4 K/mm3 (0.0-0.8) H 01/05/20 17:42 Eosinophils # (Manual) 0.2 K/mm3 (0.0-0.4) 01/05/20 17:42 Basophils # (Manual) 0.2 K/mm3 (0.0-0.1) H 01/05/20 17:42 Metamyelocytes # 0.0 K/mm3 01/05/20 17:42 Myelocytes # 0.0 K/mm3 01/05/20 17:42 Promyelocytes # 0.0 K/mm3 01/05/20 17:42 Blast Cells # 0.0 K/mm3 01/05/20 17:42 WBC Morphology Not Reportable 01/05/20 17:42 Hypersegmented Neuts Not Reportable 01/05/20 17:42 Hyposegmented Neuts Not Reportable 01/05/20 17:42 Hypogranular Neuts Not Reportable 01/05/20 17:42 Smudge Cells Not Reportable 01/05/20 17:42 Toxic Granulation Not Reportable 01/05/20 17:42 Toxic Vacuolation Not Reportable 01/05/20 17:42 Dohle Bodies Not Reportable 01/05/20 17:42 Pelger-Huet Anomaly Not Reportable 01/05/20 17:42 Ren Rods Not Reportable 01/05/20 17:42 Platelet Estimate Not Reportable 01/05/20 17:42 Clumped Platelets Not Reportable 01/05/20 17:42 Plt Clumps, EDTA Not Reportable 01/05/20 17:42 Large Platelets Few 01/05/20 17:42 Giant Platelets Not Reportable 01/05/20 17:42 Platelet Satelliting Not Reportable 01/05/20 17:42 Plt Morphology Comment Not Reportable 01/05/20 17:42 RBC Morphology Not Reportable 01/05/20 17:42 Dimorphic RBCs Not Reportable 01/05/20 17:42 Polychromasia Not Reportable 01/05/20 17:42 Hypochromasia 1+ 01/05/20 17:42 Poikilocytosis Not Reportable 01/05/20 17:42 Anisocytosis Not Reportable 01/05/20 17:42 Microcytosis 1+ 01/05/20 17:42 Macrocytosis Not Reportable 01/05/20 17:42 Spherocytes Not Reportable 01/05/20 17:42 Pappenheimer Bodies Not Reportable 01/05/20 17:42 Sickle Cells Not Reportable 01/05/20 17:42 Target Cells Rare 01/05/20 17:42 Tear Drop Cells Not Reportable 01/05/20 17:42 Ovalocytes Few 01/05/20 17:42 Helmet Cells Not Reportable 01/05/20 17:42 [place] Bodies Not Reportable 01/05/20 17:42 [place] Rings Not Reportable 01/05/20 17:42 Remy Cells Not Reportable 01/05/20 17:42 Bite Cells Not Reportable 01/05/20 17:42 Crenated Cell Not Reportable 01/05/20 17:42 Elliptocytes Not Reportable 01/05/20 17:42 Acanthocytes (Spur) Not Reportable 01/05/20 17:42 Rouleaux Not Reportable 01/05/20 17:42 Hemoglobin C Crystals Not Reportable 01/05/20 17:42 Schistocytes Not Reportable 01/05/20 17:42 Malaria parasites Not Reportable 01/05/20 17:42 [place] Bodies Not Reportable 01/05/20 17:42 Hem Pathologist Commnt No 01/05/20 17:42 PT 14.4 Sec. (12.2-14.9) 01/07/20 22:40 INR 1.13 (0.87-1.13) 01/07/20 22:40 APTT 33.2 Sec. (24.2-36.6) 01/07/20 22:40 Heparin Anti-Xa Level 0.44 U.I./ml (0.3-0.7) 01/10/20 04:38 Sodium 135 mmol/L (137-145) L 01/10/20 02:45 Potassium 4.1 mmol/L (3.6-5.0) 01/10/20 02:45 Chloride 106.3 mmol/L (98-107) 01/10/20 02:45 Carbon Dioxide 20 mmol/L (22-30) L 01/10/20 02:45 Anion Gap 13 mmol/L 01/10/20 02:45 BUN 15 mg/dL (7-17) 01/10/20 02:45 Creatinine 1.3 mg/dL (0.6-1.2) H 01/10/20 02:45 Estimated GFR 45 ml/min 01/10/20 02:45 BUN/Creatinine Ratio 12 % 01/10/20 02:45 Glucose 157 mg/dL (65-100) H 01/10/20 02:45 POC Glucose 104 mg/dL (70-105) 01/10/20 07:52 Hemoglobin A1c 14.3 % (4-6) H 01/05/20 17:42 Lactic Acid 1.30 mmol/L (0.7-2.0) 01/05/20 17:42 Calcium 8.0 mg/dL (8.4-10.2) L 01/10/20 02:45 Phosphorus 3.60 mg/dL (2.5-4.5) 01/07/20 05:43 Magnesium 1.90 mg/dL (1.7-2.3) 01/09/20 15:35 Iron 12 ug/dL (37-170) L 01/06/20 03:47 Iron 12 ug/dL (37-170) L 01/06/20 03:47 TIBC 119 mcg/dL (250-450) L 01/06/20 03:47 TIBC 123 mcg/dL (250-450) L 01/06/20 03:47 % Saturation 10.08 % 01/06/20 03:47 Transferrin 100 mg/dl (192-382) L 01/06/20 03:47 Ferritin 55.9 ng/mL (10.0-200.0) 01/06/20 07:21 Total Bilirubin < 0.20 mg/dL (0.1-1.2) 01/05/20 17:42 AST 7 units/L (5-40) 01/05/20 17:42 ALT 7 units/L (7-56) 01/05/20 17:42 Alkaline Phosphatase 144 units/L (35-129) H 01/05/20 17:42 Total Protein 7.4 g/dL (6.3-8.2) 01/05/20 17:42 Albumin 2.1 g/dL (3.9-5) L 01/05/20 17:42 Albumin/Globulin Ratio 0.4 % 01/05/20 17:42 Urine HCG, Qual Negative (Negative) 01/08/20 12:33 Vancomycin Trough 31.1 ug/mL (5.0-20.0) H 01/10/20 09:27 Coronavirus (PCR) Negative (Negative) 01/08/20 08:52 Blood Type B POSITIVE 01/06/20 07:21 Antibody Screen Negative 01/06/20 07:21 Crossmatch See Detail 01/06/20 07:21 Microbiology: Microbiology 01/05/20 17:42 Peripheral/Venous Blood Culture - Preliminary NO GROWTH AFTER 4 DAYS 01/05/20 17:42 Peripheral/Venous Blood Culture - Preliminary NO GROWTH AFTER 4 DAYS [place]/IV: Voiding Method Bedside Commode IV Catheter Type [Right Peripheral IV Forearm] IV Catheter Type [Left Forearm INT / Saline Lock ] IV Catheter Type [Forearm] INT / Saline Lock Active Medications - Current Medications Current Medications: Generic Name Dose Route Start Last Admin Trade Name Freq PRN Reason Stop Dose Admin Colchicine 0.6 mg 01/06/20 13:00 01/07/20 20:11 Colchicine PO 0.6 mg Q2HR PRN Administration GOUT Dextrose 50 ml 01/05/20 21:36 D50w (25gm) Syringe IV Q30MIN PRN Hypoglycemia Protocol Ferrous Sulfate 325 mg 01/06/20 10:00 01/10/20 09:21 Feosol PO 325 mg BID [facility]NEY Administration Hydromorphone HCl 0.25 mg 01/08/20 17:30 01/10/20 05:43 Dilaudid IV 0.25 mg Q3H PRN Administration Pain, Moderate (4-6) Sodium Chloride 1,000 mls @ 125 mls/hr 01/05/20 21:45 01/08/20 00:08 Nacl 0.9% 1000 Ml IV Infused DIRECT SIDNEY Infusion Heparin Sodium/Sodium Chloride 25,000 unit in 500 mls @ 24 mls/hr 01/07/20 22:00 01/10/20 08:35 Heparin/ 0.45% Nacl-25,000 Unit/500 Ml IV 1,850 units/hr TITR S[facility]NEY 37 mls/hr Administration Protocol 1,200 UNITS/HR Lactated Ringer's 1,000 mls @ 100 mls/hr 01/08/20 13:00 01/10/20 05:43 Lactated Ringers IV 100 mls/hr DIRECT SIDNEY Administration Cefepime HCl 2 gm in 100 mls @ 200 mls/hr 01/08/20 15:00 01/10/20 09:19 Cefepime/Ns 2 Gm/100 Ml IV 200 mls/hr Q12HR S[facility]NEY Administration Protocol Vancomycin HCl 1,250 mg/ 275 mls @ 166.667 mls/hr 01/09/20 10:00 01/10/20 0 9:21 Sodium Chloride IV 166.667 mls/hr Q12HR [facility] Administration Insulin Human Lispro 0 unit 01/05/20 22:00 01/10/20 09:20 Humalog SUB-Q Not Given ACHS [facility] Protocol Magnesium Hydroxide 30 ml 01/05/20 21:36 Milk Of Magnesia PO Q4H PRN Constipation Metformin HCl 500 mg 01/06/20 09:00 01/10/20 10:44 Glucophage PO Not Given BIDDIAB [facility] Multivitamins 1 each 01/06/20 10:00 01/10/20 09:21 Theragran Tab PO 1 each QDAY [facility] Administration Naloxone HCl 0.1 mg 01/08/20 17:30 Naloxone IV Q2MIN PRN Res Rate </= 8 or 02 SAT < 92% Ondansetron HCl 4 mg 01/09/20 11:53 01/10/20 09:27 Zofran IV 4 mg Q4H PRN Administration Nausea And Vomiting Oxycodone/Acetaminophen 2 tab 01/08/20 17:30 01/10/20 09:21 Percocet 5/325 PO 2 tab Q4H PRN Administration Pain, Moderate (4-6) Sodium Bicarbonate 650 mg 01/09/20 10:00 01/10/20 09:21 Sodium Bicarbonate PO 650 mg BID SIDNEY Administration Sodium Chloride 10 ml 01/05/20 22:00 01/10/20 10:45 Sodium Chloride Flush Syringe 10 Ml IV Not Given BID SIDNEY Sodium Chloride 10 ml 01/05/20 21:36 Sodium Chloride Flush Syringe 10 Ml IV PRN PRN LINE FLUSH Nutrition/Malnutrition Assess - Dietary Evaluation Nutrition/Malnutrition Findings: Nutrition Notes Start: 01/06/20 14:15 Freq: Status: Active Protocol: Document 01/07/20 11:04 LM (Rec: 01/07/20 11:16 LM [id number]) Nutrition Notes Initial or Follow up Assessment Current Diagnosis Diabetes Other Pertinent Diagnosis gangrene/osteomyelitis foot Current Diet Cardiac/consistent CHO Labs/Tests Na 134 Pertinent Medications Reviewed Height 5 ft 3 in Weight 83.5 kg [place] Body Weight (kg) 52.27 BMI 32.5 Weight change and time frame 4% wt loss in more than 1 week Weight Status Obese Subjective/Other Information F/U for diet education. Pt's son translated over the phone. Pt stated she has not been hungry for a week and has lost 8 lb in more than 1 week ( exact time frame unknown). Provided pt DM education and handouts in [place]. Discussed the plate method. Burn Absent Trauma Absent GI Symptoms Nausea Current % PO Poor (25-49%) Minimum of two criteria Yes Energy Intake (non-severe) <75% Estimated Energy Requirement >7 days Interpretation of Weight Loss (severe) >2% in 1 week #2 Nutrition Diagnosis Food and nutrition-related knowledge deficit Etiology Pt with limited past DM diet education As Evidenced by Signs and Symptoms A1C 14.3 #1 Nutrition Diagnosis Malnutrition Etiology uncontrolled DM As Evidenced by Signs and Symptoms Pt with 4% wt loss in over 1 week, pt eating poorly for 1 week Is patient on ventilator? No Is Patient Ambulatory and/or Out of Bed Yes REE-([place]. Jeor-ambulatory/OOB) [ 1903.369 NUTR.MSJOOB] Kcal/Kg value to use for calculation 19 Approximate Energy Requirements Using 1587 kcal/Kg Calculation Used for Recommendations Kcal/kg Additional Notes Protein: 54-68g (0.8-1g/kg using AdjBW 68kg) Fluid: 1ml/kcal Nutrition Intervention Change Diet Order: continue Add Supplement/Snack (indicate name/kcal Glucerna strawberry BID /protein ) Provides kCal: 440 Provides Protein (gm) 20 Teaching Recipient Patient Learning Readiness Good Teaching Methods Discussion,Handout Response to Teaching Verbalize understanding Education Handouts Provided Carbohydrate Counting for People with DM Barriers to Learning Language RD phone number provided Yes Patient aware of follow up options Yes Actions To Overcome Barriers Contact Shipyard Helper Goal #1 Meet at least 75% of energy and protein needs Anticipated Discharge Needs: Cardiac/consistent CHO Follow-Up By: 01/10/20 Additional Comments F/U for PO/ONS intakes
--- NOTE | 2020-01-10 11:50 | Consultation ---
History of Present Illness Consult date: 01/10/20 Consult reason: bradycardia History of present illness: Impression Seen POD#1, pt asymptomatic Consult for sinus bradycardia, pauses now resolved. Currently sinus with HR 72 Review of Tele show no high-grade conduction disturbances No angina or CHF She is s/p Right fem endarterectomy and Right 2nd toe amputation Right toe osteomyelitis H/o diabetes/PVD HTN Plan CV stable, no indication for further CV intervention Advise outpt risk stratification Watchful waiting for now on Tele Supportive Care Post-op Past History Past Medical History: diabetes, hypertension, other (Ovarian Cyst,Asthma) Past Surgical History: Social history: alcohol abuse Family history: no significant family history Medications and Allergies Allergies Allergy/AdvReac Type Severity Reaction Status Date / Time No Known Allergies Allergy Verified 05/17/13 23:27 Home Medications Medication Instructions Recorded Confirmed Last Taken Type HYDROcodone/APAP 7.5-325 [[place] 1 each PO Q6HR PRN #20 tablet 05/18/13 Unknown Rx 7.5/325 mg] Albuterol Sulfate [Ventolin HFA] 2 puff IH Q4H PRN #1 hfa.aer.ad 02/13/15 Unknown Rx metFORMIN [Glucophage] 500 mg PO BID #60 tablet 02/13/15 Unknown Rx Nitrofurantoin [place]/M-Cryst 100 mg PO Q12HR #14 capsule 11/25/15 Unknown Rx [Macrobid CAP] Nitrofurantoin [place]/M-Cryst 100 mg PO BID #14 capsule 12/08/17 Unknown Rx [Macrobid 100 mg Capsule] traMADoL [Ultram] 50 mg PO Q6HR PRN #12 tablet 12/19/18 Unknown Rx Colchicine 0.6 mg PO Q2HR #10 capsule NS 11/11/19 Unknown Rx predniSONE [Deltasone] 50 mg PO QDAY #5 tab 11/11/19 Unknown Rx traMADoL [Ultram] 50 mg PO Q4HR PRN #14 tablet 11/11/19 Unknown Rx Active Meds: Active Medications Colchicine (Colchicine) 0.6 mg PO Q2HR PRN PRN Reason: GOUT Last Admin: 01/07/20 20:11 Dose: 0.6 mg Documented by: Dextrose (D50w (25gm) Syringe) 50 ml IV Q30MIN PRN; Protocol PRN Reason: Hypoglycemia Ferrous Sulfate (Feosol) 325 mg PO BID SIDNEY Last Admin: 01/10/20 09:21 Dose: 325 mg Documented by: Hydromorphone HCl (Dilaudid) 0.25 mg IV Q3H PRN PRN Reason: Pain, Moderate (4-6) Last Admin: 01/10/20 05:43 Dose: 0.25 mg Documented by: Sodium Chloride (Nacl 0.9% 1000 Ml) 1,000 mls @ 125 mls/hr IV DIRECT [facility] Last Infusion: 01/08/20 00:08 Dose: Infused Documented by: Heparin Sodium/Sodium Chloride (Heparin/ 0.45% Nacl-25,000 Unit/500 Ml) 25,000 unit in 500 mls @ 24 mls/hr IV TITR [facility]; Protocol Last Admin: 01/10/20 08:35 Dose: 1,850 units/hr, 37 mls/hr Documented by: Lactated Ringer's (Lactated Ringers) 1,000 mls @ 100 mls/hr IV DIRECT SIDNEY Last Admin: 01/10/20 05:43 Dose: 100 mls/hr Documented by: Cefepime HCl (Cefepime/Ns 2 Gm/100 Ml) 2 gm in 100 mls @ 200 mls/hr IV Q12HR [facility]; Protocol Last Admin: 01/10/20 09:19 Dose: 200 mls/hr Documented by: Insulin Human Lispro (Humalog) 0 unit SUB-Q ACHS [facility]; Protocol Last Admin: 01/10/20 09:20 Dose: Not Given Documented by: Magnesium Hydroxide (Milk Of Magnesia) 30 ml PO Q4H PRN PRN Reason: Constipation Metformin HCl (Glucophage) 500 mg PO BIDDIAB [facility] Last Admin: 01/10/20 10:44 Dose: Not Given Documented by: Multivitamins (Theragran Tab) 1 each PO QDAY [facility] Last Admin: 01/10/20 09:21 Dose: 1 each Documented by: Naloxone HCl (Naloxone) 0.1 mg IV Q2MIN PRN PRN Reason: Res Rate </= 8 or 02 SAT < 92% Ondansetron HCl (Zofran) 4 mg IV Q4H PRN PRN Reason: Nausea And Vomiting Last Admin: 01/10/20 09:27 Dose: 4 mg Documented by: Oxycodone/Acetaminophen (Percocet 5/325) 2 tab PO Q4H PRN PRN Reason: Pain, Moderate (4-6) Last Admin: 01/10/20 09:21 Dose: 2 tab Documented by: Sodium Bicarbonate (Sodium Bicarbonate) 650 mg PO BID [facility] Last Admin: 01/10/20 09:21 Dose: 650 mg Documented by: Sodium Chloride (Sodium Chloride Flush Syringe 10 Ml) 10 ml IV BID [facility] Last Admin: 01/10/20 10:45 Dose: Not Given Documented by: Sodium Chloride (Sodium Chloride Flush Syringe 10 Ml) 10 ml IV PRN PRN PRN Reason: LINE FLUSH Review of Systems All systems: negative (HPI) Physical Examination Vital Signs Temp Pulse Resp BP Pulse Ox 99.2 F 95 H 20 156/55 100 01/05/20 17:34 01/05/20 17:34 01/05/20 17:34 01/05/20 17:34 01/05/20 17:34 General appearance: no acute distress HEENT: Positive: PERRL Neck: Positive: neck supple Cardiac: Positive: Reg Rate and Rhythm, S1/S2. Negative: Gallop Lungs: Positive: Normal Exam Neuro: Positive: Grossly Intact Abdomen: Positive: Soft. Negative: Pulsations/Bruits Results 01/10/20 02:45 01/10/20 02:45 CBC 01/10/20 Range/Units 02:45 WBC 11.1 H (4.5-11.0) K/mm3 RBC 3.50 L (3.65-5.03) M/mm3 Hgb 8.2 L (10.1-14.3) gm/dl Hct 25.4 L (30.3-42.9) % Plt Count 655 H (140-440) K/mm3 Comprehensive Metabolic Panel 01/10/20 Range/Units 02:45 Sodium 135 L (137-145) mmol/L Potassium 4.1 (3.6-5.0) mmol/L Chloride 106.3 (98-107) mmol/L Carbon Dioxide 20 L (22-30) mmol/L BUN 15 (7-17) mg/dL Creatinine 1.3 H (0.6-1.2) mg/dL Glucose 157 H (65-100) mg/dL Calcium 8.0 L (8.4-10.2) mg/dL
--- NOTE | 2020-01-10 15:28 | Progress Note ---
Subjective Date of service: 01/10/20 Interval history: s/p right femoral endarterectomy and right 2nd toe amputation patient doing well right foot warm and well perfused incisions c/d/i ok to start oral anticoagulation with coumadin patient to benefit from Hematology consult for hypercoagulable work-up ok for patient to d/c once patient INR therapuetic patient will require special shoe for ambulation prior to d/c continue PT/OT follow-up 2 weeks after discharge Objective - Constitutional Vitals: Vital Signs - 12hr 01/10/20 01/10/20 01/10/20 04:42 08:49 10:00 Temperature 97.8 F 97.9 F Pulse Rate 77 78 71 Pulse Rate [ 77 Left Radial] Pulse Rate [ 77 Right Radial] Respiratory 18 18 19 Rate Blood Pressure 126/64 152/63 O2 Sat by Pulse 98 96 100 Oximetry - Labs CBC & Chem 7: 01/10/20 02:45 01/10/20 02:45 Labs: Abnormal lab results 01/09/20 01/09/20 01/09/20 Range/Units 16:38 18:52 21:22 WBC (4.5-11.0) K/mm3 RBC (3.65-5.03) M/mm3 Hgb (10.1-14.3) gm/dl Hct (30.3-42.9) % MCV (79-97) fl MCH (28-32) pg RDW (13.2-15.2) % Plt Count (140-440) K/mm3 Heparin Anti-Xa Level < 0.10 L (0.3-0.7) U.I./ml Sodium (137-145) mmol/L Carbon Dioxide (22-30) mmol/L Creatinine (0.6-1.2) mg/dL Glucose (65-100) mg/dL POC Glucose 136 H 171 H (70-105) mg/dL Calcium (8.4-10.2) mg/dL Vancomycin Trough (5.0-20.0) ug/mL 01/10/20 01/10/20 01/10/20 Range/Units 02:45 02:45 09:27 WBC 11.1 H (4.5-11.0) K/mm3 RBC 3.50 L (3.65-5.03) M/mm3 Hgb 8.2 L (10.1-14.3) gm/dl Hct 25.4 L (30.3-42.9) % MCV 73 L (79-97) fl MCH 24 L (28-32) pg RDW 21.5 H (13.2-15.2) % Plt Count 655 H (140-440) K/mm3 Heparin Anti-Xa Level (0.3-0.7) U.I./ml Sodium 135 L (137-145) mmol/L Carbon Dioxide 20 L (22-30) mmol/L Creatinine 1.3 H (0.6-1.2) mg/dL Glucose 157 H (65-100) mg/dL POC Glucose (70-105) mg/dL Calcium 8.0 L (8.4-10.2) mg/dL Vancomycin Trough 31.1 H (5.0-20.0) ug/mL Medications & Allergies - Medications Allergies/Adverse Reactions: Allergies No Known Allergies Allergy (Verified 05/17/13 23:27) Home Medications: Home Medications Medication Instructions Recorded Confirmed Last Taken Type HYDROcodone/APAP 7.5-325 [Coyote 1 each PO Q6HR PRN #20 tablet 05/18/13 Unknown Rx 7.5/325 mg] Albuterol Sulfate [Ventolin HFA] 2 puff IH Q4H PRN #1 hfa.aer.ad 02/13/15 Unknown Rx metFORMIN [Glucophage] 500 mg PO BID #60 tablet 02/13/15 Unknown Rx Nitrofurantoin [place]/M-Cryst 100 mg PO Q12HR #14 capsule 11/25/15 Unknown Rx [Macrobid CAP] Nitrofurantoin Monohyd/M-Cryst 100 mg PO BID #14 capsule 12/08/17 Unknown Rx [Macrobid 100 mg Capsule] traMADoL [Ultram] 50 mg PO Q6HR PRN #12 tablet 12/19/18 Unknown Rx Colchicine 0.6 mg PO Q2HR #10 capsule NS 11/11/19 Unknown Rx predniSONE [Deltasone] 50 mg PO QDAY #5 tab 11/11/19 Unknown Rx traMADoL [Ultram] 50 mg PO Q4HR PRN #14 tablet 11/11/19 Unknown Rx Active Medications: Generic Name Dose Route Start Last Admin Trade Name Freq PRN Reason Stop Dose Admin Colchicine 0.6 mg 01/06/20 13:00 01/07/20 20:11 Colchicine PO 0.6 mg Q2HR PRN Administration GOUT Dextrose 50 ml 01/05/20 21:36 D50w (25gm) Syringe IV Q30MIN PRN Hypoglycemia Protocol Ferrous Sulfate 325 mg 01/06/20 10:00 01/10/20 09:21 Feosol PO 325 mg BID SIDNEY Administration Hydromorphone HCl 0.25 mg 01/08/20 17:30 01/10/20 05:43 Dilaudid IV 0.25 mg Q3H PRN Administration Pain, Moderate (4-6) Sodium Chloride 1,000 mls @ 125 mls/hr 01/05/20 21:45 01/08/20 00:08 Nacl 0.9% 1000 Ml IV Infused DIRECT SIDNEY Infusion Heparin Sodium/Sodium Chloride 25,000 unit in 500 mls @ 24 mls/hr 01/07/20 22:00 01/10/20 08:35 Heparin/ 0.45% Nacl-25,000 Unit/500 Ml IV 1,850 units/hr TITR SIDNEY 37 mls/hr Administration Protocol 1,200 UNITS/HR Lactated Ringer's 1,000 mls @ 100 mls/hr 01/08/20 13:00 01/10/20 05:43 Lactated Ringers IV 100 mls/hr DIRECT SIDNEY Administration Cefepime HCl 2 gm in 100 mls @ 200 mls/hr 01/08/20 15:00 01/10/20 09:19 Cefepime/Ns 2 Gm/100 Ml IV 200 mls/hr Q12HR SIDNEY Administration Protocol Insulin Human Lispro 0 unit 01/05/20 22:00 01/10/20 11:47 Humalog SUB-Q Not Given ACHS [facility] Protocol Magnesium Hydroxide 30 ml 01/05/20 21:36 Milk Of Magnesia PO Q4H PRN Constipation Metformin HCl 500 mg 01/06/20 09:00 01/10/20 10:44 Glucophage PO Not Given BIDDIAB [facility] Multivitamins 1 each 01/06/20 10:00 01/10/20 09:21 Theragran Tab PO 1 each QDAY SIDNEY Administration Naloxone HCl 0.1 mg 01/08/20 17:30 Naloxone IV Q2MIN PRN Res Rate </= 8 or 02 SAT < 92% Ondansetron HCl 4 mg 01/09/20 11:53 01/10/20 09:27 Zofran IV 4 mg Q4H PRN Administration Nausea And Vomiting Oxycodone/Acetaminophen 2 tab 01/08/20 17:30 01/10/20 13:48 Percocet 5/325 PO 2 tab Q4H PRN Administration Pain, Moderate (4-6) Sodium Bicarbonate 650 mg 01/09/20 10:00 01/10/20 09:21 Sodium Bicarbonate PO 650 mg BID SIDNEY Administration Sodium Chloride 10 ml 01/05/20 22:00 01/10/20 10:45 Sodium Chloride Flush Syringe 10 Ml IV Not Given BID SIDNEY Sodium Chloride 10 ml 01/05/20 21:36 Sodium Chloride Flush Syringe 10 Ml IV PRN PRN LINE FLUSH
[2020-01-10 16:37] LABS: INR 1.06 (0.87-1.13)
[2020-01-10] MEDS: WARFARIN 7.5 MG TAB PO SCH (17:28)
[2020-01-11] MEDS: oxyCODONE /ACETAMINOPHEN 5-325MG TAB PO PRN ×3 (01:22→12:25)
[2020-01-11 04:53] LABS: Hematocrit 26.6 % (30.3-42.9); Hemoglobin 8.6 gm/dl (10.1-14.3); Mean Corpuscular HGB Conc 33 % (30-34); Mean Corpuscular Volume 73 fl (79-97); Platelet Count 665 K/mm3 (140-440); Red Blood Count 3.64 M/mm3 (3.65-5.03); Red Cell Distribution Width 21.3 % (13.2-15.2)
[2020-01-11 05:25] LABS: Calcium 8.3 mg/dL (8.4-10.2)
[2020-01-11] MEDS: INSULIN LISPRO 100 UNIT/ML VIAL 3 mL SUB-Q SCH ×4 (07:30→23:28)
[2020-01-11] MEDS: metFORMIN 500 MG TAB PO SCH ×2 (08:00→17:00)
--- NOTE | 2020-01-11 09:11 | Progress Note ---
Assessment and Plan Bradycardia Post right femoral enarterectomy and right toe amputation Essential primary hypertension Type II DM Microcytic anemia Snoring and apnea during sleep hours Recommendations: Continue IV heparin and warfarin Avoid AV yolande blocking agents Check TSH Outpatient sleep study Subjective Date of service: 01/11/20 Principal diagnosis: Bradycardia Interval history: Patient denies chest pain or shortness of breath this morning Tele reviewed and no evidence of significant pauses overnight Patient describes snoring and episodes of apnea during sleep but she never had a sleep study performed Objective Vital Signs Temp Pulse Pulse Pulse Resp BP Pulse Ox 01/11/20 08:28 98.3 F 74 20 182/62 95 01/11/20 04:57 97.8 F 80 18 159/63 95 01/11/20 00:17 97.6 F 72 18 116/52 94 01/10/20 22:46 96 01/10/20 22:00 20 01/10/20 20:20 97.9 F 74 18 169/55 96 01/10/20 17:38 167/63 01/10/20 14:42 75 146/56 98 01/10/20 10:00 71 77 77 19 100 - Physical Examination HEENT: Positive: PERRL Neck: Positive: neck supple Cardiac: Positive: Reg Rate and Rhythm Lungs: Positive: Normal Exam Neuro: Positive: Grossly Intact Abdomen: Positive: Soft. Negative: Pulsations/Bruits - Labs and Meds Coagulation 01/10/20 Range/Units 15:38 PT 13.6 (12.2-14.9) Sec. INR 1.06 (0.87-1.13) CBC 01/11/20 Range/Units 03:52 WBC 9.5 (4.5-11.0) K/mm3 RBC 3.64 L (3.65-5.03) M/mm3 Hgb 8.6 L (10.1-14.3) gm/dl Hct 26.6 L (30.3-42.9) % Plt Count 665 H (140-440) K/mm3 Comprehensive Metabolic Panel 01/11/20 Range/Units 03:52 Sodium 138 (137-145) mmol/L Potassium 4.3 (3.6-5.0) mmol/L Chloride 108.6 H (98-107) mmol/L Carbon Dioxide 20 L (22-30) mmol/L BUN 14 (7-17) mg/dL Creatinine 1.2 (0.6-1.2) mg/dL Glucose 106 H (65-100) mg/dL Calcium 8.3 L (8.4-10.2) mg/dL
[2020-01-11] MEDS: HYDROmorphone 1 MG/1 ML INJ IV PRN ×2 (09:40→16:05)
[2020-01-11] MEDS: amLODIPine 5 MG TAB PO SCH (10:33)
[2020-01-11] MEDS: MULTIVITAMINS ,THERAPEUTIC TAB PO SCH (10:33)
[2020-01-11] MEDS: SODIUM BICARBONATE 650 MG TAB PO SCH ×2 (10:33→23:34)
[2020-01-11] MEDS: CEFEPIME/NS 2 GM/100 ML 2 GM/100 ML BAG IV SCH ×2 (10:33→23:34)
[2020-01-11] MEDS: FERROUS SULFATE 325 MG TAB PO SCH ×2 (10:33→23:34)
[2020-01-11] MEDS: HEPARIN/ 0.45% NACL DRIP 25,000 UNIT/500 ML BAG IV SCH ×2 (10:50→23:34)
[2020-01-11] MEDS: ONDANSETRON 4 MG/2 ML INJ IV PRN ×2 (10:50→16:13)
--- NOTE | 2020-01-11 12:19 | Progress Note ---
Assessment and Plan Assessment and plan: 44-year-old female with known history of hypertension and diabetes mellitus presenting to the emergency room today complaining of also and infection of the second toe on right foot which has been ongoing for about a week. Patient indicates that wound started as a small ulcer but she began to h ave some swelling over the past 5 days. Right foot has been getting red and painful. She denies any recent trauma and denies any fall. Patient denies any fever or chills, no chest pain or shortness of breath, no headache or dizziness. Patient denies any sick contacts and no recent travel. She was recently seen by her primary care physician with the above complaints and she was placed on Levaquin and Flagyl but patient indicates that wound is not getting better. Patient has also been on some iron pills lately because of anemia. She denies any excessive bleeding during her menstruation and she denies any bright red blood per rectum or black stool. Upon evaluation in the emergency room today x-ray of the right foot reveals: Right second toe wound with suspected osteomyelitis of the distal phalanx. Labs reveals leukocytosis and low hemoglobin of 7. Patient being admitted for cellulitis/osteomyelitis of the second toe on right foot. 01/07: Patient for surgery today Amputation today. H/H Stable 01/08: s/p 1. Right Femoral Endarterectomy and Patch Angioplasty with Bovine Pericardium, 2. Right 2nd toe amputation. Clinically stable, add Zofran, Await re-eval with vascular. Continue abx, will await ID input on duration of antibiotics therapy 01/09: Patient currently on telemetry floor no further arrhythmia noted today. Await cardiology input hemoglobin hematocrit is stable. Patient still on heparin drip. Will await vascular review. We will continue to monitor the creatinine is mildly elevated today. 01/10:Warfarin started today, will discharge once INR is therapuetic, will also obtain TSH as mentioned by Cardiology. Continue to avoid all AV yolande blocking agents. Sleep study outpatient. Will ask Case management to look into any lovenox options. --Severe anemia; Hb 5.5 Current Visit: Yes Status: Acute Plan to address problem: Received total 2 units of PRBC yesterday IMproved Hb improved from 5.5-8.5 , no external evidence of bleeding Stool for occult blood Patient may need to see JOINT SEALER as outpatient To evaluate for [facility] causes of anemia -- Osteomyelitis of second toe of right foot--Post right femoral enarterectomy and right toe amputation Current Visit: Yes Status: Acute Plan to address problem: Patient placed on empiric IV antibiotics. general surgery consulted for evaluation and recommendation. -- Gangrene of toe of right foot Current Visit: Yes Status: Acute Plan to address problem: Extra findings suggestive of gangrene. empiric IV antibiotics and await further evaluation by surgery. vascular following --Severe malnutrition; hypoalbuminemia Nutrition supplements, nutrition consult -- Diabetes mellitus Current Visit: Yes Status: Acute Plan to address problem: Will monitor accu-checks closely. -- DVT prophylaxis Current Visit: Yes Status: Acute Plan to address problem: Patient placed on sequential compression device. No pharmacological anticoagulation in view of severe anemia -- Full code status Current Visit: Yes Status: Acute We will closely monitor the patient and adjust management as needed Plan of care reviewed with the patient and her nurse Disposition; follow surgery, vascular evaluation and recommendations Possible discharge when stable History Interval history: Patient SEEN AND EXAMINED, no further nausea vomiting today patient tolerating diet no arrhythmia noted today. Hospitalist Physical - Physical exam Narrative exam: General appearance: Present: no acute distress, well-nourished, obese - EENT Eyes: Present: PERRL, EOM intact - Neck Neck: Present: supple, normal ROM - Respiratory Respiratory effort: normal Respiratory: bilateral: diminished, negative: rales, rhonchi, wheezing - Cardiovascular Rhythm: regular Heart Sounds: Present: S1 & S2 - Extremities Extremities: abnormal dressing to the right foot - Abdominal General gastrointestinal: soft, non-tender, non-distended, normal bowel sounds - Integumentary Integumentary: Present: clear, warm - Psychiatric Psychiatric: appropriate mood/affect, cooperative - Neurologic Neurologic: CNII-XII intact, moves all extremities - Constitutional Vitals: Temp Pulse Resp BP Pulse Ox 97.9 F 76 16 162/51 98 01/11/20 11:33 01/11/20 11:33 01/11/20 11:33 01/11/20 11:33 01/11/20 11:33 General appearance: Present: no acute distress Results - Labs CBC & Chem 7: 01/11/20 03:52 01/11/20 03:52 Labs: Laboratory Last Values WBC 9.5 K/mm3 (4.5-11.0) 01/11/20 03:52 RBC 3.64 M/mm3 (3.65-5.03) L 01/11/20 03:52 Hgb 8.6 gm/dl (10.1-14.3) L 01/11/20 03:52 Hct 26.6 % (30.3-42.9) L 01/11/20 03:52 MCV 73 fl (79-97) L 01/11/20 03:52 MCH 24 pg (28-32) L 01/11/20 03:52 MCHC 33 % (30-34) 01/11/20 03:52 RDW 21.3 % (13.2-15.2) H 01/11/20 03:52 Plt Count 665 K/mm3 (140-440) H 01/11/20 03:52 Lymph % (Auto) 14.0 % (13.4-35.0) 01/07/20 05:43 [place] % (Auto) 8.7 % (0.0-7.3) H 01/07/20 05:43 Eos % (Auto) 2.5 % (0.0-4.3) 01/07/20 05:43 Baso % (Auto) 0.6 % (0.0-1.8) 01/07/20 05:43 Lymph # (Auto) 1.9 K/mm3 (1.2-5.4) 01/07/20 05:43 [place] # (Auto) 1.2 K/mm3 (0.0-0.8) H 01/07/20 05:43 Eos # (Auto) 0.3 K/mm3 (0.0-0.4) 01/07/20 05:43 Baso # (Auto) 0.1 K/mm3 (0.0-0.1) 01/07/20 05:43 Add Manual Diff Complete 01/05/20 17:42 Total Counted 100 01/05/20 17:42 Seg Neutrophils % 74.2 % (40.0-70.0) H 01/07/20 05:43 Seg Neuts % (Manual) 67.0 % (40.0-70.0) 01/05/20 17:42 Band Neutrophils % 0 % 01/05/20 17:42 Lymphocytes % (Manual) 22.0 % (13.4-35.0) 01/05/20 17:42 Reactive Lymphs % (Man) 0 % 01/05/20 17:42 Monocytes % (Manual) 9.0 % (0.0-7.3) H 01/05/20 17:42 Eosinophils % (Manual) 1.0 % (0.0-4.3) 01/05/20 17:42 Basophils % (Manual) 1.0 % (0.0-1.8) 01/05/20 17:42 Metamyelocytes % 0 % 01/05/20 17:42 Myelocytes % 0 % 01/05/20 17:42 Promyelocytes % 0 % 01/05/20 17:42 Blast Cells % 0 % 01/05/20 17:42 Nucleated RBC % Not Reportable 01/05/20 17:42 Seg Neutrophils # 9.9 K/mm3 (1.8-7.7) H 01/07/20 05:43 Seg Neutrophils # Man 10.5 K/mm3 (1.8-7.7) H 01/05/20 17:42 Band Neutrophils # 0.0 K/mm3 01/05/20 17:42 Lymphocytes # (Manual) 3.5 K/mm3 (1.2-5.4) 01/05/20 17:42 Abs React Lymphs (Man) 0.0 K/mm3 01/05/20 17:42 Monocytes # (Manual) 1.4 K/mm3 (0.0-0.8) H 01/05/20 17:42 Eosinophils # (Manual) 0.2 K/mm3 (0.0-0.4) 01/05/20 17:42 Basophils # (Manual) 0.2 K/mm3 (0.0-0.1) H 01/05/20 17:42 Metamyelocytes # 0.0 K/mm3 01/05/20 17:42 Myelocytes # 0.0 K/mm3 01/05/20 17:42 Promyelocytes # 0.0 K/mm3 01/05/20 17:42 Blast Cells # 0.0 K/mm3 01/05/20 17:42 WBC Morphology Not Reportable 01/05/20 17:42 Hypersegmented Neuts Not Reportable 01/05/20 17:42 Hyposegmented Neuts Not Reportable 01/05/20 17:42 Hypogranular Neuts Not Reportable 01/05/20 17:42 Smudge Cells Not Reportable 01/05/20 17:42 Toxic Granulation Not Reportable 01/05/20 17:42 Toxic Vacuolation Not Reportable 01/05/20 17:42 Dohle Bodies Not Reportable 01/05/20 17:42 Pelger-Huet Anomaly Not Reportable 01/05/20 17:42 Ren Rods Not Reportable 01/05/20 17:42 Platelet Estimate Not Reportable 01/05/20 17:42 Clumped Platelets Not Reportable 01/05/20 17:42 Plt Clumps, EDTA Not Reportable 01/05/20 17:42 Large Platelets Few 01/05/20 17:42 Giant Platelets Not Reportable 01/05/20 17:42 Platelet Satelliting Not Reportable 01/05/20 17:42 Plt Morphology Comment Not Reportable 01/05/20 17:42 RBC Morphology Not Reportable 01/05/20 17:42 Dimorphic RBCs Not Reportable 01/05/20 17:42 Polychromasia Not Reportable 01/05/20 17:42 Hypochromasia 1+ 01/05/20 17:42 Poikilocytosis Not Reportable 01/05/20 17:42 Anisocytosis Not Reportable 01/05/20 17:42 Microcytosis 1+ 01/05/20 17:42 Macrocytosis Not Reportable 01/05/20 17:42 Spherocytes Not Reportable 01/05/20 17:42 Pappenheimer Bodies Not Reportable 01/05/20 17:42 Sickle Cells Not Reportable 01/05/20 17:42 Target Cells Rare 01/05/20 17:42 Tear Drop Cells Not Reportable 01/05/20 17:42 Ovalocytes Few 01/05/20 17:42 Helmet Cells Not Reportable 01/05/20 17:42 Bhakta-Freer Bodies Not Reportable 01/05/20 17:42 [place] Rings Not Reportable 01/05/20 17:42 Remy Cells Not Reportable 01/05/20 17:42 Bite Cells Not Reportable 01/05/20 17:42 Crenated Cell Not Reportable 01/05/20 17:42 Elliptocytes Not Reportable 01/05/20 17:42 Acanthocytes (Spur) Not Reportable 01/05/20 17:42 Rouleaux Not Reportable 01/05/20 17:42 Hemoglobin C Crystals Not Reportable 01/05/20 17:42 Schistocytes Not Reportable 01/05/20 17:42 Malaria parasites Not Reportable 01/05/20 17:42 Amauri Bodies Not Reportable 01/05/20 17:42 Hem Pathologist Commnt No 01/05/20 17:42 PT 13.6 Sec. (12.2-14.9) 01/10/20 15:38 INR 1.06 (0.87-1.13) 01/10/20 15:38 APTT 33.2 Sec. (24.2-36.6) 01/07/20 22:40 Heparin Anti-Xa Level 0.74 U.I./ml (0.3-0.7) H 01/11/20 03:52 Sodium 138 mmol/L (137-145) 01/11/20 03:52 Potassium 4.3 mmol/L (3.6-5.0) 01/11/20 03:52 Chloride 108.6 mmol/L (98-107) H 01/11/20 03:52 Carbon Dioxide 20 mmol/L (22-30) L 01/11/20 03:52 Anion Gap 14 mmol/L 01/11/20 03:52 BUN 14 mg/dL (7-17) 01/11/20 03:52 Creatinine 1.2 mg/dL (0.6-1.2) 01/11/20 03:52 Estimated GFR 49 ml/min 01/11/20 03:52 BUN/Creatinine Ratio 12 % 01/11/20 03:52 Glucose 106 mg/dL (65-100) H 01/11/20 03:52 POC Glucose 110 mg/dL (70-105) H 01/11/20 11:35 Hemoglobin A1c 14.3 % (4-6) H 01/05/20 17:42 Lactic Acid 1.30 mmol/L (0.7-2.0) 01/05/20 17:42 Calcium 8.3 mg/dL (8.4-10.2) L 01/11/20 03:52 Phosphorus 3.60 mg/dL (2.5-4.5) 01/07/20 05:43 Magnesium 1.90 mg/dL (1.7-2.3) 01/09/20 15:35 Iron 12 ug/dL (37-170) L 01/06/20 03:47 Iron 12 ug/dL (37-170) L 01/06/20 03:47 TIBC 119 mcg/dL (250-450) L 01/06/20 03:47 TIBC 123 mcg/dL (250-450) L 01/06/20 03:47 % Saturation 10.08 % 01/06/20 03:47 Transferrin 100 mg/dl (192-382) L 01/06/20 03:47 Ferritin 55.9 ng/mL (10.0-200.0) 01/06/20 07:21 Total Bilirubin < 0.20 mg/dL (0.1-1.2) 01/05/20 17:42 AST 7 units/L (5-40) 01/05/20 17:42 ALT 7 units/L (7-56) 01/05/20 17:42 Alkaline Phosphatase 144 units/L (35-129) H 01/05/20 17:42 Total Protein 7.4 g/dL (6.3-8.2) 01/05/20 17:42 Albumin 2.1 g/dL (3.9-5) L 01/05/20 17:42 Albumin/Globulin Ratio 0.4 % 01/05/20 17:42 Urine HCG, Qual Negative (Negative) 01/08/20 12:33 Vancomycin Trough 31.1 ug/mL (5.0-20.0) H 01/10/20 09:27 Random Vancomycin 26 ug/mL (0-40.0) 01/11/20 03:52 Coronavirus (PCR) Negative (Negative) 01/08/20 08:52 Blood Type B POSITIVE 01/06/20 07:21 Antibody Screen Negative 01/06/20 07:21 Crossmatch See Detail 01/06/20 07:21 Microbiology: Microbiology 01/05/20 17:42 Peripheral/Venous Blood Culture - Final NO GROWTH AFTER 5 DAYS 01/05/20 17:42 Peripheral/Venous Blood Culture - Final NO GROWTH AFTER 5 DAYS Newell/IV: Voiding Method Bedside Commode IV Catheter Type [Right Peripheral IV Forearm] IV Catheter Type [Left Forearm INT / Saline Lock ] IV Catheter Type [Forearm] INT / Saline Lock Active Medications - Current Medications Current Medications: Generic Name Dose Route Start Last Admin Trade Name Freq PRN Reason Stop Dose Admin Amlodipine Besylate 2.5 mg 01/11/20 10:00 01/11/20 10:33 Amlodipine PO 2.5 mg QDAY SIDNEY Administration Colchicine 0.6 mg 01/06/20 13:00 01/07/20 20:11 Colchicine PO 0.6 mg Q2HR PRN Administration GOUT Dextrose 50 ml 01/05/20 21:36 D50w (25gm) Syringe IV Q30MIN PRN Hypoglycemia Protocol Ferrous Sulfate 325 mg 01/06/20 10:00 01/11/20 10:33 Feosol PO 325 mg BID SIDNEY Administration Hydromorphone HCl 0.25 mg 01/08/20 17:30 01/11/20 09:40 Dilaudid IV 0.25 mg Q3H PRN Administration Pain, Moderate (4-6) Sodium Chloride 1,000 mls @ 125 mls/hr 01/05/20 21:45 01/08/20 00:08 Nacl 0.9% 1000 Ml IV Infused DIRECT SIDNEY Infusion Heparin Sodium/Sodium Chloride 25,000 unit in 500 mls @ 24 mls/hr 01/07/20 22:00 01/11/20 10:50 Heparin/ 0.45% Nacl-25,000 Unit/500 Ml IV 1,750 units/hr TITR SIDNEY 35 mls/hr Administration Protocol 1,200 UNITS/HR Lactated Ringer's 1,000 mls @ 100 mls/hr 01/08/20 13:00 01/10/20 17:26 Lactated Ringers IV 100 mls/hr DIRECT SIDNEY Administration Cefepime HCl 2 gm in 100 mls @ 200 mls/hr 01/08/20 15:00 01/11/20 10:33 Cefepime/Ns 2 Gm/100 Ml IV 200 mls/hr Q12HR SIDNEY Administration Protocol Insulin Human Lispro 0 unit 01/05/20 22:00 01/11/20 07:30 Humalog SUB-Q Not Given ACHS [facility] Protocol Magnesium Hydroxide 30 ml 01/05/20 21:36 Milk Of Magnesia PO Q4H PRN Constipation Metformin HCl 500 mg 01/06/20 09:00 01/11/20 08:00 Glucophage PO Not Given BIDDIAB [facility] Multivitamins 1 each 01/06/20 10:00 01/11/20 10:33 Theragran Tab PO 1 each QDAY SIDNEY Administration Naloxone HCl 0.1 mg 01/08/20 17:30 Naloxone IV Q2MIN PRN Res Rate </= 8 or 02 SAT < 92% Ondansetron HCl 4 mg 01/09/20 11:53 01/11/20 10:50 Zofran IV 4 mg Q4H PRN Administration Nausea And Vomiting Oxycodone/Acetaminophen 2 tab 01/08/20 17:30 01/11/20 06:19 Percocet 5/325 PO 2 tab Q4H PRN Administration Pain, Moderate (4-6) Sodium Bicarbonate 650 mg 01/09/20 10:00 01/11/20 10:33 Sodium Bicarbonate PO 650 mg BID SIDNEY Administration Sodium Chloride 10 ml 01/05/20 22:00 01/11/20 10:34 Sodium Chloride Flush Syringe 10 Ml IV 10 ml BID SIDNEY Administration Sodium Chloride 10 ml 01/05/20 21:36 Sodium Chloride Flush Syringe 10 Ml IV PRN PRN LINE FLUSH Warfarin Sodium 7.5 mg 01/10/20 17:00 01/10/20 17:28 Coumadin PO 7.5 mg DAILY@1700 SIDNEY Administration Nutrition/Malnutrition Assess - Dietary Evaluation Nutrition/Malnutrition Findings: Nutrition Notes Start: 01/06/20 14:15 Freq: Status: Active Protocol: Document 01/10/20 12:33 LM (Rec: 01/10/20 12:35 LM [email or web address]) Nutrition Notes Initial or Follow up Reassessment Current Diagnosis Diabetes Other Pertinent Diagnosis gangrene/osteomyelitis foot Current Diet Cardiac/consistent CHO Labs/Tests Reviewed Pertinent Medications Reviewed Height 5 ft 3 in Weight 83.5 kg [place] Body Weight (kg) 52.27 BMI 32.5 Weight Status Obese Subjective/Other Information Pt ate 100% of breakfast. Pt ate 75-100% yesterday. Percent of energy/protein needs met: 100%/100% Burn Absent Trauma Absent Current % PO Good (75-100%) Minimum of two criteria Yes Energy Intake (non-severe) <75% Estimated Energy Requirement >7 days Interpretation of Weight Loss (severe) >2% in 1 week #2 Nutrition Diagnosis Food and nutrition-related knowledge deficit Diagnosis Progress(for reassessment Resolved documentation) #1 Nutrition Diagnosis Malnutrition Diagnosis Progress(for reassessment Continues documentation) Is patient on ventilator? No Is Patient Ambulatory and/or Out of Bed Yes REE-(Otto-St. Jeor-ambulatory/OOB) [ 1903.369 [id number]] Kcal/Kg value to use for calculation 19 Approximate Energy Requirements Using 1587 kcal/Kg Calculation Used for Recommendations Kcal/kg Additional Notes Protein: 54-68g (0.8-1g/kg using AdjBW 68kg) Fluid: 1ml/kcal Nutrition Intervention Change Diet Order: continue Add Supplement/Snack (indicate name/kcal D/C /protein ) Goal #1 Meet at least 75% of energy and protein needs Anticipated Discharge Needs: Cardiac/consistent CHO Follow-Up By: 01/17/20 Additional Comments F/U for stable intakes
[2020-01-11] MEDS: LACTATED RINGERS 1,000 ML IV SCH ×2 (16:14→23:35)
[2020-01-11] MEDS: WARFARIN 7.5 MG TAB PO SCH (19:32)
[2020-01-12 08:03] LABS: INR 3.25 (0.87-1.13)
[2020-01-12] MEDS: INSULIN LISPRO 100 UNIT/ML VIAL 3 mL SUB-Q SCH ×4 (08:12→22:18)
[2020-01-12] MEDS: metFORMIN 500 MG TAB PO SCH ×2 (08:15→16:25)
[2020-01-12] MEDS: amLODIPine 5 MG TAB PO SCH (09:08)
[2020-01-12] MEDS: FERROUS SULFATE 325 MG TAB PO SCH ×2 (09:08→21:17)
[2020-01-12] MEDS: SODIUM BICARBONATE 650 MG TAB PO SCH ×2 (09:08→21:17)
[2020-01-12] MEDS: MULTIVITAMINS ,THERAPEUTIC TAB PO SCH (09:08)
[2020-01-12] MEDS: oxyCODONE /ACETAMINOPHEN 5-325MG TAB PO PRN ×2 (09:09→21:18)
[2020-01-12] MEDS: CEFEPIME/NS 2 GM/100 ML 2 GM/100 ML BAG IV SCH ×2 (09:11→21:19)
[2020-01-12] MEDS: LACTATED RINGERS 1,000 ML IV SCH (09:17)
--- NOTE | 2020-01-12 09:24 | Progress Note ---
Assessment and Plan Bradycardia Sinus pauses predominantly during sleep hours Normal TSH Post right femoral enarterectomy and right toe amputation Essential primary hypertension Type II DM Microcytic anemia Snoring and apnea during sleep hours Recommendations: Anticoagulation ordered by vascular team Avoid AV yolande blocking agents Outpatient sleep study and ischemic evaluation are warranted Subjective Date of service: 01/12/20 Principal diagnosis: Bradycardia Interval history: Patient denies chest pain or shortness of breath this morning Tele reviewed - 3.4 sec pause noted at 7:17 am and another 2.5 sec pause at 12:15 pm Objective Vital Signs Temp Pulse Resp BP BP Pulse Ox 01/12/20 09:09 16 01/12/20 09:08 74 165/77 01/12/20 08:06 98.9 F 72 16 180/73 96 01/12/20 04:58 98.0 F 72 18 158/64 96 01/12/20 00:36 98.4 F 76 20 164/69 93 01/11/20 22:00 18 01/11/20 19:34 98.2 F 80 20 150/69 95 01/11/20 18:23 79 142/96 01/11/20 17:38 99 01/11/20 16:59 79 208/87 01/11/20 13:14 99 01/11/20 11:33 97.9 F 76 16 162/51 98 - Physical Examination HEENT: Positive: PERRL Neck: Positive: neck supple Cardiac: Positive: Reg Rate and Rhythm Lungs: Positive: Normal Exam Neuro: Positive: Grossly Intact Abdomen: Positive: Soft. Negative: Pulsations/Bruits - Labs and Meds Coagulation 01/12/20 Range/Units 06:39 PT 33.4 H (12.2-14.9) Sec. INR 3.25 H (0.87-1.13)
--- NOTE | 2020-01-12 10:06 | Progress Note ---
Assessment and Plan Assessment and plan: 44-year-old female with known history of hypertension and diabetes mellitus presenting to the emergency room today complaining of also and infection of the second toe on right foot which has been ongoing for about a week. Patient indicates that wound started as a small ulcer but she began to h ave some swelling over the past 5 days. Right foot has been getting red and painful. She denies any recent trauma and denies any fall. Patient denies any fever or chills, no chest pain or shortness of breath, no headache or dizziness. Patient denies any sick contacts and no recent travel. She was recently seen by her primary care physician with the above complaints and she was placed on Levaquin and Flagyl but patient indicates that wound is not getting better. Patient has also been on some iron pills lately because of anemia. She denies any excessive bleeding during her menstruation and she denies any bright red blood per rectum or black stool. Upon evaluation in the emergency room today x-ray of the right foot reveals: Right second toe wound with suspected osteomyelitis of the distal phalanx. Labs reveals leukocytosis and low hemoglobin of 7. Patient being admitted for cellulitis/osteomyelitis of the second toe on right foot. 01/07: Patient for surgery today Amputation today. H/H Stable 01/08: s/p 1. Right Femoral Endarterectomy and Patch Angioplasty with Bovine Pericardium, 2. Right 2nd toe amputation. Clinically stable, add Zofran, Await re-eval with vascular. Continue abx, will await ID input on duration of antibiotics therapy 01/09: Patient currently on telemetry floor no further arrhythmia noted today. Await cardiology input hemoglobin hematocrit is stable. Patient still on heparin drip. Will await vascular review. We will continue to monitor the creatinine is mildly elevated today. 01/10:Warfarin started today, will discharge once INR is therapuetic, will also obtain TSH as mentioned by Cardiology. Continue to avoid all AV yolande blocking agents. Sleep study outpatient. Will ask Case management to look into any lovenox options. 01/11: Supratherapeutic INR. Pharmacy managing warfarin. Warfarin will be held today. Recheck INR in a.m. and if within therapeutic limits patient can be discharged at a lower dose Coumadin --Severe anemia; Hb 5.5 Current Visit: Yes Status: Acute Plan to address problem: Received total 2 units of PRBC yesterday IMproved Hb improved from 5.5-8.5 , no external evidence of bleeding Stool for occult blood Patient may need to see [facility] as outpatient To evaluate for [facility] causes of anemia -- Osteomyelitis of second toe of right foot--Post right femoral enarterectomy and right toe amputation Current Visit: Yes Status: Acute Plan to address problem: Patient placed on empiric IV antibiotics. general surgery consulted for evaluation and recommendation. -- Gangrene of toe of right foot Current Visit: Yes Status: Acute Plan to address problem: Extra findings suggestive of gangrene. empiric IV antibiotics and await further evaluation by surgery. vascular following --Severe malnutrition; hypoalbuminemia Nutrition supplements, nutrition consult -- Diabetes mellitus Current Visit: Yes Status: Acute Plan to address problem: Will monitor accu-checks closely. -- DVT prophylaxis Current Visit: Yes Status: Acute Plan to address problem: Patient placed on sequential compression device. No pharmacological anticoagulation in view of severe anemia -- Full code status Current Visit: Yes Status: Acute We will closely monitor the patient and adjust management as needed Plan of care reviewed with the patient and her nurse Disposition; follow surgery, vascular evaluation and recommendations Possible discharge when stable History Interval history: Patient SEEN AND EXAMINED, no further nausea vomiting today patient tolerating diet no arrhythmia noted today. Hospitalist Physical - Physical exam Narrative exam: General appearance: Present: no acute distress, well-nourished, obese - EENT Eyes: Present: PERRL, EOM intact - Neck Neck: Present: supple, normal ROM - Respiratory Respiratory effort: normal Respiratory: bilateral: diminished, negative: rales, rhonchi, wheezing - Cardiovascular Rhythm: regular Heart Sounds: Present: S1 & S2 - Extremities Extremities: abnormal dressing to the right foot - Abdominal General gastrointestinal: soft, non-tender, non-distended, normal bowel sounds - Integumentary Integumentary: Present: clear, warm - Psychiatric Psychiatric: appropriate mood/affect, cooperative - Neurologic Neurologic: CNII-XII intact, moves all extremities - Constitutional Vitals: Temp Pulse Resp BP Pulse Ox 98.9 F 74 16 165/77 96 01/12/20 08:06 01/12/20 09:08 01/12/20 09:09 01/12/20 09:08 01/12/20 08:06 General appearance: Present: no acute distress Results - Labs CBC & Chem 7: 01/11/20 03:52 01/11/20 03:52 Labs: Laboratory Last Values WBC 9.5 K/mm3 (4.5-11.0) 01/11/20 03:52 RBC 3.64 M/mm3 (3.65-5.03) L 01/11/20 03:52 Hgb 8.6 gm/dl (10.1-14.3) L 01/11/20 03:52 Hct 26.6 % (30.3-42.9) L 01/11/20 03:52 MCV 73 fl (79-97) L 01/11/20 03:52 MCH 24 pg (28-32) L 01/11/20 03:52 MCHC 33 % (30-34) 01/11/20 03:52 RDW 21.3 % (13.2-15.2) H 01/11/20 03:52 Plt Count 665 K/mm3 (140-440) H 01/11/20 03:52 Lymph % (Auto) 14.0 % (13.4-35.0) 01/07/20 05:43 Divide % (Auto) 8.7 % (0.0-7.3) H 01/07/20 05:43 Eos % (Auto) 2.5 % (0.0-4.3) 01/07/20 05:43 Baso % (Auto) 0.6 % (0.0-1.8) 01/07/20 05:43 Lymph # (Auto) 1.9 K/mm3 (1.2-5.4) 01/07/20 05:43 Divide # (Auto) 1.2 K/mm3 (0.0-0.8) H 01/07/20 05:43 Eos # (Auto) 0.3 K/mm3 (0.0-0.4) 01/07/20 05:43 Baso # (Auto) 0.1 K/mm3 (0.0-0.1) 01/07/20 05:43 Add Manual Diff Complete 01/05/20 17:42 Total Counted 100 01/05/20 17:42 Seg Neutrophils % 74.2 % (40.0-70.0) H 01/07/20 05:43 Seg Neuts % (Manual) 67.0 % (40.0-70.0) 01/05/20 17:42 Band Neutrophils % 0 % 01/05/20 17:42 Lymphocytes % (Manual) 22.0 % (13.4-35.0) 01/05/20 17:42 Reactive Lymphs % (Man) 0 % 01/05/20 17:42 Monocytes % (Manual) 9.0 % (0.0-7.3) H 01/05/20 17:42 Eosinophils % (Manual) 1.0 % (0.0-4.3) 01/05/20 17:42 Basophils % (Manual) 1.0 % (0.0-1.8) 01/05/20 17:42 Metamyelocytes % 0 % 01/05/20 17:42 Myelocytes % 0 % 01/05/20 17:42 Promyelocytes % 0 % 01/05/20 17:42 Blast Cells % 0 % 01/05/20 17:42 Nucleated RBC % Not Reportable 01/05/20 17:42 Seg Neutrophils # 9.9 K/mm3 (1.8-7.7) H 01/07/20 05:43 Seg Neutrophils # Man 10.5 K/mm3 (1.8-7.7) H 01/05/20 17:42 Band Neutrophils # 0.0 K/mm3 01/05/20 17:42 Lymphocytes # (Manual) 3.5 K/mm3 (1.2-5.4) 01/05/20 17:42 Abs React Lymphs (Man) 0.0 K/mm3 01/05/20 17:42 Monocytes # (Manual) 1.4 K/mm3 (0.0-0.8) H 01/05/20 17:42 Eosinophils # (Manual) 0.2 K/mm3 (0.0-0.4) 01/05/20 17:42 Basophils # (Manual) 0.2 K/mm3 (0.0-0.1) H 01/05/20 17:42 Metamyelocytes # 0.0 K/mm3 01/05/20 17:42 Myelocytes # 0.0 K/mm3 01/05/20 17:42 Promyelocytes # 0.0 K/mm3 01/05/20 17:42 Blast Cells # 0.0 K/mm3 01/05/20 17:42 WBC Morphology Not Reportable 01/05/20 17:42 Hypersegmented Neuts Not Reportable 01/05/20 17:42 Hyposegmented Neuts Not Reportable 01/05/20 17:42 Hypogranular Neuts Not Reportable 01/05/20 17:42 Smudge Cells Not Reportable 01/05/20 17:42 Toxic Granulation Not Reportable 01/05/20 17:42 Toxic Vacuolation Not Reportable 01/05/20 17:42 Dohle Bodies Not Reportable 01/05/20 17:42 Pelger-Huet Anomaly Not Reportable 01/05/20 17:42 Ren Rods Not Reportable 01/05/20 17:42 Platelet Estimate Not Reportable 01/05/20 17:42 Clumped Platelets Not Reportable 01/05/20 17:42 Plt Clumps, EDTA Not Reportable 01/05/20 17:42 Large Platelets Few 01/05/20 17:42 Giant Platelets Not Reportable 01/05/20 17:42 Platelet Satelliting Not Reportable 01/05/20 17:42 Plt Morphology Comment Not Reportable 01/05/20 17:42 RBC Morphology Not Reportable 01/05/20 17:42 Dimorphic RBCs Not Reportable 01/05/20 17:42 Polychromasia Not Reportable 01/05/20 17:42 Hypochromasia 1+ 01/05/20 17:42 Poikilocytosis Not Reportable 01/05/20 17:42 Anisocytosis Not Reportable 01/05/20 17:42 Microcytosis 1+ 01/05/20 17:42 Macrocytosis Not Reportable 01/05/20 17:42 Spherocytes Not Reportable 01/05/20 17:42 Pappenheimer Bodies Not Reportable 01/05/20 17:42 Sickle Cells Not Reportable 01/05/20 17:42 Target Cells Rare 01/05/20 17:42 Tear Drop Cells Not Reportable 01/05/20 17:42 Ovalocytes Few 01/05/20 17:42 Helmet Cells Not Reportable 01/05/20 17:42 [place] Bodies Not Reportable 01/05/20 17:42 [place] Rings Not Reportable 01/05/20 17:42 [place] Cells Not Reportable 01/05/20 17:42 Bite Cells Not Reportable 01/05/20 17:42 Crenated Cell Not Reportable 01/05/20 17:42 Elliptocytes Not Reportable 01/05/20 17:42 Acanthocytes (Spur) Not Reportable 01/05/20 17:42 Rouleaux Not Reportable 01/05/20 17:42 Hemoglobin C Crystals Not Reportable 01/05/20 17:42 Schistocytes Not Reportable 01/05/20 17:42 Malaria parasites Not Reportable 01/05/20 17:42 [place]uri Bodies Not Reportable 01/05/20 17:42 Hem Pathologist Commnt No 01/05/20 17:42 PT 33.4 Sec. (12.2-14.9) H 01/12/20 06:39 INR 3.25 (0.87-1.13) H 01/12/20 06:39 APTT 33.2 Sec. (24.2-36.6) 01/07/20 22:40 Heparin Anti-Xa Level 0.46 U.I./ml (0.3-0.7) 01/11/20 11:49 Sodium 138 mmol/L (137-145) 01/11/20 03:52 Potassium 4.3 mmol/L (3.6-5.0) 01/11/20 03:52 Chloride 108.6 mmol/L (98-107) H 01/11/20 03:52 Carbon Dioxide 20 mmol/L (22-30) L 01/11/20 03:52 Anion Gap 14 mmol/L 01/11/20 03:52 BUN 14 mg/dL (7-17) 01/11/20 03:52 Creatinine 1.2 mg/dL (0.6-1.2) 01/11/20 03:52 Estimated GFR 49 ml/min 01/11/20 03:52 BUN/Creatinine Ratio 12 % 01/11/20 03:52 Glucose 106 mg/dL (65-100) H 01/11/20 03:52 POC Glucose 139 mg/dL (70-105) H 01/12/20 08:04 Hemoglobin A1c 14.3 % (4-6) H 01/05/20 17:42 Lactic Acid 1.30 mmol/L (0.7-2.0) 01/05/20 17:42 Calcium 8.3 mg/dL (8.4-10.2) L 01/11/20 03:52 Phosphorus 3.60 mg/dL (2.5-4.5) 01/07/20 05:43 Magnesium 1.90 mg/dL (1.7-2.3) 01/09/20 15:35 Iron 12 ug/dL (37-170) L 01/06/20 03:47 Iron 12 ug/dL (37-170) L 01/06/20 03:47 TIBC 119 mcg/dL (250-450) L 01/06/20 03:47 TIBC 123 mcg/dL (250-450) L 01/06/20 03:47 % Saturation 10.08 % 01/06/20 03:47 Transferrin 100 mg/dl (192-382) L 01/06/20 03:47 Ferritin 55.9 ng/mL (10.0-200.0) 01/06/20 07:21 Total Bilirubin < 0.20 mg/dL (0.1-1.2) 01/05/20 17:42 AST 7 units/L (5-40) 01/05/20 17:42 ALT 7 units/L (7-56) 01/05/20 17:42 Alkaline Phosphatase 144 units/L (35-129) H 01/05/20 17:42 Total Protein 7.4 g/dL (6.3-8.2) 01/05/20 17:42 Albumin 2.1 g/dL (3.9-5) L 01/05/20 17:42 Albumin/Globulin Ratio 0.4 % 01/05/20 17:42 TSH 1.400 mlU/mL (0.270-4.200) 01/11/20 11:49 Urine HCG, Qual Negative (Negative) 01/08/20 12:33 Vancomycin Trough 31.1 ug/mL (5.0-20.0) H 01/10/20 09:27 Random Vancomycin 14.7 ug/mL (0-40.0) 01/12/20 06:39 Coronavirus (PCR) Negative (Negative) 01/08/20 08:52 Blood Type B POSITIVE 01/06/20 07:21 Antibody Screen Negative 01/06/20 07:21 Crossmatch See Detail 01/06/20 07:21 [place]ell/IV: Voiding Method Toilet IV Catheter Type [Right Peripheral IV Forearm] IV Catheter Type [Left Forearm INT / Saline Lock ] IV Catheter Type [Forearm] INT / Saline Lock Active Medications - Current Medications Current Medications: Generic Name Dose Route Start Last Admin Trade Name [place] PRN Reason Stop Dose Admin Amlodipine Besylate 2.5 mg 01/11/20 10:00 01/12/20 09:08 Amlodipine PO 2.5 mg QDAY SIDNEY Administration Colchicine 0.6 mg 01/06/20 13:00 01/07/20 20:11 Colchicine PO 0.6 mg Q2HR PRN Administration GOUT Dextrose 50 ml 01/05/20 21:36 D50w (25gm) Syringe IV Q30MIN PRN Hypoglycemia Protocol Ferrous Sulfate 325 mg 01/06/20 10:00 01/12/20 09:08 Feosol PO 325 mg BID SIDNEY Administration Hydromorphone HCl 0.25 mg 01/08/20 17:30 01/11/20 16:05 Dilaudid IV 0.25 mg Q3H PRN Administration Pain, Moderate (4-6) Sodium Chloride 1,000 mls @ 125 mls/hr 01/05/20 21:45 01/08/20 00:08 Nacl 0.9% 1000 Ml IV Infused DIRECT SIDNEY Infusion Heparin Sodium/Sodium Chloride 25,000 unit in 500 mls @ 24 mls/hr 01/07/20 22:00 01/11/20 23:34 Heparin/ 0.45% Nacl-25,000 Unit/500 Ml IV 1,750 units/hr TITR SIDNEY 35 mls/hr Administration Protocol 1,200 UNITS/HR Lactated Ringer's 1,000 mls @ 100 mls/hr 01/08/20 13:00 01/12/20 09:17 Lactated Ringers IV 100 mls/hr DIRECT SIDNEY Administration Cefepime HCl 2 gm in 100 mls @ 200 mls/hr 01/08/20 15:00 01/12/20 09:11 Cefepime/Ns 2 Gm/100 Ml IV 200 mls/hr Q12HR SIDNEY Administration Protocol Insulin Human Lispro 0 unit 01/05/20 22:00 01/12/20 08:12 Humalog SUB-Q Not Given ACHS SIDNEY Protocol Magnesium Hydroxide 30 ml 01/05/20 21:36 Milk Of Magnesia PO Q4H PRN Constipation Metformin HCl 500 mg 01/06/20 09:00 01/12/20 08:15 Glucophage PO 500 mg BIDDIAB SIDNEY Administration Multivitamins 1 each 01/06/20 10:00 01/12/20 09:08 Theragran Tab PO 1 each QDAY SIDNEY Administration Naloxone HCl 0.1 mg 01/08/20 17:30 Naloxone IV Q2MIN PRN Res Rate </= 8 or 02 SAT < 92% Ondansetron HCl 4 mg 01/09/20 11:53 01/11/20 16:13 Zofran IV 4 mg Q4H PRN Administration Nausea And Vomiting Oxycodone/Acetaminophen 2 tab 01/08/20 17:30 01/12/20 09:09 Percocet 5/325 PO 2 tab Q4H PRN Administration Pain, Moderate (4-6) Sodium Bicarbonate 650 mg 01/09/20 10:00 01/12/20 09:08 Sodium Bicarbonate PO 650 mg BID SIDNEY Administration Sodium Chloride 10 ml 01/05/20 22:00 01/12/20 09:11 Sodium Chloride Flush Syringe 10 Ml IV 10 ml BID SIDNEY Administration Sodium Chloride 10 ml 01/05/20 21:36 Sodium Chloride Flush Syringe 10 Ml IV PRN PRN LINE FLUSH Warfarin Sodium 7.5 mg 01/10/20 17:00 01/11/20 19:32 Coumadin PO 7.5 mg DAILY@1700 SIDNEY Administration Nutrition/Malnutrition Assess - Dietary Evaluation Nutrition/Malnutrition Findings: Nutrition Notes Start: 01/06/20 14:15 Freq: Status: Active Protocol: Document 01/10/20 12:33 LM (Rec: 01/10/20 12:35 LM [id number]) Nutrition Notes Initial or Follow up Reassessment Current Diagnosis Diabetes Other Pertinent Diagnosis gangrene/osteomyelitis foot Current Diet Cardiac/consistent CHO Labs/Tests Reviewed Pertinent Medications Reviewed Height 5 ft 3 in Weight 83.5 kg [place] Body Weight (kg) 52.27 BMI 32.5 Weight Status Obese Subjective/Other Information Pt ate 100% of breakfast. Pt ate 75-100% yesterday. Percent of energy/protein needs met: 100%/100% Burn Absent Trauma Absent Current % PO Good (75-100%) Minimum of two criteria Yes Energy Intake (non-severe) <75% Estimated Energy Requirement >7 days Interpretation of Weight Loss (severe) >2% in 1 week #2 Nutrition Diagnosis Food and nutrition-related knowledge deficit Diagnosis Progress(for reassessment Resolved documentation) #1 Nutrition Diagnosis Malnutrition Diagnosis Progress(for reassessment Continues documentation) Is patient on ventilator? No Is Patient Ambulatory and/or Out of Bed Yes REE-([facility]-ambulatory/OOB) [ 1903.369 [id number]] Kcal/Kg value to use for calculation 19 Approximate Energy Requirements Using 1587 kcal/Kg Calculation Used for Recommendations Kcal/kg Additional Notes Protein: 54-68g (0.8-1g/kg using AdjBW 68kg) Fluid: 1ml/kcal Nutrition Intervention Change Diet Order: continue Add Supplement/Snack (indicate name/kcal D/C /protein ) Goal #1 Meet at least 75% of energy and protein needs Anticipated Discharge Needs: Cardiac/consistent CHO Follow-Up By: 01/17/20 Additional Comments F/U for stable intakes
[2020-01-12] MEDS: ONDANSETRON 4 MG/2 ML INJ IV PRN ×2 (16:29→21:20)
[2020-01-12] MEDS ORDERED: VANCOMYCIN 1,250 MG in SODIUM CHLORIDE 0.9% 250ML 250 ML IV SCH (22:00)
[2020-01-13 05:30] LABS: Hematocrit 26.4 % (30.3-42.9); Hemoglobin 8.6 gm/dl (10.1-14.3)
[2020-01-13 05:44] LABS: INR 4.71 (0.87-1.13)
[2020-01-13] MEDS: FERROUS SULFATE 325 MG TAB PO SCH (09:27)
[2020-01-13] MEDS: amLODIPine 5 MG TAB PO SCH (09:27)
[2020-01-13] MEDS: SODIUM BICARBONATE 650 MG TAB PO SCH (09:29)
[2020-01-13] MEDS: MULTIVITAMINS ,THERAPEUTIC TAB PO SCH (09:29)
[2020-01-13] MEDS: CEFEPIME/NS 2 GM/100 ML 2 GM/100 ML BAG IV SCH (09:29)
[2020-01-13] MEDS: metFORMIN 500 MG TAB PO SCH (09:29)
[2020-01-13] MEDS: INSULIN LISPRO 100 UNIT/ML VIAL 3 mL SUB-Q SCH ×2 (09:31→12:43)
[2020-01-13] MEDS: ONDANSETRON 4 MG/2 ML INJ IV PRN (09:38)
--- NOTE | 2020-01-13 10:19 | Progress Note ---
Assessment and Plan Intermittent Sinus Bradycardia with sinus pauses predominantly during sleep hours Normal TSH Post right femoral enarterectomy and right toe amputation Essential primary hypertension Type II DM Anemia Recommend: Avoid AV yolande blocking agents. Continue telemetry monitoring. Subjective Date of service: 01/13/20 Principal diagnosis: Bradycardia Interval history: Sinus rhythm with intermittent sinus bradycardia on telemetry. Objective Vital Signs Temp Pulse Resp Resp BP BP Pulse Ox 01/13/20 09:27 166/79 01/13/20 03:27 97.7 F 68 16 166/79 98 01/12/20 23:34 98.1 F 66 14 137/60 96 01/12/20 22:00 18 99 01/12/20 19:30 98.5 F 73 16 166/65 97 01/12/20 17:56 98.1 F 81 16 145/77 97 01/12/20 15:59 97.9 F 72 16 190/86 97 01/12/20 13:07 78 168/79 01/12/20 12:09 97.6 F 76 15 168/74 98 01/12/20 12:00 15 - Physical Examination General: No Apparent Distress HEENT: Positive: PERRL Neck: Positive: neck supple Cardiac: Positive: Reg Rate and Rhythm Lungs: Positive: Decreased Breath Sounds Neuro: Positive: Grossly Intact Abdomen: Positive: Soft - Labs and Meds Coagulation 01/13/20 Range/Units 04:32 PT 44.9 H (12.2-14.9) Sec. INR 4.71 H (0.87-1.13) CBC 01/13/20 Range/Units 04:32 Hgb 8.6 L (10.1-14.3) gm/dl Hct 26.4 L (30.3-42.9) % Plt Count 687 H (140-440) K/mm3
--- NOTE | 2020-01-13 14:17 | Discharge Summary ---
Providers - Providers Date of Admission: 01/05/20 21:23 Attending physician: ALBINO BROWN MD 01/05/20 20:22 Consult to Physician [CONS] Routine Comment: Consulting Provider: TAYA GOMEZ Physician Instructions: Reason For Exam: right second toe osteomyelitis 01/05/20 21:36 Consult to Dietitian/Nutrition [CONS] Routine Physician Instructions: Reason For Exam: Reason for Consult: Diet education 01/06/20 09:46 Consult to Physician [CONS] Routine Comment: Consulting Provider: ALBINO IGLESIAS Physician Instructions: please see and evaluate Reason For Exam: toe gangrene 01/07/20 16:35 Consult to Physician [CONS] Routine Comment: Consulting Provider: GHAZALA PETTIT Physician Instructions: Reason For Exam: Osteomyelitis left second toe 01/08/20 17:25 Physical Therapy Evaluation and Treat [CONS] Routine Comment: Reason For Exam: s/p right 2nd toe amputation 01/08/20 17:26 Occupational Therapy Evaluate and Treat [CONS] Routine Comment: Reason For Exam: s/p right 2nd toe amputation 01/09/20 15:06 Consult to Cardiology [CONS] Urgent Consulting Provider: YAMINI RIDDLE Reason For Exam: bradycardia 01/12/20 07:42 Consult to Case Management [CONS] Routine 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 Primary care physician: PARTS COUNTERPERSON Hospitalization Condition: Stable Hospital course: 44-year-old female with known history of hypertension and diabetes mellitus presenting to the emergency room today complaining of also and infection of the second toe on right foot which has been ongoing for about a week. Patient indicates that wound started as a small ulcer but she began to have some swelling over the past 5 days. Right foot has been getting red and painful. She denies any recent trauma and denies any fall. Patient denies any fever or chills, no chest pain or shortness of breath, no he adache or dizziness. Patient denies any sick contacts and no recent travel. She was recently seen by her primary care physician with the above complaints and she was placed on Levaquin and Flagyl but patient indicates that wound is not getting better. Patient has also been on some iron pills lately because of anemia. She denies any excessive bleeding during her menstruation and she denies any bright red blood per rectum or black stool. Upon evaluation in the emergency room today x-ray of the right foot reveals: Right second toe wound with suspected osteomyelitis of the distal phalanx. Labs reveals leukocytosis and low hemoglobin of 7. Patient being admitted for cellulitis/osteomyelitis of the second toe on right foot. 01/07: Patient for surgery today Amputation today. H/H Stable 01/08: s/p 1. Right Femoral Endarterectomy and Patch Angioplasty with Bovine Pericardium, 2. Right 2nd toe amputation. Clinically stable, add Zofran, Await re-eval with vascular. Continue abx, will await ID input on duration of antibiotics therapy 01/09: Patient currently on telemetry floor no further arrhythmia noted today. Await cardiology input hemoglobin hematocrit is stable. Patient still on heparin drip. Will await vascular review. We will continue to monitor the creatinine is mildly elevated today. 01/10:Warfarin started today, will discharge once INR is therapuetic, will also obtain TSH as mentioned by Cardiology. Continue to avoid all AV yolande blocking agents. Sleep study outpatient. Will ask Case management to look into any lovenox options. 01/11: Supratherapeutic INR. Pharmacy managing warfarin. Warfarin will be held today. Recheck INR in a.m. and if within therapeutic limits patient can be discharged at a lower dose Coumadin --Severe anemia; Hb 5.5 Current Visit: Yes Status: Acute Plan to address problem: Received total 2 units of PRBC yesterday IMproved Hb improved from 5.5-8.5 , no external evidence of bleeding Stool for occult blood Patient may need to see [facility] as outpatient To evaluate for [facility] causes of anemia -- Osteomyelitis of second toe of right foot--Post right femoral enarterectomy and right toe amputation Current Visit: Yes Status: Acute Plan to address problem: Patient placed on empiric IV antibiotics. general surgery consulted for evaluation and recommendation. -- Gangrene of toe of right foot Current Visit: Yes Status: Acute Plan to address problem: Extra findings suggestive of gangrene. empiric IV antibiotics and await further evaluation by surgery. vascular following --Severe malnutrition; hypoalbuminemia Nutrition supplements, nutrition consult -- Diabetes mellitus Current Visit: Yes Status: Acute Plan to address problem: Will monitor accu-checks closely. -- DVT prophylaxis Current Visit: Yes Status: Acute Plan to address problem: Patient placed on sequential compression device. No pharmacological anticoagulation in view of severe anemia -- Full code status Current Visit: Yes Status: Acute We will closely monitor the patient and adjust management as needed Plan of care reviewed with the patient and her nurse Disposition; follow surgery, vascular evaluation and recommendations Possible discharge when stable Disposition: [id number]/[place]-06 HOME UNDER HOME [facility] Exam - Physical Exam Narrative exam: General appearance: Present: no acute distress, well-nourished, obese - EENT Eyes: Present: PERRL, EOM intact - Neck Neck: Present: supple, normal ROM - Respiratory Respiratory effort: normal Respiratory: bilateral: diminished, negative: rales, rhonchi, wheezing - Cardiovascular Rhythm: regular Heart Sounds: Present: S1 & S2 - Extremities Extremities: abnormal dressing to the right foot - Abdominal General gastrointestinal: soft, non-tender, non-distended, normal bowel sounds - Integumentary Integumentary: Present: clear, warm - Psychiatric Psychiatric: appropriate mood/affect, cooperative - Neurologic Neurologic: CNII-XII intact, moves all extremities - Constitutional Vitals: Temp Pulse Resp BP Pulse Ox 97.7 F 68 16 166/79 98 01/13/20 03:27 01/13/20 03:27 01/13/20 03:27 01/13/20 09:27 01/13/20 03:27 Plan Activity: advance as tolerated, fall precautions Diet: low fat, diabetic Special Instructions: record daily weights, record daily BP diary, record blood sugar diary Plan of Treatment: CHECK INR 01/15/20 BEFORE RESTARTING COUMADIN Follow up with: SILVERIO ARMENTA MD [Staff Physician] - 14 Days PRIMARY CARE, [Primary Care Provider] - 3-5 Days ALBINO IGLESIAS MD [Staff Physician] - 7 Days YAMINI RIDDLE MD [Staff Physician] - 7 Days LEONIDAS VELIZ MD [Staff Physician] - 7 Days Forms: Warfarin Discharge Instruction Prescriptions: Warfarin [Coumadin] 5 mg PO QDAY #30 tablet Doxycycline Hyclate [Doxycycline Hyclate TAB] 100 mg PO Q12HR #30 tab Ferrous Sulfate [Feosol 325 MG tab] 325 mg PO BID #60 tablet metFORMIN [Glucophage] 500 mg PO BID #60 tablet Multivitamin Tab [Multiple Vitamin TAB (Theragran)] 1 each PO QDAY #30 tablet oxyCODONE /ACETAMINOPHEN [Percocet 5/325 mg] 1 tab PO Q6H PRN #14 tablet PRN Reason: Pain, Moderate (4-6) Ondansetron [Zofran Odt] 4 mg PO Q8HR #14 tab.rapdis
--- NOTE | 2020-01-13 16:41 | Progress Note ---
Assessment and Plan Cultures: Blood culture 01/05/2020 pending A/P: 42-year-old female past medical history obesity, diabetes, hypertension admitted to hospital with right second toe gangrene. #Right second toe gangrene/osteomyelitis: I doubt this toe is viable, recommend surgical consult. Continue antibiotics in the meantime #Diabetes: tight glycemic control for best outcomes. #NAPOLEON: Renally dose antibiotics Recs: -Presumed surgical cure of osteomyelitis -No need for ongoing antibiotics. -Follow-up pathology to ensure cure. Thank you for the consult, we will sign off. Please call questions Marycruz Neumann MD [facility], [facility] O: [phone] F: [phone] Subjective Date of service: 01/13/20 Principal diagnosis: Bradycardia Interval history: Afebrile, no acute changes. Status post amputation of the right second toe. Objective - Exam Narrative Exam: Physical Exam: Constitutional: Alert, cooperative. No acute distress Head, Ears, Nose: Normocephalic, atraumatic. External ears, nose normal Eyes: Conjunctivae/corneas clear. No icterus. No ptosis. Neck: Supple, no meningeal signs Oral: dentition fair, no thrush Cardiovascular: S1, S2 normal. Respiratory: Good air entry, clear to auscultation bilaterally GI: Soft, non-tender; bowel sounds normal. No peritoneal signs. Musculoskeletal: Right foot dressed Skin: No rash or abscess Hem/Lymphatic: No palpable cervical or supraclavicular nodes. No lymphangitis Psych: Mood ok. Affect normal Neurological: Awake, alert, oriented. No gross abnormality - Constitutional Vitals: Vital Signs Temp Pulse Resp BP Pulse Ox 97.7 F 68 16 166/79 98 01/13/20 03:27 01/13/20 03:27 01/13/20 03:27 01/13/20 09:27 01/13/20 03:27 Temperature -Last 24 Hours Temperature 97.7 F Temperature 98.1 F Temperature 98.5 F Temperature 98.1 F - Labs CBC & Chem 7: 01/13/20 04:32 01/11/20 03:52 Labs: Abnormal lab results 01/12/20 01/13/20 01/13/20 Range/Units 20:36 04:32 04:32 Hgb 8.6 L (10.1-14.3) gm/dl Hct 26.4 L (30.3-42.9) % Plt Count 687 H (140-440) K/mm3 PT 44.9 H (12.2-14.9) Sec. INR 4.71 H (0.87-1.13) POC Glucose 141 H (70-105) mg/dL 01/13/20 Range/Units 11:45 Hgb (10.1-14.3) gm/dl Hct (30.3-42.9) % Plt Count (140-440) K/mm3 PT (12.2-14.9) Sec. INR (0.87-1.13) POC Glucose 106 H (70-105) mg/dL
[2020-01-13 18:01] VITALS: BP 194/80
== END 2020-01-13 18:01 | disposition home health service (06) | DRG 616 ==
LOC: ED 17:13 → 3B-SURG 21:23 → 4A 01-09 18:27
PROVIDERS: ADMIT Internal Medicine Geriatric Medicine; ATTEND Internal Medicine
PROC: 30233N1 Transfusion of Nonautologous Red Blood Cells into Peripheral Vein, Percutaneous Approach (ICD-10-PCS; 2020-01-06)
PROC: 0Y6R0Z0 Detachment at Right 2nd Toe, Complete, Open Approach (ICD-10-PCS; principal; 2020-01-08)
PROC: 04CK0ZZ Extirpation of Matter from Right Femoral Artery, Open Approach (ICD-10-PCS; 2020-01-08)
PROC: 04UK0JZ Supplement Right Femoral Artery with Synthetic Substitute, Open Approach (ICD-10-PCS; 2020-01-08)
DX: E11.69 Type 2 diabetes mellitus with other specified complication (principal); E43 Unspecified severe protein-calorie malnutrition; M86.171 Other acute osteomyelitis, right ankle and foot; E11.52 Type 2 diabetes mellitus with diabetic peripheral angiopathy with gangrene; D50.9 Iron deficiency anemia, unspecified; J45.909 Unspecified asthma, uncomplicated; Z79.899 Other long term (current) drug therapy; Z68.32 Body mass index [BMI] 32.0-32.9, adult; Z20.828 Contact with and (suspected) exposure to other viral communicable diseases
CPT/HCPCS: 36415; 75635; 80048; 80053; 80202; 81025; 82140; 82728; 82962; 83036; 83550; 83735; 84100; 84443; 85007; 85014; 85018; 85025; 85027; 85049; 85520; 85610; 85730; 86850; 86900; 86901; 86920; 87040; 88304; 88311; 93922; 93925; 96365; 96366; 96367; G0378; A4649; C1768; J0692; J0696; J1170; J1644; J2270; J2405; J2543; J2704; J2720; J3010; J3370; J3490; J7030; J7040; J7050; J7120; P9016; Q9967; U0003

== ENCOUNTER 2020-02-19 13:51 | Emergency (ER) | payer SELFPAY ==
[2020-02-19 14:09] VITALS: BP 140/76
--- NOTE | 2020-02-19 14:13 | Event Note ---
ED Screening Note Date of service: 02/19/20 Time: 14:07 ED Screening Note: This initial assessment/diagnostic orders/clinical plan/treatment(s) is/are subject to change based on patients health status, clinical progression and re- assessment by fellow clinical providers in the ED. Further treatment and workup at subsequent clinical providers discretion. Patient/guardian urged not to elope from the ED as their condition may be serious if not clinically assessed and managed. Initial orders include: arterial ultrasound right leg
[2020-02-19] MEDS ORDERED: ACETAMINOPHEN 325 MG TAB ONE (14:34)
[2020-02-19] MEDS ORDERED: ACETAMINOPHEN 325 MG TAB PO ONE (14:38)
--- NOTE | 2020-02-19 15:38 | Vascular Lab Report ---
DUPLEX DOPPLER LOWER EXTREMITY ARTERIAL, RIGHT INDICATION: pain, recent endardectomy. TECHNIQUE: Arterial duplex examination of both lower extremities performed using B-mode, color flow and spectral Doppler assessment. FINDINGS: RIGHT: Common Femoral Artery: PSV 91 cm/sec. Triphasic waveform. Proximal SFA: PSV 129 cm/sec. Biphasic waveform. Mid SFA: PSV 110 cm/sec. Biphasic waveform. Distal SFA: PSV 123 cm/sec. Biphasic waveform. Popliteal artery: PSV 93 cm/sec. Biphasic waveform. Posterior tibial artery: PSV 61 cm/sec. Biphasic waveform. Dorsalis Pedis Artery: PSV 65 cm/sec. Biphasic waveform. IMPRESSION: Right lower extremity arterial structures are patent with multiphasic waveforms as described above. Signer Name: Jose Alejandro Waite Jr, MD Signed: 02/19/2020 3:34 PM Workstation Name: [id number]
[2020-02-19] MEDS ORDERED: ONDANSETRON 4 MG/2 ML INJ IV ONE (16:30)
[2020-02-19] MEDS ORDERED: MORPHINE 4 MG/1 ML INJ IV ONE ×2 (16:30→20:18)
--- NOTE | 2020-02-19 16:41 | Emergency Department Report ---
- General Chief Complaint: Wound/Laceration Stated Complaint: RT SIDE STITCHS REMOVED/PAIN Time Seen by Provider: 02/19/20 16:26 Source: patient, family Mode of arrival: Wheelchair Limitations: Language Barrier - History of Present Illness Initial Comments: 44-year-old female presents to the emergency room for right leg pain status post right femoral endarterectomy done on 01/08/2020. Son is by the bedside translating states that she had what been followed up with the surgeon but they did not remove the sutures in her right groin area or on her right foot where they had to amputate the second toe. Patient presents here with his increased pain. She has a history of diabetes osteomyelitis anemia. Has no known drug allergies. Extremity Location: Right: Thigh (Groin area), Foot - Related Data Previous Rx's Medication Instructions Recorded Last Taken Type Albuterol Sulfate [Ventolin HFA] 2 puff IH Q4H PRN #1 hfa.aer.ad 02/13/15 Unknown Rx Nitrofurantoin Monohyd/M-Cryst 100 mg PO BID #14 capsule 12/08/17 Unknown Rx [Macrobid 100 mg Capsule] traMADoL [Ultram 50 MG tab] 50 mg PO Q6HR PRN #12 tablet 12/19/18 01/09/20 Rx Colchicine 0.6 mg PO Q2HR #10 capsule NS 11/11/19 Unknown Rx Doxycycline Hyclate [Doxycycline 100 mg PO Q12HR #30 tab 01/13/20 Unknown Rx Hyclate TAB] Enoxaparin Sodium [Lovenox] 80 mg SQ BID #10 syringe 01/13/20 Unknown Rx Ferrous Sulfate [Feosol 325 MG tab] 325 mg PO BID #60 tablet 01/13/20 Unknown Rx Multivitamin Tab [Multiple Vitamin 1 each PO QDAY #30 tablet 01/13/20 Unknown Rx TAB (Theragran)] Ondansetron [Zofran Odt] 4 mg PO Q8HR #14 tab.rapdis 01/13/20 Unknown Rx Warfarin [Coumadin] 5 mg PO QDAY #30 tablet 01/13/20 Unknown Rx metFORMIN [Glucophage] 500 mg PO BID #60 tablet 01/13/20 Unknown Rx oxyCODONE /ACETAMINOPHEN [Percocet 1 tab PO Q6H PRN #14 tablet 02/19/20 Unknown Rx 5/325 mg] Allergies Allergy/AdvReac Type Severity Reaction Status Date / Time No Known Allergies Allergy Verified 02/19/20 14:01 ED Review of Systems ROS: Stated complaint: RT SIDE STITCHS REMOVED/PAIN Other details as noted in HPI ED Past Medical Hx - Past Medical History Hx Hypertension: Yes Hx Heart Attack/AMI: No Hx Diabetes: Yes Hx Liver Disease: No Hx Renal Disease: No Hx Asthma: Yes Hx COPD: No Hx HIV: No Additional medical history: ovarian cyst - Surgical History Additional Surgical History: see HPI - Social History Smoking Status: Never Smoker Substance Use Type: None - Medications Home Medications: Home Medications Medication Instructions Recorded Confirmed Last Taken Type Albuterol Sulfate [Ventolin HFA] 2 puff IH Q4H PRN #1 hfa.aer.ad 02/13/15 01/10/20 Unknown Rx Nitrofurantoin Monohyd/M-Cryst 100 mg PO BID #14 capsule 12/08/17 01/10/20 Unknown Rx [Macrobid 100 mg Capsule] traMADoL [Ultram 50 MG tab] 50 mg PO Q6HR PRN #12 tablet 12/19/18 01/10/20 01/09/20 Rx Colchicine 0.6 mg PO Q2HR #10 capsule NS 11/11/19 01/10/20 Unknown Rx Doxycycline Hyclate [Doxycycline 100 mg PO Q12HR #30 tab 01/13/20 Unknown Rx Hyclate TAB] Enoxaparin Sodium [Lovenox] 80 mg SQ BID #10 syringe 01/13/20 Unknown Rx Ferrous Sulfate [Feosol 325 MG tab] 325 mg PO BID #60 tablet 01/13/20 Unknown Rx Multivitamin Tab [Multiple Vitamin 1 each PO QDAY #30 tablet 01/13/20 Unknown Rx TAB (Theragran)] Ondansetron [Zofran Odt] 4 mg PO Q8HR #14 tab.rapdis 01/13/20 Unknown Rx Warfarin [Coumadin] 5 mg PO QDAY #30 tablet 01/13/20 Unknown Rx metFORMIN [Glucophage] 500 mg PO BID #60 tablet 01/13/20 Unknown Rx oxyCODONE /ACETAMINOPHEN [Percocet 1 tab PO Q6H PRN #14 tablet 02/19/20 Unknown Rx 5/325 mg] ED Physical Exam - General Limitations: Language Barrier General appearance: alert, in distress - Head Head exam: Present: atraumatic, normocephalic - Eye Eye exam: Present: normal appearance - ENT ENT exam: Present: mucous membranes moist - Neck Neck exam: Present: normal inspection, full ROM - Respiratory Respiratory exam: Present: normal lung sounds bilaterally - Cardiovascular Cardiovascular Exam: Present: regular rate - GI/Abdominal GI/Abdominal exam: Present: soft, normal bowel sounds, other (Right side ecchymosis to the right lower quadrant). Absent: distended - External exam: Present: other (Right groin area multiple neida in place t enderness to touch very moist) - Expanded Lower Extremity Exam Right Knee exam: Present: normal inspection, full ROM. Absent: tenderness, swelling Foot/Toe exam: Present: tenderness, swelling, deformity, amputation (Second digit sutures are still in place.). Absent: calcaneal tenderness Neuro vascular tendon exam: Present: no vascular compromise Gait: Positive: unable to bear weight - Back Exam Back exam: Present: normal inspection - Neurological Exam Neurological exam: Present: alert, oriented X3. Absent: normal gait - Psychiatric Psychiatric exam: Present: normal affect, normal mood - Skin Skin exam: Present: warm ED Course Vital Signs 02/19/20 02/19/20 02/19/20 14:08 14:42 17:26 Temperature 99.5 F Pulse Rate 98 H Respiratory 20 18 20 Rate Blood Pressure 140/76 O2 Sat by Pulse 99 Oximetry - Reevaluation(s) Reevaluation #1: 02/19/20 19:[address] Conrado Chaudhary he recommends a CT scan to rule out any abscess. Spoke with lab they will come and draw. 02/19/20 23:21 Reevaluation #2: 02/19/20 20:19 Patient complains of pain will order morphine 4 mg IV. Reevaluation #3: 02/19/20 21:45 Patient is requesting more pain medication. Toradol 15 mg IV has been placed. Reevaluation #4: 02/19/20 23:[address]Njuke samuels states patient can come tomorrow first thing. Address is [address] [place] [address]. Phone number [phone] ED Medical Decision Making - Lab Data Result diagrams: 02/19/20 17:00 02/19/20 17:00 - Radiology Data Radiology results: report reviewed Referring Physician:JUAN PAIGEPatient Name:LISE EDENORESPatient ID:[id number] of :[id number]:FemaleAccession:[id number] Date:[id number] Status:Finalized Findings [facility] [address] [place] [address] Vascular Lab Report Signed Patient: LISE FREITAS MR#: [id number] : 1975 Acct:[id number] Age/Sex: 44 / F ADM Date: 02/19/20 Loc: ED Attending Dr: Ordering Physician: ALONZO MOE Date of Service: 02/19/20 Procedure(s): VL arterial duplex LE RT Accession Number(s): [id number] cc: ALONZO MOE DUPLEX DOPPLER LOWER EXTREMITY ARTERIAL, RIGHT INDICATION: pain, recent endardectomy. TECHNIQUE: Arterial duplex examination of both lower extremities performed using B-mode, color flow and spectral Doppler assessment. FINDINGS: RIGHT: Common Femoral Artery: PSV 91 cm/sec. Triphasic waveform. Proximal SFA: PSV 129 cm/sec. Biphasic waveform. Mid SFA: PSV 110 cm/sec. Biphasic waveform. Distal SFA: PSV 123 cm/sec. Biphasic waveform. Popliteal artery: PSV 93 cm/sec. Biphasic waveform. Posterior tibial artery: PSV 61 cm/sec. Biphasic waveform. Dorsalis Pedis Artery: PSV 65 cm/sec. Biphasic waveform. IMPRESSION: Right lower extremity arterial structures are patent with multiphasic waveforms as described above. Signer Name: Jose Alejandro Waite Jr, MD Signed: 02/19/2020 3:34 PM Workstation Name: [id number] Transcribed By: TTR Dictated By: JOSE ALEJANDRO WAITE JR, MD Electronically Authenticated By: JOSE ALEJANDRO WAITE JR, MD Signed Date/Time: 02/19/20 1534 DD/ 1532 TD/TT: Patient: LISE FREITAS MR#: [id number] : 1975 Acct:[id number] Age/Sex: 44 / F ADM Date: 02/19/20 Loc: ED Attending Dr: Ordering Physician: ALONZO COHEN Date of Service: 02/19/20 Procedure(s): CT abdomen pelvis w con Accession Number(s): [id number] cc: ALONZO COHEN CT ABDOMEN AND PELVIS WITH CONTRAST INDICATION / CLINICAL INFORMATION: Rt groin pain s/p femoral endaretectomy. TECHNIQUE: Axial CT images were obtained through the abdomen and pelvis after 100 cc Omni [address] scans at this location are performed using CT dose reduction for ALARA by means of automated exposure control. COMPARISON: 01/06/2020 CT abdomen pelvis lower extremity runoff FINDINGS: LOWER CHEST: Mild bibasilar atelectasis. HEPATOBILIARY: Mild gallbladder distention. Mild gallbladder wall thickening. No significant change when compared to the prior examination. No focal hepatic abnormality. PANCREAS/SPLEEN/ADRENALS: No significant abnormality. GENITOURINARY: No significant abnormality. GASTROINTESTINAL/MESENTERY: Stool throughout the colon suggesting constipation. No bowel obstruction or inflammation. No free air or significant free fluid. RETROPERITONEUM: Upper limits normal size right periaortic lymph node, unchange d. REPRODUCTIVE ORGANS: No significant abnormality. VASCULAR: Postoperative change of right femoral endarterectomy with patency of the right femoral artery and no evidence of dissection or pseudoaneurysm. No contrast extravasation. Remaining vasculature demonstrates no significant abnormality. BODY WALL: Mild scattered body wall edema. Postoperative change in the right groin with a small amount of associated fat stranding likely postoperative in nature. No evidence of significant hematoma or evidence of abscess. SKELETAL SYSTEM: No significant abnormality. IMPRESSION: 1. Postoperative change of right femoral endarterectomy with patent right femoral artery and expected regional postoperative changes. No acute abnormality, as described above. Consider further evaluation as warranted. 2. Additional findings as above. Signer Name: Omaira Calvo MD Signed: 02/19/2020 9:49 PM Workstation Name: [id number] Transcribed By: Dictated By: OMAIRA CALVO III Electronically Authenticated By: OMAIRA CALVO III Signed Date/Time: 02/19/202148 DD/ 39 TD/TT: - Medical Decision Making 44-year-old female presents to the emergency room for right leg pain status post right femoral endarterectomy done on 01/08/2020. Son is by the bedside translating states that she had what been followed up with the surgeon but they did not remove the sutures in her right groin area or on her right foot where they had to amputate the second toe. Patient presents here with his increased pain. She has a history of diabetes osteomyelitis anemia. Has no known drug allergies. Orders for CBC CMP lactic acid IV normal saline morphine 4 mg IV Zofran 4 mg IV. Patient's had total of 8 mg of morphine for pain management. 15 mg of Toradol for pain. 1 L of normal saline. 4 mg of Zofran IV. Spoke to Dr. Aguirre regarding results from CT scan. He recommends patient to be seen first thing tomorrow morning at his office at [address] [place] [address]., [place] [facility]. Phone number was [phone]. Patient will be discharged home with 4 Percocets for pain management. Discussed treatment plan with patient's niece regarding follow-up with the vascular surgeon. Critical care attestation.: If time is entered above; I have spent that time in minutes in the direct care of this critically ill patient, excluding procedure time. ED Disposition Clinical Impression: Postoperative pain, Osteomyelitis of second toe of right foot Disposition: DC-01 TO HOME OR SELFCARE Is pt being admited?: No Does the pt Need Aspirin: No Condition: Stable Instructions: Pain Relief Before and After Surgery Additional Instructions: Your CAT scan is negative for any abscess. I like for you to take the pain medication as needed. Please follow-up with first thing tomorrow phone #[phone]. Address is [address] [place] [address] Prescriptions: oxyCODONE /ACETAMINOPHEN [Percocet 5/325 mg] 1 tab PO Q6H PRN #14 tablet PRN Reason: Pain, Moderate (4-6) Referrals: PRIMARY CARE, [Primary Care Provider] - 3-5 Days Jah Mohamud [Other] - 3-5 Days Forms: Accompanied Note
[2020-02-19 17:38] LABS: Hematocrit 27.2 % (30.3-42.9); Hemoglobin 9.1 gm/dl (10.1-14.3); Mean Corpuscular HGB Conc 33 % (30-34); Mean Corpuscular Volume 78 fl (79-97); Platelet Count 582 K/mm3 (140-440)
[2020-02-19 17:41] LABS: Red Cell Distribution Width 23.1 % (13.2-15.2)
[2020-02-19 17:47] LABS: Albumin 1.9 g/dL (3.9-5); Calcium 8.2 mg/dL (8.4-10.2)
[2020-02-19] MEDS ORDERED: SODIUM CHLORIDE 0.9% 1000 ML 1,000 ML IV ONE (19:54)
[2020-02-19 19:55] LABS: Total Cells Counted 100
[2020-02-19 19:56] LABS: Anisocytosis 2+; Hypochromasia 1+
[2020-02-19 19:58] LABS: Platelet Estimate Consistent w Auto
[2020-02-19] MEDS ORDERED: KETOROLAC 30 MG/1 ML INJ IM ONE (21:44)
--- NOTE | 2020-02-19 21:54 | Cat Scan Report ---
CT ABDOMEN AND PELVIS WITH CONTRAST INDICATION / CLINICAL INFORMATION: Rt groin pain s/p femoral endaretectomy. TECHNIQUE: Axial CT images were obtained through the abdomen and pelvis after 100 cc Omni [address] scans at this location are performed using CT dose reduction for ALARA by means of automated expos ure control. COMPARISON: 01/06/2020 CT abdomen pelvis lower extremity runoff FINDINGS: LOWER CHEST: Mild bibasilar atelectasis. HEPATOBILIARY: Mild gallbladder distention. Mild gallbladder wall thickening. No significant change w hen compared to the prior examination. No focal hepatic abnormality. PANCREAS/SPLEEN/ADRENALS: No significant abnormality. GENITOURINARY: No significant abnormality. GASTROINTESTINAL/MESENTERY: Stool throughout the colon suggesting constipation. No bowel obstruction or inflammation. No free air or significant free fluid. RETROPERITONEUM: Upper limits normal size right periaortic lymph node, unchanged. REPRODUCTIVE ORGANS: No significant abnormality. VASCULAR: Postoperative change of right femoral endarterectomy with patency of the right femoral nick ry and no evidence of dissection or pseudoaneurysm. No contrast extravasation. Remaining vasculature demonstrates no significant abnormality. BODY WALL: Mild scattered body wall edema. Postoperative change in the right groin with a small amoun t of associated fat stranding likely postoperative in nature. No evidence of significant hematoma or evidence of abscess. SKELETAL SYSTEM: No significant abnormality. IMPRESSION: 1. Postoperative change of right femoral endarterectomy with patent right femoral artery and expected regional postoperative changes. No acute abnormality, as described above. Consider further evaluatio n as warranted. 2. Additional findings as above. Signer Name: Drake Calvo MD Signed: 02/19/2020 9:49 PM Workstation Name: [id number]
== END 2020-02-20 00:37 | disposition home or self-care (01) ==
LOC: ED 13:51
DX: M86.9 Osteomyelitis, unspecified (principal); I96 Gangrene, not elsewhere classified; I10 Essential (primary) hypertension; E11.9 Type 2 diabetes mellitus without complications; J45.909 Unspecified asthma, uncomplicated; Z98.890 Other specified postprocedural states; Z79.899 Other long term (current) drug therapy
CPT/HCPCS: 36415; 74177; 80053; 82140; 84702; 84703; 85007; 85025; 93926; 96361; 96372; 96374; 96375; 96376; 99284; J1885; J2270; J2405; J7030; Q9967

== ENCOUNTER 2020-05-09 22:42 | Emergency (ER) | payer SELFPAY ==
[2020-05-10] MEDS ORDERED: ASPIRIN 325 MG TAB PO ONE (00:30)
--- NOTE | 2020-05-10 01:04 | XRay Report ---
CHEST 1 VIEW INDICATION: chestpain COMPARISON: None FINDINGS: Support devices: None Heart: Normal Lungs/Pleura: No acute pulmonary or pleural findings. IMPRESSION: 1. No acute disease. Signer Name: Terence Carney MD Signed: 05/10/2020 12:59 AM Workstation Name: [id number]
[2020-05-10 01:23] LABS: Basophils # (Auto) 0.1 K/mm3 (0.0-0.1); Basophils % (Auto) 0.8 % (0.0-1.8); Eosinophils # (Auto) 0.3 K/mm3 (0.0-0.4); Eosinophils % (Auto) 3.5 % (0.0-4.3); Hematocrit 33.4 % (30.3-42.9); Hemoglobin 11.2 gm/dl (10.1-14.3); Lymphocytes # (Auto) 2.1 K/mm3 (1.2-5.4); Lymphocytes % (Auto) 23.1 % (13.4-35.0); Mean Corpuscular HGB Conc 34 % (30-34); Mean Corpuscular Volume 81 fl (79-97); Monocytes # (Auto) 0.6 K/mm3 (0.0-0.8); Monocytes % (Auto) 6.7 % (0.0-7.3); Platelet Count 429 K/mm3 (140-440); Red Blood Count 4.13 M/mm3 (3.65-5.03); Red Cell Distribution Width 17.8 % (13.2-15.2)
[2020-05-10 01:38] LABS: Albumin 1.8 g/dL (3.9-5); Calcium 8.1 mg/dL (8.4-10.2)
--- NOTE | 2020-05-10 03:30 | Emergency Department Report ---
ED Lower Extremity HPI - General Chief Complaint: Chest Pain Stated Complaint: RT LEG PAIN Time Seen by Provider: 05/10/20 03:19 Source: patient Mode of arrival: Stretcher Limitations: Physical Limitation - History of Present Illness Initial Comments: Chief complaint: "My leg has been hurting since December." HPI: This is a 45-year-old female with history of osteomyelitis second toe right foot, gangrene of toe on the right foot, diabetes mellitus, ovarian cyst, anemia who presents with right leg pain from hip to knee specifically.. Patient was diagnosed with sciatica. She also had peripheral arterial disease. She was recently admitted to [facility] in January. Consequently she is bedbound. Her PCP informed her that she likely had sciatica which is the cause of her pain. Patient has severe right leg pain. Worse with position. From hip down to foot. Patient denies chest pain although documented by triage nurse. 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 CSF extending into the SFA and profunda femoral artery; during same hospitalization patient had amputation of the second right toe ED prepared foods production team member provided in person bedside Belarusian interpretation Complaint: other (Right leg pain since December.) -: month(s) (Several months) Injury: Hip: Right, Pelvis: Right, Thigh: Right, Leg: Right, Knee: Right, Ankle: Right Severity: severe Severity scale (0 -10): 10 Improves With: other (Improved with elevation patella) Worsens With: weight bearing, movement, palpation Context: other (History of peripheral arterial disease, history of sciatica) Associated Symptoms: unable to bear weight - Related Data Previous Rx's Medication Instructions Recorded Last Taken Type Albuterol Sulfate [Ventolin HFA] 2 puff IH Q4H PRN #1 hfa.aer.ad 02/13/15 Unknown Rx Nitrofurantoin Monohyd/M-Cryst 100 mg PO BID #14 capsule 12/08/17 Unknown Rx [Macrobid 100 mg Capsule] traMADoL [Ultram 50 MG tab] 50 mg PO Q6HR PRN #12 tablet 12/19/18 01/09/20 Rx Colchicine 0.6 mg PO Q2HR #10 capsule NS 11/11/19 Unknown Rx Doxycycline Hyclate [Doxycycline 100 mg PO Q12HR #30 tab 01/13/20 Unknown Rx Hyclate TAB] Enoxaparin Sodium [Lovenox] 80 mg SQ BID #10 syringe 01/13/20 Unknown Rx Ferrous Sulfate [Feosol 325 MG tab] 325 mg PO BID #60 tablet 01/13/20 Unknown Rx Multivitamin Tab [Multiple Vitamin 1 each PO QDAY #30 tablet 01/13/20 Unknown Rx TAB (Theragran)] Ondansetron [Zofran Odt] 4 mg PO Q8HR #14 tab.rapdis 01/13/20 Unknown Rx Warfarin [Coumadin] 5 mg PO QDAY #30 tablet 01/13/20 Unknown Rx metFORMIN [Glucophage] 500 mg PO BID #60 tablet 01/13/20 Unknown Rx oxyCODONE /ACETAMINOPHEN [Percocet 1 tab PO Q6H PRN #14 tablet 02/19/20 Unknown Rx 5/325 mg] oxyCODONE /ACETAMINOPHEN [Percocet 1 tab PO Q6HR PRN #30 tablet 05/10/20 Unknown Rx 5/325] Allergies Allergy/AdvReac Type Severity Reaction Status Date / Time No Known Allergies Allergy Verified 02/19/20 14:01 ED Review of Systems ROS: Stated complaint: RT LEG PAIN Other details as noted in HPI Comment: All other systems reviewed and negative Constitutional: denies: fever Respiratory: denies: cough, shortness of breath Cardiovascular: denies: chest pain Gastrointestinal: denies: abdominal pain, nausea, vomiting ED Past Medical Hx - Past Medical History Previous Medical History?: Yes Hx Hypertension: Yes Hx Heart Attack/AMI: No Hx Diabetes: Yes Hx Liver Disease: No Hx Renal Disease: No Hx Asthma: Yes Hx COPD: No Hx HIV: No Additional medical history: ovarian cyst - Surgical History Past Surgical History?: Yes Additional Surgical History: see HPI - Social History Smoking Status: Never Smoker Substance Use Type: None - Medications Home Medications: Home Medications Medication Instructions Recorded Confirmed Last Taken Type Albuterol Sulfate [Ventolin HFA] 2 puff IH Q4H PRN #1 hfa.aer.ad 02/13/15 01/10/20 Unknown Rx Nitrofurantoin Monohyd/M-Cryst 100 mg PO BID #14 capsule 12/08/17 01/10/20 Unknown Rx [Macrobid 100 mg Capsule] traMADoL [Ultram 50 MG tab] 50 mg PO Q6HR PRN #12 tablet 12/19/18 01/10/20 01/09/20 Rx Colchicine 0.6 mg PO Q2HR #10 capsule NS 11/11/19 01/10/20 Unknown Rx Doxycycline Hyclate [Doxycycline 100 mg PO Q12HR #30 tab 01/13/20 Unknown Rx Hyclate TAB] Enoxaparin Sodium [Lovenox] 80 mg SQ BID #10 syringe 01/13/20 Unknown Rx Ferrous Sulfate [Feosol 325 MG tab] 325 mg PO BID #60 tablet 01/13/20 Unknown Rx Multivitamin Tab [Multiple Vitamin 1 each PO QDAY #30 tablet 01/13/20 Unknown Rx TAB (Theragran)] Ondansetron [Zofran Odt] 4 mg PO Q8HR #14 tab.rapdis 01/13/20 Unknown Rx Warfarin [Coumadin] 5 mg PO QDAY #30 tablet 01/13/20 Unknown Rx metFORMIN [Glucophage] 500 mg PO BID #60 tablet 01/13/20 Unknown Rx oxyCODONE /ACETAMINOPHEN [Percocet 1 tab PO Q6H PRN #14 tablet 02/19/20 Unknown Rx 5/325 mg] oxyCODONE /ACETAMINOPHEN [Percocet 1 tab PO Q6HR PRN #30 tablet 05/10/20 Unknown Rx 5/325] ED Physical Exam - General Limitations: No Limitations, Language Barrier General appearance: alert, in no apparent distress - Head Head exam: Present: atraumatic, normocephalic - Eye Eye exam: Present: normal appearance - ENT ENT exam: Present: mucous membranes moist - Neck Neck exam: Present: normal inspection, full ROM - Respiratory Respiratory exam: Present: normal lung sounds bilaterally. Absent: respiratory distress, wheezes, rales, rhonchi - Cardiovascular Cardiovascular Exam: Present: regular rate, normal rhythm, normal heart sounds. Absent: systolic murmur, diastolic murmur, rubs, gallop - GI/Abdominal GI/Abdominal exam: Present: soft, normal bowel sounds. Absent: distended, tenderness, guarding, rebound - Extremities Exam Extremities exam: Present: other (Warm extremity, patient is able to move ankle and toes, 1+ DP pulse, no erythema no swelling bandage clean dry intact of the right foot) - Back Exam Back exam: Present: normal inspection - Neurological Exam Neurological exam: Present: alert, oriented X3 - Psychiatric Psychiatric exam: Present: normal affect, normal mood - Skin Skin exam: Present: warm, dry, intact, normal color. Absent: rash ED Course Vital Signs 05/10/20 05/10/20 05/10/20 01:38 01:39 03:32 Pulse Rate 73 90 Respiratory 13 13 14 Rate Blood Pressure 153/64 141/83 [Left] O2 Sat by Pulse 99 99 Oximetry ED Lower Extremity MDM - Lab Data Result diagrams: 05/10/20 00:51 05/10/20 00:51 Laboratory Results - last 24 hr 05/10/20 05/10/20 00:51 00:51 WBC 9.1 RBC 4.13 Hgb 11.2 Hct 33.4 MCV 81 MCH 27 L MCHC 34 RDW 17.8 H Plt Count 429 Lymph % (Auto) 23.1 [place] % (Auto) 6.7 Eos % (Auto) 3.5 Baso % (Auto) 0.8 Lymph # (Auto) 2.1 [place] # (Auto) 0.6 Eos # (Auto) 0.3 Baso # (Auto) 0.1 Seg Neutrophils % 65.9 Seg Neutrophils # 6.0 Sodium 137 Potassium 4.4 Chloride 103.6 Carbon Dioxide 25 Anion Gap 13 BUN 29 H Creatinine 1.3 H Estimated GFR 45 BUN/Creatinine Ratio 22 Glucose 235 H Calcium 8.1 L Total Bilirubin 0.20 AST 13 ALT 17 Alkaline Phosphatase 204 H Total Protein 4.9 L Albumin 1.8 L Albumin/Globulin Ratio 0.6 - EKG Data -: EKG Interpreted by In EKG shows normal: sinus rhythm, axis, intervals, QRS complexes, ST-T waves Rate: normal - EKG Data Interpretation: normal EKG 05/10/20 03:52 EKG obtained 003 EKG interpreted by nm Normal sinus rhythm normal rate normal axis normal intervals no ST elevation no ST-T signs of ischemia normal EKG - Radiology Data Radiology results: report reviewed Chest radiograph: No acute disease - Medical Decision Making Chronic leg pain: Differential diagnosis includes sciatica, claudication due to peripheral artery disease, due to distribution pain I do not suspect peripheral artery disease as the cause, patient does appear to have pain in the distribution of sciatica. Peripheral neuropathy due to diabetes not likely in this distribution. I have prescribed Percocet. She stated that her PCP had referred her to another specialist to address the pain. Patient is discharged home. I have referred patient to water conservation specialist. CBC within normal limits, BUN creatinine elevated with GFR 45, patient has hypoalbuminemia hypoproteinemia I suspect early diabetic nephropathy Critical care attestation.: If time is entered above; I have spent that time in minutes in the direct care of this critically ill patient, excluding procedure time. ED Disposition Clinical Impression: Right leg pain, Sciatica, Peripheral arterial disease Disposition: TO HOME OR SELFCARE Is pt being admited?: No Does the pt Need Aspirin: No Condition: Stable Instructions: Peripheral Vascular Disease, Sciatica Prescriptions: oxyCODONE /ACETAMINOPHEN [Percocet 5/325] 1 tab PO Q6HR PRN #30 tablet PRN Reason: Pain Referrals: BRIAN ALEXANDRA II, MD [Staff Physician] - 3-5 Days Print Language: ERITREAN
[2020-05-10 03:32] VITALS: BP 141/83
[2020-05-10] MEDS ORDERED: KETOROLAC 30 MG/1 ML INJ IM ONE (03:44)
[2020-05-10] MEDS ORDERED: oxyCODONE /ACETAMINOPHEN 5-325MG TAB PO ONE (03:44)
[2020-05-10 05:48] LABS: Chol/HDL Ratio 2.63 %
--- NOTE | 2020-05-13 08:40 | Electrocardiograph Report ---
[facility] Test Date: 2020-05-10 Test Time: 00:32:16 Pat Name: LISE FREITAS Department: Room: Gender: F Certified Nursing Attendant: LETITIA : 1975 Requested By: SEPIDEH CHILDRESS Order Number: [id number] Reading MD: Reji Blair Measurements Intervals [place] Rate: 77 P: -10 TX: 145 QRS: 3 QRSD: 76 T: 91 QT: 392 QTc: 445 Interpretive Statements Sinus rhythm No previous ECG available for comparison Electronically Signed On 05-13-2020 5:39:31 PDT by Reji Blair
== END 2020-05-10 04:41 | disposition home or self-care (01) ==
LOC: ED 22:42
DX: M79.671 Pain in right foot (principal); M54.30 Sciatica, unspecified side; I73.9 Peripheral vascular disease, unspecified; I10 Essential (primary) hypertension; E11.9 Type 2 diabetes mellitus without complications; J45.909 Unspecified asthma, uncomplicated; Z79.899 Other long term (current) drug therapy
CPT/HCPCS: 36415; 71045; 80053; 80061; 84484; 85025; 93005; 96372; 99284; J1885

== ENCOUNTER 2020-08-19 22:17 | Emergency (ER) | payer SELFPAY ==
[2020-08-20] MEDS ORDERED: ONDANSETRON 4 MG/2 ML INJ IV ONE ×2 (01:00→06:04)
[2020-08-20] MEDS ORDERED: HYDROmorphone 1 MG/1 ML INJ IV ONE (01:00)
--- NOTE | 2020-08-20 01:06 | Emergency Department Report ---
<RISSACARLOS CONN - Last Filed: 08/20/20 03:08> ED General Adult HPI - General Chief complaint: Eye Problems Stated complaint: HEADACHE/BLEEDING FROM EYES Time Seen by Provider: 08/20/20 00:29 Source: patient, family Mode of arrival: Wheelchair Limitations: Language Barrier, Physical Limitation - History of Present Illness Initial comments: 45-year-old female patient with history of peripheral vascular disease and diabetes presents to the emergency department with complaints of bilateral painful progressively worsening eye redness and blurred vision with associated photophobia starting 2 weeks ago. Patient has a history of diabetic retinopathy. She was evaluated by her small arms artillery repairer earlier this week, who diagnosed the patient with blood in the anterior chamber of both eyes. Her small arms artillery repairer sent her to the emergency department at [facility] for further evaluation and management. She was discharged home from the emergency department without any prescriptions. Today, her symptoms worsened, prompting her to come to this emergency department. No recent fall, trauma, or injury. Denies fever, nausea, vomiting, seizure, syncope, neck pain, chest pain, shortness of breath. Denies all other complaints at this time. - Related Data Previous Rx's Medication Instructions Recorded Last Taken Type Albuterol Sulfate [Ventolin HFA] 2 puff IH Q4H PRN #1 hfa.aer.ad 02/13/15 Unknown Rx Nitrofurantoin Monohyd/M-Cryst 100 mg PO BID #14 capsule 12/08/17 Unknown Rx [Macrobid 100 mg Capsule] traMADoL [Ultram 50 MG tab] 50 mg PO Q6HR PRN #12 tablet 12/19/18 01/09/20 Rx Colchicine 0.6 mg PO Q2HR #10 capsule NS 11/11/19 Unknown Rx Doxycycline Hyclate [Doxycycline 100 mg PO Q12HR #30 tab 01/13/20 Unknown Rx Hyclate TAB] Enoxaparin Sodium [Lovenox] 80 mg SQ BID #10 syringe 01/13/20 Unknown Rx Ferrous Sulfate [Feosol 325 MG tab] 325 mg PO BID #60 tablet 01/13/20 Unknown Rx Multivitamin Tab [Multiple Vitamin 1 each PO QDAY #30 tablet 01/13/20 Unknown Rx TAB (Theragran)] Ondansetron [Zofran Odt] 4 mg PO Q8HR #14 tab.rapdis 01/13/20 Unknown Rx Warfarin [Coumadin] 5 mg PO QDAY #30 tablet 01/13/20 Unknown Rx metFORMIN [Glucophage] 500 mg PO BID #60 tablet 01/13/20 Unknown Rx oxyCODONE /ACETAMINOPHEN [Percocet 1 tab PO Q6H PRN #14 tablet 02/19/20 Unknown Rx 5/325 mg] oxyCODONE /ACETAMINOPHEN [Percocet 1 tab PO Q6HR PRN #30 tablet 05/10/20 Unknown Rx 5/325] Allergies Allergy/AdvReac Type Severity Reaction Status Date / Time No Known Allergies Allergy Verified 02/19/20 14:01 ED Review of Systems Other: GENERAL: Negative for fever, chills, weight change, anorexia, fatigue. EYES: Positive for eye pain/redness/photophobia/vision changes. ENT: Negative for ear pain, difficulty hearing, sore throat, nasal congestion, epistaxis. CARDIOVASCULAR: Negative for chest pain, palpitations, lower extremity swelling. PULMONARY: Negative for cough, dyspnea, wheezing, orthopnea, cyanosis. GASTROINTESTINAL: Negative for abdominal pain, nausea, vomiting, diarrhea, constipation. MUSCULOSKELETAL: Negative for joint pain, joint swelling, myalgias, back pain, neck pain. NEUROLOGICAL: Negative for headache, seizure, syncope, paresthesias, weakness. INTEGUMENTARY: Negative for erythema, rash, diaphoresis, laceration, ecchymosis. HEMATOLOGICAL: Negative for hemoptysis, hematemesis, hematochezia, hematuria. PSYCHIATRIC: Negative for hallucinations, suicidal ideation, homicidal ideation, anxiety, depression. ED Past Medical Hx - Past Medical History Previous Medical History?: Yes Hx Hypertension: Yes Hx Heart Attack/AMI: No Hx Diabetes: Yes Hx Liver Disease: No Hx Renal Disease: No Hx Asthma: Yes Hx COPD: No Hx HIV: No Additional medical history: ovarian cyst - Surgical History Past Surgical History?: Yes Additional Surgical History: see HPI - Social History Smoking Status: Never Smoker Substance Use Type: None - Medications Home Medications: Home Medications Medication Instructions Recorded Confirmed Last Taken Type Albuterol Sulfate [Ventolin HFA] 2 puff IH Q4H PRN #1 hfa.aer.ad 02/13/15 01/10/20 Unknown Rx Nitrofurantoin Monohyd/M-Cryst 100 mg PO BID #14 capsule 12/08/17 01/10/20 Unknown Rx [Macrobid 100 mg Capsule] traMADoL [Ultram 50 MG tab] 50 mg PO Q6HR PRN #12 tablet 12/19/18 01/10/20 01/09/20 Rx Colchicine 0.6 mg PO Q2HR #10 capsule NS 11/11/19 01/10/20 Unknown Rx Doxycycline Hyclate [Doxycycline 100 mg PO Q12HR #30 tab 01/13/20 Unknown Rx Hyclate TAB] Enoxaparin Sodium [Lovenox] 80 mg SQ BID #10 syringe 01/13/20 Unknown Rx Ferrous Sulfate [Feosol 325 MG tab] 325 mg PO BID #60 tablet 01/13/20 Unknown Rx Multivitamin Tab [Multiple Vitamin 1 each PO QDAY #30 tablet 01/13/20 Unknown Rx TAB (Theragran)] Ondansetron [Zofran Odt] 4 mg PO Q8HR #14 tab.rapdis 01/13/20 Unknown Rx Warfarin [Coumadin] 5 mg PO QDAY #30 tablet 01/13/20 Unknown Rx metFORMIN [Glucophage] 500 mg PO BID #60 tablet 01/13/20 Unknown Rx oxyCODONE /ACETAMINOPHEN [Percocet 1 tab PO Q6H PRN #14 tablet 02/19/20 Unknown Rx 5/325 mg] oxyCODONE /ACETAMINOPHEN [Percocet 1 tab PO Q6HR PRN #30 tablet 05/10/20 Unknown Rx 5/325] ED Physical Exam - General Limitations: Language Barrier, Physical Limitation - Other Other exam information: General: Awake and alert. No acute distress. Wheelchair-bound at baseline. BMI 32.2. Head: Atraumatic, normocephalic. Eyes: EOMI. Pupils are equal and round, reactive to light. Bilateral sclera/conjunctival injection. Patient reports central vision loss in both eyes, not consistent with baseline. Attempted to obtain visual acuities; patient is not able to read the top line. Visual omalley grossly intact. Tetracaine was used for local anesthesia. Fluorescein strip was used. Yu lamp was used for visualization. No fluorescein uptake noted. No corneal abrasions. No corneal ulcerations. No foreign body found. Multiple attempts to obtain intraocular pressure readings were unsuccessful due to device malfunction. ENT: Oral mucosa is moist. Normal pharyngeal exam. Neck: Supple. No lymphadenopathy. Pulmonary: No respiratory distress. Clear to auscultation bilaterally. Cardiac: Regular rate and rhythm. Pulses are palpable and equal bilaterally. No lower extremity cyanosis or edema. Skin: Warm and dry. No rashes. Abdomen: Soft, non-tender, non-protuberant. No guarding, rigidity, or rebound. Bowel sounds are normal. No organomegaly or masses noted. Back: Normal alignment. No CVA tenderness. Extremities: Symmetrical. Full range of motion intact. Neurological: Alert and oriented, appropriately interactive, no focal deficits. Psych: Cooperative. Appropriate mood and affect. Speech is evenly metered. Thoughts are logically construed. ED Medical Decision Making - Medical Decision Making Differential diagnosis including but not limited to: glaucoma, herpes ophthalmicus, diabetic retinopathy, central retinal artery occlusion, central retinal vein occlusion, scleritis/uveitis, conjunctivitis, hyphema Patient w/ hx of diabetic retinopathy presents to the emergency department w/ complaints of progressively worsening bilateral painful central vision loss. Reportedly diagnosed with bilateral hyphema by small arms artillery repairer and sent to [facility] emergency department yesterday however she was discharged home. Symptoms have worsened. Unable to obtain visual acuities using Snellen chart due to extensive central vision loss. Multiple attempts to obtain intraocular pressures were unsuccessful due to device malfunction however her intraocular pressures were reportedly 15-20 mmHg at [facility] yesterday. Funduscopic examination is nonspecific. Emergent ophthalmology consultation is warranted due to clinical presentation however ophthalmology is not available at this facility. Attempts to transfer patient to [facility] and [facility] were unsuccessful due to unavailability of ophthalmology coverage for non-trauma patients. 03:05: Case discussed with Dr. Leon, small arms artillery repairer at [facility], who agrees to evaluate patient upon transfer to [facility]. Requested ED to ED transfer. Dr. Lopez, attending emergency physician, agrees to assume care of patient upon ED arrival. Patient and son expressed understanding and are agreeable to plan of care. Transfer consent form signed. Ground transportation arranged. Case discussed with Dr. Castellano, attending emergency physician, who personally evaluated the patient and agrees with diagnostic work-up/plan of care. ED Disposition Clinical Impression: Vision loss, bilateral Ophthalmalgia Qualifiers: Laterality: bilateral Qualified Code(s): H57.13 - Ocular pain, bilateral Disposition: DC/TX-70 ANOTHER TYPE HLTHCARE Is pt being admited?: No Does the pt Need Aspirin: No Condition: Critical Referrals: PRIMARY CARE, [Primary Care Provider] - 3-5 Days Time of Disposition: 03:08 <WILVER CASTELLANO III Susan - Last Filed: 08/20/20 05:53> ED Review of Systems ROS: Stated complaint: HEADACHE/BLEEDING FROM EYES Other details as noted in HPI ED Course Vital Signs 08/19/20 08/20/20 08/20/20 22:34 00:45 03:28 Temperature 98.5 F 97.7 F Pulse Rate 82 77 72 Respiratory 18 17 16 Rate Blood Pressure 198/77 Blood Pressure 137/77 122/61 [Left] O2 Sat by Pulse 99 100 100 Oximetry - Reevaluation(s) Reevaluation #1: I reviewed the findings and management of this patient in real-time and I have personally seen and examined this patient and participated in the decision making for this patient with the midlevel. Patient is a 45-year-old female that presents emergency room with worsening eye pain, headache and eye redness. Patient also states she is not able to see an her vision is completely blurry. Patient states that she saw an small arms artillery repairer 2 days ago and the small arms artillery repairer sent her to [facility]. Patient states that [facility] then evaluated her and discharged her home. Patient states that her symptoms have been worsening over the last 24 hours. Patient states she cannot tolerate the pain and she is unable to see. I examined the patient: Patient's lung sounds are clear to auscultation. Patient CV exam shows normal S1-S2. Patient eye exam show a poor visual acuity and red eyes. Patient's eyes are tender to touch. I discussed transfer with the patient to a facility that has appropriate ophthalmologic support. This facility does not have ophthalmology. Patient will be transferred. Patient agrees with transfer. 08/20/20 00:50 Critical Care Time: Yes Critical care time in (mins) excluding proc time.: 35 Critical care attestation.: If time is entered above; I have spent that time in minutes in the direct care of this critically ill patient, excluding procedure time. Critical Care Time: 35 minutes ED Disposition Is pt being admited?: No Does the pt Need Aspirin: No
[2020-08-20] MEDS ORDERED: FLUORESCEIN 1 MG STRIP OP ONE (01:10)
[2020-08-20] MEDS ORDERED: TETRACAINE 0.5% OPHTH SOLN 4ML OU ONE (01:10)
[2020-08-20] MEDS ORDERED: ACETAMINOPHEN 500 MG TAB PO ONE (05:20)
[2020-08-20] MEDS ORDERED: ACETAMINOPHEN 500 MG TAB ONE (05:20)
[2020-08-20] MEDS ORDERED: ONDANSETRON 4 MG ODT TAB ONE (06:03)
[2020-08-20] MEDS ORDERED: ONDANSETRON 4 MG ODT TAB PO ONE (06:03)
[2020-08-20] MEDS ORDERED: ONDANSETRON 4 MG/2 ML INJ ONE (06:05)
[2020-08-20 06:09] LABS: Basophils # (Auto) 0.1 K/mm3 (0.0-0.1); Eosinophils # (Auto) 0.6 K/mm3 (0.0-0.4); Eosinophils % (Auto) 5.9 % (0.0-4.3); Hematocrit 27.1 % (30.3-42.9); Hemoglobin 8.9 gm/dl (10.1-14.3); Lymphocytes # (Auto) 2.4 K/mm3 (1.2-5.4); Lymphocytes % (Auto) 24.6 % (13.4-35.0); Mean Corpuscular HGB Conc 33 % (30-34); Mean Corpuscular Volume 82 fl (79-97); Monocytes # (Auto) 0.9 K/mm3 (0.0-0.8); Monocytes % (Auto) 9.3 % (0.0-7.3); Platelet Count 386 K/mm3 (140-440); Red Blood Count 3.29 M/mm3 (3.65-5.03); Red Cell Distribution Width 13.9 % (13.2-15.2)
[2020-08-20 06:32] LABS: Alanine Aminotransferase 10 units/L (7-56); Albumin 2.3 g/dL (3.9-5); BUN/Creatinine Ratio 23; Blood Urea Nitrogen 42 mg/dL (7-17); Calcium 8.3 mg/dL (8.4-10.2); Hemolysis Index 5
[2020-08-20 09:00] VITALS: BP 133/81
== END 2020-08-20 09:01 | disposition other institution (70) ==
LOC: ED 22:17
DX: H54.3 Unqualified visual loss, both eyes (principal); I10 Essential (primary) hypertension; J45.909 Unspecified asthma, uncomplicated; Z98.890 Other specified postprocedural states; Z79.899 Other long term (current) drug therapy; Z79.01 Long term (current) use of anticoagulants
CPT/HCPCS: 36415; 80053; 82962; 85025; 96374; 96375; 96376; 99291; J1170; J2405; 99285; Q0162

== ENCOUNTER 2020-09-18 19:09 | Inpatient (IN) | payer SELFPAY ==
--- NOTE | 2020-09-18 20:08 | Event Note ---
ED Screening Note ED Screening Note: security Miguel used for Romansh interpretation as it is his [place] language Patient presents for left arm pain, left shoulder pain, left chest pain, left neck pain that began 3 days ago Has associated nausea and vomiting also complains of headache and worsening of arm weakness pt is actively vomiting Difficulty palpating left radial pulse, advised charge nurse semaj and triage nurse kaye need doppler to evaluate pulses in the MAIN ED This initial assessment/diagnostic orders/clinical plan/treatment(s) is/are subject to change based on patients health status, clinical progression and re- assessment by fellow clinical providers in the ED. Further treatment and workup at subsequent clinical providers discretion. Patient/guardian urged not to elope from the ED as their condition may be serious if not clinically assessed and managed. Initial orders include: Labs, EKG, xr, ct
[2020-09-18 21:33] LABS: Basophils # (Auto) 0.1 K/mm3 (0.0-0.1); Basophils % (Auto) 0.7 % (0.0-1.8); Eosinophils # (Auto) 0.2 K/mm3 (0.0-0.4); Eosinophils % (Auto) 2.7 % (0.0-4.3); Hematocrit 26.7 % (30.3-42.9); Hemoglobin 9.1 gm/dl (10.1-14.3); Lymphocytes % (Auto) 22.8 % (13.4-35.0); Mean Corpuscular HGB Conc 34 % (30-34); Mean Corpuscular Volume 83 fl (79-97); Monocytes # (Auto) 0.5 K/mm3 (0.0-0.8); Monocytes % (Auto) 6.1 % (0.0-7.3); Platelet Count 495 K/mm3 (140-440); Red Cell Distribution Width 14.1 % (13.2-15.2)
--- NOTE | 2020-09-18 21:35 | Cat Scan Report ---
CT head/brain wo con INDICATION / CLINICAL INFORMATION: 45 years Female; headache, acute on chronic left sided weakness. TECHNIQUE: Routine CT head without contrast. All CT scans at this location are performed using CT dos e reduction for ALARA by means of automated exposure control. COMPARISON: None. FINDINGS: BRAIN / INTRACRANIAL CONTENTS: Mild encephalomalacia seen in the paracentral lobule on the right. Otherwise, no acute hemorrhage, mass effect, midline shift, hydrocephalus, or acute, large territoria l infarct. There are mild areas of decreased attenuation in the white matter of the cerebral hemispheres. These are nonspecific findings and may be related to microangiopathy (hypertension, diabetes, atheroscleros is), given the patient's age. It might be difficult to evaluate for small areas of ischemia without d iffusion imaging by MRI. CRANIOCERVICAL JUNCTION: No significant abnormality. ORBITS: No significant abnormality of visualized orbits. SINUSES / MASTOIDS: Mild mucosal thickening in the ethmoids on the left. ADDITIONAL FINDINGS: No significant atherosclerotic disease appreciated. IMPRESSION: 1. No focal mass, hemorrhage, hydrocephalus, or acute, large territorial infarct. Follow-up with diff usion imaging by MRI, as clinically warranted. Signer Name: Earl Batista MD, III Signed: 09/18/2020 9:31 PM Workstation Name: [email or web address]
[2020-09-18 21:42] LABS: Alanine Aminotransferase 7 units/L (7-56); BUN/Creatinine Ratio 18; Blood Urea Nitrogen 45 mg/dL (7-17); Calcium 8.3 mg/dL (8.4-10.2); Hemolysis Index 3
[2020-09-18 21:47] LABS: INR 0.92 (0.87-1.13)
[2020-09-18 21:48] LABS: Partial Thromboplastin Time 27.5 Sec. (24.2-36.6)
--- NOTE | 2020-09-18 21:59 | Emergency Department Report ---
ED Chest Pain HPI - General Chief Complaint: Chest Pain Stated Complaint: L ARM PAIN PUI?: No Time Seen by Provider: 09/18/20 21:10 Source: patient Mode of arrival: Stretcher Limitations: No Limitations - History of Present Illness Initial Comments: Patient is a 45-year-old female with complaints of chest pain, headache, left ne ck pain, left shoulder pain, left arm pain, nausea, vomiting, generalized weakness. Patient states her symptoms started 3 days ago. Patient states her symptoms are worsening. Patient states that her chest pain is a 10 out of 10. Patient states her chest pain is better with rest. Patient states her chest pain is worse with movement, exertion and palpation. Patient denies diaphoresis. Patient denies fever and chills. Patient complains of nausea and vomiting. Patient denies blood in her vomitus. Patient denies diarrhea. Patient complains of left neck pain, left shoulder pain, left arm pain. Patient states her left arm, shoulder, neck is a 10 out of 10. Patient states the pain is better with rest and worse with movement. Patient states she is bedbound ever since she had a stroke. Patient states that her son was trying to move her in the bed and was pulling her by her left arm and she felt a pop in her left shoulder.. Patient states this happened 3 days ago. Patient complains of generalized weakness. Patient states she has had a stroke in the past, February 07, 2020. Patient states that that stroke left her with left-sided weakness. Patient states that her left-sided weakness is worsening. Patient states that she is not able to move her right lower extremity secondary to a thrombosis in her leg. 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 Patient states she is not taking any anticoagulation. Patient states she ran out of her anticoagulant several months ago. Patient states she is having right calf pain. Patient states she has a headache. Patient states the headache is a 10 out of 10. Patient states the headache is in the posterior aspect of the head. Patient states the pain is better with rest. Patient states the headache is worse with movement. Patient denies blurry vision. Patient denies neck stiffness. Patient denies recent travel. Patient denies recent international travel. Patient denies exposure to the novel coronavirus. Patient denies sick contacts. Patient denies fever and chills. Patient denies cough. Patient denies diarrhea. Patient denies coming in contact with anybody with symptoms of the no [place] coronavirus. Patient states she is never had the COVID-19 vaccine. Complaint: chest pain -: Sudden, days(s) Onset: during rest Pain Location: left chest Severity: severe Severity scale (0 -10): 10 Quality: sharp Consistency: constant Improves With: rest Worsens With: exertion, palpation, movement re: vomting, sense of impending doom. denies: nausea, diaphoresis, dyspnea Other Symptoms: denies: cough, fever, syncope, rash, acid taste in mouth, leg swelling, palpitations, burping Treatments Prior to Arrival: aspirin Aspirin use within the Past 7 Days: (1) Yes - Related Data On Oral Contraceptives: No Previous Rx's Medication Instructions Recorded Last Taken Type Albuterol Sulfate [Ventolin HFA] 2 puff IH Q4H PRN #1 hfa.aer.ad 02/13/15 Unknown Rx Nitrofurantoin Monohyd/M-Cryst 100 mg PO BID #14 capsule 12/08/17 Unknown Rx [Macrobid 100 mg Capsule] traMADoL [Ultram 50 MG tab] 50 mg PO Q6HR PRN #12 tablet 12/19/18 01/09/20 Rx Colchicine 0.6 mg PO Q2HR #10 capsule NS 11/11/19 Unknown Rx Doxycycline Hyclate [Doxycycline 100 mg PO Q12HR #30 tab 01/13/20 Unknown Rx Hyclate TAB] Enoxaparin Sodium [Lovenox] 80 mg SQ BID #10 syringe 01/13/20 Unknown Rx Ferrous Sulfate [Feosol 325 MG tab] 325 mg PO BID #60 tablet 01/13/20 Unknown Rx Multivitamin Tab [Multiple Vitamin 1 each PO QDAY #30 tablet 01/13/20 Unknown Rx TAB (Theragran)] Ondansetron [Zofran Odt] 4 mg PO Q8HR #14 tab.rapdis 01/13/20 Unknown Rx Warfarin [Coumadin] 5 mg PO QDAY #30 tablet 01/13/20 Unknown Rx metFORMIN [Glucophage] 500 mg PO BID #60 tablet 01/13/20 Unknown Rx oxyCODONE /ACETAMINOPHEN [Percocet 1 tab PO Q6H PRN #14 tablet 02/19/20 Unknown Rx 5/325 mg] oxyCODONE /ACETAMINOPHEN [Percocet 1 tab PO Q6HR PRN #30 tablet 05/10/20 Unknown Rx 5/325] Allergies Allergy/AdvReac Type Severity Reaction Status Date / Time No Known Allergies Allergy Verified 02/19/20 14:01 Heart Score - HEART Score History: Moderately suspicious EKG: Non-specific Age: < 45 Risk factors: > 3 risk factors or hx of atherosclerotic disease Troponin: 1-3x normal limit HEART Score: 5 - EKG Read Time Time EKG Completed: 21:29 EKG Read Time: 21:29 ED Review of Systems ROS: Stated complaint: L ARM PAIN Other details as noted in HPI Constitutional: denies: chills, fever Eyes: denies: eye pain, eye discharge, vision change ENT: denies: ear pain, throat pain Respiratory: see HPI. denies: cough, shortness of breath, wheezing Cardiovascular: as per HPI, chest pain. denies: palpitations Endocrine: no symptoms reported Gastrointestinal: nausea, vomiting. denies: abdominal pain, diarrhea Genitourinary: denies: urgency, dysuria, discharge Musculoskeletal: as per HPI. denies: back pain, joint swelling, arthralgia Skin: denies: rash, lesions Neurological: denies: headache, weakness, paresthesias Psychiatric: denies: anxiety, depression Hematological/Lymphatic: denies: easy bleeding, easy bruising ED Past Medical Hx - Past Medical History Previous Medical History?: Yes Hx Hypertension: Yes Hx CVA: Yes Hx Heart Attack/AMI: No Hx Diabetes: Yes Hx Liver Disease: No Hx Renal Disease: No Hx Asthma: Yes Hx COPD: No Hx HIV: No Additional medical history: ovarian cyst, Thrombosis Lower legs. Chronic Pain. Left Hemiparesis. DVT and PAD. Arterial thrombosis - Surgical History Past Surgical History?: Yes Additional Surgical History: - Family History Family history: no significant - Social History Smoking Status: Never Smoker Substance Use Type: None - Medications Home Medications: Home Medications Medication Instructions Recorded Confirmed Last Taken Type Albuterol Sulfate [Ventolin HFA] 2 puff IH Q4H PRN #1 hfa.aer.ad 02/13/15 01/10/20 Unknown Rx Nitrofurantoin Monohyd/M-Cryst 100 mg PO BID #14 capsule 12/08/17 01/10/20 Unknown Rx [Macrobid 100 mg Capsule] traMADoL [Ultram 50 MG tab] 50 mg PO Q6HR PRN #12 tablet 12/19/18 01/10/20 01/09/20 Rx Colchicine 0.6 mg PO Q2HR #10 capsule NS 11/11/19 01/10/20 Unknown Rx Doxycycline Hyclate [Doxycycline 100 mg PO Q12HR #30 tab 01/13/20 Unknown Rx Hyclate TAB] Enoxaparin Sodium [Lovenox] 80 mg SQ BID #10 syringe 01/13/20 Unknown Rx Ferrous Sulfate [Feosol 325 MG tab] 325 mg PO BID #60 tablet 01/13/20 Unknown Rx Multivitamin Tab [Multiple Vitamin 1 each PO QDAY #30 tablet 01/13/20 Unknown Rx TAB (Theragran)] Ondansetron [Zofran Odt] 4 mg PO Q8HR #14 tab.rapdis 01/13/20 Unknown Rx Warfarin [Coumadin] 5 mg PO QDAY #30 tablet 01/13/20 Unknown Rx metFORMIN [Glucophage] 500 mg PO BID #60 tablet 01/13/20 Unknown Rx oxyCODONE /ACETAMINOPHEN [Percocet 1 tab PO Q6H PRN #14 tablet 02/19/20 Unknown Rx 5/325 mg] oxyCODONE /ACETAMINOPHEN [Percocet 1 tab PO Q6HR PRN #30 tablet 05/10/20 Unknown Rx 5/325] ED Physical Exam - General Limitations: No Limitations General appearance: alert, in no apparent distress - Head Head exam: Present: atraumatic, normocephalic - Eye Eye exam: Present: normal appearance, PERRL Pupils: Present: normal accommodation - ENT ENT exam: Present: mucous membranes moist - Neck Neck exam: Present: normal inspection - Respiratory Respiratory exam: Present: normal lung sounds bilaterally, chest wall tenderness. Absent: respiratory distress, wheezes, rales, accessory muscle use, decreased breath sounds - Cardiovascular Cardiovascular Exam: Present: regular rate, normal rhythm, normal heart sounds. Absent: systolic murmur, diastolic murmur, rubs, gallop - GI/Abdominal GI/Abdominal exam: Present: soft, normal bowel sounds. Absent: distended, tenderness, guarding - Rectal Rectal exam: Present: deferred - Extremities Exam Extremities exam: Present: normal inspection, normal capillary refill, calf tenderness (Left calf tenderness.), other (Bilateral pedal pulses noted. Pulses are equal. Patient unable to move the right leg.). Absent: pedal edema, joint swelling - Back Exam Back exam: Present: normal inspection - Neurological Exam Neurological exam: Present: alert, oriented X3 - Psychiatric Psychiatric exam: Present: normal affect, normal mood - Skin Skin exam: Present: warm, dry, intact, normal color. Absent: rash ED Course Vital Signs 09/18/20 09/18/20 09/18/20 19:48 19:52 22:08 Temperature 98.9 F Pulse Rate 87 80 Respiratory 12 Rate Blood Pressure 116/63 Blood Pressure [Right] O2 Sat by Pulse 98 100 Oximetry 09/18/20 09/18/20 09/18/20 22:15 22:31 23:01 Temperature 97.8 F Pulse Rate 81 83 75 Respiratory 12 14 Rate Blood Pressure 138/61 142/67 Blood Pressure 127/77 [Right] O2 Sat by Pulse 100 100 100 Oximetry 09/18/20 09/18/20 09/19/20 23:31 23:47 00:01 Temperature Pulse Rate 72 70 72 Respiratory 12 11 L Rate Blood Pressure 151/81 151/81 151/81 Blood Pressure [Right] O2 Sat by Pulse 100 100 99 Oximetry 09/19/20 00:31 Temperature Pulse Rate 75 Respiratory 11 L Rate Blood Pressure 159/72 Blood Pressure [Right] O2 Sat by Pulse 99 Oximetry - Reevaluation(s) Reevaluation #1: Patient states the pain is increasing. Patient will be given aspirin and Dilaudid. Patient also given Zofran for nausea. 09/18/20 22:15 Reevaluation #2: Patient states her pain is better. Patient denies nausea vomiting. Patient agrees with heparin drip. 09/18/20 23:11 Reevaluation #3: I discussed all results with patient. I discussed plan of care with patient. Patient agrees with plan of care and admission. Patient to be admitted to the hospitalist service. 09/19/20 00:29 - Consultations Consultation #1: Hospitalist consulted for admission. Hospitalist to admit patient. 09/19/20 00:15 JON score - Jon Score Age > 65: (0) No Aspirin use within the Past 7 Days: (1) Yes 3 or more CAD Risk Factors: (1) Yes 2 or more Angina events in past 24 hrs: (0) No Known CAD with more than 50% Stenosis: (0) No Elevated Cardiac Markers: (1) Yes ST Deviation Greater than 0.5mm: (0) No JON Score: 3 ED Medical Decision Making - Lab Data Result diagrams: 09/18/20 20:35 09/18/20 20:35 - EKG Data -: EKG Interpreted by Me EKG shows normal: sinus rhythm, axis, intervals, QRS complexes, ST-T waves Rate: normal - Radiology Data Radiology results: report reviewed, image reviewed interpreted by me: Chest x-ray: No pneumonia, no pneumothorax, no foreign body, no osseous finding s, no acute findings CT head/brain wo con INDICATION / CLINICAL INFORMATION: 45 years Female; headache, acute on chronic left sided weakness. TECHNIQUE: Routine CT head without contrast. All CT scans at this location are performed using CT dose reduction for ALARA by means of automated exposure control. COMPARISON: None. FINDINGS: BRAIN / INTRACRANIAL CONTENTS: Mild encephalomalacia seen in the paracentral lobule on the right. Otherwise, no acute hemorrhage, mass effect, midline shift, hydrocephalus, or acute, large territorial infarct. There are mild areas of decreased attenuation in the white matter of the cerebral hemispheres. These are nonspecific findings and may be related to microangiopathy (hypertension, diabetes, atherosclerosis), given the patient's age. It might be difficult to evaluate for small areas of ischemia without diffusion imaging by MRI. CRANIOCERVICAL JUNCTION: No significant abnormality. ORBITS: No significant abnormality of visualized orbits. SINUSES / MASTOIDS: Mild mucosal thickening in the ethmoids on the left. ADDITIONAL FINDINGS: No significant atherosclerotic disease appreciated. IMPRESSION: 1. No focal mass, hemorrhage, hydrocephalus, or acute, large territorial infarct. Follow-up with diffusion imaging by MRI, as clinically warranted. CHEST 1 VIEW INDICATION: chest pain. COMPARISON: 05/10/2020 FINDINGS: SUPPORT DEVICES: None. HEART: Within normal limits. LUNGS/PLEURA: No acute air space or interstitial disease. ADDITIONAL FINDINGS: None. IMPRESSION: 1. No acute findings. Left shoulder-3 views INDICATION: shoulder pain LEFT. COMPARISON: None. IMPRESSION: No acute osseous abnormality. Soft tissues are normal. Normal alignment. No significant DJD. - Medical Decision Making Patient is a 45-year-old female who presents emergency room with multiple complaints. Patient complained of chest pain, left upper extremity pain, neck pain, leg pain. Patient had a chest x-ray which was negative for acute finding. Personally reviewed chest x-ray patient had an EKG done which showed no ST changes. I personally reviewed the EKG. Patient had a left shoulder x-ray and it was negative for acute findings. No fractures noted on x-ray. I personally reviewed the shoulder x-ray. Patient had labs done which were consistent with acute renal failure, elevated troponin, anemia. Patient's repeat troponin came back elevated. Patient is supposed to be on Coumadin for a thrombosis in her legs. Patient states she believes she has a DVT and an arterial thrombosis as well. Patient placed on a heparin drip for anticoagulation since the patient is on Coumadin and the patient had elevated troponin. Patient given IV fluids. Patient also given oral aspirin. Patient given Dilaudid for pain. Patient given Zofran for nausea vomiting. Patient admitted to the hospital service for further evaluation, treatment. Critical care time documented due to the multiple reassessments, prolonged time at the bedside, interpretation of diagnostics and labs. - Differential Diagnosis Shoulder pain, sprain, strain, fracture, CP, ACS, leg pain, PAD Critical Care Time: Yes Critical care time in (mins) excluding proc time.: 35 Critical care attestation.: If time is entered above; I have spent that time in minutes in the direct care of this critically ill patient, excluding procedure time. Critical Care Time: 35 minutes ED Disposition Clinical Impression: Weakness, Left arm pain, Elevated troponin, NSTEMI (non-ST elevated myocardial infarction) Headache Qualifiers: Headache type: unspecified Headache chronicity pattern: acute headache Intractability: intractable Qualified Code(s): R51.9 - Headache, unspecified Left shoulder pain Qualifiers: Chronicity: acute Qualified Code(s): M25.512 - Pain in left shoulder Chest pain Qualifiers: Chest pain type: unspecified Qualified Code(s): R07.9 - Chest pain, unspecified Renal failure Qualifiers: Renal failure chronicity: acute Acute renal failure type: unspecified Qualified Code(s): N17.9 - Acute kidney failure, unspecified Anemia Qualifiers: Anemia type: unspecified type Qualified Code(s): D64.9 - Anemia, unspecified Sprain of left shoulder Qualifiers: Encounter type: initial encounter Shoulder sprain type: unspecified sprain Qualified Code(s): S43.402A - Unspecified sprain of left shoulder joint, initial encounter Disposition: 09 OP ADMIT IP TO THIS HOSP Is pt being admited?: Yes Does the pt Need Aspirin: No Condition: Critical Time of Disposition: 00:30
[2020-09-18 22:20] LABS: Chol/HDL Ratio 2.54 %; HDL Cholesterol 74 mg/dL (40-59); LDL Cholesterol,Direct 118 mg/dL (50-130)
[2020-09-18] MEDS ORDERED: HYDROmorphone 1 MG/1 ML INJ IV ONE (22:23)
[2020-09-18] MEDS ORDERED: ONDANSETRON 4 MG/2 ML INJ IV ONE (22:23)
[2020-09-18] MEDS ORDERED: ASPIRIN 325 MG TAB PO ONE (22:35)
--- NOTE | 2020-09-18 22:53 | XRay Report ---
CHEST 1 VIEW INDICATION: chest pain. COMPARISON: 05/10/2020 FINDINGS: SUPPORT DEVICES: None. HEART: Within normal limits. LUNGS/PLEURA: No acute air space or interstitial disease. ADDITIONAL FINDINGS: None. IMPRESSION: 1. No acute findings. Signer Name: Alan Hitchcock MD Signed: 09/18/2020 10:49 PM Workstation Name: [email or web address]
--- NOTE | 2020-09-18 22:57 | XRay Report ---
Left shoulder-3 views INDICATION: shoulder pain LEFT. COMPARISON: None. IMPRESSION: No acute osseous abnormality. Soft tissues are normal. Normal alignment. No significa nt DJD. Signer Name: Alan Hitchcock MD Signed: 09/18/2020 10:53 PM Workstation Name: [id number]
[2020-09-18] MEDS ORDERED: HEPARIN 10,000 UNITS/10 ML VIAL IV ONE (23:02)
[2020-09-18] MEDS ORDERED: CLINDAMYCIN 300 MG/50 mL 300 MG/50 ML BAG IV ONE (23:05)
[2020-09-18] MEDS ORDERED: SODIUM CHLORIDE 0.9% 1000 ML 1,000 ML IV ONE ×2 (23:08)
[2020-09-18] MEDS: HEPARIN/ 0.45% NACL DRIP 25,000 UNIT/500 ML BAG IV SCH (23:45)
[2020-09-19] MEDS ORDERED: MORPHINE 2 MG/1 ML INJ IV PRN (00:33)
[2020-09-19] MEDS ORDERED: ACETAMINOPHEN 325 MG TAB PO PRN ×2 (00:33)
[2020-09-19] MEDS ORDERED: DEXTROSE 50% IN WATER (25GM) 50 ML SYRINGE IV PRN (00:33)
[2020-09-19] MEDS ORDERED: traMADol 50 MG TAB PO PRN (00:33)
[2020-09-19] MEDS ORDERED: NITROGLYCERIN 0.4 MG TAB SUBL SL PRN (00:33)
[2020-09-19] MEDS ORDERED: MAGNESIUM HYDROXIDE (MOM) ORAL LIQD UDC PO PRN (00:33)
--- NOTE | 2020-09-19 00:51 | History and Physical Report ---
History of Present Illness Date of examination: 09/19/20 Date of admission: Chest pain Chief complaint: Chest pain Headache Neck pain History of present illness: 45-year-old female with known history of diabetes mellitus, CVA in the past, asthma, and hypertension presents to the emergency room today with multiple complaints which includes headache left-sided neck pain left shoulder pain, chest pain, nausea and vomiting. Symptoms were said to have started about 3 days ago and was said to have been getting worse. Chest pain is about 10/10 in severity. Pain gets better upon resting and gets worse on exertion. She has had some chills at home but denies any fever, denies any shortness of breath, denies any dizziness and no diaphoresis. She denies any sick contacts and no recent travel, denies any contact with anyone with COVID-19. Patient is admits that she has not had a COVID-19 vaccination. She has been bedbound since she had the stroke in January 2020. She had residual left-sided weakness. Patient also indicates that she has not been able to move her right lower extremity secondary to thrombosis in the leg. She is supposed to be on anticoagulation but indicates that she ran out of medication several months ago. Work-up in the emergency room today, labs reveals elevated troponin of 0.041, elevated BUN and creatinine 45 and 2.5 respectively. Chest x-ray, x-ray of the shoulder, CT scan of the head were all within normal limits. Patient has been admitted with chest pain, elevated troponin and acute renal failure. Past History Past Medical History: diabetes, hypertension, stroke, other (Asthma, ovarian cyst, Thrombosis Lower legs. Chronic Pain. Left Hemiparesis) Past Surgical History: Social history: other (Lives with Son) Family history: no significant family history Medications and Allergies Allergies Allergy/AdvReac Type Severity Reaction Status Date / Time No Known Allergies Allergy Verified 02/19/20 14:01 Home Medications Medication Instructions Recorded Confirmed Last Taken Type Albuterol Sulfate [Ventolin HFA] 2 puff IH Q4H PRN #1 hfa.aer.ad 02/13/15 01/10/20 Unknown Rx Nitrofurantoin Monohyd/M-Cryst 100 mg PO BID #14 capsule 12/08/17 01/10/20 Unknown Rx [Macrobid 100 mg Capsule] traMADoL [Ultram 50 MG tab] 50 mg PO Q6HR PRN #12 tablet 12/19/18 01/10/20 01/09/20 Rx Colchicine 0.6 mg PO Q2HR #10 capsule NS 11/11/19 01/10/20 Unknown Rx Doxycycline Hyclate [Doxycycline 100 mg PO Q12HR #30 tab 01/13/20 Unknown Rx Hyclate TAB] Enoxaparin Sodium [Lovenox] 80 mg SQ BID #10 syringe 01/13/20 Unknown Rx Ferrous Sulfate [Feosol 325 MG tab] 325 mg PO BID #60 tablet 01/13/20 Unknown Rx Multivitamin Tab [Multiple Vitamin 1 each PO QDAY #30 tablet 01/13/20 Unknown Rx TAB (Theragran)] Ondansetron [Zofran Odt] 4 mg PO Q8HR #14 tab.rapdis 01/13/20 Unknown Rx Warfarin [Coumadin] 5 mg PO QDAY #30 tablet 01/13/20 Unknown Rx metFORMIN [Glucophage] 500 mg PO BID #60 tablet 01/13/20 Unknown Rx oxyCODONE /ACETAMINOPHEN [Percocet 1 tab PO Q6H PRN #14 tablet 02/19/20 Unknown Rx 5/325 mg] oxyCODONE /ACETAMINOPHEN [Percocet 1 tab PO Q6HR PRN #30 tablet 05/10/20 Unknown Rx 5/325] Active Meds: Active Medications Acetaminophen (Acetaminophen 325 Mg Tab) 650 mg PO Q4H PRN PRN Reason: Pain MILD(1-3)/Fever >100.5/[place] Acetaminophen (Acetaminophen 325 Mg Tab) 650 mg PO Q6H PRN PRN Reason: Pain, Mild (1-3) Aspirin (Aspirin Ec 325 Mg Tab) 325 mg PO QDAY SIDNEY Dextrose (Dextrose 50% In Water (25gm) 50 Ml Syringe) 50 ml IV Q30MIN PRN; Protocol PRN Reason: Hypoglycemia Dextrose (Dextrose 50% In Water (25gm) 50 Ml Syringe) 50 ml IV Q30MIN PRN; Protocol PRN Reason: Hypoglycemia Heparin Sodium/Sodium Chloride (Heparin/ 0.45% Nacl-25,000 Unit/500 Ml) 25,000 unit in 500 mls @ 24 mls/hr IV TITR SIDNEY; Protocol Last Admin: 09/18/20 23:45 Dose: 1,200 units/hr, 24 mls/hr Documented by: Sodium Chloride (Nacl 0.9% 1000 Ml) 1,000 mls @ 250 mls/hr IV ONCE ONE Stop: 09/19/20 03:07 Last Admin: 09/18/20 23:39 Dose: 250 mls/hr Documented by: Sodium Chloride (Nacl 0.9% 1000 Ml) 1,000 mls @ 75 mls/hr IV DIRECT SIDNEY Insulin Human Lispro (Insulin Lispro 100 Unit/Ml) 0 unit SUB-Q ACHS SIDNEY; Protocol Magnesium Hydroxide (Magnesium Hydroxide (Mom) Oral Liqd Udc) 30 ml PO Q4H PRN PRN Reason: Constipation Morphine Sulfate (Morphine 2 Mg/1 Ml Inj) 2 mg IV Q4H PRN PRN Reason: Pain, Moderate (4-6) Morphine Sulfate (Morphine 4 Mg/1 Ml Inj) 4 mg IV Q4H PRN PRN Reason: Pain , Severe (7-10) Morphine Sulfate (Morphine 4 Mg/1 Ml Inj) 2 mg IV Q5MIN PRN PRN Reason: Chest Pain Nitroglycerin (Nitroglycerin 0.4 Mg Tab Subl) 0.4 mg SL Q5M PRN PRN Reason: Chest Pain Ondansetron HCl (Ondansetron 4 Mg/2 Ml Inj) 4 mg IV Q8H PRN PRN Reason: Nausea And Vomiting Sodium Chloride (Sodium Chloride 0.9% 10 Ml Flush Syringe) 10 ml IV BID SIDNEY Sodium Chloride (Sodium Chloride 0.9% 10 Ml Flush Syringe) 10 ml IV PRN PRN PRN Reason: LINE FLUSH Sodium Chloride (Sodium Chloride 0.9% 10 Ml Flush Syringe) 10 ml IV PRN PRN PRN Reason: LINE FLUSH Tramadol HCl (Tramadol 50 Mg Tab) 50 mg PO Q6H PRN PRN Reason: Pain, Moderate (4-6) Review of Systems Constitutional: chills, no fever Ears, nose, mouth and throat: no nasal congestion, no sore throat Cardiovascular: chest pain, no palpitations Respiratory: no cough, no shortness of breath Gastrointestinal: nausea, vomiting, no abdominal pain, no diarrhea Genitourinary Female: no pelvic pain, no flank pain, no dysuria, no hematuria Musculoskeletal: neck pain, no low back pain Integumentary: no rash, no pruritis Neurological: headaches, no confusion Psychiatric: depression, sadness/tearfullness, no anxiety, no suicidal ideation, no hallucinations Endocrine: no polyphagia, no polydipsia, no polyuria, no nocturia Exam - Constitutional Vitals: Temp Pulse Resp BP Pulse Ox 97.8 F 75 11 L 159/72 99 09/18/20 22:15 09/19/20 00:31 09/19/20 00:31 09/19/20 00:31 09/19/20 00:31 General appearance: Present: no acute distress, well-nourished - EENT Eyes: Present: PERRL, EOM intact. Absent: scleral icterus ENT: hearing intact, clear oral mucosa, dentition normal - Neck Neck: Present: supple, normal ROM - Respiratory Respiratory effort: normal Respiratory: bilateral: CTA - Cardiovascular Rhythm: regular Heart Sounds: Present: S1 & S2. Absent: gallop, systolic murmur, diastolic murmur, rub, click - Extremities Extremities: no ischemia, pulses intact, pulses symmetrical, No edema, normal temperature, normal color, Full ROM Extremity abnormal: other (Amputation of right second toe.) Peripheral Pulses: within normal limits - Abdominal General gastrointestinal: Present: soft, non-tender, non-distended, normal bowel sounds. Absent: mass - Integumentary Integumentary: Present: clear, warm, dry. Absent: rash - Musculoskeletal Musculoskeletal: strength equal bilaterally - Psychiatric Psychiatric: appropriate mood/affect, intact judgment & insight, memory intact, cooperative - Neurologic Neurologic: CNII-XII intact, moves all extremities, other (Left sided weakness.) HEART Score - HEART Score History: Moderately suspicious EKG: Non-specific Age: < 45 Risk factors: > 3 risk factors or hx of atherosclerotic disease Troponin: Troponin T 0.041 ng/mL (0.00-0.029) H 09/18/20 23:17 Troponin: 1-3x normal limit HEART Score: 5 Results - Labs CBC & Chem 7: 09/19/20 00:50 09/19/20 00:50 Labs: Abnormal lab results 09/18/20 09/18/20 09/18/20 Range/Units 19:46 20:35 20:35 RBC 3.20 L (3.65-5.03) M/mm3 Hgb 9.1 L (10.1-14.3) gm/dl Hct 26.7 L (30.3-42.9) % Plt Count 495 H (140-440) K/mm3 Sodium 135 L (137-145) mmol/L BUN 45 H (7-17) mg/dL Creatinine 2.5 H (0.6-1.2) mg/dL Glucose 187 H (65-100) mg/dL POC Glucose 181 H (70-105) mg/dL Calcium 8.3 L (8.4-10.2) mg/dL Alkaline Phosphatase 167 H (35-129) units/L Troponin T 0.037 H (0.00-0.029) ng/mL Total Protein 5.8 L (6.3-8.2) g/dL Albumin 2.0 L (3.9-5) g/dL HDL Cholesterol 74 H (40-59) mg/dL 09/18/20 Range/Units 23:17 RBC (3.65-5.03) M/mm3 Hgb (10.1-14.3) gm/dl Hct (30.3-42.9) % Plt Count (140-440) K/mm3 Sodium (137-145) mmol/L BUN (7-17) mg/dL Creatinine (0.6-1.2) mg/dL Glucose (65-100) mg/dL POC Glucose (70-105) mg/dL Calcium (8.4-10.2) mg/dL Alkaline Phosphatase (35-129) units/L Troponin T 0.041 H (0.00-0.029) ng/mL Total Protein (6.3-8.2) g/dL Albumin (3.9-5) g/dL HDL Cholesterol (40-59) mg/dL Assessment and Plan - Patient Problems (1) NSTEMI (non-ST elevated myocardial infarction) Current Visit: Yes Status: Acute Plan to address problem: Patient admitted and placed on telemetry We will check serial cardiac enzymes. Patient placed on aspirin, sublingual nitroglycerin and IV morphine as needed for chest pain. She has also been started on heparin drip. We will request evaluation by cardiology. (2) Elevated troponin Current Visit: Yes Status: Acute Plan to address problem: We will trend cardiac enzymes. We will await further evaluation by cardiology. (3) Renal failure Current Visit: Yes Status: Acute Qualifiers: Renal failure chronicity: acute Acute renal failure type: unspecified Qualified Code(s): N17.9 - Acute kidney failure, unspecified Plan to address problem: Patient will be given some IV fluid. Will monitor BUN and creatinine. Consult placed to nephrology for evaluation and recommendation. (4) Diabetes mellitus Current Visit: No Status: Acute Plan to address problem: We will monitor Accu-Cheks closely. Patient placed on sliding scale insulin. (5) Anemia Current Visit: Yes Status: Acute Qualifiers: Anemia type: unspecified type Qualified Code(s): D64.9 - Anemia, unspecified Plan to address problem: This appears chronic. Will monitor CBC. (6) DVT prophylaxis Current Visit: No Status: Acute Plan to address problem: Patient currently on anticoagulation. (7) Full code status Current Visit: No Status: Acute Plan to address problem: Patient is full code.
[2020-09-19] MEDS: ONDANSETRON 4 MG/2 ML INJ IV PRN ×2 (00:59→03:22)
[2020-09-19 01:29] LABS: Basophils # (Auto) 0.1 K/mm3 (0.0-0.1); Basophils % (Auto) 0.7 % (0.0-1.8); Eosinophils # (Auto) 0.2 K/mm3 (0.0-0.4); Eosinophils % (Auto) 1.4 % (0.0-4.3); Hematocrit 28.3 % (30.3-42.9); Hemoglobin 9.4 gm/dl (10.1-14.3); Lymphocytes # (Auto) 1.5 K/mm3 (1.2-5.4); Mean Corpuscular HGB Conc 33 % (30-34); Mean Corpuscular Volume 82 fl (79-97); Monocytes # (Auto) 0.6 K/mm3 (0.0-0.8); Monocytes % (Auto) 4.6 % (0.0-7.3); Platelet Count 466 K/mm3 (140-440); Red Blood Count 3.45 M/mm3 (3.65-5.03); Red Cell Distribution Width 14.1 % (13.2-15.2)
[2020-09-19 01:36] LABS: Calcium 7.8 mg/dL (8.4-10.2)
[2020-09-19] MEDS ORDERED: INSULIN REGULAR, HUMAN 100 UNITS/1 ML SUB-Q ONE (02:28)
[2020-09-19] MEDS: MORPHINE 4 MG/1 ML INJ IV PRN (02:45)
[2020-09-19] MEDS ORDERED: CALCIUM CHLORIDE 1,000 MG in SODIUM CHLORIDE 0.9% 100 ML IV ONE (02:47)
[2020-09-19] MEDS ORDERED: SODIUM POLYSTYRENE 15 GM/60 ML ORAL LIQD PO ONE (02:47)
[2020-09-19] MEDS: SODIUM CHLORIDE 0.9% 1000 ML 1,000 ML IV SCH ×2 (02:58→18:30)
[2020-09-19] MEDS: INSULIN LISPRO 100 UNIT/ML SUB-Q SCH ×3 (07:54→18:32)
--- NOTE | 2020-09-19 11:44 | Consultation ---
History of Present Illness - Reason for Consult Consult date: 09/19/20 acute renal failure Requesting physician: ALBINO BROWN - History of Present Illness 45-year-old female with known history of diabetes mellitus, CVA in the past, asthma, and hypertension presented to the emergency room yesterday with multiple complaints which includes headache left-sided neck pain left shoulder pain, chest pain, nausea and vomiting. Symptoms were said to have started about 3 days ago and was said to have been getting worse. Chest pain is about 10/10 in severity. Pain gets better upon resting and gets worse on exertion. She has had some chills at home but denies any fever, denies any shortness of breath, denies any dizziness and no diaphoresis. She denies any sick contacts and no recent travel, denies any contact with anyone with COVID-19. Patient is admits that she has not had a COVID-19 vaccination. She has been bedbound since she had the stroke in January 2020. She had residual left-sided weakness. Patient also indicates that she has not been able to move her right lower extremity secondary to thrombosis in the leg. She is supposed to be on anticoagulation but indicates that she ran out of medication several months ago. Work-up in the emergency room , labs reveals elevated troponin of 0.041, elevated BUN and creatinine 45 and 2.5 respectively. Chest x-ray, x-ray of the shoulder, CT scan of the head were all within normal limits. Renal consult is requested because of elevated serum creatinine. Difficult to obtain history due to language barrier. Information obtained from patient's admission records Past History Past Medical History: diabetes, hypertension, stroke, other (Asthma, ovarian cyst, Thrombosis Lower legs. Chronic Pain. Left Hemiparesis) Past Surgical History: Social history: other (Lives with Son) Family history: no significant family history Medications and Allergies Allergies Allergy/AdvReac Type Severity Reaction Status Date / Time No Known Allergies Allergy Verified 02/19/20 14:01 Home Medications Medication Instructions Recorded Confirmed Last Taken Type Albuterol Sulfate [Ventolin HFA] 2 puff IH Q4H PRN #1 hfa.aer.ad 02/13/15 01/10/20 Unknown Rx Nitrofurantoin Monohyd/M-Cryst 100 mg PO BID #14 capsule 12/08/17 01/10/20 Unknown Rx [Macrobid 100 mg Capsule] traMADoL [Ultram 50 MG tab] 50 mg PO Q6HR PRN #12 tablet 12/19/18 01/10/20 01/09/20 Rx Colchicine 0.6 mg PO Q2HR #10 capsule NS 11/11/19 01/10/20 Unknown Rx Doxycycline Hyclate [Doxycycline 100 mg PO Q12HR #30 tab 01/13/20 Unknown Rx Hyclate TAB] Enoxaparin Sodium [Lovenox] 80 mg SQ BID #10 syringe 01/13/20 Unknown Rx Ferrous Sulfate [Feosol 325 MG tab] 325 mg PO BID #60 tablet 01/13/20 Unknown Rx Multivitamin Tab [Multiple Vitamin 1 each PO QDAY #30 tablet 01/13/20 Unknown Rx TAB (Theragran)] Ondansetron [Zofran Odt] 4 mg PO Q8HR #14 tab.rapdis 01/13/20 Unknown Rx Warfarin [Coumadin] 5 mg PO QDAY #30 tablet 01/13/20 Unknown Rx metFORMIN [Glucophage] 500 mg PO BID #60 tablet 01/13/20 Unknown Rx oxyCODONE /ACETAMINOPHEN [Percocet 1 tab PO Q6H PRN #14 tablet 02/19/20 Unknown Rx 5/325 mg] oxyCODONE /ACETAMINOPHEN [Percocet 1 tab PO Q6HR PRN #30 tablet 05/10/20 Unknown Rx 5/325] Active Meds: Active Medications Acetaminophen (Acetaminophen 325 Mg Tab) 650 mg PO Q6H PRN PRN Reason: Pain, Mild (1-3) Aspirin (Aspirin Ec 325 Mg Tab) 325 mg PO QDAY SIDNEY Dextrose (Dextrose 50% In Water (25gm) 50 Ml Syringe) 0 ml IV Q30MIN PRN; Protocol PRN Reason: Hypoglycemia Last Admin: 09/19/20 02:47 Dose: 50 ml Documented by: Heparin Sodium/Sodium Chloride (Heparin/ 0.45% Nacl-25,000 Unit/500 Ml) 25,000 unit in 500 mls @ 24 mls/hr IV TITR SIDNEY; Protocol Last Admin: 09/18/20 23:45 Dose: 1,200 units/hr, 24 mls/hr Documented by: Sodium Chloride (Nacl 0.9% 1000 Ml) 1,000 mls @ 75 mls/hr IV DIRECT SIDNEY Last Admin: 09/19/20 02:58 Dose: 75 mls/hr Documented by: Insulin Human Lispro (Insulin Lispro 100 Unit/Ml) 0 unit SUB-Q ACHS SIDNEY; Protocol Last Admin: 09/19/20 07:54 Dose: Not Given Documented by: Magnesium Hydroxide (Magnesium Hydroxide (Mom) Oral Liqd Udc) 30 ml PO Q4H PRN PRN Reason: Constipation Morphine Sulfate (Morphine 2 Mg/1 Ml Inj) 2 mg IV Q4H PRN PRN Reason: Pain, Moderate (4-6) Morphine Sulfate (Morphine 4 Mg/1 Ml Inj) 4 mg IV Q4H PRN PRN Reason: Pain , Severe (7-10) Last Admin: 09/19/20 02:45 Dose: 4 mg Documented by: Morphine Sulfate (Morphine 2 Mg/1 Ml Inj) 2 mg IV Q5MIN PRN PRN Reason: Chest Pain Nitroglycerin (Nitroglycerin 0.4 Mg Tab Subl) 0.4 mg SL Q5M PRN PRN Reason: Chest Pain Ondansetron HCl (Ondansetron 4 Mg/2 Ml Inj) 4 mg IV Q8H PRN PRN Reason: Nausea And Vomiting Last Admin: 09/19/20 03:22 Dose: 4 mg Documented by: Sodium Chloride (Sodium Chloride 0.9% 10 Ml Flush Syringe) 10 ml IV BID SIDNEY Sodium Chloride (Sodium Chloride 0.9% 10 Ml Flush Syringe) 10 ml IV PRN PRN PRN Reason: LINE FLUSH Last Admin: 09/19/20 03:22 Dose: 10 ml Documented by: Tramadol HCl (Tramadol 50 Mg Tab) 50 mg PO Q6H PRN PRN Reason: Pain, Moderate (4-6) Review of Systems All systems: negative Exam - Vital Signs Vital signs: Vital Signs Temp Resp BP 98.9 F 12 116/63 09/18/20 19:48 09/18/20 19:48 09/18/20 19:48 - General Appearance General appearance: well-developed, well-nourished, appears stated age EENT: PERRL, mucous membranes moist Neck: Present: neck supple, trachea midline. Absent: JVD/HJR, Masses Respiratory: Clear to Ascultation Heart: regular, normal heart rate, S1S2, no murmurs Gastrointestinal: Present: normal, normoactive bowel sounds Integumentary: no rash, other (No edema) Results - Lab Results 09/19/20 00:50 09/19/20 07:09 Most recent lab results Calcium 7.8 mg/dL (8.4-10.2) L 09/19/20 00:50 Assessment and Plan Impression * Acute kidney injury * Hyperkalemia * Chest pain * Diabetes * Hypertension * History of CVA Recommendations * Her baseline serum creatinine is approximately 1.1 from February 2020 * Etiology of [place] probably prerenal * Shall check a UA as well as a fractional excretion of sodium * Continue IV hydration * Avoid nephrotoxins. Avoid TAM inhibitor as well as ARB at this time. * Check renal ultrasound to assess kidney size and echogenicity * If patient has active urine sediment, she will need additional work-up * Monitor fluid status and electrolytes closely * Thank you very much for the consultation. Shall follow along with you
--- NOTE | 2020-09-19 12:43 | Event Note ---
Date: 09/19/20 Patient seen and examined, very poor historian, awaiting for family contact to obtain more information. Continue current treatment
--- NOTE | 2020-09-19 13:43 | Vascular Lab Report ---
DUPLEX DOPPLER LOWER EXTREMITY VEINS, BILATERAL INDICATION / CLINICAL INFORMATION: leg pain. TECHNIQUE: Duplex doppler imaging was performed through the veins of both lower extremities using venous sofía fidencio and other maneuvers. COMPARISON: None available. FINDINGS: RIGHT COMMON FEMORAL VEIN: Negative. RIGHT FEMORAL VEIN: Negative. RIGHT POPLITEAL VEIN: Negative. RIGHT CALF VEINS: Negative. LEFT COMMON FEMORAL VEIN: Negative. LEFT FEMORAL VEIN: Negative. LEFT POPLITEAL VEIN: Negative. LEFT CALF VEINS: Negative. ADDITIONAL FINDINGS: None. IMPRESSION: 1. No sonographic evidence for DVT in either lower extremity. Signer Name: Stephen Tolbert MD Signed: 09/19/2020 1:38 PM Workstation Name: [id number]
--- NOTE | 2020-09-19 13:52 | Event Note ---
Date: 09/19/[address] Chaudhary about the management of his patient. Dr. Chaudhary is not associated with [facility]. Please stop contacting CLAU for management issues.
--- NOTE | 2020-09-19 15:30 | Consultation ---
History of Present Illness Consult date: 09/19/20 Consult reason: elevated troponin History of present illness: The patient is a 45-year-old woman who speaks only Georgian, and therefore a poor historian. 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 No significant prior cardiac history is documented in the records except for some transient sinus bradycardia that was noted during sleep on that admission. She is admitted to the hospital at this time with complaints of left neck pain radiating to the left arm, symptoms were noted to be positional and worse with movements of the neck and the arm. Her symptoms have since subsided presumably with pain medications administered since admission. Part of her work-up here included serial EKGs, cardiac enzyme measurements and an echocardiogram. ECG was normal sinus rhythm, nonspecific T wave changes, no acute ischemia or infarction. Chest x-ray showed normal-sized cardiac silhouette, clear lungs. Echocardiogram showed normal left ventricular systolic function with ejection fraction 55%, no significant valvular lesions. Cardiology consultation was requested for the finding of a troponin level that was minimally elevated at 0.04, flat and unchanged on serial measurements. It will also be noted that patient has chronic kidney disease, with a creatinine currently 2.5. Comorbidities include chronic anemia with a hematocrit currently 26. Past History Past Medical History: anemia, diabetes, hypertension, PVD, renal failure, str nandini, other (Asthma, ovarian cyst, Thrombosis Lower legs. Chronic Pain. Left Hemiparesis) Past Surgical History: , Other (Amputation of the toes of the right foot) Social history: other (Lives with Son) Family history: no significant family history Medications and Allergies Allergies Allergy/AdvReac Type Severity Reaction Status Date / Time No Known Allergies Allergy Verified 02/19/20 14:01 Home Medications Medication Instructions Recorded Confirmed Last Taken Type Albuterol Sulfate [Ventolin HFA] 2 puff IH Q4H PRN #1 hfa.aer.ad 02/13/15 01/10/20 Unknown Rx Nitrofurantoin Monohyd/M-Cryst 100 mg PO BID #14 capsule 12/08/17 01/10/20 Unknown Rx [Macrobid 100 mg Capsule] traMADoL [Ultram 50 MG tab] 50 mg PO Q6HR PRN #12 tablet 12/19/18 01/10/20 01/09/20 Rx Colchicine 0.6 mg PO Q2HR #10 capsule NS 11/11/19 01/10/20 Unknown Rx Doxycycline Hyclate [Doxycycline 100 mg PO Q12HR #30 tab 01/13/20 Unknown Rx Hyclate TAB] Enoxaparin Sodium [Lovenox] 80 mg SQ BID #10 syringe 01/13/20 Unknown Rx Ferrous Sulfate [Feosol 325 MG tab] 325 mg PO BID #60 tablet 01/13/20 Unknown Rx Multivitamin Tab [Multiple Vitamin 1 each PO QDAY #30 tablet 01/13/20 Unknown Rx TAB (Theragran)] Ondansetron [Zofran Odt] 4 mg PO Q8HR #14 tab.rapdis 01/13/20 Unknown Rx Warfarin [Coumadin] 5 mg PO QDAY #30 tablet 01/13/20 Unknown Rx metFORMIN [Glucophage] 500 mg PO BID #60 tablet 01/13/20 Unknown Rx oxyCODONE /ACETAMINOPHEN [Percocet 1 tab PO Q6H PRN #14 tablet 02/19/20 Unknown Rx 5/325 mg] oxyCODONE /ACETAMINOPHEN [Percocet 1 tab PO Q6HR PRN #30 tablet 05/10/20 Unknown Rx 5/325] Active Meds: Active Medications Acetaminophen (Acetaminophen 325 Mg Tab) 650 mg PO Q6H PRN PRN Reason: Pain, Mild (1-3) Aspirin (Aspirin Ec 325 Mg Tab) 325 mg PO QDAY SIDNEY Dextrose (Dextrose 50% In Water (25gm) 50 Ml Syringe) 0 ml IV Q30MIN PRN; Protocol PRN Reason: Hypoglycemia Last Admin: 09/19/20 02:47 Dose: 50 ml Documented by: Heparin Sodium/Sodium Chloride (Heparin/ 0.45% Nacl-25,000 Unit/500 Ml) 25,000 unit in 500 mls @ 24 mls/hr IV TITR SIDNEY; Protocol Last Admin: 09/18/20 23:45 Dose: 1,200 units/hr, 24 mls/hr Documented by: Sodium Chloride (Nacl 0.9% 1000 Ml) 1,000 mls @ 75 mls/hr IV DIRECT SIDNEY Last Admin: 09/19/20 02:58 Dose: 75 mls/hr Documented by: Insulin Human Lispro (Insulin Lispro 100 Unit/Ml) 0 unit SUB-Q ACHS SIDNEY; Protocol Last Admin: 09/19/20 07:54 Dose: Not Given Documented by: Magnesium Hydroxide (Magnesium Hydroxide (Mom) Oral Liqd Udc) 30 ml PO Q4H PRN PRN Reason: Constipation Morphine Sulfate (Morphine 2 Mg/1 Ml Inj) 2 mg IV Q4H PRN PRN Reason: Pain, Moderate (4-6) Morphine Sulfate (Morphine 4 Mg/1 Ml Inj) 4 mg IV Q4H PRN PRN Reason: Pain , Severe (7-10) Last Admin: 09/19/20 02:45 Dose: 4 mg Documented by: Morphine Sulfate (Morphine 2 Mg/1 Ml Inj) 2 mg IV Q5MIN PRN PRN Reason: Chest Pain Nitroglycerin (Nitroglycerin 0.4 Mg Tab Subl) 0.4 mg SL Q5M PRN PRN Reason: Chest Pain Ondansetron HCl (Ondansetron 4 Mg/2 Ml Inj) 4 mg IV Q8H PRN PRN Reason: Nausea And Vomiting Last Admin: 09/19/20 03:22 Dose: 4 mg Documented by: Sodium Chloride (Sodium Chloride 0.9% 10 Ml Flush Syringe) 10 ml IV BID SIDNEY Sodium Chloride (Sodium Chloride 0.9% 10 Ml Flush Syringe) 10 ml IV PRN PRN PRN Reason: LINE FLUSH Last Admin: 09/19/20 03:22 Dose: 10 ml Documented by: Tramadol HCl (Tramadol 50 Mg Tab) 50 mg PO Q6H PRN PRN Reason: Pain, Moderate (4-6) Review of Systems Cardiovascular: chest pain (Atypical, neck and left arm pain, positional), no orthopnea, no palpitations, no rapid/irregular heart beat, no edema, no syncope, no lightheadedness, no shortness of breath Physical Examination Vital Signs Temp Resp BP 98.9 F 12 116/63 09/18/20 19:48 09/18/20 19:48 09/18/20 19:48 General appearance: no acute distress HEENT: Positive: PERRL Neck: Positive: neck supple Cardiac: Positive: Reg Rate and Rhythm Lungs: Positive: clear to auscultation Neuro: Positive: Grossly Intact Abdomen: Positive: Soft Female genitourinary: deferred Skin: Positive: Clear Extremities: Absent: edema Results 09/19/20 00:50 09/19/20 07:09 Cardiac Enzymes 09/18/20 Range/Units 20:35 AST 9 (5-40) units/L Coagulation 09/18/20 Range/Units 20:35 PT 12.9 (12.2-14.9) Sec. INR 0.92 (0.87-1.13) APTT 27.5 (24.2-36.6) Sec. Lipids 09/18/20 Range/Units 20:35 Triglycerides 89 (2-149) mg/dL Cholesterol 188 (50-199) mg/dL HDL Cholesterol 74 H (40-59) mg/dL Cholesterol/HDL Ratio 2.54 % CBC 09/18/20 09/19/20 Range/Units 20:35 00:50 WBC 8.7 12.3 H (4.5-11.0) K/mm3 RBC 3.20 L 3.45 L (3.65-5.03) M/mm3 Hgb 9.1 L 9.4 L (10.1-14.3) gm/dl Hct 26.7 L 28.3 L (30.3-42.9) % Plt Count 495 H 466 H (140-440) K/mm3 Lymph # (Auto) 2.0 1.5 (1.2-5.4) K/mm3 Bradley # (Auto) 0.5 0.6 (0.0-0.8) K/mm3 Eos # (Auto) 0.2 0.2 (0.0-0.4) K/mm3 Baso # (Auto) 0.1 0.1 (0.0-0.1) K/mm3 Comprehensive Metabolic Panel 09/18/20 09/19/20 09/19/20 Range/Units 20:35 00:50 07:09 Sodium 135 L 133 L (137-145) mmol/L Potassium 5.0 6.4 H* D 5.4 H (3.6-5.0) mmol/L Chloride 100.2 99.5 (98-107) mmol/L Carbon Dioxide 27 24 (22-30) mmol/L BUN 45 H 46 H (7-17) mg/dL Creatinine 2.5 H 2.6 H (0.6-1.2) mg/dL Glucose 187 H 200 H (65-100) mg/dL Calcium 8.3 L 7.8 L (8.4-10.2) mg/dL AST 9 (5-40) units/L ALT 7 (7-56) units/L Alkaline Phosphatase 167 H (35-129) units/L Total Protein 5.8 L (6.3-8.2) g/dL Albumin 2.0 L (3.9-5) g/dL EKG interpretations - Telemetry EKG Rhythm: Sinus Rhythm Assessment and Plan - Patient Problems (1) Atypical chest pain Current Visit: Yes Status: Acute Plan to address problem: Patient is symptoms appear musculoskeletal, do not appear anginal in character. The borderline troponin elevation is nonspecific in the setting of chronic kidney disease. Echocardiogram shows normal left ventricular systolic function with ejection fraction 55%. Serial EKGs are benign. We will recommend a conservative cardiac approach to management. Ultimately, due to multiple risk factors, including diabetes and peripheral vascular di sease, the patient will be recommended for elective pharmacologic stress test with myocardial perfusion imaging.
[2020-09-20] MEDS: INSULIN LISPRO 100 UNIT/ML SUB-Q SCH ×4 (00:49→21:49)
[2020-09-20] MEDS: MORPHINE 4 MG/1 ML INJ IV PRN (01:42)
[2020-09-20] MEDS: HEPARIN/ 0.45% NACL DRIP 25,000 UNIT/500 ML BAG IV SCH (01:58)
[2020-09-20 06:41] LABS: Basophils # (Auto) 0.1 K/mm3 (0.0-0.1); Basophils % (Auto) 0.7 % (0.0-1.8); Eosinophils # (Auto) 0.2 K/mm3 (0.0-0.4); Hemoglobin 7.6 gm/dl (10.1-14.3); Lymphocytes # (Auto) 2.2 K/mm3 (1.2-5.4); Lymphocytes % (Auto) 28.6 % (13.4-35.0); Mean Corpuscular HGB Conc 33 % (30-34); Mean Corpuscular Volume 84 fl (79-97); Monocytes # (Auto) 0.5 K/mm3 (0.0-0.8); Monocytes % (Auto) 7.1 % (0.0-7.3); Platelet Count 374 K/mm3 (140-440); Red Blood Count 2.73 M/mm3 (3.65-5.03); Red Cell Distribution Width 14.4 % (13.2-15.2)
[2020-09-20 06:48] LABS: Calcium 8.4 mg/dL (8.4-10.2)
[2020-09-20 07:26] LABS: INR 1.02 (0.87-1.13)
--- NOTE | 2020-09-20 09:39 | Discharge Summary ---
Providers - Providers Date of Admission: 09/19/20 00:33 Attending physician: ALBINO BROWN MD 09/19/20 Consult to Cardiac Rehabilitation [CONS] Routine Reason For Exam: Phase I 09/19/20 00:35 Consult to Cardiology [CONS] Routine Consulting Provider: KODAK HARMON Reason For Exam: Chest Pain, Elevated troponin Consult to Dietitian/Nutrition [CONS] Routine Physician Instructions: Reason For Exam: Reason for Consult: Diet education 09/19/20 00:45 Consult to Physician [CONS] Routine Comment: Consulting Provider: ALBINO IGLESIAS Physician Instructions: Reason For Exam: pad. leg pain 09/19/20 02:09 Consult to Physician [CONS] Routine Comment: Consulting Provider: STACY NUÑEZ Physician Instructions: Reason For Exam: Renal Failure [facility] Condition: Critical Hospital course: Will hold discharge due to planned stress test. Disposition: [id number] HOME UNDER HOME [facility] Time spent for discharge: 35 mins Exam - Constitutional Vitals: Temp Pulse Resp BP Pulse Ox 97.1 F L 72 20 173/72 98 09/20/20 07:25 09/20/20 07:22 09/20/20 07:24 09/20/20 07:24 09/20/20 07:22 Plan Activity: advance as tolerated, fall precautions Diet: renal Special Instructions: restrict fluid intake to (1200cc/day), record daily weights, physical therapy, occupational therapy [facility]] - 3-5 Days YAMINI RIDDLE MD [Staff Physician] - 3 Days BLAYNE TUCKER MD [Staff Physician] - 3 Days ALBINO IGLESIAS MD [Staff Physician] - 3 Days Prescriptions: Warfarin [Coumadin] 5 mg PO QDAY #30 tablet Enoxaparin Sodium [Lovenox] 80 mg SQ BID #10 syringe Mason/Polymyx B/Dexameth Opth(Nf [Maxitrol (Nf)] 2 drops OP Q6H #1 bottle traMADoL [Ultram 50 MG tab] 50 mg PO Q6HR PRN #12 tablet PRN Reason: Pain Ondansetron [Zofran ODT TAB] 4 mg PO Q4HR #30 tab.rapdis
[2020-09-20 09:58] LABS: Bilirubin,Urine NEG (Negative); Blood,Urine NEG (Negative); Color,Urine Straw (Yellow); Mucus,Urine FEW /HPF; Urobilinogen,Urine < 2.0 mg/dL (<2.0)
[2020-09-20 09:59] LABS: Protein,Urine >500 mg/dL (Negative)
[2020-09-20] MEDS: ASPIRIN EC 325 MG TAB PO SCH (10:22)
[2020-09-20 10:47] LABS: Creatinine,Urine 40.1 mg/dL (0.1-20.0)
--- NOTE | 2020-09-20 11:21 | Progress Note ---
Assessment and Plan Impression * Acute kidney injury * Hyperkalemia * Chest pain * Diabetes * Hypertension * History of CVA Recommendations * Her baseline serum creatinine is approximately 1.1 from February 2020 * Etiology of [place] probably prerenal * Her urine shows 4+ dipstick protein but no blood. Fractional excretion of sodium is 3% . * Check urine protein creatinine ratio. Check vasculitis work-up as well * Continue gentle hydration * Avoid nephrotoxins. Avoid TAM inhibitor as well as ARB at this time. * Awaiting results of renal ultrasound * Monitor fluid status and electrolytes closely * Cardiology notes appreciated Subjective Date of service: 09/20/20 Interval history: Patient complains of nausea and vomiting yesterday. Denies any shortness of breath. Appears comfortable today. Heparin drip infusing Objective - Vital Signs Vital signs: Vital Signs - 12hr 09/20/20 09/20/20 09/20/20 01:00 01:13 04:57 Temperature 97.8 F 97.9 F Pulse Rate 71 75 72 Respiratory 18 18 Rate Blood Pressure 190/79 156/77 O2 Sat by Pulse 97 99 100 Oximetry 09/20/20 09/20/20 09/20/20 07:22 07:24 07:25 Temperature 97.1 F L Pulse Rate 72 Respiratory 20 Rate Blood Pressure 173/72 O2 Sat by Pulse 98 Oximetry - General Appearance General appearance: well-developed, well-nourished, appears stated age EENT: PERRL, mucous membranes moist Neck: no JVD, no thyromegaly, no carotid bruit, supple Respiratory: Present: Clear to Ascultation Cardiology: regular, normal heart rate, S1S2, no murmurs Gastrointestinal: normal, normoactive bowel sounds Integumentary: no rash, other (No edema) - Lab 09/20/20 05:43 09/20/20 05:43 Most recent lab results Calcium 8.4 mg/dL (8.4-10.2) 09/20/20 05:43 Urine Creatinine 40.1 mg/dL (0.1-20.0) H 09/20/20 09:08 Urine Sodium 83 mmol/L 09/20/20 09:08 Medications & Allergies - Medications Allergies/Adverse Reactions: Allergies No Known Allergies Allergy (Verified 02/19/20 14:01) Home Medications: Home Medications Medication Instructions Recorded Confirmed Last Taken Type Albuterol Sulfate [Ventolin HFA] 2 puff IH Q4H PRN #1 hfa.aer.ad 02/13/15 01/10/20 Unknown Rx Nitrofurantoin Monohyd/M-Cryst 100 mg PO BID #14 capsule 12/08/17 01/10/20 Unknown Rx [Macrobid 100 mg Capsule] Colchicine 0.6 mg PO Q2HR #10 capsule NS 11/11/19 01/10/20 Unknown Rx Ferrous Sulfate [Feosol 325 MG tab] 325 mg PO BID #60 tablet 01/13/20 Unknown Rx Multivitamin Tab [Multiple Vitamin 1 each PO QDAY #30 tablet 01/13/20 Unknown Rx TAB (Theragran)] metFORMIN [Glucophage] 500 mg PO BID #60 tablet 01/13/20 Unknown Rx Enoxaparin Sodium [Lovenox] 80 mg SQ BID #10 syringe 09/20/20 Unknown Rx Mason/Polymyx B/Dexameth Opth(Nf 2 drops OP Q6H #1 bottle 09/20/20 Unknown Rx [Maxitrol (Nf)] Ondansetron [Zofran ODT TAB] 4 mg PO Q4HR #30 tab.rapdis 09/20/20 Unknown Rx Warfarin [Coumadin] 5 mg PO QDAY #30 tablet 09/20/20 Unknown Rx traMADoL [Ultram 50 MG tab] 50 mg PO Q6HR PRN #12 tablet 09/20/20 Unknown Rx Active Medications: Generic Name Dose Route Start Last Admin Trade Name Freq PRN Reason Stop Dose Admin Acetaminophen 650 mg 09/19/20 00:33 Acetaminophen 325 Mg Tab PO Q6H PRN Pain, Mild (1-3) Aspirin 325 mg 09/20/20 10:00 09/20/20 10:22 Aspirin Ec 325 Mg Tab PO 325 mg QDAY SIDNEY Administration Dextrose 0 ml 09/19/20 00:33 09/19/20 02:47 Dextrose 50% In Water (25gm) 50 Ml Syringe IV 50 ml Q30MIN PRN Administration Hypoglycemia Protocol Heparin Sodium/Sodium Chloride 25,000 unit in 500 mls @ 24 mls/hr 09/18/20 23:45 09/20/20 01:58 Heparin/ 0.45% Nacl-25,000 Unit/500 Ml IV 1,200 units/hr TITR SIDNEY 24 mls/hr Administration Protocol 1,200 UNITS/HR Sodium Chloride 1,000 mls @ 75 mls/hr 09/19/20 00:45 09/19/20 18:30 Nacl 0.9% 1000 Ml IV 75 mls/hr DIRECT [facility] Administration Insulin Human Lispro 0 unit 09/19/20 07:30 09/20/20 00:49 Insulin Lispro 100 Unit/Ml SUB-Q Not Given ACHS [facility] Protocol Magnesium Hydroxide 30 ml 09/19/20 00:33 Magnesium Hydroxide (Mom) Oral Liqd Udc PO Q4H PRN Constipation Morphine Sulfate 2 mg 09/19/20 00:33 Morphine 2 Mg/1 Ml Inj IV Q4H PRN Pain, Moderate (4-6) Morphine Sulfate 4 mg 09/19/20 00:33 09/20/20 01:42 Morphine 4 Mg/1 Ml Inj IV 4 mg Q4H PRN Administration Pain , Severe (7-10) Morphine Sulfate 2 mg 09/19/20 00:33 Morphine 2 Mg/1 Ml Inj IV Q5MIN PRN Chest Pain Nitroglycerin 0.4 mg 09/19/20 00:33 Nitroglycerin 0.4 Mg Tab Subl SL Q5M PRN Chest Pain Ondansetron HCl 4 mg 09/19/20 00:33 09/19/20 03:22 Ondansetron 4 Mg/2 Ml Inj IV 4 mg Q8H PRN Administration Nausea And Vomiting Sodium Chloride 10 ml 09/19/20 10:00 09/20/20 00:50 Sodium Chloride 0.9% 10 Ml Flush Syringe IV 10 ml BID SIDNEY Administration Sodium Chloride 10 ml 09/19/20 00:33 09/19/20 03:22 Sodium Chloride 0.9% 10 Ml Flush Syringe IV 10 ml PRN PRN Administration LINE FLUSH Tramadol HCl 50 mg 09/19/20 00:33 Tramadol 50 Mg Tab PO Q6H PRN Pain, Moderate (4-6) Warfarin Sodium 10 mg 09/20/20 17:00 Warfarin 10 Mg Tab PO 09/20/20 17:01 ONCE ONE Protocol Warfarin Sodium 5 mg 09/21/20 17:00 Warfarin 5 Mg Tab PO DAILY@1700 [facility]
[2020-09-20] MEDS ORDERED: WARFARIN 10 MG TAB PO ONE ×2 (13:00→17:00)
--- NOTE | 2020-09-20 13:07 | Progress Note ---
Assessment and Plan Assessment and plan: 45-year-old female with known history of diabetes mellitus, CVA in the past, asthma, and hypertension presents to the emergency room today with multiple complaints which includes headache left-sided neck pain left shoulder pain, chest pain, nausea and vomiting. Symptoms were said to have started about 3 days ago and was said to have been getting worse. Chest pain is about 10/10 in severity. Pain gets better upon resting and gets worse on exertion. She has had some chills at home but denies any fever, denies any shortness of breath, denies any dizziness and no diaphoresis. She denies any sick contacts and no recent travel, denies any contact with anyone with COVID-19. Patient is admits that she has not had a COVID-19 vaccination. She has been bedbound since she had the stroke in January 2020. She had residual left-sided weakness. Patient also indicates that she has not been able to move her right lower extremity secondary to thrombosis in the leg. She is supposed to be on anticoagulation but indicates that she ran out of medication several months ago. Work-up in the emergency room today, labs reveals elevated troponin of 0.041, elevated BUN and creatinine 45 and 2.5 respectively. Chest x-ray, x-ray of the shoulder, CT scan of the head were all within normal limits. Patient has been admitted with chest pain, elevated troponin and acute renal failure. 09/20: Stress test planned for tomorrow, Continue supportive care, patient restarted on anticoagulation. The patient elevated trop is lieky secondary to Renal failure. she has been put incontact with the case management for social supportive care. (1) NSTEMI (non-ST elevated myocardial infarction) Current Visit: Yes Status: Acute Plan to address problem: Patient admitted and placed on telemetry We will check serial cardiac enzymes. Patient placed on aspirin, sublingual nitroglycerin and IV morphine as needed for chest pain. She has also been started on heparin drip. We will request evaluation by cardiology. (2) Elevated troponin Current Visit: Yes Status: Acute Plan to address problem: We will trend cardiac enzymes. We will await further evaluation by cardiology. (3) Renal failure Current Visit: Yes Status: Acute Qualifiers: Renal failure chronicity: acute Acute renal failure type: unspecified Qualified Code(s): N17.9 - Acute kidney failure, unspecified Plan to address problem: Patient will be given some IV fluid. Will monitor BUN and creatinine. Consult placed to nephrology for evaluation and recommendation. (4) Diabetes mellitus Current Visit: No Status: Acute Plan to address problem: We will monitor Accu-Cheks closely. Patient placed on sliding scale insulin. (5) Anemia Current Visit: Yes Status: Acute Qualifiers: Anemia type: unspecified type Qualified Code(s): D64.9 - Anemia, unspecified Plan to address problem: This appears chronic. Will monitor CBC. (6) DVT prophylaxis Current Visit: No Status: Acute Plan to address problem: Patient currently on anticoagulation. (7) Full code status Current Visit: No Status: Acute Plan to address problem: Patient is full code. History Interval history: Patient seen and examined, resting comfortable, awaiting discharge but Cardiology plans for stress this am. Hospitalist Physical - Physical exam Narrative exam: General appearance: Present: no acute distress, well-nourished - EENT Eyes: Present: PERRL, EOM intact. Absent: scleral icterus ENT: hearing intact, clear oral mucosa, dentition normal - Neck Neck: Present: supple, normal ROM - Respiratory Respiratory effort: normal Respiratory: bilateral: CTA - Cardiovascular Rhythm: regular Heart Sounds: Present: S1 & S2. Absent: gallop, systolic murmur, diastolic murmur, rub, click - Extremities Extremities: no ischemia, pulses intact, pulses symmetrical, No edema, normal temperature, normal color, Full ROM Extremity abnormal: other (Amputation of right second toe.) Peripheral Pulses: within normal limits - Abdominal General gastrointestinal: Present: soft, non-tender, non-distended, normal bowel sounds. Absent: mass - Integumentary Integumentary: Present: clear, warm, dry. Absent: rash - Musculoskeletal Musculoskeletal: strength equal bilaterally - Psychiatric Psychiatric: appropriate mood/affect, intact judgment & insight, memory intact, cooperative - Neurologic Neurologic: CNII-XII intact, moves all extremities, other (Left sided weakness.) - Constitutional Vitals: Temp Pulse Resp BP Pulse Ox 97.1 F L 72 20 173/72 98 09/20/20 07:25 09/20/20 07:22 09/20/20 07:24 09/20/20 07:24 09/20/20 07:22 General appearance: Present: no acute distress HEART Score - HEART Score EKG: Non-specific Age: < 45 Risk factors: > 3 risk factors or hx of atherosclerotic disease Troponin: Troponin T 0.045 ng/mL (0.00-0.029) H 09/19/20 07:09 Troponin: 1-3x normal limit Results - Labs CBC & Chem 7: 09/20/20 05:43 09/21/20 04:37 Labs: Laboratory Last Values WBC 7.6 K/mm3 (4.5-11.0) 09/20/20 05:43 RBC 2.73 M/mm3 (3.65-5.03) L 09/20/20 05:43 Hgb 7.6 gm/dl (10.1-14.3) L 09/20/20 05:43 Hct 23.0 % (30.3-42.9) L 09/20/20 05:43 MCV 84 fl (79-97) 09/20/20 05:43 MCH 28 pg (28-32) 09/20/20 05:43 MCHC 33 % (30-34) 09/20/20 05:43 RDW 14.4 % (13.2-15.2) 09/20/20 05:43 Plt Count 374 K/mm3 (140-440) 09/20/20 05:43 Lymph % (Auto) 28.6 % (13.4-35.0) 09/20/20 05:43 [place] % (Auto) 7.1 % (0.0-7.3) 09/20/20 05:43 Eos % (Auto) 2.0 % (0.0-4.3) 09/20/20 05:43 Baso % (Auto) 0.7 % (0.0-1.8) 09/20/20 05:43 Lymph # (Auto) 2.2 K/mm3 (1.2-5.4) 09/20/20 05:43 [place] # (Auto) 0.5 K/mm3 (0.0-0.8) 09/20/20 05:43 Eos # (Auto) 0.2 K/mm3 (0.0-0.4) 09/20/20 05:43 Baso # (Auto) 0.1 K/mm3 (0.0-0.1) 09/20/20 05:43 Seg Neutrophils % 61.6 % (40.0-70.0) 09/20/20 05:43 Seg Neutrophils # 4.7 K/mm3 (1.8-7.7) 09/20/20 05:43 PT 13.9 Sec. (12.2-14.9) 09/20/20 05:43 INR 1.02 (0.87-1.13) 09/20/20 05:43 APTT 27.5 Sec. (24.2-36.6) 09/18/20 20:35 Heparin Anti-Xa Level 0.38 U.I./ml (0.3-0.7) 09/20/20 05:43 Sodium 139 mmol/L (137-145) 09/20/20 05:43 Potassium 4.7 mmol/L (3.6-5.0) 09/20/20 05:43 Chloride 107.5 mmol/L (98-107) H 09/20/20 05:43 Carbon Dioxide 25 mmol/L (22-30) 09/20/20 05:43 Anion Gap 11 mmol/L 09/20/20 05:43 BUN 40 mg/dL (7-17) H 09/20/20 05:43 Creatinine 2.4 mg/dL (0.6-1.2) H 09/20/20 05:43 Estimated GFR 22 ml/min 09/20/20 05:43 BUN/Creatinine Ratio 17 % 09/20/20 05:43 Glucose 91 mg/dL (65-100) 09/20/20 05:43 POC Glucose 119 mg/dL (70-105) H 09/20/20 11:37 Calcium 8.4 mg/dL (8.4-10.2) 09/20/20 05:43 Total Bilirubin < 0.20 mg/dL (0.1-1.2) 09/18/20 20:35 AST 9 units/L (5-40) 09/18/20 20:35 ALT 7 units/L (7-56) 09/18/20 20:35 Alkaline Phosphatase 167 units/L (35-129) H 09/18/20 20:35 Troponin T 0.045 ng/mL (0.00-0.029) H 09/19/20 07:09 Total Protein 5.8 g/dL (6.3-8.2) L 09/18/20 20:35 Albumin 2.0 g/dL (3.9-5) L 09/18/20 20:35 Albumin/Globulin Ratio 0.5 % 09/18/20 20:35 Triglycerides 89 mg/dL (2-149) 09/18/20 20:35 Cholesterol 188 mg/dL (50-199) 09/18/20 20:35 LDL Cholesterol Direct 118 mg/dL (50-130) 09/18/20 20:35 HDL Cholesterol 74 mg/dL (40-59) H 09/18/20 20:35 Cholesterol/HDL Ratio 2.54 % 09/18/20 20:35 Lipase 32 units/L (13-60) 09/18/20 20:58 HCG, Qual Negative (Negative) 09/18/20 20:35 Urine Color Straw (Yellow) 09/20/20 09:08 Urine Turbidity Clear (Clear) 09/20/20 09:08 Urine pH 6.0 (5.0-7.0) 09/20/20 09:08 Ur Specific [place] 1.011 (1.003-1.030) 09/20/20 09:08 Urine Protein >500 mg/dL (Negative) 09/20/20 09:08 Urine Glucose (UA) 150 mg/dL (Negative) 09/20/20 09:08 Urine Ketones Neg mg/dL (Negative) 09/20/20 09:08 Urine Blood Neg (Negative) 09/20/20 09:08 Urine Nitrite Neg (Negative) 09/20/20 09:08 Urine Bilirubin Neg (Negative) 09/20/20 09:08 Urine Urobilinogen < 2.0 mg/dL (<2.0) 09/20/20 09:08 Ur Leukocyte Esterase Neg (Negative) 09/20/20 09:08 Urine WBC (Auto) 1.0 /HPF (0.0-6.0) 09/20/20 09:08 Urine RBC (Auto) 1.0 /HPF (0.0-6.0) 09/20/20 09:08 U Epithel Cells (Auto) < 1.0 /HPF (0-13.0) 09/20/20 09:08 Urine Mucus Few /HPF 09/20/20 09:08 Urine Eosinophils None seen (None Seen) 09/19/20 09:08 Urine Creatinine 40.1 mg/dL (0.1-20.0) H 09/20/20 09:08 Urine Sodium 83 mmol/L 09/20/20 09:08 Fraction Sodium Excret 3.0 09/20/20 09:08 [place]ell/IV: Voiding Method Bedside Commode Active Medications - Current Medications Current Medications: Generic Name Dose Route Start Last Admin Trade Name Freq PRN Reason Stop Dose Admin Acetaminophen 650 mg 09/19/20 00:33 Acetaminophen 325 Mg Tab PO Q6H PRN Pain, Mild (1-3) Aspirin 325 mg 09/20/20 10:00 09/20/20 10:22 Aspirin Ec 325 Mg Tab PO 325 mg QDAY SIDNEY Administration Dextrose 0 ml 09/19/20 00:33 09/19/20 02:47 Dextrose 50% In Water (25gm) 50 Ml Syringe IV 50 ml Q30MIN PRN Administration Hypoglycemia Protocol Heparin Sodium/Sodium Chloride 25,000 unit in 500 mls @ 24 mls/hr 09/18/20 23:45 09/20/20 01:58 Heparin/ 0.45% Nacl-25,000 Unit/500 Ml IV 1,200 units/hr TITR SIDNEY 24 mls/hr Administration Protocol 1,200 UNITS/HR Sodium Chloride 1,000 mls @ 75 mls/hr 09/19/20 00:45 09/19/20 18:30 Nacl 0.9% 1000 Ml IV 75 mls/hr DIRECT SIDNEY Administration Insulin Human Lispro 0 unit 09/19/20 07:30 09/20/20 08:29 Insulin Lispro 100 Unit/Ml SUB-Q Not Given ACHS SIDNEY Protocol Magnesium Hydroxide 30 ml 09/19/20 00:33 Magnesium Hydroxide (Mom) Oral Liqd Udc PO Q4H PRN Constipation Morphine Sulfate 2 mg 09/19/20 00:33 Morphine 2 Mg/1 Ml Inj IV Q4H PRN Pain, Moderate (4-6) Morphine Sulfate 4 mg 09/19/20 00:33 09/20/20 01:42 Morphine 4 Mg/1 Ml Inj IV 4 mg Q4H PRN Administration Pain , Severe (7-10) Morphine Sulfate 2 mg 09/19/20 00:33 Morphine 2 Mg/1 Ml Inj IV Q5MIN PRN Chest Pain Nitroglycerin 0.4 mg 09/19/20 00:33 Nitroglycerin 0.4 Mg Tab Subl SL Q5M PRN Chest Pain Ondansetron HCl 4 mg 09/19/20 00:33 09/19/20 03:22 Ondansetron 4 Mg/2 Ml Inj IV 4 mg Q8H PRN Administration Nausea And Vomiting Sodium Chloride 10 ml 09/19/20 10:00 09/20/20 00:50 Sodium Chloride 0.9% 10 Ml Flush Syringe IV 10 ml BID SIDNEY Administration Sodium Chloride 10 ml 09/19/20 00:33 09/19/20 03:22 Sodium Chloride 0.9% 10 Ml Flush Syringe IV 10 ml PRN PRN Administration LINE FLUSH Tramadol HCl 50 mg 09/19/20 00:33 Tramadol 50 Mg Tab PO Q6H PRN Pain, Moderate (4-6) Warfarin Sodium 5 mg 09/21/20 17:00 Warfarin 5 Mg Tab PO DAILY@1700 [facility] Nutrition/Malnutrition Assess - Dietary Evaluation Nutrition/Malnutrition Findings: Nutrition Notes Start: 09/19/20 13:50 Freq: Status: Active Protocol: Document 09/19/20 13:51 CW (Rec: 09/19/20 13:55 CW [id number]) Nutrition Notes Need for Assessment generated from: MD Order,Education Initial or Follow up Brief Note Current Diagnosis Acute Kidney Injury,Diabetes Other Pertinent Diagnosis NSTEMI, Labs/Tests K 6.5 BUN 46 Cr 2.6 BG 200 Pertinent Medications Zofran humalog NS at 75 ml/hr D50 Kionex Height 5 ft 4 in Weight 87.5 kg Gamaliel Body Weight (kg) 54.54 BMI 33.0 Weight Status Obese Subjective/Other Information MD consult for education. Pt primarily speaks central african btu states that she speaks a little be of Azeri. Pt provided with basic heart healthy diet education in khmer and then provided handouts in central african. Pt reports understanding and plans to read handouts. Pt reports having no questions at this time. Nutrition Intervention Change Diet Order: CHange diet to cardiac Consistent Carbohydrate diet Teaching Recipient Patient Learning Readiness Good Teaching Methods Discussion,Handout Response to Teaching Verbalize understanding Education Handouts Provided Heart healthy Nutrition therapy Barriers to Learning Language RD phone number provided Yes Patient aware of follow up options Yes Actions To Overcome Barriers Other Anticipated Discharge Needs: cardiac Consistent Carbohydrate diet Revisit per MD consult or patient Sign Off request: Additional Comments Education provided
--- NOTE | 2020-09-20 13:33 | Electrocardiograph Report ---
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
--- NOTE | 2020-09-20 13:36 | Electrocardiograph Report ---
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
--- NOTE | 2020-09-20 14:06 | Progress Note ---
Assessment and Plan - Patient Problems (1) Atypical chest pain Current Visit: Yes Status: Acute Plan to address problem: Due to multiple risk factors, including diabetes and peripheral vascular disease, the patient will be recommended for elective pharmacologic stress test with myocardial perfusion imaging. We will order a Lexiscan thallium stress test to be done tomorrow morning. Subjective Date of service: 09/20/20 Interval history: No new cardiac complaints, patient states that she is looking forward to going home soon. Objective Vital Signs Temp Pulse Resp BP Pulse Ox 09/20/20 07:25 97.1 F L 09/20/20 07:24 20 173/72 09/20/20 07:22 72 98 09/20/20 04:57 97.9 F 72 18 156/77 100 09/20/20 01:13 97.8 F 75 18 190/79 99 09/20/20 01:00 71 97 09/19/20 20:41 98.0 F 75 18 180/73 98 09/19/20 17:00 78 - Physical Examination General: No Apparent Distress HEENT: Positive: PERRL Neck: Positive: neck supple Cardiac: Positive: Reg Rate and Rhythm Lungs: Positive: clear to auscultation Neuro: Positive: Grossly Intact Abdomen: Positive: Soft Skin: Positive: Clear Extremities: Absent: edema - Labs and Meds Coagulation 09/20/20 Range/Units 05:43 PT 13.9 (12.2-14.9) Sec. INR 1.02 (0.87-1.13) CBC 09/20/20 Range/Units 05:43 WBC 7.6 (4.5-11.0) K/mm3 RBC 2.73 L (3.65-5.03) M/mm3 Hgb 7.6 L (10.1-14.3) gm/dl Hct 23.0 L (30.3-42.9) % Plt Count 374 (140-440) K/mm3 Lymph # (Auto) 2.2 (1.2-5.4) K/mm3 [place] # (Auto) 0.5 (0.0-0.8) K/mm3 Eos # (Auto) 0.2 (0.0-0.4) K/mm3 Baso # (Auto) 0.1 (0.0-0.1) K/mm3 Comprehensive Metabolic Panel 09/20/20 Range/Units 05:43 Sodium 139 (137-145) mmol/L Potassium 4.7 (3.6-5.0) mmol/L Chloride 107.5 H (98-107) mmol/L Carbon Dioxide 25 (22-30) mmol/L BUN 40 H (7-17) mg/dL Creatinine 2.4 H (0.6-1.2) mg/dL Glucose 91 (65-100) mg/dL Calcium 8.4 (8.4-10.2) mg/dL
[2020-09-20] MEDS: MORPHINE 2 MG/1 ML INJ IV PRN ×2 (14:28→21:35)
--- NOTE | 2020-09-20 16:10 | Ultrasound Report ---
ULTRASOUND RENAL INDICATION: Acute kidney injury. COMPARISON: No relevant prior imaging study available. FINDINGS: RIGHT KIDNEY: Size: 11.3 cm. Echogenicity: Normal. Cortical thickness: Normal. Hydronephrosis: None. Cyst or mass: None. Stones: None. LEFT KIDNEY: Size: 10.6 cm. Echogenicity: Normal. Cortical thickness: Normal. Hydronephrosis: None. Cyst or mass: None. Stones: None. Urinary Bladder: No significant abnormality. Free Fluid: None. Additional Findings: None. IMPRESSION 1. No acute sonographic abnormality of the kidneys. Signer Name: Stephen Tolbert MD Signed: 09/20/2020 4:06 PM Workstation Name: [id number]
[2020-09-21 05:21] LABS: Calcium 8.4 mg/dL (8.4-10.2)
[2020-09-21 05:22] LABS: INR 1.06 (0.87-1.13)
[2020-09-21] MEDS ORDERED: REGADENOSON 0.4 MG/5 ML INJ IV ONE (07:00)
[2020-09-21] MEDS ORDERED: hydrALAZINE 20 MG/1 ML INJ IV PRN (07:09)
[2020-09-21] MEDS ORDERED: HEPARIN 10,000 UNITS/10 ML VIAL IV PRN (07:21)
[2020-09-21] MEDS: INSULIN LISPRO 100 UNIT/ML SUB-Q SCH ×2 (07:55→14:14)
--- NOTE | 2020-09-21 09:52 | Nuclear Medicine Report ---
APPROVED REPORT Exam: Nuclear Stress Test Indication: Chest pain Ht: 5 ft 4 in Wt: 196 lbs BSA: 1.94 m2 HR: 70 bpmBP: 201/81 mmHgBMI: 33.63 Rhythm: Sinus Rhythm Stress Test Details Stress Test: Pharmacologic stress testing performed using 0.4 mg of regadenoson per 5 mL given IV over 10 seconds. HR Resting HR: 70 bpm Max HR Achieved: 95 bpm Max Heart Rate (APMHR): 177 bpm Target HR (85% APMHR): 150 bpm % of APMHR: 53 Recovery HR: 85 bpm HR response to stress: Normal HR response to stress BP Resting BP: 201/81 mmHg Max BP: 215/86 mmHg Recovery BP: 177/65 mmHg BP response to stress: Normal blood pressure response to stress. ECG Resting ECG: Sinus Rhythm Stress ECG: Sinus Rhythm ST Change: None Arrhythmia: None Recovery ECG: Sinus Rhythm Recovery ST Change: None Recovery Arrhythmia: None Clinical Reason for Termination: Completed protocol Stress Symptoms: vomiting Stress ECG Conclusion No chest pain and no ST changes of ischemia with pharmacologic stress, myocardial perfusion images are pending for final test interpretation. NM EXAM: Myocardial Perfusion REST/STRESS Imaging Protocol: Rest Tc-99m/Stress Tc-99m 1 day Resting Data Rest SPECT myocardial perfusion imaging was performed in supine position 45 minutes following the intravenous injection of 10 mCi of Tc-99m Myoview. Time of rest injection: 0700 Pharmacologic Stress Pharmacologic stress test was performed by injecting Regadenoson 0.4 mg IV push followed by the intravenous injection of 28 mCi of Tc-99m Myoview. Time of stress injection: 0852 Gated Stress SPECT was performed 30 minutes after stress injection. The images were gated to evaluate regional wall motion and calculate left ventricular ejection fraction. Study Quality Study: excellent Lung Uptake: Normal Study Data TID = 1.04. Perfusion Wall Motion The rest and stress images show normal left ventricular wall motion. Nuclear Conclusion ECG Findings: negative for ischemia Clinical Findings: negative for ischemia Nuclear Findings: negative for ischemia Left Ventricular Function: abnormal Risk Study: low Normal rest and stress perfusion images, no ischemia demonstrated. There is mild left ventricular systolic dysfunction on gated SPECT, with ejection fraction 41%. Recommend clinical correlation and echocardiographic reassessment of left ventricular function. Conclusion No chest pain and no ST changes of ischemia with pharmacologic stress, myocardial perfusion images are pending for final test interpretation.
[2020-09-21] MEDS ORDERED: amLODIPine 10 MG TAB PO SCH (10:00)
[2020-09-21] MEDS: ASPIRIN EC 325 MG TAB PO SCH (10:29)
--- NOTE | 2020-09-21 10:48 | Event Note ---
Date: 09/21/20 Patient underwent a Lexiscan thallium stress test, during the Lexiscan infusion, there was transient bradycardia with heart rate in the 40s, resolved immediately following Lexiscan administration. The thallium perfusion images were normal with no ischemia demonstrated. During the stress test we were informed from the monitor room on the telemetry floor that there was a "10 seconds" pause on the patient's EKG. it appears the patient was also being monitored from upstairs while undergoing the pharmacologic stress testing. No significant cardiac pauses were noted on her continuous telemetry monitoring during the stress test, it appears likely that the reported pause in cardiac rhythm was artifactual and was due to lead dislodgment.
--- NOTE | 2020-09-21 12:30 | Progress Note ---
Assessment and Plan Impression * Acute kidney injury * Hyperkalemia * Chest pain * Diabetes * Hypertension * History of CVA Recommendations * Her baseline serum creatinine is approximately 1.1 from February 2020 * Creatinine slowly improving, 2.3 this AM, peaked at 2.6 on 09/19 * Etiology of NAPOLEON likely prerenal, may have some tubular injury as well given high BP * May also have underlying CKD, check PTH * Start carvedilol for additional BP control * Her urine shows 4+ dipstick protein but no blood. Fractional excretion of sodium is 3% . * Check urine protein creatinine ratio. Check vasculitis work-up as well- all pending * Continue gentle hydration as tolerated * Avoid nephrotoxins. Avoid TAM inhibitor as well as ARB at this time. * Renal ultrasound with no acute changes * Monitor fluid status and electrolytes closely * Cardiology notes appreciated Subjective Date of service: 09/21/20 Objective - Vital Signs Vital signs: Vital Signs - 12hr 09/21/20 09/21/20 09/21/20 01:00 03:13 08:48 Temperature 98.2 F Pulse Rate 70 71 Respiratory 18 Rate Blood Pressure 188/80 201/81 O2 Sat by Pulse 95 97 Oximetry 09/21/20 09/21/20 09/21/20 08:52 08:53 08:55 Temperature Pulse Rate Respiratory Rate Blood Pressure 215/69 177/75 181/65 O2 Sat by Pulse Oximetry 09/21/20 09/21/20 09/21/20 08:56 10:35 10:40 Temperature 98.1 F Pulse Rate 79 78 Respiratory 20 Rate Blood Pressure 211/94 198/81 198/81 O2 Sat by Pulse 98 Oximetry - Lab 09/20/20 05:43 09/21/20 04:37 Most recent lab results Calcium 8.4 mg/dL (8.4-10.2) 09/21/20 04:37 Urine Creatinine 40.1 mg/dL (0.1-20.0) H 09/20/20 09:08 Urine Sodium 83 mmol/L 09/20/20 09:08 Medications & Allergies - Medications Allergies/Adverse Reactions: Allergies No Known Allergies Allergy (Verified 02/19/20 14:01) Home Medications: Home Medications Medication Instructions Recorded Confirmed Last Taken Type Albuterol Sulfate [Ventolin HFA] 2 puff IH Q4H PRN #1 hfa.aer.ad 02/13/15 01/10/20 Unknown Rx Nitrofurantoin Monohyd/M-Cryst 100 mg PO BID #14 capsule 12/08/17 01/10/20 Unknown Rx [Macrobid 100 mg Capsule] Colchicine 0.6 mg PO Q2HR #10 capsule NS 11/11/19 01/10/20 Unknown Rx Ferrous Sulfate [Feosol 325 MG tab] 325 mg PO BID #60 tablet 01/13/20 Unknown Rx Multivitamin Tab [Multiple Vitamin 1 each PO QDAY #30 tablet 01/13/20 Unknown Rx TAB (Theragran)] metFORMIN [Glucophage] 500 mg PO BID #60 tablet 01/13/20 Unknown Rx Enoxaparin Sodium [Lovenox] 80 mg SQ BID #10 syringe 09/20/20 Unknown Rx Mason/Polymyx B/Dexameth Opth(Nf 2 drops OP Q6H #1 bottle 09/20/20 Unknown Rx [Maxitrol (Nf)] Ondansetron [Zofran ODT TAB] 4 mg PO Q4HR #30 tab.rapdis 09/20/20 Unknown Rx Warfarin [Coumadin] 5 mg PO QDAY #30 tablet 09/20/20 Unknown Rx traMADoL [Ultram 50 MG tab] 50 mg PO Q6HR PRN #12 tablet 09/20/20 Unknown Rx Active Medications: Generic Name Dose Route Start Last Admin Trade Name Freq PRN Reason Stop Dose Admin Acetaminophen 650 mg 09/19/20 00:33 Acetaminophen 325 Mg Tab PO Q6H PRN Pain, Mild (1-3) Amlodipine Besylate 10 mg 09/21/20 10:00 09/21/20 10:29 Amlodipine 10 Mg Tab PO 10 mg QDAY SIDNEY Administration Aspirin 325 mg 09/20/20 10:00 09/21/20 10:29 Aspirin Ec 325 Mg Tab PO 325 mg QDAY SIDNEY Administration Dextrose 0 ml 09/19/20 00:33 09/19/20 02:47 Dextrose 50% In Water (25gm) 50 Ml Syringe IV 50 ml Q30MIN PRN Administration Hypoglycemia Protocol Heparin Sodium (Porcine) 3,600 unit 09/21/20 07:21 Heparin 10,000 Units/10 Ml Vial 40 unit/kg (3600 unit) IV Q6H PRN Anti-Xa Assay < 0.1 units/ml Hydralazine HCl 10 mg 09/21/20 07:09 09/21/20 10:40 Hydralazine 20 Mg/1 Ml Inj IV 10 mg Q4HR PRN Administration Hypertension Heparin Sodium/Sodium Chloride 25,000 unit in 500 mls @ 24 mls/hr 09/18/20 23:45 09/20/20 01:58 Heparin/ 0.45% Nacl-25,000 Unit/500 Ml IV 1,200 units/hr TITR SIDNEY 24 mls/hr Administration Protocol 1,200 UNITS/HR Sodium Chloride 1,000 mls @ 75 mls/hr 09/19/20 00:45 09/19/20 18:30 Nacl 0.9% 1000 Ml IV 75 mls/hr DIRECT SIDNEY Administration Insulin Human Lispro 0 unit 09/19/20 07:30 09/21/20 07:55 Insulin Lispro 100 Unit/Ml SUB-Q Not Given ACHS [facility] Protocol Magnesium Hydroxide 30 ml 09/19/20 00:33 Magnesium Hydroxide (Mom) Oral Liqd Udc PO Q4H PRN Constipation Morphine Sulfate 2 mg 09/19/20 00:33 09/20/20 21:35 Morphine 2 Mg/1 Ml Inj IV 2 mg Q4H PRN Administration Pain, Moderate (4-6) Morphine Sulfate 4 mg 09/19/20 00:33 09/20/20 01:42 Morphine 4 Mg/1 Ml Inj IV 4 mg Q4H PRN Administration Pain , Severe (7-10) Morphine Sulfate 2 mg 09/19/20 00:33 Morphine 2 Mg/1 Ml Inj IV Q5MIN PRN Chest Pain Nitroglycerin 0.4 mg 09/19/20 00:33 Nitroglycerin 0.4 Mg Tab Subl SL Q5M PRN Chest Pain Ondansetron HCl 4 mg 09/19/20 00:33 09/19/20 03:22 Ondansetron 4 Mg/2 Ml Inj IV 4 mg Q8H PRN Administration Nausea And Vomiting Sodium Chloride 10 ml 09/19/20 10:00 09/20/20 21:33 Sodium Chloride 0.9% 10 Ml Flush Syringe IV 10 ml BID SIDNEY Administration Sodium Chloride 10 ml 09/19/20 00:33 09/19/20 03:22 Sodium Chloride 0.9% 10 Ml Flush Syringe IV 10 ml PRN PRN Administration LINE FLUSH Tramadol HCl 50 mg 09/19/20 00:33 09/21/20 10:29 Tramadol 50 Mg Tab PO 50 mg Q6H PRN Administration Pain, Moderate (4-6) Warfarin Sodium 5 mg 09/21/20 17:00 Warfarin 5 Mg Tab PO DAILY@1700 SIDNEY
--- NOTE | 2020-09-21 13:15 | Progress Note ---
Assessment and Plan Assessment and plan: 45-year-old female with known history of diabetes mellitus, CVA in the past, asthma, and hypertension presents to the emergency room today with multiple complaints which includes headache left-sided neck pain left shoulder pain, chest pain, nausea and vomiting. Symptoms were said to have started about 3 days ago and was said to have been getting worse. Chest pain is about 10/10 in severity. Pain gets better upon resting and gets worse on exertion. She has had some chills at home but denies any fever, denies any shortness of breath, denies any dizziness and no diaphoresis. She denies any sick contacts and no recent travel, denies any contact with anyone with COVID-19. Patient is admits that she has not had a COVID-19 vaccination. She has been bedbound since she had the stroke in January 2020. She had residual left-sided weakness. Patient also indicates that she has not been able to move her right lower extremity secondary to thrombosis in the leg. She is supposed to be on anticoagulation but indicates that she ran out of medication several months ago. Work-up in the emergency room today, labs reveals elevated troponin of 0.041, elevated BUN and creatinine 45 and 2.5 respectively. Chest x-ray, x-ray of the shoulder, CT scan of the head were all within normal limits. Patient has been admitted with chest pain, elevated troponin and acute renal failure. 09/20: Stress test planned for tomorrow, Continue supportive care, patient restarted on anticoagulation. The patient elevated trop is lieky secondary to Renal failure. she has been put incontact with the case management for social supportive care. 09/21: Patient seen and examined, BP stignificanly elevated, Renal abnormality still persistent, Elevated Troponin likely due to renal failure. Stress test was negative. Patient started on Hydralazine. If BP improved, can be discharged tomorrow. I have also reached out to the vascular surgeon to re-evaluate the paitent I restarted patients Coumadin, her right lower ext is warm, no clear evidence of ischemic limb. She stated that since her stroke she has not ambulate. (1) Type 2 NSTEMI Current Visit: Yes Status: Acute Plan to address problem: Patient admitted and placed on telemetry We will check serial cardiac enzymes. Patient placed on aspirin, sublingual nitroglycerin and IV morphine as needed for chest pain. She has also been started on heparin drip. We will request evaluation by cardiology. (2) Atypical chest pain secondary to costochondritis Current Visit: Yes Status: Acute Plan to address problem: We will trend cardiac enzymes. We will await further evaluation by cardiology. (3) NAPOLEON secondary to ATN Current Visit: Yes Status: Acute Qualifiers: Renal failure chronicity: acute Acute renal failure type: unspecified Qualified Code(s): N17.9 - Acute kidney failure, unspecified Plan to address problem: Patient will be given some IV fluid. Will monitor BUN and creatinine. Consult placed to nephrology for evaluation and recommendation. (4) Diabetes mellitus Current Visit: No Status: Acute Plan to address problem: We will monitor Accu-Cheks closely. Patient placed on sliding scale insulin. (5) Anemia Current Visit: Yes Status: Acute Qualifiers: Anemia type: unspecified type Qualified Code(s): D64.9 - Anemia, unspecified Plan to address problem: This appears chronic. Will monitor CBC. (6) Bedbound secondry to Right lower ext parsis (7) Hypertensive urgency (8) DVT prophylaxis Current Visit: No Status: Acute Plan to address problem: Patient currently on anticoagulation. (9) Full code status Current Visit: No Status: Acute Plan to address problem: Patient is full code. History Interval history: Patient seen and examined, resting comfortable, s/p stress test. Hospitalist Physical - Physical exam Narrative exam: General appearance: Present: no acute distress, well-nourished - EENT Eyes: Present: PERRL, EOM intact. Absent: scleral icterus ENT: hearing intact, clear oral mucosa, dentition normal - Neck Neck: Present: supple, normal ROM - Respiratory Respiratory effort: normal Respiratory: bilateral: CTA - Cardiovascular Rhythm: regular Heart Sounds: Present: S1 & S2. Absent: gallop, systolic murmur, diastolic murmur, rub, click - Extremities Extremities: no ischemia, pulses intact, pulses symmetrical, No edema, normal temperature, normal color, Full ROM Extremity abnormal: other (Amputation of right second toe.) Peripheral Pulses: within normal limits - Abdominal General gastrointestinal: Present: soft, non-tender, non-distended, normal bowel sounds. Absent: mass - Integumentary Integumentary: Present: clear, warm, dry. Absent: rash - Musculoskeletal Musculoskeletal: strength equal bilaterally - Psychiatric Psychiatric: appropriate mood/affect, intact judgment & insight, memory intact, cooperative - Neurologic Neurologic: CNII-XII intact, moves all extremities, other (Left sided weakness.) - Constitutional Vitals: Temp Pulse Resp BP Pulse Ox 98.5 F 85 18 171/64 96 09/21/20 11:53 09/21/20 11:53 09/21/20 11:53 09/21/20 11:53 09/21/20 12:00 General appearance: Present: no acute distress HEART Score - HEART Score EKG: Non-specific Age: < 45 Risk factors: > 3 risk factors or hx of atherosclerotic disease Troponin: Troponin T 0.045 ng/mL (0.00-0.029) H 09/19/20 07:09 Troponin: 1-3x normal limit Results - Labs CBC & Chem 7: 09/20/20 05:43 09/21/20 04:37 Labs: Laboratory Last Values WBC 7.6 K/mm3 (4.5-11.0) 09/20/20 05:43 RBC 2.73 M/mm3 (3.65-5.03) L 09/20/20 05:43 Hgb 7.6 gm/dl (10.1-14.3) L 09/20/20 05:43 Hct 23.0 % (30.3-42.9) L 09/20/20 05:43 MCV 84 fl (79-97) 09/20/20 05:43 MCH 28 pg (28-32) 09/20/20 05:43 MCHC 33 % (30-34) 09/20/20 05:43 RDW 14.4 % (13.2-15.2) 09/20/20 05:43 Plt Count 374 K/mm3 (140-440) 09/20/20 05:43 Lymph % (Auto) 28.6 % (13.4-35.0) 09/20/20 05:43 [place] % (Auto) 7.1 % (0.0-7.3) 09/20/20 05:43 Eos % (Auto) 2.0 % (0.0-4.3) 09/20/20 05:43 Baso % (Auto) 0.7 % (0.0-1.8) 09/20/20 05:43 Lymph # (Auto) 2.2 K/mm3 (1.2-5.4) 09/20/20 05:43 [place] # (Auto) 0.5 K/mm3 (0.0-0.8) 09/20/20 05:43 Eos # (Auto) 0.2 K/mm3 (0.0-0.4) 09/20/20 05:43 Baso # (Auto) 0.1 K/mm3 (0.0-0.1) 09/20/20 05:43 Seg Neutrophils % 61.6 % (40.0-70.0) 09/20/20 05:43 Seg Neutrophils # 4.7 K/mm3 (1.8-7.7) 09/20/20 05:43 PT 14.3 Sec. (12.2-14.9) 09/21/20 04:37 INR 1.06 (0.87-1.13) 09/21/20 04:37 APTT 27.5 Sec. (24.2-36.6) 09/18/20 20:35 Heparin Anti-Xa Level 0.38 U.I./ml (0.3-0.7) 09/20/20 05:43 Sodium 137 mmol/L (137-145) 09/21/20 04:37 Potassium 4.4 mmol/L (3.6-5.0) 09/21/20 04:37 Chloride 104.9 mmol/L (98-107) 09/21/20 04:37 Carbon Dioxide 24 mmol/L (22-30) 09/21/20 04:37 Anion Gap 13 mmol/L 09/21/20 04:37 BUN 35 mg/dL (7-17) H 09/21/20 04:37 Creatinine 2.3 mg/dL (0.6-1.2) H 09/21/20 04:37 Estimated GFR 23 ml/min 09/21/20 04:37 BUN/Creatinine Ratio 15 % 09/21/20 04:37 Glucose 73 mg/dL (65-100) 09/21/20 04:37 POC Glucose 130 mg/dL (70-105) H 09/21/20 11:52 Calcium 8.4 mg/dL (8.4-10.2) 09/21/20 04:37 Total Bilirubin < 0.20 mg/dL (0.1-1.2) 09/18/20 20:35 AST 9 units/L (5-40) 09/18/20 20:35 ALT 7 units/L (7-56) 09/18/20 20:35 Alkaline Phosphatase 167 units/L (35-129) H 09/18/20 20:35 Troponin T 0.045 ng/mL (0.00-0.029) H 09/19/20 07:09 Total Protein 5.8 g/dL (6.3-8.2) L 09/18/20 20:35 Albumin 2.0 g/dL (3.9-5) L 09/18/20 20:35 Albumin/Globulin Ratio 0.5 % 09/18/20 20:35 Triglycerides 89 mg/dL (2-149) 09/18/20 20:35 Cholesterol 188 mg/dL (50-199) 09/18/20 20:35 LDL Cholesterol Direct 118 mg/dL (50-130) 09/18/20 20:35 HDL Cholesterol 74 mg/dL (40-59) H 09/18/20 20:35 Cholesterol/HDL Ratio 2.54 % 09/18/20 20:35 Lipase 32 units/L (13-60) 09/18/20 20:58 HCG, Qual Negative (Negative) 09/18/20 20:35 Urine Color Straw (Yellow) 09/20/20 09:08 Urine Turbidity Clear (Clear) 09/20/20 09:08 Urine pH 6.0 (5.0-7.0) 09/20/20 09:08 Ur Specific [place] 1.011 (1.003-1.030) 09/20/20 09:08 Urine Protein >500 mg/dL (Negative) 09/20/20 09:08 Urine Glucose (UA) 150 mg/dL (Negative) 09/20/20 09:08 Urine Ketones Neg mg/dL (Negative) 09/20/20 09:08 Urine Blood Neg (Negative) 09/20/20 09:08 Urine Nitrite Neg (Negative) 09/20/20 09:08 Urine Bilirubin Neg (Negative) 09/20/20 09:08 Urine Urobilinogen < 2.0 mg/dL (<2.0) 09/20/20 09:08 Ur Leukocyte Esterase Neg (Negative) 09/20/20 09:08 Urine WBC (Auto) 1.0 /HPF (0.0-6.0) 09/20/20 09:08 Urine RBC (Auto) 1.0 /HPF (0.0-6.0) 09/20/20 09:08 U Epithel Cells (Auto) < 1.0 /HPF (0-13.0) 09/20/20 09:08 Urine Mucus Few /HPF 09/20/20 09:08 Urine Eosinophils None seen (None Seen) 09/19/20 09:08 Urine Creatinine 40.1 mg/dL (0.1-20.0) H 09/20/20 09:08 Urine Sodium 83 mmol/L 09/20/20 09:08 Fraction Sodium Excret 3.0 09/20/20 09:08 [place]/IV: Voiding Method External Female Catheter Active Medications - Current Medications Current Medications: Generic Name Dose Route Start Last Admin Trade Name Freq PRN Reason Stop Dose Admin Acetaminophen 650 mg 09/19/20 00:33 Acetaminophen 325 Mg Tab PO Q6H PRN Pain, Mild (1-3) Amlodipine Besylate 10 mg 09/21/20 10:00 09/21/20 10:29 Amlodipine 10 Mg Tab PO 10 mg QDAY SIDNEY Administration Aspirin 325 mg 09/20/20 10:00 09/21/20 10:29 Aspirin Ec 325 Mg Tab PO 325 mg QDAY SIDNEY Administration Dextrose 0 ml 09/19/20 00:33 09/19/20 02:47 Dextrose 50% In Water (25gm) 50 Ml Syringe IV 50 ml Q30MIN PRN Administration Hypoglycemia Protocol Heparin Sodium (Porcine) 3,600 unit 09/21/20 07:21 Heparin 10,000 Units/10 Ml Vial 40 unit/kg (3600 unit) IV Q6H PRN Anti-Xa Assay < 0.1 units/ml Hydralazine HCl 10 mg 09/21/20 07:09 09/21/20 10:40 Hydralazine 20 Mg/1 Ml Inj IV 10 mg Q4HR PRN Administration Hypertension Hydralazine HCl 50 mg 09/21/20 14:00 Hydralazine 25 Mg Tab PO Q8HR SIDNEY Heparin Sodium/Sodium Chloride 25,000 unit in 500 mls @ 24 mls/hr 09/18/20 23:45 09/20/20 01:58 Heparin/ 0.45% Nacl-25,000 Unit/500 Ml IV 1,200 units/hr TITR SIDNEY 24 mls/hr Administration Protocol 1,200 UNITS/HR Sodium Chloride 1,000 mls @ 75 mls/hr 09/19/20 00:45 09/19/20 18:30 Nacl 0.9% 1000 Ml IV 75 mls/hr DIRECT SIDNEY Administration Insulin Human Lispro 0 unit 09/19/20 07:30 09/21/20 07:55 Insulin Lispro 100 Unit/Ml SUB-Q Not Given ACHS [facility] Protocol Magnesium Hydroxide 30 ml 09/19/20 00:33 Magnesium Hydroxide (Mom) Oral Liqd Udc PO Q4H PRN Constipation Morphine Sulfate 2 mg 09/19/20 00:33 09/20/20 21:35 Morphine 2 Mg/1 Ml Inj IV 2 mg Q4H PRN Administration Pain, Moderate (4-6) Morphine Sulfate 4 mg 09/19/20 00:33 09/20/20 01:42 Morphine 4 Mg/1 Ml Inj IV 4 mg Q4H PRN Administration Pain , Severe (7-10) Morphine Sulfate 2 mg 09/19/20 00:33 Morphine 2 Mg/1 Ml Inj IV Q5MIN PRN Chest Pain Nitroglycerin 0.4 mg 09/19/20 00:33 Nitroglycerin 0.4 Mg Tab Subl SL Q5M PRN Chest Pain Ondansetron HCl 4 mg 09/19/20 00:33 09/19/20 03:22 Ondansetron 4 Mg/2 Ml Inj IV 4 mg Q8H PRN Administration Nausea And Vomiting Sodium Chloride 10 ml 09/19/20 10:00 09/20/20 21:33 Sodium Chloride 0.9% 10 Ml Flush Syringe IV 10 ml BID SIDNEY Administration Sodium Chloride 10 ml 09/19/20 00:33 09/19/20 03:22 Sodium Chloride 0.9% 10 Ml Flush Syringe IV 10 ml PRN PRN Administration LINE FLUSH Tramadol HCl 50 mg 09/19/20 00:33 09/21/20 10:29 Tramadol 50 Mg Tab PO 50 mg Q6H PRN Administration Pain, Moderate (4-6) Warfarin Sodium 5 mg 09/21/20 17:00 Warfarin 5 Mg Tab PO DAILY@1700 [facility] Nutrition/Malnutrition Assess - Dietary Evaluation Nutrition/Malnutrition Findings: Nutrition Notes Start: 09/19/20 13:50 Freq: Status: Active Protocol: Document 09/19/20 13:51 CW (Rec: 09/19/20 13:55 CW [id number]) Nutrition Notes Need for Assessment generated from: MD Order,Education Initial or Follow up Brief Note Current Diagnosis Acute Kidney Injury,Diabetes Other Pertinent Diagnosis NSTEMI, Labs/Tests K 6.5 BUN 46 Cr 2.6 BG 200 Pertinent Medications Zofran humalog NS at 75 ml/hr D50 Kionex Height 5 ft 4 in Weight 87.5 kg [place] Body Weight (kg) 54.54 BMI 33.0 Weight Status Obese Subjective/Other Information MD consult for education. Pt primarily speaks american btu states that she speaks a little be of Faroese. Pt provided with basic heart healthy diet education in korean and then provided handouts in american. Pt reports understanding and plans to read handouts. Pt reports having no questions at this time. Nutrition Intervention Change Diet Order: CHange diet to cardiac Consistent Carbohydrate diet Teaching Recipient Patient Learning Readiness Good Teaching Methods Discussion,Handout Response to Teaching Verbalize understanding Education Handouts Provided Heart healthy Nutrition therapy Barriers to Learning Language RD phone number provided Yes Patient aware of follow up options Yes Actions To Overcome Barriers Other Anticipated Discharge Needs: cardiac Consistent Carbohydrate diet Revisit per MD consult or patient Sign Off request: Additional Comments Education provided
[2020-09-21 13:43] VITALS: BP 171/64
--- NOTE | 2020-09-21 13:56 | Discharge Summary ---
Providers - Providers Date of Admission: 09/21/20 11:35 Attending physician: ALBINO BROWN MD 09/19/20 Consult to Cardiac Rehabilitation [CONS] Routine Reason For Exam: Phase I 09/19/20 00:35 Consult to Cardiology [CONS] Routine Consulting Provider: KODAK HARMON Reason For Exam: Chest Pain, Elevated troponin Consult to Dietitian/Nutrition [CONS] Routine Physician Instructions: Reason For Exam: Reason for Consult: Diet education 09/19/20 00:45 Consult to Physician [CONS] Routine Comment: Consulting Provider: ALBINO IGLESIAS Physician Instructions: Reason For Exam: pad. leg pain 09/19/20 02:09 Consult to Physician [CONS] Routine Comment: Consulting Provider: STACY NUÑEZ Physician Instructions: Reason For Exam: Renal Failure [facility] Reason for admission: atypical chest pain Condition: Stable Hospital course: 45-year-old female with known history of diabetes mellitus, CVA in the past, asthma, and hypertension presents to the emergency room today with multiple complaints which includes headache left-sided neck pain left shoulder pain, chest pain, nausea and vomiting. Symptoms were said to have started about 3 days ago and was said to have been getting worse. Chest pain is about 10/10 in severity. Pain gets better upon resting and gets worse on exertion. She has had some chills at home but denies any fever, denies any shortness of breath, denies any dizziness and no diaphoresis. She denies any sick contacts and no recent travel, denies any contact with anyone with COVID-19. Patient is admits that she has not had a COVID-19 vaccination. She has been bedbound since she had the stroke in January 2020. She had residual left-sided weakness. Patient also indicates that she has not been able to move her right lower extremity secondary to thrombosis in the leg. She is supposed to be on anticoagulation but indicates that she ran out of medication several months ago. Work-up in the emergency room today, labs reveals elevated troponin of 0.041, elevated BUN and creatinine 45 and 2.5 respectively. Chest x-ray, x-ray of the shoulder, CT scan of the head were all within normal limits. Patient has been admitted with chest pain, elevated troponin and acute renal failure. 09/20: Stress test planned for tomorrow, Continue supportive care, patient restarted on anticoagulation. The patient elevated trop is lieky secondary to Renal failure. she has been put incontact with the case management for social supportive care. 09/21: Patient seen and examined, BP stignificanly elevated, Renal abnormality still persistent, Elevated Troponin likely due to renal failure. Stress test was negative. Patient started on Hydralazine. If BP improved, can be discharged tomorrow. I have also reached out to the vascular surgeon to re-evaluate the luisa I restarted patients Coumadin, her right lower ext is warm, no clear evidence of ischemic limb. She stated that since her stroke she has not ambulate. 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 Patient placed on aspirin, sublingual nitroglycerin and IV morphine as needed for chest pain. She has also been started on heparin drip. We will request evaluation by cardiology. (2) Atypical chest pain secondary to costochondritis Current Visit: Yes Status: Acute Plan to address problem: We will trend cardiac enzymes. We will await further evaluation by cardiology. (3) [place] secondary to ATN Current Visit: Yes Status: Acute Qualifiers: Renal failure chronicity: acute Acute renal failure type: unspecified Qualified Code(s): N17.9 - Acute kidney failure, unspecified Plan to address problem: Patient will be given some IV fluid. Will monitor BUN and creatinine. Consult placed to nephrology for evaluation and recommendation. (4) Diabetes mellitus Current Visit: No Status: Acute Plan to address problem: We will monitor Accu-Cheks closely. Patient placed on sliding scale insulin. (5) Anemia Current Visit: Yes Status: Acute Qualifiers: Anemia type: unspecified type Qualified Code(s): D64.9 - Anemia, unspecified Plan to address problem: This appears chronic. Will monitor CBC. (6) Bedbound secondry to Right lower ext parsis (7) Hypertensive urgency Disposition: [id number] HOME UNDER HOME HLTH Final Discharge Diagnosis (Prints w/discharge instructions): [place] WITH ATYPICAL CHEST PAIN SECONDARY TO COSTOCHONDRITIS Time spent for discharge: 35 MINS Core Measure Documentation - Palliative Care Palliative Care/ Comfort Measures: Not Applicable - Core Measures Any of the following diagnoses?: none Exam - Physical Exam Narrative exam: General appearance: Present: no acute distress, well-nourished - EENT Eyes: Present: PERRL, EOM intact. Absent: scleral icterus ENT: hearing intact, clear oral mucosa, dentition normal - Neck Neck: Present: supple, normal ROM - Respiratory Respiratory effort: normal Respiratory: bilateral: CTA - Cardiovascular Rhythm: regular Heart Sounds: Present: S1 & S2. Absent: gallop, systolic murmur, diastolic murmur, rub, click - Extremities Extremities: no ischemia, pulses intact, pulses symmetrical, No edema, normal temperature, normal color, Full ROM Extremity abnormal: other (Amputation of right second toe.) Peripheral Pulses: within normal limits - Abdominal General gastrointestinal: Present: soft, non-tender, non-distended, normal bowel sounds. Absent: mass - Integumentary Integumentary: Present: clear, warm, dry. Absent: rash - Musculoskeletal Musculoskeletal: strength equal bilaterally - Psychiatric Psychiatric: appropriate mood/affect, intact judgment & insight, memory intact, cooperative - Neurologic Neurologic: CNII-XII intact, moves all extremities, other (Left sided weakness.) - Constitutional Vitals: Temp Pulse Resp BP Pulse Ox 98.5 F 85 18 171/64 96 09/21/20 11:53 09/21/20 11:53 09/21/20 11:53 09/21/20 11:53 09/21/20 12:00 Plan Activity: advance as tolerated, fall precautions Diet: renal Special Instructions: record daily weights, record daily BP diary Follow up with: YAMINI RIDDLE MD [Staff Physician] - 3 Days BLAYNE TUCKER MD [Staff Physician] - 3 Days [facility] [Primary Care Provider] - 3-5 Days ALBINO IGLESIAS MD [Staff Physician] - 3 Days Forms: Warfarin Discharge Instruction Prescriptions: Warfarin [Coumadin] 5 mg PO QDAY #30 tablet Enoxaparin Sodium [Lovenox] 80 mg SQ BID #10 syringe Mason/Polymyx B/Dexameth Opth(Nf [Maxitrol (Nf)] 2 drops OP Q6H #1 bottle traMADoL [Ultram 50 MG tab] 50 mg PO Q6HR PRN #12 tablet PRN Reason: Pain Ondansetron [Zofran ODT TAB] 4 mg PO Q4HR #30 tab.rapdis
[2020-09-21] MEDS ORDERED: hydrALAZINE 25 MG TAB PO SCH ×2 (14:00)
--- NOTE | 2020-09-21 14:29 | Electrocardiograph Report ---
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
[2020-09-21] MEDS ORDERED: WARFARIN 5 MG TAB PO SCH (17:00)
--- NOTE | 2020-09-22 10:08 | Electrocardiograph Report ---
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
[2020-09-24 05:29] LABS: Albumin 1.4 g/dL (3.8-4.8); Gamma Globulin 0.9 g/dL (0.8-1.7)
== END 2020-09-21 16:00 | disposition home or self-care (01) | DRG 205 ==
LOC: ED 19:09 → 4A 09-19 00:33 → OBSVTOIN 09-21 11:35
PROVIDERS: ADMIT Internal Medicine Geriatric Medicine; ATTEND Internal Medicine
DX: M94.0 Chondrocostal junction syndrome [Tietze] (principal); I21.4 Non-ST elevation (NSTEMI) myocardial infarction; N17.0 Acute kidney failure with tubular necrosis; D64.9 Anemia, unspecified; R77.8 Other specified abnormalities of plasma proteins; R07.9 Chest pain, unspecified; Z86.73 Personal history of transient ischemic attack (TIA), and cerebral infarction without residual deficits; J45.909 Unspecified asthma, uncomplicated; Z86.718 Personal history of other venous thrombosis and embolism; Z98.891 History of uterine scar from previous surgery; Z79.899 Other long term (current) drug therapy; Z79.891 Long term (current) use of opiate analgesic; Z79.01 Long term (current) use of anticoagulants; Z79.4 Long term (current) use of insulin; N18.9 Chronic kidney disease, unspecified; I12.9 Hypertensive chronic kidney disease with stage 1 through stage 4 chronic kidney disease, or unspecified chronic kidney disease; Z89.421 Acquired absence of other right toe(s); E11.51 Type 2 diabetes mellitus with diabetic peripheral angiopathy without gangrene; E11.22 Type 2 diabetes mellitus with diabetic chronic kidney disease
CPT/HCPCS: 36415; 70450; 71045; 76770; 78452; 80048; 80053; 80061; 81001; 82570; 82962; 83690; 84132; 84165; 84300; 84484; 84703; 85025; 85520; 85610; 85730; 86225; 89050; 93005; 93017; 93306; 93970; G0378; A9502; J0360; J1170; J1644; J1815; J2270; J2405; J2785; J7030